=== PATIENT | female | born 1935 | race Caucasian/White ===

== ENCOUNTER 2016-04-09 10:27 | Inpatient (IN) | payer OTHER ==
[~2016-04-09] VITALS: Ht 157.5 cm; Wt 46.0 kg
[~2016-04-09 10:27] MED LIST: ALBU8.5H3 INH; ASPI-664 PO; ATOR10TA65 PO; CITA10TA84 PO; DOCU250C68 PO; ESOM40CA PO; FURO20TA3 PO; IBUP-1542 PO; LOSA50TA6 PO; METO50TA16 PO; ONDA4TAB14 PO; ZOLP5TAB6 PO
[2016-04-09] MEDS ORDERED: KETOROLAC 30 MG INJ IV STA (10:31)
[2016-04-09] MEDS ORDERED: LORA0.5T PO (10:56)
[2016-04-09] MEDS ORDERED: CLON1TAB3 PO (10:57)
--- NOTE | 2016-04-09 11:42 | RADRPT ---
PROCEDURE: XR Hand. CLINICAL INDICATION: Left hand pain. Status post fall. TECHNIQUE: Three views of the left hand were obtained. COMPARISON: No prior studies are available for comparison. FINDINGS: The bones of the hand appear intact, with no evidence of fracture, dislocation, or subluxation. The joint spaces are preserved. Bone mineralization is normal. Significant focal soft tissue swelling an d edema along the dorsum of the hand along the of the distal metacarpal head region is identified. Osteoarthritic degenerative change of the first carpal-metacarpal joint at the base of the left thum b is seen, mild in degree. IMPRESSION: 1. Diffuse bony demineralization. 2. 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 3. No fracture or dislocation or acute traumatic injury is identified. 4. Soft tissue swelling along the posterior dorsum of the hand. RPTAT: HMJB .Loi Ssoa MD, MD Date Time Electronically viewed and signed by .Loi Sosa MD, on 04/09/2016 11:42 .B/
--- NOTE | 2016-04-09 12:04 | RADRPT ---
PROCEDURE: CT Brain without contrast. CLINICAL INDICATION: trauma TECHNIQUE: Axial imaging was obtained of the head without intravenous contrast administration using a multi-slice CT scanner. Standard CT scan of the head without contrast protocols were performed.. The CTDIvol is 44.03 mGy and the DLP is 630.2 mGycm. COMPARISON: MRI of the brain 05/19/[address] angiogram of the head 05/19/2014. FINDINGS: The ventricular system and peripheral CSF spaces are proportionate prominent consistent with moderat e generalized cerebral atrophy. There is moderate periventricular deep white matter changes are non specific and consistent with chronic microischemic disease. there is encephalomalacia involving the left frontal and parietal lobes consistent with old infarct. Negative for intracranial masses hemo rrhages or midline shift. The bones of the calvarium are intact.The paranasal sinuses and mastoids a re unremarkable. IMPRESSION: 1. 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 2. Moderate nonspecific chronic microischemic changes and generalized cerebral atrophy. 3. Negative for intracranial masses hemorrhages or midline shift. RPTAT:AAJJ Physician Geovani Date Time Electronically viewed and signed by Physician Geovani on 04/09/2016 12:04 /
--- NOTE | 2016-04-09 12:06 | RADRPT ---
PROCEDURE: XR Hip. CLINICAL INDICATION: Trauma and pain TECHNIQUE: AP and frog lateral views of the right hip were performed. COMPARISON: None. FINDINGS: There is a comminuted right intertrochanteric fracture with varus deformity. There are no other fra ctures. No dislocation. The bones are osteopenic without focal bony blastic or lytic lesions. Dys trophic calcification involving the right gluteal region. The soft tissues are otherwise unremarkab le. IMPRESSION: Acute right intertrochanteric fracture with varus deformity as above. RPTAT:AAJJ Physician Geovani Date Time Electronically viewed and signed by Physician Geovani on 04/09/2016 12:05 /
--- NOTE | 2016-04-09 12:08 | RADRPT ---
PROCEDURE: Pelvis x-ray CLINICAL INDICATION: Trauma and pain TECHNIQUE: Single AP view of the pelvis performed. COMPARISON: None FINDINGS: There is a comminuted right intertrochanteric fracture with varus deformity better demonstrated on t he right hip series done the same day. The bones are osteopenic. Note there are questionable fractu res involving the right superior and inferior pubic rami. A complete pelvic series or CT scan of th e pelvis may be helpful for further evaluation. There are no other fractures. No dislocations. Dy strophic calcifications involving soft tissues of the right gluteal region. IMPRESSION: 1. Right intertrochanteric fracture with varus deformity better demonstrated on the right hip serie s. 2. Questionable fractures involving the right superior and inferior pubic rami. A complete pelvic series or CT scan of the pelvis may be helpful for further evaluation. 3. Severe osteopenia. RPTAT:AAJJ Physician Geovani Date Time Electronically viewed and signed by Physician Geovani on 04/09/2016 12:08 BM/
--- NOTE | 2016-04-09 12:12 | RADRPT ---
PROCEDURE: XR Chest. CLINICAL INDICATION: Syncope. History of trauma. TECHNIQUE: Single portable view of the chest was obtained COMPARISON: Chest 08/12/2015 FINDINGS: Correlation made to the previous chest 08/12/2015 allowing for differences in technique there is no significant change. The heart is mildly enlarged. There is no new spine mass congestion acute lung consolidation pleural effusion and pneumothorax. 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 The bones are osteopenic. There is atherosclerosis of thoracic aorta. IMPRESSION: 1. No significant change. 2. Mild cardiomegaly without evidence congestive heart failure, pneumonia or pneumothorax. RPTAT:AAJJ Physician Geovani Date Time Electronically viewed and signed by Yudy Dave Physician on 04/09/2016 12:12 /
[2016-04-09 12:16] LABS: BASOPHILS % 0.3 % (0.0-2.0); EOSINOPHILS # 0.1 10^3/ul (0.0-0.5); EOSINOPHILS % 0.6 % (0.0-7.0); HEMOGLOBIN 12.2 g/dl (12.0-16.0); LYMPHOCYTES # 1.3 10^3/ul (0.8-2.9); MEAN CORPUSCULAR HEMOGLOBIN 29.1 pg (29.0-33.0); MEAN CORPUSCULAR VOLUME 88.4 fl (82.0-101.0); MEAN PLATELET VOLUME 9.7 fl (7.4-10.4); MONOCYTE # 0.3 10^3/ul (0.3-0.9); MONOCYTES % 2.4 % (0.0-11.0); NEUTROPHIL # 9.9 10^3/ul (1.6-7.5); NEUTROPHILS % 85.7 % (39.0-77.0); PLATELET COUNT 123 10^3/UL (140-440); RED BLOOD COUNT 4.19 10^6/ul (4.20-5.40); RED CELL DISTRIBUTION WIDTH 14.7 % (11.5-14.5); UNCORRECTED WBC 11.5 10^3/ul (4.8-10.8); WHITE BLOOD COUNT 11.5 10^3/ul (4.8-10.8)
[2016-04-09 12:20] LABS: CONDITION 1; LH ANALYZER COMMENTS 1
[2016-04-09 12:36] LABS: INR 1.04; PROTIME 13.6 Sec (12.2-14.2); PT RATIO 1.1
[2016-04-09 12:37] LABS: PARTIAL THROMBOPLASTIN TIME 30.2 Sec (25.0-35.0)
[2016-04-09 12:40] LABS: CHLORIDE 100 mmol/L (97-110); POTASSIUM 4.2 mmol/L (3.5-5.1); SODIUM 143 mmol/L (135-144)
[2016-04-09 12:42] LABS: CREATININE 1.27 mg/dl (0.44-1.00)
[2016-04-09 12:43] LABS: ANION GAP 15 (8-16); BLOOD UREA NITROGEN 32 mg/dl (7-20); CARBON DIOXIDE 32 mmol/L (21-31); GLUCOSE 124 mg/dl (70-220)
--- NOTE | 2016-04-09 12:46 | ERA ---
ER Documentation Chief Complaint Date/Time DATE: 04/09/16 TIME: 1030 Chief Complaint BIB RA FOR GLF C/O RT HIP PAIN. HPI 80-year-old female presents to the emergency department by ambulance after a mechanical fall. Patient reports no syncope lightheadedness or loss of consciousness. She fell just prior to arrival and since then has been having severe right hip pain. Patient has been unable to bear weight on the hip. She currently reports the pain is a 7 out of 10. She has no other traumatic complaints at this time. ROS All systems reviewed and are negative except as per history of present illness. Medications Home Meds Reported Medications Clonazepam* (Clonazepam*) 1 Mg Tablet, 1 MG PO QHS Y for SLEEP, TAB 04/09/16 Lorazepam* (Lorazepam*) 0.5 Mg Tablet, 0.5 MG PO BID Y for ANXIETY, TAB 04/09/16 Atorvastatin Calcium (Atorvastatin Calcium) 10 Mg Tablet, 10 MG PO QHS, #30 TAB 02/14/16 Losartan Potassium* (Losartan Potassium*) 50 Mg Tablet, 50 MG PO DAILY, TAB 02/14/16 Metoprolol Succinate* (Toprol XL*) 50 Mg Tab.er.24h, 50 MG PO DAILY, #30 TAB 02/14/16 Furosemide* (Furosemide*) 20 Mg Tablet, 20 MG PO DAILY, #60 TAB 08/09/15 Citalopram Hydrobromide* (Citalopram Hydrobromide*) 10 Mg Tablet, 10 MG PO DAILY , TAB 04/05/14 Ibuprofen* (Ibuprofen*) 600 Mg Tablet, 600 MG PO Q8, TAB 04/05/14 Discontinued Reported Medications Aspirin (Low Dose Aspirin) 81 Mg Tablet.dr, 81 MG PO DAILY, #30 TAB 02/14/16 Zolpidem Tartrate* (Zolpidem Tartrate*) 5 Mg Tablet, 5 MG PO QHS Y for INSOMNIA , #30 TAB 02/14/16 Docusate Sodium* (Dok*) 250 Mg Capsule, 250 MG PO DAILY, #30 CAP 02/14/16 Esomeprazole Mag Trihydrate (Nexium) 40 Mg Capsule.dr, 40 MG PO DAILY, #30 CAP 02/14/16 Discontinued Scripts Ondansetron (Ondansetron Odt) 4 Mg Tab.rapdis, 4 MG PO Q6H Y for NAUSEA AND/OR VOMITING, #30 TAB Prov:DWAIN ROSALES MD 02/14/16 Ibuprofen* (Motrin*) 600 Mg Tab, 600 MG PO Q6H Y for PAIN AND OR ELEVATED TEMP, #30 TAB Prov:DWAIN ROSALES MD 02/14/16 Albuterol Sulfate* (Proair HFA*) 8.5 Gm Hfa.aer.ad, 2 PUFF INH Q4, #1 INHALER Prov:CANDY HUMPHREY MD 07/31/15 Allergies Allergies: Coded Allergies: Penicillins (Verified Allergy, Severe, RASHES, 04/09/16) morphine (Verified Allergy, Severe, RASHES,CONFUSED, 04/09/16) PMhx/Soc History of Surgery: Yes (pt stated gynecological surgery but unable to specify) Anesthesia Reaction: No Hx Neurological Disorder: No Hx Respiratory Disorders: Yes (ASTHMA, COPD) Hx Cardiac Disorders: Yes (CVA) Hx Psychiatric Problems: Yes (ANXIETY, DEPRESSION) Hx Miscellaneous Medical Probl: Yes (Htn,asthma,COPD,OA,diastolic heart failure ,hypothyroidism,carotid stenosis) Hx Alcohol Use: No Hx Substance Use: No Hx Tobacco Use: No Smoking Status: Never smoker FmHx Noncontributory for chief complaint Physical Exam Vitals Vital Signs Date Time Temp Pulse Resp B/P Pulse Ox O2 Delivery O2 Flow Rate FiO2 04/09/16 12:21 63 16 145/115 100 Room Air 04/09/16 10:33 97.8 67 18 165/75 95 Physical Exam GENERAL: Patient is a frail elderly female who is uncomfortable secondary to her hip pain HEENT: Pupils equal, round, and reactive to light. EOMI. There is no scleral icterus. No obvious trauma noted NECK: C-spine is soft and supple, there is no meningismus. There is no cervical lymphadenopathy. No obvious trauma noted LUNGS: Clear to auscultation bilaterally. There are no rales, wheezes or rhonchi. HEART: Regular rate and rhythm, no murmurs, clicks, rubs or gallops. ABDOMEN: Soft, non-tender, non-distended. There are bowel sounds in all four quadrants. No rebound or guarding. EXTREMITIES: Patient has shortening and external rotation of the right lower extremity. There is tenderness throughout the right hip. Left lower extremity is atrophic but atraumatic. The upper extremities have evidence of a contusion appreciated about the hand. No occasions of other significant trauma noted. NEURO: The patient moves all four extremities with 5/5 strength. Cranial nerves II - XII are intact. Normal gait. Alert and oriented SKIN: There is no apparent rash or petechiae. HEME/LYMPHATIC: There is no evidence of excessive bruising or lymphedema. PSYCHIATRIC: The patient does not appear anxious or depressed. Result Diagram: 04/09/16 1204 04/09/16 1204 Results 24 hrs Laboratory Tests Test 04/09/16 12:04 Activated Partial Thromboplast Time 30.2Sec Anion Gap 15 Basophils # 0.010^3/ul Basophils % 0.3% Blood Morphology Comment Blood Urea Nitrogen 32mg/dl Calcium Level 9.0mg/dl Carbon Dioxide Level 32mmol/L Chloride Level 100mmol/L Creatinine 1.27mg/dl Eosinophils # 0.110^3/ul Eosinophils % 0.6% Glucose Level 124mg/dl Hematocrit 37.0% Hemoglobin 12.2g/dl INR International Normalized Ratio 1.04 Lymphocytes # 1.310^3/ul Lymphocytes % 11.0% Mean Corpuscular Hemoglobin 29.1pg Mean Corpuscular Hemoglobin Concent 33.0g/dl Mean Corpuscular Volume 88.4fl Mean Platelet Volume 9.7fl Monocytes # 0.310^3/ul Monocytes % 2.4% Neutrophils # 9.910^3/ul Neutrophils % 85.7% Nucleated Red Blood Cells # 0.010^3/ul Nucleated Red Blood Cells % 0.0/100WBC Platelet Count 24836^3/UL Potassium Level 4.2mmol/L Prothrombin Time 13.6Sec Prothrombin Time Ratio 1.1 Red Blood Count 4.1910^6/ul Red Cell Distribution Width 14.7% Sodium Level 143mmol/L Troponin I Pending White Blood Count 11.510^3/ul Current Medications Medications (Trade) Dose Ordered Sig/Sd Route PRN Reason Start Time Stop Time Status Last Admin Dose Admin Ketorolac Tromethamine (Toradol) 30 mg ONCE STAT IV 04/09/16 10:31 04/09/16 10:33 DC 04/09/16 10:55 Procedures/MDM Patient was taken to a room, seen and evaluated. Comfort measures were initiated. Diagnostic tests were ordered and reviewed. 3 LEAD RHYTHM STRIP: Normal sinus rhythm without ectopy EK lead EKG reviewed by myself: Normal Sinus Rhythm Normal [place] and intervals No ST elevation, depression, or T wave inversion Impression: Normal EKG RADIOLOGY: reviewed with the radiologist CONSULTATION: Patient's insurance was involved with coordination of care for admission for operative management REEVALUATION: Pain has been adequately controlled and the patient is remained hemodynamically stable MEDICAL DECISION MAKING: Patient presents after a fall. From a trauma standpoint, patient has been evaluated for significant injury. Patient is evidence of an operative right hip injury that will require surgical repair. Fortunately, there is no negative other significant orthopedic thoracic or abdominal trauma From a medical standpoint, the fall seems to be related to a geriatric syndrome with multiple causes. I have reviewed medications and evaluated the patient for infection, electrolyte concerns, ischemia and other acute medical concerns. At this time, patient shows no obvious significant decompensated medical disease requiring further intervention. Patient will require admission for pain management and further treatment and likely operation. Departure Diagnosis: Primary Impression: Hip fracture Condition: JULIO CÉSAR Luciano Apr 09, 2016 12:46
[2016-04-09 12:56] LABS: TROPONIN-I < 0.010 ng/ml (0.00-0.12)
[2016-04-09 16:00] VITALS: Ht 157.5 cm; Wt 46.0 kg
[2016-04-09] MEDS ORDERED: ACETAMINOPHEN 325 MG TAB PO PRN (16:30)
[2016-04-09] MEDS ORDERED: hydrALAzine 20 MG INJ IV PRN (16:30)
[2016-04-09] MEDS ORDERED: NACL 0.9% 3 ML SYG IV SCH (16:30)
[2016-04-09] MEDS ORDERED: morphine 2 MG INJ IV PRN (16:30)
[2016-04-09] MEDS: HYDROCODONE/APAP (5/325) TAB PO PRN (17:12)
[2016-04-09] MEDS ORDERED: ALBUTEROL/IPRATROPIUM (NEB) 3 ML AMP HHN PRN (17:30)
[2016-04-09] MEDS: D5W-0.45 NACL + KCL 20 MEQ 1,000 ML IV SCH (17:38)
--- NOTE | 2016-04-09 17:43 | HP ---
DATE OF ADMISSION: 04/09/2016 CHIEF COMPLAINT: Right hip pain. HISTORY OF PRESENT ILLNESS: The patient is an 80-year-old female with history of COPD, hypertension . The patient presents with a mechanical fall and right hip pain. The patient has pain in the righ t hip. She presented to the ED, where she had a pelvic x-ray that showed a right hip fracture. Karissa dotsonsakinafranco was called in the ED. The patient did not complain of any significant pain at this time. She denies any loss of consciousness before or after the fall. The patient typically ambulates with a front-wheel walker. PAST MEDICAL HISTORY: Hypertension, COPD as well as a hospitalization in 07/2015 for COPD exacerbat ion and alpha hemolytic strep septicemia. PAST SURGICAL HISTORY: Hysterectomy and eye surgery. HOME MEDICATIONS: 1. Clonazepam. 2. Lorazepam. 3. Atorvastatin. 4. Losartan. 5. Metoprolol. 6. Furosemide. 7. Citalopram. 8. Ibuprofen. ALLERGIES: 1. PENICILLIN. 2. MORPHINE. FAMILY HISTORY: Noncontributory. SOCIAL HISTORY: Denies any alcohol, tobacco or drugs. She lives with her daughter. REVIEW OF SYSTEMS: A 12-point review of systems is negative except for that discussed in HPI. PHYSICAL EXAMINATION: VITAL SIGNS: Temperature is 97.8, pulse 68, respiratory rate 16, blood pressure 143/57, saturation 100% on room air. GENERAL: No acute distress, alert and oriented. HEENT: Normocephalic, atraumatic. LUNGS: Clear to auscultation. CARDIOVASCULAR: Regular rate and rhythm. ABDOMEN: Nondistended, nontender and soft. EXTREMITIES: No clubbing, cyanosis or edema. LABORATORY DATA: White count 11.5, hemoglobin is 12.2, platelets are 123. Chemistry within normal limits except for carbon dioxide 32, BUN of 32, creatinine of .27. Troponin is negative. INR is 1.04. DIAGNOSTICS: Pelvis x-ray shows a right intertrochanteric fracture with varus deformity, frac tures involving the right superior and inferior pubic rami. Hip x-ray shows acute right intertrocha nteric fracture with varus deformity. Hand x-ray shows diffuse bony demineralization, mild osteoart hritic degenerative changes of the base of the left thumb. No fracture, dislocation or acute trauma tic injury. Soft tissue swelling along the posterior dorsum of the head. CT brain shows old infarc ts involving left frontal and parietal lobes in the distribution of the left MCA and left FISHER LAMPARA NET. Mode rate nonspecific chronic micro ischemic changes and generalized cerebral atrophy. Negative for intr acranial mass, hemorrhage or midline shift. Chest x-ray shows no significant change, mild cardiomeg butch without evidence of CHF, pneumonia or pneumothorax. ASSESSMENT AND PLAN 1. Right hip fracture secondary to mechanical fall. Orthopedics has been consulted in the ER. Fol lowup with Orthopedic recommendations. We will give Toradol and morphine for pain control. 2. Hypertension. We will give hydralazine p.r.n. 3. Chronic obstructive pulmonary disease. We will give DuoNeb p.r.n. 4. Prophylaxis: Sequential compression devices. Dictated By: BERT FREED MD BS/NTS Conf#: [id number] DID#: [id number]
[2016-04-09 19:39] VITALS: BP 120/55; RESP 18
--- NOTE | 2016-04-09 20:23 | CONS ---
DATE OF ADMISSION: 04/09/2016 DATE OF CONSULTATION: 04/09/2016 CHIEF COMPLAINT: Right hip pain. HISTORY OF PRESENT ILLNESS: This is an 80-year-old female with multiple medical comorbidities who i s a community ambulator. She fell at home. She is complaining of pain in the right hip. She denie s any loss of consciousness. She has no other complaints. She denies any chest pain or shortness o f breath. PAST MEDICAL HISTORY: COPD, hypertension, hyperlipidemia. MEDICATIONS 1. Clonazepam. 2. Lorazepam. 3. Atorvastatin. 4. Losartan. 5. Metoprolol. 6. Furosemide. 7. Citalopram. 8. Ibuprofen. PAST SURGICAL HISTORY: Hysterectomy, eye surgery. FAMILY HISTORY: Noncontributory. SOCIAL HISTORY: The patient lives with her family. She ambulates with a walker. She denies alcoho l, tobacco or drug use. REVIEW OF SYSTEMS: Negative, except for HPI. VITAL SIGNS: Temperature 97.8, blood pressure 143/57, pulse of 68, respiratory rate of 16. GENERAL: The patient is resting comfortably, in no acute distress. EXTREMITIES: Right lower extremity, she has pain with axial loading. Her calf is soft, nontender w ith a negative Homans. Sensation is intact throughout the right lower extremity. She has a palpabl e dorsalis pedis pulse. X-RAYS RIGHT HIP: X-rays of the right hip demonstrate an oblique displaced intertrochanteric femur fracture. There is also a fracture of the lesser trochanter. There is degenerative joint disease m inimally of the right hip. No other fractures or dislocations are seen. IMPRESSION: An 80-year-old female who is a community ambulator fell sustaining a right oblique, dis placed, closed intertrochanteric femur fracture. PLAN: The patient will be nonweightbearing on the right lower extremity. She will have bilateral S CDs while in bed. She will receive medications for pain control. I discussed risks, benefits and a lternatives of surgical intervention. The risks of surgery include, but are not limited to, infecti on, deep venous thrombosis, pulmonary embolism, damage to neurovascular structures, malunion, nonuni on, need for revision surgery, painful hardware, risks associated with anesthesia, heart attack, str omar, need for blood transfusion and even . I also explained to the patient and her family that there is up to a 35% chance of 1 year mortality. After medical optimization, the patient will unde rgo a right hip open reduction/internal fixation. All questions were answered. Dictated By: AJAY ROSADO/FRANCOIS Conf#: [id number] DID#: [id number]
[2016-04-09] MEDS: KETOROLAC 15 MG INJ IV PRN (22:25)
[2016-04-09] MEDS: DIPHENHYDRAMINE 50 MG INJ IV PRN (23:57)
[2016-04-10] MEDS: PANTOPRAZOLE 40 MG INJ IV SCH (05:14)
[2016-04-10] MEDS: D5W-0.45 NACL + KCL 20 MEQ 1,000 ML IV SCH ×2 (05:15→16:11)
[2016-04-10 05:28] LABS: BASOPHILS % 0.3 % (0.0-2.0); EOSINOPHILS # 0.2 10^3/ul (0.0-0.5); EOSINOPHILS % 2.2 % (0.0-7.0); HEMATOCRIT 28.2 % (37.0-47.0); HEMOGLOBIN 9.5 g/dl (12.0-16.0); LYMPHOCYTES # 1.6 10^3/ul (0.8-2.9); LYMPHOCYTES % 20.9 % (15.0-51.0); MEAN CORPUSCULAR HEMOGLOBIN 29.7 pg (29.0-33.0); MEAN CORPUSCULAR HGB CONC 33.5 g/dl (32.0-37.0); MEAN CORPUSCULAR VOLUME 88.5 fl (82.0-101.0); MEAN PLATELET VOLUME 10.2 fl (7.4-10.4); MONOCYTE # 0.3 10^3/ul (0.3-0.9); MONOCYTES % 4.3 % (0.0-11.0); NEUTROPHIL # 5.4 10^3/ul (1.6-7.5); NEUTROPHILS % 72.3 % (39.0-77.0); PLATELET COUNT 95 10^3/UL (140-440); RED BLOOD COUNT 3.19 10^6/ul (4.20-5.40); RED CELL DISTRIBUTION WIDTH 14.6 % (11.5-14.5); UNCORRECTED WBC 7.5 10^3/ul (4.8-10.8); WHITE BLOOD COUNT 7.5 10^3/ul (4.8-10.8)
[2016-04-10 05:57] LABS: CONDITION 1; LH ANALYZER COMMENTS 1
[2016-04-10 06:01] LABS: CREATININE 1.72 mg/dl (0.44-1.00)
[2016-04-10 06:03] LABS: CHOL/HDL RATIO 2.9 RATIO
[2016-04-10 07:46] VITALS: BP 133/58; RESP 20
[2016-04-10] MEDS: KETOROLAC 15 MG INJ IV PRN ×3 (10:38→22:24)
--- NOTE | 2016-04-10 16:38 | PN ---
Date/Time of Note Date/Time of Note DATE: 04/10/16 TIME: 16:29 Assessment/Plan VTE Prophylaxis VTE Prophylaxis Intervention: SCD's Lines/Catheters IV Catheter Type (from Nrsg): Peripheral IV Assessment/Plan Chief Complaint/Hosp Course 1. Right hip fracture secondary to mechanical fall -Orthopedics consult appreciated, cont Toradol and morphine for pain control -Echo for pre-op clearance 2. Hypertension -Hydralazine p.r.n. 3. Chronic obstructive pulmonary disease -DuoNeb p.r.n. 4. Prophylaxis: Sequential compression devices. Problems: Subjective 24 Hr Interval Summary Constitutional: no complaints Exam/Review of Systems Vital Signs Vitals Vital Signs Date Time Temp Pulse Resp B/P Pulse Ox O2 Delivery O2 Flow Rate FiO2 04/10/16 07:46 98.5 72 20 133/58 97 04/09/16 14:29 Nasal Cannula 3.0 Intake and Output 04/09/16 04/09/16 04/10/16 15:00 23:00 07:00 Intake Total 400 ml 1200 ml Output Total 160 ml Balance 400 ml 1040 ml Exam Constitutional: alert Respiratory: clear to auscultation Cardiovascular: regular rate and rhythm Gastrointestinal: soft, No distended Musculoskeletal: nl extremities to inspection Results Result Diagram: 04/10/16 0445 04/10/16 0414 Results 24 hrs Laboratory Tests Test 04/10/16 04:14 04/10/16 04:45 Anion Gap 13 Blood Urea Nitrogen 37 H Calcium Level 8.0 L Carbon Dioxide Level 31 Chloride Level 103 Cholesterol Level 83 L Cholesterol/HDL Ratio 2.9 Creatinine 1.72 H Glucose Level 127 HDL Cholesterol 28 L LDL Cholesterol, Calculated 45 Magnesium Level 2.0 Phosphorus Level 4.0 Potassium Level 5.0 Sodium Level 142 Triglycerides Level 48 Basophils # 0.0 Basophils % 0.3 Blood Morphology Comment Eosinophils # 0.2 Eosinophils % 2.2 Hematocrit 28.2 #L Hemoglobin 9.5 #L Hemoglobin A1c 5.6 Lymphocytes # 1.6 Lymphocytes % 20.9 Mean Corpuscular Hemoglobin 29.7 Mean Corpuscular Hemoglobin Concent 33.5 Mean Corpuscular Volume 88.5 Mean Platelet Volume 10.2 Monocytes # 0.3 Monocytes % 4.3 Neutrophils # 5.4 Neutrophils % 72.3 Nucleated Red Blood Cells # 0.0 Nucleated Red Blood Cells % 0.0 Platelet Count 95 #L Red Blood Count 3.19 #L Red Cell Distribution Width 14.6 H White Blood Count 7.5 # Medications Medications Current Medications Potassium Chloride/Dextrose/ Sod Cl (D5-1/2ns + KCl 20 Meq) 1,000 ml @ 100 mls/ hr Q10H IV Last administered on 04/10/16 16:11; Admin Dose 100 MLS/HR; Start 04/09/16 at 16:23 Ondansetron HCl (Zofran Inj) 4 mg Q6H PRN IV NAUSEA AND/OR VOMITING; Start at 16:30 Acetaminophen (Tylenol Tab) 650 mg Q6H PRN PO PAIN LEVEL 1-3 OR FEVER; Start at 16:30 Acetaminophen/ Hydrocodone Bitart ([place] (5/325)) 1 tab Q6H PRN PO MODERATE PAIN LEVEL 4-6 Last administered on 04/09/16 17:12; Admin Dose 1 TAB; Start at 16:30 Morphine Sulfate (morphine) 2 mg Q3H PRN IV SEVERE PAIN LEVEL 7-10; Start 04/09 at 16:30 Docusate Sodium (Colace) 100 mg Q12H PRN PO CONSTIPATION; Start 04/09/16 at 16: 30 Pantoprazole (Protonix Iv) 40 mg DAILY@06 IV Last administered on 04/10/16 05: 14; Admin Dose 40 MG; Start 04/10/16 at 06:00 Hydralazine HCl (Apresoline) 10 mg Q4H PRN IV SBP>170; Start 04/09/16 at 16:30 Diphenhydramine HCl (Benadryl) 25 mg Q6H PRN IV ALLERGIC REACTION Last administered on 04/09/16 23:57; Admin Dose 25 MG; Start 04/09/16 at 17:00 Ketorolac Tromethamine (Toradol) 15 mg Q6H PRN IV SEVERE PAIN LEVEL 7-10 Last administered on 04/10/16 16:23; Admin Dose 15 MG; Start 04/09/16 at 17:30; Stop 04/12/16 at 17:29 BERT FREED Apr 10, 2016 16:38
[2016-04-10] MEDS: HYDROCODONE/APAP (5/325) TAB PO PRN (19:00)
[2016-04-10 20:40] VITALS: BP 143/63; RESP 20
[2016-04-11] VITALS (20 sets, daily range): BP systolic 101–152; BP diastolic 42–86; PULSE 82–106; RESP 13–31
[2016-04-11] MEDS: SOD CHLORIDE 0.9% 1,000 ML IV SCH ×3 (01:14→20:00)
[2016-04-11] MEDS: KETOROLAC 15 MG INJ IV PRN ×2 (04:27→10:31)
[2016-04-11 05:13] LABS: BASOPHILS % 0.4 % (0.0-2.0); EOSINOPHILS # 0.4 10^3/ul (0.0-0.5); EOSINOPHILS % 5.2 % (0.0-7.0); HEMATOCRIT 26.3 % (37.0-47.0); HEMOGLOBIN 8.7 g/dl (12.0-16.0); LYMPHOCYTES # 1.7 10^3/ul (0.8-2.9); LYMPHOCYTES % 20.8 % (15.0-51.0); MEAN CORPUSCULAR HEMOGLOBIN 29.6 pg (29.0-33.0); MEAN CORPUSCULAR HGB CONC 33.1 g/dl (32.0-37.0); MEAN CORPUSCULAR VOLUME 89.2 fl (82.0-101.0); MONOCYTE # 0.5 10^3/ul (0.3-0.9); MONOCYTES % 5.6 % (0.0-11.0); NEUTROPHIL # 5.7 10^3/ul (1.6-7.5); PLATELET COUNT 94 10^3/UL (140-440); RED BLOOD COUNT 2.95 10^6/ul (4.20-5.40); RED CELL DISTRIBUTION WIDTH 14.9 % (11.5-14.5); UNCORRECTED WBC 8.3 10^3/ul (4.8-10.8); WHITE BLOOD COUNT 8.3 10^3/ul (4.8-10.8)
[2016-04-11 05:17] LABS: CONDITION 1; LH ANALYZER COMMENTS 1
[2016-04-11 05:28] LABS: POTASSIUM 5.3 mmol/L (3.5-5.1)
[2016-04-11 05:31] LABS: CALCIUM 7.8 mg/dl (8.4-10.2); CREATININE 1.75 mg/dl (0.44-1.00)
[2016-04-11] MEDS: PANTOPRAZOLE 40 MG INJ IV SCH (06:10)
[2016-04-11] MEDS ORDERED: CEFAZOLIN 1 GM INJ ONE (07:00)
--- NOTE | 2016-04-11 13:53 | RADRPT ---
Echocardiogram Report Patient Name: GLENN BAUTISTA Gender: Female Date: 1935 Study Date: 11-Apr-2016 [facility] [employer] Agent: Satya Riggs [facility] Location: [id number] Ref. Physician: BERT FREED Quality: Good Procedures: Transthoracic echocardiogram with complete 2D, M-Mode, and doppler examination. Indications: Pre-op. 2D/M Mode Doppler Measurement Value Normal Ranges Measurement Value Normal Ranges LVIDd 2D 3.6 3.5 - 5.6 cm AV Peak [place] 1.4 m/sec LVIDs 2D 2.4 2.1 - 4.1 cm AV Peak PG 7.8 mmHg LVPWd 2D 0.8 0.6 - 1.1 cm LVOT Peak [place] 0.8 m/sec IVSd 2D 0.9 0.6 - 1.1 cm LVOT Peak PG 2.7 mmHg AoR Diam 2D 2.4 2.0 - 3.7 cm MV E Peak [place]son 0.6 m/sec EDV 2D 55.3 cm3 MV A Peak [place] 1.1 m/sec ESV 2D 13.6 cm3 MV E/A 0.5 LA Dimen 2D 2.8 2.3 - 4.0 cm MV Decel Time 116 msec MV Decel [place] 5 MV E/A 0.5 TR Peak [place]son 3.3 m/sec TR Peak PG 42.4 mmHg RVSP 45.0 mmHg Findings Left Ventricle: Normal left ventricular systolic function. Normal left ventricular cavity size. Normal left ventricular wall thickness. Ejection fraction is visually estimated at 60 %. Tissue Doppler/Mitral Doppler indices are consistent with impaired relaxation (Stage I diastolic dysfunction). Right Ventricle: Normal right ventricular size. Normal right ventricular systolic function. Left Atrium: The left atrium is normal in size. Right Atrium: The right atrium is normal in size. Mitral Valve: Mild mitral annular calcification. Trace mitral regurgitation. Aortic Valve: No hemodynamically significant aortic stenosis by doppler. Aortic cusps appear mildly calcified. Mild aortic valve regurgitation. Tricuspid Valve: Normal appearance of the tricuspid valve. Estimated peak PA systolic pressure 45 mmHg. There is mild tricuspid regurgitation. Pericardium: Normal pericardium with no significant pericardial effusion. Aorta: Normal aortic root. IVC: Normal size and normal respiratory collapse consistent with normal right atrial pressure. Conclusions 1.Normal left ventricular systolic function. Normal left ventricular cavity size. Normal left ventricular wall thickness. Ejection fraction is visually estimated at 60 %. Tissue Doppler/Mitral Doppler indices are consistent with impaired relaxation (Stage I diastolic dysfunction). 2.Normal right ventricular size. Normal right ventricular systolic function. 3.The left atrium is normal in size. 4.The right atrium is normal in size. 5.No hemodynamically significant aortic stenosis by doppler. Mild aortic valve regurgitation. 6. Estimated peak PA systolic pressure 45 mmHg. There is mild tricuspid regurgitation. 7.Trace mitral regurgitation. 8.Normal pericardium with no significant pericardial effusion. Electronically Signed By: William Slater 11-Apr-2016 13:52:53 -0800 Patient Name: GLENN BAUTISTA Study Date: 11-Apr-[id number]
--- NOTE | 2016-04-11 14:16 | PN ---
Date/Time of Note Date/Time of Note DATE: 04/11/16 TIME: 14:13 Assessment/Plan VTE Prophylaxis VTE Prophylaxis Intervention: SCD's Lines/Catheters IV Catheter Type (from Nrsg): Peripheral IV Assessment/Plan Chief Complaint/Hosp Course 1. Right hip fracture secondary to mechanical fall -Orthopedics consult appreciated, cont Toradol and morphine for pain control -Echo for pre-op clearance shows no sig findings, benefits of surgery and allowing pt to potentially ambulate outweigh the risks 2. Hypertension -Hydralazine p.r.n. 3. Chronic obstructive pulmonary disease -DuoNeb p.r.n. 4. Prophylaxis: Sequential compression devices. Problems: Subjective 24 Hr Interval Summary Musculoskeletal: bone/joint pain Exam/Review of Systems Vital Signs Vitals Vital Signs Date Time Temp Pulse Resp B/P Pulse Ox O2 Delivery O2 Flow Rate FiO2 04/11/16 11:46 Bag Valve Mask 2.0 04/11/16 08:02 98.7 89 18 133/72 99 Intake and Output 04/10/16 04/10/16 04/11/16 15:00 23:00 07:00 Intake Total 1460 ml 900 ml Output Total 250 ml 700 ml Balance 1210 ml 200 ml Exam Constitutional: alert, oriented Respiratory: clear to auscultation Cardiovascular: regular rate and rhythm Gastrointestinal: soft, No distended Musculoskeletal: nl extremities to inspection Results Result Diagram: 04/11/169 04/11/16 0409 Results 24 hrs Laboratory Tests Test 04/11/16 04:09 Anion Gap 11 Basophils # 0.0 Basophils % 0.4 Blood Morphology Comment Blood Urea Nitrogen 27 H Calcium Level 7.8 L Carbon Dioxide Level 27 Chloride Level 107 Creatinine 1.75 H Eosinophils # 0.4 Eosinophils % 5.2 Glucose Level 103 Hematocrit 26.3 L Hemoglobin 8.7 L Lymphocytes # 1.7 Lymphocytes % 20.8 Mean Corpuscular Hemoglobin 29.6 Mean Corpuscular Hemoglobin Concent 33.1 Mean Corpuscular Volume 89.2 Mean Platelet Volume 10.0 Monocytes # 0.5 Monocytes % 5.6 Neutrophils # 5.7 Neutrophils % 68.0 Nucleated Red Blood Cells # 0.0 Nucleated Red Blood Cells % 0.0 Platelet Count 94 L Potassium Level 5.3 H Red Blood Count 2.95 L Red Cell Distribution Width 14.9 H Sodium Level 140 White Blood Count 8.3 Medications Medications Current Medications Ondansetron HCl (Zofran Inj) 4 mg Q6H PRN IV NAUSEA AND/OR VOMITING; Start at 16:30 Acetaminophen (Tylenol Tab) 650 mg Q6H PRN PO PAIN LEVEL 1-3 OR FEVER; Start at 16:30 Acetaminophen/ Hydrocodone Bitart ([place] (5/325)) 1 tab Q6H PRN PO MODERATE PAIN LEVEL 4-6 Last administered on 04/10/16 19:00; Admin Dose 1 TAB; Start at 16:30 Morphine Sulfate (morphine) 2 mg Q3H PRN IV SEVERE PAIN LEVEL 7-10; Start 04/09 at 16:30 Docusate Sodium (Colace) 100 mg Q12H PRN PO CONSTIPATION; Start 04/09/16 at 16: 30 Pantoprazole (Protonix Iv) 40 mg DAILY@06 IV Last administered on 04/11/16 06: 10; Admin Dose 40 MG; Start 04/10/16 at 06:00 Hydralazine HCl (Apresoline) 10 mg Q4H PRN IV SBP>170; Start 04/09/16 at 16:30 Diphenhydramine HCl (Benadryl) 25 mg Q6H PRN IV ALLERGIC REACTION Last administered on 04/09/16 23:57; Admin Dose 25 MG; Start 04/09/16 at 17:00 Ketorolac Tromethamine 15 mg 15 mg Q6H PRN IV SEVERE PAIN LEVEL 7-10 Last administered on 04/11/16 10:31; Admin Dose 15 MG; Start 04/09/16 at 17:30; Stop 04/12/16 at 17:29 Sodium Chloride (NS) 1,000 ml @ 100 mls/hr Q10H IV Last administered on 10:23; Admin Dose 100 MLS/HR; Start 04/11/16 at 00:00 BERT FREED Apr 11, 2016 14:16
[2016-04-11] MEDS ORDERED: FUROSEMIDE 20 MG INJ IV ONE (15:00)
[2016-04-11] MEDS ORDERED: POLYMYXIN/BACITRACIN 1L IRRIG ONE (16:23)
[2016-04-11] MEDS ORDERED: MIDAZOLAM 1 MG/ML 2 ML INJ ONE (17:43)
[2016-04-11] MEDS ORDERED: FENTAnyl 50 MCG/ML VIAL ONE (17:43)
[2016-04-11] MEDS ORDERED: NEOSTIGMINE 3 MG/3 ML SYRINGE ONE (19:29)
[2016-04-11] MEDS ORDERED: ETOMIDATE 20 MG INJ ONE (19:29)
[2016-04-11] MEDS ORDERED: GLYCOPYRROLATE 1 MG INJ ONE (19:29)
[2016-04-11] MEDS ORDERED: ROCURONIUM 50 MG INJ ONE (19:29)
[2016-04-11] MEDS ORDERED: LIDOCAINE 2% (SDV) 5 ML INJ ONE (19:29)
[2016-04-11] MEDS ORDERED: ONDANSETRON 4 MG INJ IV PRN (19:30)
[2016-04-11] MEDS ORDERED: ONDANSETRON 4 MG INJ ONE (19:30)
[2016-04-11] MEDS ORDERED: ALBUTEROL 0.5% (NEB) 2.5 MG/0.5 ML AMP INH ONE (19:30)
[2016-04-11] MEDS ORDERED: EPHEDrine SULFATE 50 MG/5 ML SYG IV PRN (19:30)
[2016-04-11] MEDS ORDERED: DIPHENHYDRAMINE 50 MG INJ IV PRN (19:30)
[2016-04-11] MEDS ORDERED: FENTAnyl 50 MCG/ML VIAL IV PRN (19:30)
--- NOTE | 2016-04-11 20:22 | RADRPT ---
PROCEDURE: XR Right Hip CLINICAL INDICATION: Postop TECHNIQUE: 2 AP views were obtained of the right hip portably COMPARISON: 04/09/2016 FINDINGS: Osseous structures: Since the previous study, a proximal femoral male is been placed to internally f ixed the basocervical and intratrochanteric fracture involving the proximal right femur. There is i mproved alignment at the base of the femoral neck while the lesser trochanter remains avulsed and di splaced proximally. There is a fracture of uncertain chronicity involving the right inferior pubic r amus. Degenerative changes are seen within the inferior lumbar spine. Joint spaces: There is narrowing of the hip joint compatible with mild degenerative change. Soft tissues: Injection slight granulomata are seen within the right gluteal region. There is subcu taneous air along the right femur and superficial ciara been placed. A Jean catheter is evident. IMPRESSION: 1. Improved positioning alignment of the comminuted basocervical and intratrochanteric fracture fra gments involving the proximal right femur which of the internally fixed by means of a proximal femor al male. The lesser trochanter remains avulsed and displaced proximally. 2. Fracture of uncertain chronicity involving the right inferior pubic ramus. 3. Osteoporosis with degenerative changes of the lumbosacral junction. 4. Subcutaneous air is evident and superficial ciara been placed. Physician Sonu Date Time Electronically viewed and signed by Physician Sonu on 04/11/2016 20:21 /
--- NOTE | 2016-04-11 20:23 | RADRPT ---
PROCEDURE: CR Right Knee CLINICAL INDICATION: Postop TECHNIQUE: AP and lateral portable views were obtained. COMPARISON: None FINDINGS: Osseous Structures: An intramedullary nail extends through the right femoral shaft. The osseous richi ments appear rarefied but intact. Join Spaces: The joint spaces are well maintained. No joint effusion is identified. Soft Tissues: Subcutaneous air is seen within the soft tissues of the lateral thigh and superficial ciara are evident. IMPRESSION: 1. Intramedullary nail seen in the right femoral shaft. 2. Subcutaneous air and superficial ciara are seen laterally. Physician Sonu Date Time Electronically viewed and signed by Physician Sonu on 04/11/2016 20:23 /
--- NOTE | 2016-04-11 20:26 | RADRPT ---
PROCEDURE: RF right Femur CLINICAL INDICATION: ORIF TECHNIQUE: X-ray images were obtained intraoperatively during a right ankle ORIF procedure. COMPARISON: None available FINDINGS: 10 images were obtained intraoperatively for localization during a right hip ORIF procedure. The pr ocedure was performed by Dr. Cesar. Images were obtained for localization intraoperatively. 121. 3 seconds of fluoroscopy time was utilized for the procedure. IMPRESSION: 1. Xray images obtained intraoperatively for localization during a right hip/femur ORIF procedure. Physician Sonu Date Time Electronically viewed and signed by Paras Jordan Physician on 04/11/2016 20:25 RH/
[2016-04-11] MEDS: ASPIRIN 325 MG TAB PO SCH (21:22)
[2016-04-11] MEDS: CEFAZOLIN 1 GM/50 ML (PMX) 50 ML IVPB SCH (21:22)
[2016-04-11] MEDS: ONDANSETRON 4 MG INJ IV PRN (22:08)
[2016-04-11] MEDS: HYDROCODONE/APAP (5/325) TAB PO PRN (23:54)
[2016-04-12] MEDS: SOD CHLORIDE 0.9% 1,000 ML IV SCH ×3 (05:23→20:57)
[2016-04-12] MEDS: HYDROCODONE/APAP (5/325) TAB PO PRN ×2 (05:24→11:41)
[2016-04-12] MEDS: PANTOPRAZOLE 40 MG INJ IV SCH (05:29)
[2016-04-12] MEDS: CEFAZOLIN 1 GM/50 ML (PMX) 50 ML IVPB SCH (05:29)
[2016-04-12 05:36] LABS: POTASSIUM 4.8 mmol/L (3.5-5.1)
[2016-04-12 05:39] VITALS: BP 113/57; PULSE 104; RESP 18
[2016-04-12 05:39] LABS: CREATININE 1.42 mg/dl (0.44-1.00)
[2016-04-12 05:40] LABS: CALCIUM 7.3 mg/dl (8.4-10.2)
[2016-04-12] MEDS: ONDANSETRON 4 MG INJ IV PRN ×3 (05:47→20:52)
[2016-04-12 06:29] LABS: HEMATOCRIT 20.7 % (37.0-47.0); MEAN CORPUSCULAR HEMOGLOBIN 29.9 pg (29.0-33.0); MEAN CORPUSCULAR HGB CONC 33.5 g/dl (32.0-37.0); MEAN CORPUSCULAR VOLUME 89.2 fl (82.0-101.0); MEAN PLATELET VOLUME 10.3 fl (7.4-10.4); PLATELET COUNT 91 10^3/UL (140-440); RED BLOOD COUNT 2.31 10^6/ul (4.20-5.40); RED CELL DISTRIBUTION WIDTH 14.8 % (11.5-14.5); UNCORRECTED WBC 9.2 10^3/ul (4.8-10.8); WHITE BLOOD COUNT 9.2 10^3/ul (4.8-10.8)
[2016-04-12 07:07] LABS: CONDITION 1; LH ANALYZER COMMENTS 1
[2016-04-12 07:09] LABS: HEMOGLOBIN 6.9 g/dl (12.0-16.0)
[2016-04-12 07:48] VITALS: BP 97/45; RESP 19
[2016-04-12] MEDS: KETOROLAC 15 MG INJ IV PRN ×2 (08:01→17:21)
[2016-04-12] MEDS: ASPIRIN 325 MG TAB PO SCH ×2 (09:07→20:52)
[2016-04-12 10:19] LABS: EOSINOPHILS # 0.7 10^3/ul (0.0-0.5); LYMPHOCYTES # 1.1 10^3/ul (0.8-2.9); MONOCYTE # 0.3 10^3/ul (0.3-0.9); NEUTROPHIL # 5.8 10^3/ul (1.6-7.5)
--- NOTE | 2016-04-12 12:27 | OPR ---
DATE OF OPERATION: 04/11/2016 PREOPERATIVE DIAGNOSIS: Right intertrochanteric femur fracture. POSTOPERATIVE DIAGNOSIS: Right intertrochanteric femur fracture. OPERATION PERFORMED: Right hip cephalomedullary nailing. SURGEON: Ajay Spicer MD CUSTOMER EXPERIENCE RETAIL CLERK: None. ANESTHESIOLOGIST: Shayan Beltran MD ANESTHESIA: General. ESTIMATED BLOOD LOSS: 200 mL COMPLICATIONS: None. SPECIMEN: None. DISPOSITION: To PACU in stable condition. IMPLANT USED: [place] gamma nail size 10 x 320 mm with an 85 mm lag screw and 42.5 mm distal lockin g screw. INDICATIONS FOR PROCEDURE: This is an 80-year-old female who fell, sustaining a ____ displaced inte rtrochanteric femur fracture. Risks, benefits, alternatives of surgical intervention were discussed with the patient, and informed consent was obtained. The risks of the surgery include but are not limited to infection, deep venous thrombosis, pulmonary embolism, damage to neurovascular structures, malunion, nonunion, need for revision surgery, hardwa re prominence, need for hardware removal, heart attack, stroke, need for blood transfusion and even . DETAILS OF PROCEDURE: The patient was met in the preoperative suite. The correct operative site wa s confirmed and marked. She was then brought into the operating room. After induction of general a nesthesia, she was placed in a supine position on the fracture table. The right hip was then reduce d on the fracture table. The right lower extremity was then prepped and draped in the usual sterile fashion. Before starting, a timeout was taken to identify the correct operative site and confirm t hat preoperative antibiotic consisting of 1 gram of IV Ancef was administered. At this point, a sma ll incision was made proximal to the greater trochanter. The guidewire was placed at the tip of the greater trochanter in line with the femoral shaft in both AP and lateral planes. It was then advan hari to the lesser trochanter, and the soft tissue protection sleeve was advanced over the guidewire. The opening reamer was then placed over the guidewire. Next, a ball-tip guidewire was then placed into femoral canal and measured to be 330 mm. Sequential reaming was begun with a 10 mm reamer, go ing up to a 12 mm reamer for a size 10 mm nail. The nail was then advanced over the guidewire. It was confirmed to be in the appropriate position in both AP and lateral planes with the fracture redu hari. There was cortical contact noted on x-ray. A small incision was made for the lag screw. The trocar was placed over the lateral cortex, and the guidewire was then placed in the center-center po sition in both AP and lateral planes. It was then measured to 85 mm. The reamer was then advanced over the guidewire, and the appropriate sized 85 mm lag screw was then placed over the guidewire and confirmed to be in the correct position in both AP and lateral planes in the center position within the subchondral bone. At this point, using the perfect [place] tribes method, a small stab incision was ma de for the distal static hole, and the trocar was then advanced. The drill was then placed bicortic ally and measured to be 42.5 mm. The appropriate sized screw was then placed and confirmed to be wi thin the static hole in both AP and lateral planes. Final x-rays were taken which demonstrated that the fracture was reduced in acceptable anatomic alignment with cortical contact. The lag screw was noted to be in the center-center position in both AP and lateral planes. The wounds were thoroughl y irrigated. The fascia was closed using #1 Vicryl in interrupted [id number] fashion followed by closure of the subcutaneous tissue with 2 Vicryl and the skin with ciara. Sterile dressing was applied. There were no complications. The patient was transferred to the PACU in stable condition . POSTOPERATIVE CARE: The patient will be weightbearing as tolerated. She will work with [employer]. She will receive 2 additional doses of 1 gram of IV Ancef. She will receive aspirin 325 mg b.i.d. for 6 weeks for DVT prophylaxis in addition to SCDs while in bed. She will work with [employer]. Upon discharge, she will follow up in my office within 2 weeks postoperatively. Dictated By: AJAY ROSADO/FRANCOIS Conf#: [id number] DID#: [id number]
--- NOTE | 2016-04-12 15:00 | PN ---
Date/Time of Note Date/Time of Note DATE: 04/12/16 TIME: 14:58 Assessment/Plan VTE Prophylaxis VTE Prophylaxis Intervention: SCD's Lines/Catheters IV Catheter Type (from Nrsg): Peripheral IV Assessment/Plan Chief Complaint/Hosp Course 1. Right hip fracture secondary to mechanical fall s/p Surgical repair POD- 1 -Orthopedics consult appreciated, cont Toradol and morphine for pain control -PT eval per Ortho, CM to assist with SNF placement 2. Hypertension -Hydralazine p.r.n. 3. Chronic obstructive pulmonary disease -DuoNeb p.r.n. 4. Prophylaxis: Sequential compression devices. Problems: Subjective 24 Hr Interval Summary Musculoskeletal: bone/joint pain Exam/Review of Systems Vital Signs Vitals Vital Signs Date Time Temp Pulse Resp B/P Pulse Ox O2 Delivery O2 Flow Rate FiO2 04/12/16 08:00 Nasal Cannula 2.0 04/12/16 07:48 97.7 114 19 97/45 100 Intake and Output 04/11/16 04/11/16 04/12/16 15:00 23:00 07:00 Intake Total 350 ml 1350 ml 1410 ml Output Total 550 ml 450 ml Balance 350 ml 800 ml 960 ml Exam Constitutional: alert Respiratory: clear to auscultation Cardiovascular: regular rate and rhythm Gastrointestinal: soft, No distended Musculoskeletal: nl extremities to inspection Results Result Diagram: 04/12/16 0415 04/12/16 0500 Results 24 hrs Laboratory Tests Test 04/12/16 04:15 04/12/16 05:00 Band Neutrophils % 14.0 H Basophils # Basophils % Blood Morphology Comment Differential Comment MANUAL DIFF Eosinophils # 0.7 H Eosinophils % 8.0 H Hematocrit 20.7 #L Hemoglobin 6.9 #*L Lymphocytes # 1.1 Lymphocytes % 12.0 L Mean Corpuscular Hemoglobin 29.9 Mean Corpuscular Hemoglobin Concent 33.5 Mean Corpuscular Volume 89.2 Mean Platelet Volume 10.3 Monocytes # 0.3 Monocytes % 3.0 Neutrophils # 5.8 Neutrophils % 63.0 Nucleated Red Blood Cells # Nucleated Red Blood Cells % Platelet Count 91 L Red Blood Count 2.31 #L Red Cell Distribution Width 14.8 H White Blood Count 9.2 Anion Gap 16 Blood Urea Nitrogen 25 H Calcium Level 7.3 L Carbon Dioxide Level 23 Chloride Level 107 Creatinine 1.42 H Glucose Level 111 Potassium Level 4.8 Sodium Level 141 Medications Medications Current Medications Ondansetron HCl (Zofran Inj) 4 mg Q6H PRN IV NAUSEA AND/OR VOMITING Last administered on 04/12/16 13:36; Admin Dose 4 MG; Start 04/09/16 at 16:30 Acetaminophen (Tylenol Tab) 650 mg Q6H PRN PO PAIN LEVEL 1-3 OR FEVER; Start at 16:30 Acetaminophen/ Hydrocodone Bitart ([place] (5/325)) 1 tab Q6H PRN PO MODERATE PAIN LEVEL 4-6 Last administered on 04/12/16 11:41; Admin Dose 1 TAB; Start at 16:30 Morphine Sulfate (morphine) 2 mg Q3H PRN IV SEVERE PAIN LEVEL 7-10; Start 04/09 at 16:30 Docusate Sodium (Colace) 100 mg Q12H PRN PO CONSTIPATION; Start 04/09/16 at 16: 30 Pantoprazole (Protonix Iv) 40 mg DAILY@06 IV Last administered on 04/12/16 05: 29; Admin Dose 40 MG; Start 04/10/16 at 06:00 Hydralazine HCl (Apresoline) 10 mg Q4H PRN IV SBP>170; Start 04/09/16 at 16:30 Diphenhydramine HCl (Benadryl) 25 mg Q6H PRN IV ALLERGIC REACTION Last administered on 04/09/16 23:57; Admin Dose 25 MG; Start 04/09/16 at 17:00 Ketorolac Tromethamine 15 mg 15 mg Q6H PRN IV SEVERE PAIN LEVEL 7-10 Last administered on 04/12/16 08:01; Admin Dose 15 MG; Start 04/09/16 at 17:30; Stop 04/12/16 at 17:29 Sodium Chloride (NS) 1,000 ml @ 100 mls/hr Q10H IV Last administered on 05:23; Admin Dose 100 MLS/HR; Start 04/11/16 at 00:00 Aspirin (Aspirin) 325 mg BID PO Last administered on 04/12/16 09:07; Admin Dose 325 MG; Start 04/11/16 at 21:00; Stop 05/23/16 at 20:59 BERT FREED Apr 12, 2016 15:00
[2016-04-12 16:34] LABS: BASOPHILS % 0.1 % (0.0-2.0); EOSINOPHILS # 0.2 10^3/ul (0.0-0.5); EOSINOPHILS % 2.6 % (0.0-7.0); HEMATOCRIT 28.9 % (37.0-47.0); HEMOGLOBIN 9.6 g/dl (12.0-16.0); LYMPHOCYTES % 10.4 % (15.0-51.0); MEAN CORPUSCULAR HEMOGLOBIN 29.9 pg (29.0-33.0); MEAN CORPUSCULAR HGB CONC 33.3 g/dl (32.0-37.0); MEAN CORPUSCULAR VOLUME 89.8 fl (82.0-101.0); MEAN PLATELET VOLUME 9.8 fl (7.4-10.4); MONOCYTE # 0.4 10^3/ul (0.3-0.9); MONOCYTES % 4.1 % (0.0-11.0); NEUTROPHIL # 7.7 10^3/ul (1.6-7.5); NEUTROPHILS % 82.8 % (39.0-77.0); RED BLOOD COUNT 3.21 10^6/ul (4.20-5.40); RED CELL DISTRIBUTION WIDTH 14.1 % (11.5-14.5); UNCORRECTED WBC 9.3 10^3/ul (4.8-10.8); WHITE BLOOD COUNT 9.3 10^3/ul (4.8-10.8)
[2016-04-12 16:50] LABS: CONDITION 1; PLATELET COUNT 86 10^3/UL (140-440)
[2016-04-12 19:26] VITALS: BP 132/60; RESP 20
[2016-04-12] MEDS: DOCUSATE SODIUM 100 MG CAP PO PRN (22:57)
[2016-04-13] MEDS: DIPHENHYDRAMINE 50 MG INJ IV PRN ×2 (02:16→19:05)
[2016-04-13 05:35] LABS: BASOPHILS % 0.3 % (0.0-2.0); EOSINOPHILS # 0.3 10^3/ul (0.0-0.5); EOSINOPHILS % 3.2 % (0.0-7.0); HEMOGLOBIN 8.8 g/dl (12.0-16.0); LYMPHOCYTES # 1.4 10^3/ul (0.8-2.9); LYMPHOCYTES % 15.2 % (15.0-51.0); MEAN CORPUSCULAR HEMOGLOBIN 30.5 pg (29.0-33.0); MEAN CORPUSCULAR HGB CONC 33.8 g/dl (32.0-37.0); MEAN CORPUSCULAR VOLUME 90.2 fl (82.0-101.0); MEAN PLATELET VOLUME 9.7 fl (7.4-10.4); MONOCYTE # 0.4 10^3/ul (0.3-0.9); MONOCYTES % 4.6 % (0.0-11.0); NEUTROPHIL # 7.2 10^3/ul (1.6-7.5); NEUTROPHILS % 76.7 % (39.0-77.0); PLATELET COUNT 95 10^3/UL (140-440); RED BLOOD COUNT 2.89 10^6/ul (4.20-5.40); RED CELL DISTRIBUTION WIDTH 14.3 % (11.5-14.5); UNCORRECTED WBC 9.4 10^3/ul (4.8-10.8); WHITE BLOOD COUNT 9.4 10^3/ul (4.8-10.8)
[2016-04-13 06:02] LABS: CONDITION 1
[2016-04-13] MEDS: PANTOPRAZOLE 40 MG INJ IV SCH (06:06)
[2016-04-13 06:09] LABS: POTASSIUM 4.5 mmol/L (3.5-5.1)
[2016-04-13 06:11] LABS: CREATININE 1.72 mg/dl (0.44-1.00)
[2016-04-13 06:12] LABS: CALCIUM 7.6 mg/dl (8.4-10.2)
[2016-04-13 07:27] VITALS: BP 136/60; RESP 18
[2016-04-13] MEDS: SOD CHLORIDE 0.9% 1,000 ML IV SCH ×2 (09:58→23:19)
[2016-04-13] MEDS: HYDROCODONE/APAP (5/325) TAB PO PRN ×3 (09:58→20:57)
[2016-04-13] MEDS: ASPIRIN 325 MG TAB PO SCH ×2 (09:58→20:58)
--- NOTE | 2016-04-13 12:52 | PN ---
Date/Time of Note Date/Time of Note DATE: 04/13/16 TIME: 12:51 Assessment/Plan VTE Prophylaxis VTE Prophylaxis Intervention: SCD's Lines/Catheters IV Catheter Type (from Nrsg): Peripheral IV Assessment/Plan Chief Complaint/Hosp Course 1. Right hip fracture secondary to mechanical fall s/p Surgical repair POD- 2 -Orthopedics consult appreciated, cont Toradol and morphine for pain control -PT eval, CM to assist with SNF placement 2. Hypertension -Hydralazine p.r.n. 3. Chronic obstructive pulmonary disease -DuoNeb p.r.n. 4. Prophylaxis: Sequential compression devices. Problems: Subjective 24 Hr Interval Summary Musculoskeletal: bone/joint pain Exam/Review of Systems Vital Signs Vitals Vital Signs Date Time Temp Pulse Resp B/P Pulse Ox O2 Delivery O2 Flow Rate FiO2 04/13/16 09:33 3.0 04/13/16 07:27 98.4 104 18 136/60 100 04/12/16 08:00 Nasal Cannula Intake and Output 04/12/16 04/12/16 04/13/16 15:00 23:00 07:00 Intake Total 1170 ml 1460 ml Output Total 300 ml 500 ml Balance 870 ml 960 ml Exam Constitutional: alert Respiratory: clear to auscultation Cardiovascular: regular rate and rhythm Gastrointestinal: soft, No distended Musculoskeletal: nl extremities to inspection Results Result Diagram: 04/13/16 0429 04/13/16 0429 Results 24 hrs Laboratory Tests Test 04/12/16 16:10 04/13/16 04:29 Basophils # 0.0 0.0 Basophils % 0.1 0.3 Blood Morphology Comment Eosinophils # 0.2 0.3 Eosinophils % 2.6 3.2 Hematocrit 28.9 #L 26.0 L Hemoglobin 9.6 #L 8.8 L Lymphocytes # 1.0 1.4 Lymphocytes % 10.4 L 15.2 Mean Corpuscular Hemoglobin 29.9 30.5 Mean Corpuscular Hemoglobin Concent 33.3 33.8 Mean Corpuscular Volume 89.8 90.2 Mean Platelet Volume 9.8 9.7 Monocytes # 0.4 0.4 Monocytes % 4.1 4.6 Neutrophils # 7.7 H 7.2 Neutrophils % 82.8 H 76.7 Nucleated Red Blood Cells # 0.0 0.0 Nucleated Red Blood Cells % 0.0 0.0 Platelet Count 86 L 95 L Red Blood Count 3.21 #L 2.89 L Red Cell Distribution Width 14.1 14.3 White Blood Count 9.3 9.4 Anion Gap 13 Blood Urea Nitrogen 26 H Calcium Level 7.6 L Carbon Dioxide Level 23 Chloride Level 111 H Creatinine 1.72 H Glucose Level 103 Potassium Level 4.5 Sodium Level 142 Medications Medications Current Medications Ondansetron HCl (Zofran Inj) 4 mg Q6H PRN IV NAUSEA AND/OR VOMITING Last administered on 04/12/16 20:52; Admin Dose 4 MG; Start 04/09/16 at 16:30 Acetaminophen (Tylenol Tab) 650 mg Q6H PRN PO PAIN LEVEL 1-3 OR FEVER; Start at 16:30 Acetaminophen/ Hydrocodone Bitart ([place] (5/325)) 1 tab Q6H PRN PO MODERATE PAIN LEVEL 4-6 Last administered on 04/13/16 09:58; Admin Dose 1 TAB; Start at 16:30 Morphine Sulfate (morphine) 2 mg Q3H PRN IV SEVERE PAIN LEVEL 7-10; Start 04/09 at 16:30 Docusate Sodium (Colace) 100 mg Q12H PRN PO CONSTIPATION Last administered on 22:57; Admin Dose 100 MG; Start 04/09/16 at 16:30 Pantoprazole (Protonix Iv) 40 mg DAILY@06 IV Last administered on 04/13/16 06: 06; Admin Dose 40 MG; Start 04/10/16 at 06:00 Hydralazine HCl (Apresoline) 10 mg Q4H PRN IV SBP>170; Start 04/09/16 at 16:30 Diphenhydramine HCl 25 mg 25 mg Q6H PRN IV ALLERGIC REACTION Last administered on 04/13/16 02:16; Admin Dose 25 MG; Start 04/09/16 at 17:00 Sodium Chloride (NS) 1,000 ml @ 100 mls/hr Q10H IV Last administered on 09:58; Admin Dose 100 MLS/HR; Start 04/11/16 at 00:00 Aspirin (Aspirin) 325 mg BID PO Last administered on 04/13/16 09:58; Admin Dose 325 MG; Start 04/11/16 at 21:00; Stop 05/23/16 at 20:59 BERT FREED Apr 13, 2016 12:51
[2016-04-13] MEDS ORDERED: HYDROCODONE/APAP (5/325) TAB PO PRN (17:00)
[2016-04-13 21:02] VITALS: BP 143/62; RESP 19
--- NOTE | 2016-04-14 02:04 | RADRPT ---
PROCEDURE: XR Chest. CLINICAL INDICATION: sob TECHNIQUE: Single frontal chest x-ray. COMPARISON: 04/09/2016 FINDINGS: The heart does not appear to be grossly enlarged. There is appearance of new pulmonary vascular con gestion and diffuse bilateral increased interstitial lung densities with confluence in the lower bubba gs consistent with pulmonary edema and likely small pleural effusions appearing since previous study . Calcification in the aortic arch. The patient is rotated to the left. Appearance of thoracic rosey tebral body compression fractures. IMPRESSION: Consistent with congestive heart failure, pulmonary edema and small pleural effusions appearing sinc e previous study. RPTAT: HJES .Angel Farmer MD, MD Date Time Electronically viewed and signed by .Angel Farmer MD, MD on 04/14/2016 02:03 .S/
[2016-04-14] MEDS ORDERED: FUROSEMIDE 20 MG INJ IV ONE (03:30)
[2016-04-14 05:50] LABS: BASOPHILS % 0.4 % (0.0-2.0); EOSINOPHILS # 0.4 10^3/ul (0.0-0.5); EOSINOPHILS % 5.1 % (0.0-7.0); HEMOGLOBIN 8.1 g/dl (12.0-16.0); LYMPHOCYTES # 1.4 10^3/ul (0.8-2.9); LYMPHOCYTES % 18.1 % (15.0-51.0); MEAN CORPUSCULAR HEMOGLOBIN 30.5 pg (29.0-33.0); MEAN CORPUSCULAR HGB CONC 33.6 g/dl (32.0-37.0); MEAN CORPUSCULAR VOLUME 90.6 fl (82.0-101.0); MEAN PLATELET VOLUME 9.2 fl (7.4-10.4); MONOCYTE # 0.3 10^3/ul (0.3-0.9); MONOCYTES % 4.1 % (0.0-11.0); NEUTROPHIL # 5.6 10^3/ul (1.6-7.5); NEUTROPHILS % 72.3 % (39.0-77.0); PLATELET COUNT 111 10^3/UL (140-440); POTASSIUM 3.7 mmol/L (3.5-5.1); RED BLOOD COUNT 2.66 10^6/ul (4.20-5.40); RED CELL DISTRIBUTION WIDTH 14.6 % (11.5-14.5); UNCORRECTED WBC 7.7 10^3/ul (4.8-10.8); WHITE BLOOD COUNT 7.7 10^3/ul (4.8-10.8)
[2016-04-14 05:53] LABS: CREATININE 1.67 mg/dl (0.44-1.00)
[2016-04-14 05:54] LABS: CALCIUM 7.8 mg/dl (8.4-10.2)
[2016-04-14] MEDS: FUROSEMIDE 20 MG INJ IV SCH (05:57)
[2016-04-14] MEDS: PANTOPRAZOLE 40 MG INJ IV SCH (05:57)
[2016-04-14 06:05] LABS: CONDITION 1; LH ANALYZER COMMENTS 1
[2016-04-14 06:30] VITALS: BP 133/75; PULSE 104; RESP 18
[2016-04-14 07:47] VITALS: BP 147/67; RESP 19
[2016-04-14] MEDS ORDERED: INFLUENZA VIRUS VACCINE 0.5 ML SYG IM* ONE (09:00)
[2016-04-14] MEDS: ASPIRIN 325 MG TAB PO SCH ×2 (09:01→21:11)
[2016-04-14] MEDS: HYDROCODONE/APAP (5/325) TAB PO PRN ×2 (09:02→15:12)
--- NOTE | 2016-04-14 17:29 | PN ---
Date/Time of Note Date/Time of Note DATE: 04/14/16 TIME: 17:28 Assessment/Plan VTE Prophylaxis VTE Prophylaxis Intervention: SCD's Lines/Catheters IV Catheter Type (from Nrsg): Peripheral IV Assessment/Plan Chief Complaint/Hosp Course 1. Right hip fracture secondary to mechanical fall s/p Surgical repair POD- 2 -Orthopedics consult appreciated, cont Toradol and morphine for pain control -PT eval, CM to assist with SNF placement 2. Hypertension -Hydralazine p.r.n. 3. Chronic obstructive pulmonary disease -DuoNeb p.r.n. 4. Pulm edema with nl EF -Lasix IV Dispo- CM to arrange for SNF placement Prophylaxis: Sequential compression devices. Problems: Subjective 24 Hr Interval Summary Musculoskeletal: bone/joint pain Exam/Review of Systems Vital Signs Vitals Vital Signs Date Time Temp Pulse Resp B/P Pulse Ox O2 Delivery O2 Flow Rate FiO2 04/14/16 12:52 3.0 04/14/16 08:00 Nasal Cannula 04/14/16 07:47 98.9 98 19 147/67 100 Intake and Output 04/13/16 04/13/16 04/14/16 15:00 23:00 07:00 Intake Total 1740 ml 350 ml Output Total 1300 ml 1250 ml Balance 440 ml -900 ml Exam Constitutional: alert Respiratory: clear to auscultation Cardiovascular: regular rate and rhythm Gastrointestinal: soft, No distended Musculoskeletal: nl extremities to inspection Results Result Diagram: 04/14/16 0415 04/14/16 0415 Results 24 hrs Laboratory Tests Test 04/14/16 02:01 04/14/16 04:15 Troponin I 0.019 Anion Gap 11 Basophils # 0.0 Basophils % 0.4 Blood Morphology Comment Blood Urea Nitrogen 25 H Calcium Level 7.8 L Carbon Dioxide Level 25 Chloride Level 111 H Creatinine 1.67 H Eosinophils # 0.4 Eosinophils % 5.1 Glucose Level 88 Hematocrit 24.0 L Hemoglobin 8.1 L Lymphocytes # 1.4 Lymphocytes % 18.1 Mean Corpuscular Hemoglobin 30.5 Mean Corpuscular Hemoglobin Concent 33.6 Mean Corpuscular Volume 90.6 Mean Platelet Volume 9.2 Monocytes # 0.3 Monocytes % 4.1 Neutrophils # 5.6 Neutrophils % 72.3 Nucleated Red Blood Cells # 0.0 Nucleated Red Blood Cells % 0.0 Platelet Count 111 L Potassium Level 3.7 Red Blood Count 2.66 L Red Cell Distribution Width 14.6 H Sodium Level 143 White Blood Count 7.7 Medications Medications Current Medications Ondansetron HCl (Zofran Inj) 4 mg Q6H PRN IV NAUSEA AND/OR VOMITING Last administered on 04/12/16 20:52; Admin Dose 4 MG; Start 04/09/16 at 16:30 Acetaminophen (Tylenol Tab) 650 mg Q6H PRN PO PAIN LEVEL 1-3 OR FEVER Last administered on 04/13/16 23:21; Admin Dose 650 MG; Start 04/09/16 at 16:30 Morphine Sulfate (morphine) 2 mg Q3H PRN IV SEVERE PAIN LEVEL 7-10; Start 04/09 at 16:30 Docusate Sodium (Colace) 100 mg Q12H PRN PO CONSTIPATION Last administered on 22:57; Admin Dose 100 MG; Start 04/09/16 at 16:30 Pantoprazole (Protonix Iv) 40 mg DAILY@06 IV Last administered on 04/14/16 05: 57; Admin Dose 40 MG; Start 04/10/16 at 06:00 Hydralazine HCl (Apresoline) 10 mg Q4H PRN IV SBP>170; Start 04/09/16 at 16:30 Diphenhydramine HCl (Benadryl) 25 mg Q6H PRN IV ALLERGIC REACTION Last administered on 04/13/16 19:05; Admin Dose 25 MG; Start 04/09/16 at 17:00 Aspirin (Aspirin) 325 mg BID PO Last administered on 04/14/16 09:01; Admin Dose 325 MG; Start 04/11/16 at 21:00; Stop 05/23/16 at 20:59 Acetaminophen/ Hydrocodone Bitart ([place] (5/325)) 1 tab Q4H PRN PO MODERATE PAIN LEVEL 4-6 Last administered on 04/14/16 15:12; Admin Dose 1 TAB; Start at 15:30 Lorazepam (Ativan) 1 mg Q4 PRN IV ANXIETY; Start 04/14/16 at 02:00 Furosemide (Lasix) 20 mg DAILY@06 IV Last administered on 04/14/16 05:57; Admin Dose 20 MG; Start 04/14/16 at 06:00 BERT FREED Apr 14, 2016 17:29
[2016-04-14 20:29] VITALS: BP 155/66; RESP 21
[2016-04-14] MEDS: DOCUSATE SODIUM 100 MG CAP PO PRN (21:11)
[2016-04-14] MEDS: LORAZEPAM 2 MG INJ IV PRN (21:17)
[2016-04-15 05:44] LABS: BASOPHILS % 0.5 % (0.0-2.0); EOSINOPHILS # 0.4 10^3/ul (0.0-0.5); EOSINOPHILS % 5.7 % (0.0-7.0); HEMATOCRIT 23.7 % (37.0-47.0); HEMOGLOBIN 8.1 g/dl (12.0-16.0); LYMPHOCYTES # 1.1 10^3/ul (0.8-2.9); LYMPHOCYTES % 17.5 % (15.0-51.0); MEAN CORPUSCULAR HEMOGLOBIN 30.9 pg (29.0-33.0); MEAN CORPUSCULAR HGB CONC 34.2 g/dl (32.0-37.0); MEAN CORPUSCULAR VOLUME 90.3 fl (82.0-101.0); MEAN PLATELET VOLUME 8.5 fl (7.4-10.4); MONOCYTE # 0.3 10^3/ul (0.3-0.9); MONOCYTES % 5.1 % (0.0-11.0); NEUTROPHIL # 4.6 10^3/ul (1.6-7.5); NEUTROPHILS % 71.2 % (39.0-77.0); PLATELET COUNT 137 10^3/UL (140-440); RED BLOOD COUNT 2.62 10^6/ul (4.20-5.40); RED CELL DISTRIBUTION WIDTH 14.3 % (11.5-14.5); UNCORRECTED WBC 6.4 10^3/ul (4.8-10.8); WHITE BLOOD COUNT 6.4 10^3/ul (4.8-10.8)
[2016-04-15 05:54] LABS: CONDITION 1
[2016-04-15 05:55] LABS: POTASSIUM 3.8 mmol/L (3.5-5.1)
[2016-04-15 05:57] LABS: CREATININE 1.58 mg/dl (0.44-1.00)
[2016-04-15 05:59] LABS: CALCIUM 8.1 mg/dl (8.4-10.2)
[2016-04-15] MEDS: PANTOPRAZOLE 40 MG INJ IV SCH (06:19)
[2016-04-15] MEDS: FUROSEMIDE 20 MG INJ IV SCH (06:22)
[2016-04-15 06:29] VITALS: BP 150/67; PULSE 93
[2016-04-15 07:49] VITALS: BP 157/67; RESP 14
[2016-04-15] MEDS: DOCUSATE SODIUM 100 MG CAP PO PRN ×2 (10:27→20:43)
[2016-04-15] MEDS: ASPIRIN 325 MG TAB PO SCH ×2 (10:27→20:39)
--- NOTE | 2016-04-15 11:54 | PN ---
DATE: 04/15/2016 HOSPITALIST PROGRESS NOTE TIME OF EVALUATION: 11:10 a.m. SUBJECTIVE DATA: Vital signs remained stable. OBJECTIVE DATA: VITAL SIGNS: Temperature 98.8, pulse 97, respiratory rate 14, blood pressure 157/67, oxygen saturation 96% on room air. GENERAL: This is a frail-looking female lying in bed in no apparent distress. HEENT: Head normocephalic and atraumatic. Eyes: Anicteric sclerae. Conjunctivae clear. ENT: Nasal septum is midline. Oral mucosa is dry. NECK: Supple. No JVD noticed. RESPIRATORY: Bilaterally diminished breath sounds. No adventitious breath sounds heard. No use of accessory muscles of respiration. CARDIAC: Regular rate and rhythm. S1 and S2 heard. ABDOMEN: Soft, nontender, and nondistended. Bowel sounds positive in all 4 quadrants. GENITOURINARY: Deferred. EXTREMITIES: No cyanosis, no clubbing, no edema. Peripheral pulses are palpable. NEUROLOGIC: The patient is awake, alert, and oriented. Cranial nerves are grossly intact. LABORATORY AND DIAGNOSTIC DATA: WBC 6.4, hemoglobin 8.1, hematocrit 23.7, platelet count 137. ASSESSMENT AND PLAN: 1. Right intertrochanteric femoral fracture. Status post right hip cephalomedullary nailing on 04/11/2016. Continue pain control. Continue physical therapy. 2. Essential hypertension. Continue antihypertensives. Blood pressure fairly well controlled. 3. Chronic obstructive pulmonary disease. No evidence of any exacerbation. Continue inhaled bronchodilators. 4. Normocytic normochromic anemia. Etiology unclear. Will transfuse as needed. Will obtain an iron panel on this patient. 5. Acute kidney injury. Will avoid nephrotoxic medications. Will monitor the BUN and creatinine closely. 6. Diastolic heart failure. No evidence of any exacerbation. Continue cardiac medications. 7. Pulmonary hypertension. PA pressure of 45 mmHg as per 2-D echocardiogram. Continue supplemental oxygen. 8. Fluid, electrolytes, and nutrition. Regular diet as tolerated. 9. Deep venous thrombosis prophylaxis with aspirin as per orthopedic surgery. 10. Gastrointestinal prophylaxis. Proton pump inhibitors. PLAN: Continue physical therapy. If the patient is not doing well with physical therapy, she may need placement. Case was discussed with Dr. Manzano. EMILIA MANZANO MD, AM/FRANCOIS Conf#: [id number] [facility]#: [id number] MTDD
[2016-04-15 12:09] LABS: TOTAL IRON BINDING CAPACITY 178 ug/dl (241-421)
[2016-04-15 12:34] LABS: IRON 28 ug/dl (35-150)
[2016-04-15] MEDS: HYDROCODONE/APAP (5/325) TAB PO PRN (13:51)
[2016-04-15] MEDS: ALBUTEROL/IPRATROPIUM (NEB) 3 ML AMP HHN SCH ×2 (16:41→19:44)
[2016-04-15 19:39] VITALS: BP 139/64; RESP 17
[2016-04-15] MEDS: NIFEdipine (XL) 30 MG TAB PO SCH (20:40)
[2016-04-15] MEDS: LORAZEPAM 2 MG INJ IV PRN (21:27)
--- NOTE | 2016-04-15 22:42 | RADRPT ---
Vent Rate: 98 bpm RR Interval: 0 msec [place] Interval: 202 msec QRS Duration: 92 msec QT Interval: 370 msec QTC Interval: 472 msec P-R-T [place]: 48 - 18 - 74 degrees Normal sinus rhythm Prolonged QT Abnormal ECG Electronically Signed By: William Slater [id number]
[2016-04-16 05:37] LABS: MAGNESIUM 1.5 mg/dl (1.7-2.5); PHOSPHORUS 3.3 mg/dl (2.5-4.9)
[2016-04-16] MEDS: FUROSEMIDE 20 MG INJ IV SCH (05:51)
[2016-04-16 05:57] LABS: CREATININE 1.36 mg/dl (0.44-1.00)
[2016-04-16] MEDS ORDERED: PANTOPRAZOLE (EC) 40 MG TAB PO SCH (06:00)
[2016-04-16 06:20] LABS: BASOPHILS % 0.3 % (0.0-2.0); EOSINOPHILS # 0.3 10^3/ul (0.0-0.5); EOSINOPHILS % 4.5 % (0.0-7.0); HEMATOCRIT 24.1 % (37.0-47.0); HEMOGLOBIN 8.1 g/dl (12.0-16.0); LYMPHOCYTES # 1.2 10^3/ul (0.8-2.9); MEAN CORPUSCULAR HEMOGLOBIN 30.4 pg (29.0-33.0); MEAN CORPUSCULAR HGB CONC 33.6 g/dl (32.0-37.0); MEAN CORPUSCULAR VOLUME 90.3 fl (82.0-101.0); MEAN PLATELET VOLUME 8.4 fl (7.4-10.4); MONOCYTE # 0.5 10^3/ul (0.3-0.9); MONOCYTES % 6.9 % (0.0-11.0); NEUTROPHIL # 4.6 10^3/ul (1.6-7.5); NEUTROPHILS % 70.3 % (39.0-77.0); PLATELET COUNT 163 10^3/UL (140-440); RED BLOOD COUNT 2.67 10^6/ul (4.20-5.40); RED CELL DISTRIBUTION WIDTH 14.1 % (11.5-14.5); UNCORRECTED WBC 6.6 10^3/ul (4.8-10.8); WHITE BLOOD COUNT 6.6 10^3/ul (4.8-10.8)
[2016-04-16 06:26] LABS: CONDITION 1
[2016-04-16] MEDS: ALBUTEROL/IPRATROPIUM (NEB) 3 ML AMP HHN SCH ×2 (07:55→14:45)
[2016-04-16] MEDS: ASPIRIN 325 MG TAB PO SCH (08:00)
[2016-04-16] MEDS: NIFEdipine (XL) 30 MG TAB PO SCH (08:00)
[2016-04-16] MEDS: DOCUSATE SODIUM 100 MG CAP PO PRN (08:01)
[2016-04-16 08:42] VITALS: BP 126/58; RESP 14
--- NOTE | 2016-04-16 09:51 | PN ---
Date/Time of Note Date/Time of Note DATE: 04/16/16 TIME: 09:51 Assessment/Plan VTE Prophylaxis VTE Prophylaxis Intervention: other (Aspirin as per Orthopedic Surgery.) Lines/Catheters IV Catheter Type (from Nrs): Peripheral IV Urinary Cath still in place: Yes Reason Cath still needed: other (indicate) (S/P hep replcament.) Assessment/Plan Chief Complaint/Hosp Course 1. Right intertrochanteric femoral fracture. Status post right hip cephalomedullary nailing on 04/11/2016. Continue pain control. Continue physical therapy. 2. Essential hypertension. Continue antihypertensives. Blood pressure fairly well controlled. 3. Chronic obstructive pulmonary disease. No evidence of any exacerbation. Continue inhaled bronchodilators. 4. Normocytic normochromic anemia. Etiology unclear. Will transfuse as needed. Iron panel showing iron deficiency. Will start the patient on iron supplements. 5. Acute kidney injury. Will avoid nephrotoxic medications. Will monitor the BUN and creatinine closely. 6. Diastolic heart failure. No evidence of any exacerbation. Continue cardiac medications. 7. Pulmonary hypertension. PA pressure of 45 mmHg as per 2-D echocardiogram. Continue supplemental oxygen. 8. Fluid, electrolytes, and nutrition. Regular diet as tolerated. 9. Deep venous thrombosis prophylaxis with aspirin as per orthopedic surgery. 10. Gastrointestinal prophylaxis. Proton pump inhibitors. PLAN: Continue physical therapy. Replete magnesium. Start iron supplements. Patient needs SNF placement. The patient is medically stable to be discharged to a SNF. Case was discussed with Dr. Hanley. Explained the plan of care to the patient's son who was at the bedside. Problems: Subjective 24 Hr Interval Summary Free Text/Dictation Vitals signs stable. Exam/Review of Systems Vital Signs Vitals Vital Signs Date Time Temp Pulse Resp B/P Pulse Ox O2 Delivery O2 Flow Rate FiO2 04/16/16 08:42 98.5 105 14 126/58 95 04/16/16 08:05 Nasal Cannula 4.0 Intake and Output 04/15/16 04/15/16 04/16/16 15:00 23:00 07:00 Intake Total 300 ml 360 ml Output Total 850 ml 400 ml Balance -550 ml -40 ml Exam GENERAL: This is a frail-looking female lying in bed in no apparent distress. HEENT: Head normocephalic and atraumatic. Eyes: Anicteric sclerae. Conjunctivae clear. ENT: Nasal septum is midline. Oral mucosa is dry. NECK: Supple. No JVD noticed. RESPIRATORY: Bilaterally diminished breath sounds. No adventitious breath sounds heard. No use of accessory muscles of respiration. CARDIAC: Regular rate and rhythm. S1 and S2 heard. ABDOMEN: Soft, nontender, and nondistended. Bowel sounds positive in all 4 quadrants. GENITOURINARY: Deferred. EXTREMITIES: No cyanosis, no clubbing, no edema. Peripheral pulses are palpable. NEUROLOGIC: The patient is awake, alert, and oriented. Cranial nerves are grossly intact. Results Result Diagram: 04/16/165 04/16/16 043 Results 24 hrs Laboratory Tests Test 04/16/16 04:35 Anion Gap 12 Basophils # 0.0 Basophils % 0.3 Blood Urea Nitrogen 31 H Calcium Level 8.0 L Carbon Dioxide Level 33 H Chloride Level 102 Creatinine 1.36 H Eosinophils # 0.3 Eosinophils % 4.5 Glucose Level 92 Hematocrit 24.1 L Hemoglobin 8.1 L Lymphocytes # 1.2 Lymphocytes % 18.0 Magnesium Level 1.5 L Mean Corpuscular Hemoglobin 30.4 Mean Corpuscular Hemoglobin Concent 33.6 Mean Corpuscular Volume 90.3 Mean Platelet Volume 8.4 Monocytes # 0.5 Monocytes % 6.9 Neutrophils # 4.6 Neutrophils % 70.3 Nucleated Red Blood Cells # 0.0 Nucleated Red Blood Cells % 0.0 Phosphorus Level 3.3 Platelet Count 163 Potassium Level 4.0 Red Blood Count 2.67 L Red Cell Distribution Width 14.1 Sodium Level 143 White Blood Count 6.6 Medications Medications Current Medications Ondansetron HCl (Zofran Inj) 4 mg Q6H PRN IV NAUSEA AND/OR VOMITING Last administered on 04/12/16 20:52; Admin Dose 4 MG; Start 04/09/16 at 16:30 Acetaminophen (Tylenol Tab) 650 mg Q6H PRN PO PAIN LEVEL 1-3 OR FEVER Last administered on 04/13/16 23:21; Admin Dose 650 MG; Start 04/09/16 at 16:30 Morphine Sulfate (morphine) 2 mg Q3H PRN IV SEVERE PAIN LEVEL 7-10; Start 04/09 at 16:30 Docusate Sodium (Colace) 100 mg Q12H PRN PO CONSTIPATION Last administered on 08:01; Admin Dose 100 MG; Start 04/09/16 at 16:30 Hydralazine HCl (Apresoline) 10 mg Q4H PRN IV SBP>170; Start 04/09/16 at 16:30 Diphenhydramine HCl (Benadryl) 25 mg Q6H PRN IV ALLERGIC REACTION Last administered on 04/13/16 19:05; Admin Dose 25 MG; Start 04/09/16 at 17:00 Aspirin (Aspirin) 325 mg BID PO Last administered on 04/16/16 08:00; Admin Dose 325 MG; Start 04/11/16 at 21:00; Stop 05/23/16 at 20:59 Acetaminophen/ Hydrocodone Bitart ([place] (5/325)) 1 tab Q4H PRN PO MODERATE PAIN LEVEL 4-6 Last administered on 04/15/16 13:51; Admin Dose 1 TAB; Start at 15:30 Lorazepam (Ativan) 1 mg Q4 PRN IV ANXIETY Last administered on 04/15/16 21:27 ; Admin Dose 1 MG; Start 04/14/16 at 02:00 Furosemide (Lasix) 20 mg DAILY@06 IV Last administered on 04/16/16 05:51; Admin Dose 20 MG; Start 04/14/16 at 06:00 Nifedipine (Procardia Xl) 30 mg BID PO Last administered on 04/16/16 08:00; Admin Dose 30 MG; Start 04/15/16 at 21:00 Pantoprazole (Protonix Tab) 40 mg DAILY@06 PO Last administered on 04/16/16 05 :51; Admin Dose 40 MG; Start 04/16/16 at 06:00 EMILIA MARTINEZ NP Apr 16, 2016 09:51
[2016-04-16] MEDS: HYDROCODONE/APAP (5/325) TAB PO PRN (10:44)
--- NOTE | 2016-04-16 10:54 | PDOCDIS ---
Discharge Instructions DIAGNOSIS Discharge Diagnosis: Right hip fracture. Status post surgical repair. CONDITION Patient Condition: Stable HOME CARE INSTRUCTIONS: Special Diet: PUREED FOLLOW UP/APPOINTMENTS Appointments Beena Spicer MD Specialty: Orthopedic Surgery Office Address: [address] [place] [address] Office OTHER ORDERS: Other Orders: 1. Pureed diet. 2. Medications as per medication list. 3. Activities as per physical therapy. 4. Follow-up with orthopedic surgeon (Dannielle) in 2 weeks. EMILIA MARTINEZ NP Apr 16, 2016 10:54
[2016-04-16] MEDS ORDERED: NIFE30TA2 PO (11:00)
[2016-04-16] MEDS ORDERED: IPRA3AMP HHN ×2 (11:00)
[2016-04-16] MEDS ORDERED: MAGNESIUM SULFATE 2 GM/50 ML 50 ML IVPB SCH (11:00)
[2016-04-16] MEDS ORDERED: DOCU-144 PO (11:00)
[2016-04-16] MEDS ORDERED: ASPI325T4 PO (11:00)
[2016-04-16] MEDS ORDERED: FER325 PO (11:00)
[2016-04-16] MEDS ORDERED: Hydrocodone/Apap (5/325) PO (11:00)
[2016-04-16] MEDS ORDERED: PANT40TA4 PO (11:00)
[2016-04-16] MEDS ORDERED: SOD FERRIC GLUC COMPLX 125 MG in SOD CHLORIDE 0.9% 100 ML IVPB SCH (12:00)
[2016-04-16] MEDS ORDERED: MAGNESIUM CITRATE 300 ML BTL PO ONE (15:30)
[2016-04-16] MEDS: ONDANSETRON 4 MG INJ IV PRN (18:32)
[2016-04-16 19:58] VITALS: BP 138/64; RESP 16
[2016-04-16 20:11] VITALS: BP 135/70; PULSE 92; RESP 18
--- NOTE | 2016-04-17 06:25 | DS ---
DATE OF ADMISSION: 04/09/2016 DATE OF DISCHARGE: 04/16/2016 FINAL DIAGNOSES: 1. Right intertrochanteric femoral fracture. Status post right hip cephalomedullary nailing on 04/11/2016. 2. Essential hypertension. 3. Chronic obstructive pulmonary disease. Stable. 4. Normocytic, normochromic anemia. 5. Iron deficiency. 6. Acute kidney injury. Nonoliguric. 7. Diastolic heart failure. Compensated. 8. Pulmonary hypertension. 9. Dyslipidemia. CONSULTANTS: Dr. Spicer, Orthopedic Surgery HOSPITAL COURSE: This is an 80-year-old female with past medical history of essential hypertension and COPD who presented to the emergency room with right- sided hip pain status post mechanical fall at home. The patient underwent a pelvic x-ray in the emergency room that showed right hip fracture. Provided the patient's history of present illness and the diagnostic findings, a clinical decision was made to admit the patient to inpatient setting to have her further evaluated. The patient was admitted to inpatient medical/surgical floor. An orthopedic surgery consult was called. The patient was started on appropriate pain medications. The patient was maintained on bed rest. The patient underwent a right hip cephalomedullary nailing on 04/11/2016 with no immediate postoperative complications. Postoperatively, the patient was started on physical therapy. However, the patient had poor progress with physical therapy. Hence, a clinical decision was made to discharge the patient to a long-term facility for further physical therapy and rehabilitation prior to discharging the patient home. The patient has underlying essential hypertension. She was maintained on antihypertensives with fairly well- controlled blood pressures. The patient has history of COPD. There was no evidence of any exacerbation during this visit. She was maintained on inhaled bronchodilators. The patient was also noticed to have normocytic normochromic anemia. The patient required 2 units of blood transfusion during this hospitalization. The patient was also noticed to have iron deficiency. The patient was maintained on iron supplements for the same. The patient was also noticed to acute nonoliguric kidney injury. The patient's baseline creatinine from a prior visit in 07/2015 was found to be within normal limits. Hence, it was concluded that the patient has nonoliguric acute kidney injury. Etiology of this could be hemodynamic versus others. The patient's BUN and creatinine were closely monitored with improvement in the patient's BUN and creatinine towards the end of the hospital stay. The patient also has history of diastolic heart failure. The patient was maintained on maintenance diuretics. The patient had no evidence of any exacerbation. The patient also has underlying pulmonary hypertension. She does have a PA pressure of 45 mmHg as per 2D echocardiogram. The patient was maintained on supplemental oxygen for the same. The patient had a stable hospital course. The patient is medically stable to be discharged to a care home facility for further physical therapy and rehabilitation. DISCHARGE DISPOSITION AND PLAN: The patient will be discharged to a care home facility. The patient will take medications as per medication list which are listed below. The patient will need to take a pureed diet. The patient will follow activities as per Physical Therapy. The patient was instructed to follow up with orthopedic surgeon in 2 weeks. The patient's family was informed about the patient's transfer. Nursing was instructed to endorse all the discharge instructions to the healthcare person at the care home facility. CONDITION AT DISCHARGE: Stable. DISCHARGE MEDICATIONS: 1. Aspirin 325 mg p.o. b.i.d. 2. Colace 100 mg p.o. q.12 hours p.r.n. constipation. 3. Ferrous sulfate 325 mg p.o. b.i.d. 4. DuoNeb inhalation q.6 hours around the clock. 5. DuoNeb inhalation q.4 hours p.r.n. dyspnea. 6. Procardia-XL 30 mg p.o. b.i.d. 7. Protonix 40 mg p.o. daily. 8. Milfay 5/325 one tablet p.o. q.6 hours p.r.n. pain. 9. Atorvastatin 10 mg p.o. at bedtime. 10. Celexa 10 mg p.o. daily. 11. Lasix 20 mg p.o. daily. 12. Ativan 0.5 mg p.o. b.i.d. p.r.n. anxiety. PERTINENT LABORATORY AND DIAGNOSTIC DATA AND PROCEDURES: 1. On 04/11/2016, right hip cephalomedullary nailing. 2. 2D echocardiogram. Ejection fraction of 60%. Stage I diastolic dysfunction. Estimated peak PA systolic pressure 45 mmHg. Trace mitral regurgitation. Mild tricuspid regurgitation. Mild aortic valve regurgitation. 3. Latest CBC: WBC 6.6, hemoglobin 8.1, hematocrit 24.1, platelet count 163. 4. Latest BMP: Sodium 143, potassium 4.0, chloride 102, carbon dioxide 33, anion gap 12, BUN 31, creatinine 1.36, glucose 92, calcium 8.0, phosphorus 3.3, magnesium 1.5. 5. Iron panel: Iron 20, TIBC 178, iron saturation 16, ferritin 115. 6. Hemoglobin A1c 5.6. 7. Fasting lipid panel: Triglycerides 48, total cholesterol 83, LDL 45, HDL 28. 8. Pelvic x-ray upon admission. Right intertrochanteric fracture with varus deformity. 9. Brain CT scan. 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 Moderate nonspecific chronic micro ischemic changes and generalized cerebral atrophy. 10. Latest chest x-ray on 04/09/2016: Congestive heart failure, pulmonary edema and small pleural effusions. At this time, I would like to thank Dr. Bee for seeing the patient, doing the necessary procedures, and providing clinical recommendations. The case and management of this patient was fully discussed with Dr. Manzano. Approximately 40 minutes was spent on coordinating the discharge on this patient. EMILIA MANZANO MD, AM/FRANCOIS Conf#: [id number] DID#: [id number] MTDD
[2016-04-17] MEDS ORDERED: FUROSEMIDE 20 MG TAB PO SCH (09:00)
== END 2016-04-16 20:10 | DRG 481 ==
LOC: E/R 10:27 → MS1 13:33
PROVIDERS: ADMIT Family Medicine; ATTEND Family Medicine
PROC: 0QS806Z Reposition Right Femoral Shaft with Intramedullary Internal Fixation Device, Open Approach (ICD-10-PCS; principal; 2016-04-11 16:30)
PROC: 30233N1 Transfusion of Nonautologous Red Blood Cells into Peripheral Vein, Percutaneous Approach (ICD-10-PCS; 2016-04-12)
DX: S72.141A Displaced intertrochanteric fracture of right femur, initial encounter for closed fracture (principal); I50.32 Chronic diastolic (congestive) heart failure; N17.9 Acute kidney failure, unspecified; I27.2 Other secondary pulmonary hypertension; I11.0 Hypertensive heart disease with heart failure; S72.121A Displaced fracture of lesser trochanter of right femur, initial encounter for closed fracture; J44.9 Chronic obstructive pulmonary disease, unspecified; W19.XXXA Unspecified fall, initial encounter; D50.9 Iron deficiency anemia, unspecified
CPT/HCPCS: 36430; 70450; 71010; 72170; 73510; 73530; 73560; 80048; 80061; 82728; 83036; 83540; 83735; 84100; 84484; 85025; 85610; 85730; 86850; 86900; 86901; 86920; 90686; 93005; 93306; 94640; 94664; 96374; 97110; 97162; 97530; J1940; C9113; J0690; J1200; J1885; J2060; J2250; J2270; J2405; J2710; J2916; J3010; J3475; J3480; J7030; P9016

== ENCOUNTER 2016-06-06 12:00 | Inpatient (IN) | payer OTHER ==
[~2016-06-06] VITALS: Ht 157.5 cm; Wt 42.4 kg
[~2016-06-06 12:00] MED LIST changes: -ALBU8.5H3 INH; -ASPI-664 PO; +ASPI325T4 PO; +DOCU-144 PO; -DOCU250C68 PO; -ESOM40CA PO; +FER325 PO; +Hydrocodone/Apap (5/325) PO; -IBUP-1542 PO; +IPRA3AMP HHN; +LORA0.5T PO; -LOSA50TA6 PO; -METO50TA16 PO; +NIFE30TA2 PO; -ONDA4TAB14 PO; +PANT40TA4 PO; -ZOLP5TAB6 PO
[2016-06-06] MEDS ORDERED: SODIUM CHLORIDE 0.9% 1L BAG IV* STA (12:38)
[2016-06-06] MEDS ORDERED: FAMOTIDINE 20 MG INJ IV STA (12:46)
[2016-06-06] MEDS ORDERED: ONDANSETRON 4 MG INJ IV STA (12:46)
[2016-06-06] MEDS ORDERED: ONDA4TAB95 PO (12:58)
[2016-06-06] MEDS ORDERED: CLON1TAB3 PO (12:59)
[2016-06-06 13:14] LABS: ADD SCAN DIFF NO
[2016-06-06 13:16] LABS: ABNORMAL IP MESSAGE 1; BASOPHILS % 0.3 % (0.0-2.0); HEMATOCRIT 45.9 % (37.0-47.0); HEMOGLOBIN 14.9 g/dl (12.0-16.0); LYMPHOCYTES # 0.5 10^3/ul (0.8-2.9); LYMPHOCYTES % 4.1 % (15.0-51.0); MEAN CORPUSCULAR HEMOGLOBIN 29.7 pg (29.0-33.0); MEAN CORPUSCULAR HGB CONC 32.5 g/dl (32.0-37.0); MEAN CORPUSCULAR VOLUME 91.6 fl (82.0-101.0); MEAN PLATELET VOLUME 12.2 fl (7.4-10.4); MONOCYTE # 0.4 10^3/ul (0.3-0.9); MONOCYTES % 3.2 % (0.0-11.0); NEUTROPHIL # 11.6 10^3/ul (1.6-7.5); PLATELET COUNT 183 10^3/UL (140-415); RED BLOOD COUNT 5.01 10^6/ul (4.20-5.40); WHITE BLOOD COUNT 12.6 10^3/ul (4.8-10.8)
[2016-06-06 13:29] LABS: ALBUMIN 3.8 g/dl (3.3-4.9); CHLORIDE 102 mmol/L (97-110); NEUTROPHILS % 92.1 % (39.0-77.0); SODIUM 143 mmol/L (135-144)
[2016-06-06 13:30] LABS: POTASSIUM 4.4 mmol/L (3.5-5.1)
[2016-06-06 13:32] LABS: ALANINE AMINOTRANSFERASE 12 IU/L (13-69); ALBUMIN/GLOBULIN RATIO 1.02; ALKALINE PHOSPHATASE 170 IU/L (42-121); ANION GAP 25 (8-16); ASPARTATE AMINO TRANSFERASE 50 IU/L (15-46); BILIRUBIN,INDIRECT 0.2 mg/dl (0-1.1); BILIRUBIN,TOTAL 0.2 mg/dl (0.2-1.3); BLOOD UREA NITROGEN 24 mg/dl (7-20); CARBON DIOXIDE 20 mmol/L (21-31); CREATININE 1.34 mg/dl (0.44-1.00); GLUCOSE 181 mg/dl (70-220); TOTAL PROTEIN 7.5 g/dl (6.1-8.1)
[2016-06-06 13:33] LABS: CALCIUM 10.2 mg/dl (8.4-10.2)
[2016-06-06 13:34] LABS: INR 1.07; PROTIME 13.9 Sec (12.2-14.2); PT RATIO 1.1
[2016-06-06 13:46] LABS: TROPONIN-I < 0.012 ng/ml (0.00-0.12)
--- NOTE | 2016-06-06 13:52 | RADRPT ---
PROCEDURE: XR Chest. CLINICAL INDICATION: Sepsis TECHNIQUE: Chest AP portable COMPARISON: 04/14/2016 FINDINGS: The mediastinal structures are unremarkable. There is calcification of the thoracic aorta (consiste nt with atherosclerosis). The heart is normal in size and configuration. The pulmonary vascularity is normal. There are low lung volumes. There is bibasilar subsegmental atelectasis. There is a p ossible mild RUL patchy consolidation. The pleural spaces are unremarkable. There are senescent ch anges of the axial skeleton. IMPRESSION: Calcification of the thoracic aorta (consistent with atherosclerosis). Low lung volumes. Bibasilar subsegmental atelectasis. Possible mild RUL patchy consolidation RPTAT: HGDB .Kadeem Thomas MD, MD Date Time Electronically viewed and signed by .Kadeem Thomas MD, on 06/06/2016 13:52 .B/
--- NOTE | 2016-06-06 14:19 | RADRPT ---
PROCEDURE: CT Abdomen and Pelvis without contrast. CLINICAL INDICATION: Abdominal pain, vomiting TECHNIQUE: CT of the abdomen and pelvis was performed on a multi-detector scanner without IV contr ast. Coronal and sagittal images were reformatted from the axial data set. One or more of the foll owing dose reduction techniques were used: automated exposure control, adjustment of the mA and/or kV according to patient size, use of iterative reconstruction technique. CTDI = 8.23 mGy. DLP = 405 .13 mGy-cm. COMPARISON: None. FINDINGS: CT abdomen: The lung bases are clear. The heart size is normal, without pericardial effusion. The gallbladder is distended and contains gallstones/sludge. No pericholecystic inflammation is identified. Liver, biliary tree, pancreas, spleen, adrenal glands and left kidney are unremarkable. There is mild chr onic right renal atrophy. No urolithiasis or obstructive uropathy is identified. Small hiatal desi ia is noted. The stomach is otherwise grossly unremarkable. The aorta is of normal caliber. Aortic vascular calcifications are present. There is no retroperit cobian lymphadenopathy. The reji hepatis region is clear. CT pelvis: Sigmoid diverticulosis is noted. Sigmoid colon wall thickening and adjacent pericolonic inflammatio n are noted, compatible with diverticulitis. No bowel obstruction, free intraperitoneal air or absc ess is seen. Large amount of retained fecal material is present, compatible with constipation. The appendix is well visualized and normal. Urinary bladder is grossly unremarkable. Uterus is surgic ally absent. No pelvic mass or lymphadenopathy is seen. The surrounding osseous structures are remarkable for degenerative spondylosis of the spine. No ost eolytic or osteoblastic lesion is detected. There are multilevel chronic appearing moderate compress ion deformities seen throughout the visualized thoracolumbar spine. The patient is status post righ t femoral ORIF. IMPRESSION: 1. Findings compatible with mild sigmoid diverticulitis, as above. No evidence of diverticular per foration or abscess formation is seen. 2. Underlying colonic mass/neoplasm cannot be definitely excluded in this location - consider colon oscopic correlation after the acute inflammatory process has subsided. 3. Large amount of retained fecal material is seen proximally, compatible with constipation. 4. Cholelithiasis and/or gallbladder sludge are noted, without evidence for cholecystitis. 5. Small hiatal hernia is seen. 6. There is mild chronic right renal atrophy. No urolithiasis or obstructive uropathy is seen. 7. Uterus is surgically absent. RPTAT: EE .Orestes Fonseca MD, Date Time Electronically viewed and signed by .Orestes Fonseca MD, on 06/06/2016 14:18 .R/
[2016-06-06] MEDS ORDERED: CIPROFLOXACIN 400MG/D5W 200 ML IVPB STA (14:27)
[2016-06-06] MEDS ORDERED: metroNIDAZOLE 500 MG/NS (PMX) 100 ML IVPB STA (14:27)
[2016-06-06] MEDS ORDERED: SOD CHLORIDE 0.9% 1,000 ML IV SCH (15:08)
--- NOTE | 2016-06-06 15:20 | ERA ---
ER Documentation Chief Complaint Date/Time DATE: 06/06/16 TIME: 15:11 Chief Complaint S/P HIP SURGERY 1 MONTH AGO. VOMITING AND MILD SOB NOTED. HPI This is an 81-year-old female who presents to the emergency room for evaluation of nausea, vomiting, abdominal pain. The patient states that her abdominal pain is diffuse throughout her abdomen. She states that she has vomited twice, and came to the emergency room for evaluation. This patient denies any fevers at home, however her caregivers at bedside and does state that her stomach does feel a little bit more distended than normal. ROS All systems reviewed and are negative except as per history of present illness. Medications Home Meds Active Scripts Ferrous Sulfate* (Ferrous Sulfate*) 325 Mg Tabec, 325 MG PO BID for 30 Days, TAB Prov:EMILIA MARTINEZ NP 04/16/16 Pantoprazole* (Pantoprazole*) 40 Mg Tablet.dr, 40 MG PO DAILY@06 for 30 Days Prov:EMILIA MARTINEZ NP 04/16/16 Nifedipine (Procardia Xl) 30 Mg Tab.er.24, 30 MG PO BID for 30 Days, TAB Prov:EMILIA MARTINEZ NP 04/16/16 Ipratropium-Albuterol (Ipratropium-Albuterol) 0.5-3 Mg/3 Ml Ampul.neb, 3 ML HHN Q6HWA RESP THERAPY for 30 Days Prov:EMILIA MARTINEZ NP 04/16/16 Docusate Sodium* (Colace*) 100 Mg Capsule, 100 MG PO Q12H Y for CONSTIPATION for 30 Days, CAP Prov:EMILIA MARTINEZ NP 04/16/16 Aspirin (Aspirin Lite-Coat) 325 Mg Tablet, 325 MG PO BID for 30 Days, TAB Prov:EMILIA MARTINEZ NP 04/16/16 Reported Medications Clonazepam* (Clonazepam*) 1 Mg Tablet, 1 MG PO QHS Y for ANXIETY, TAB 06/06/16 Ondansetron Hcl* (Ondansetron Hcl*) 4 Mg Tablet, 4 MG PO Q6H Y for NAUSEA AND/ OR VOMITING, TAB 06/06/16 Atorvastatin Calcium (Atorvastatin Calcium) 10 Mg Tablet, 10 MG PO QHS, #30 TAB 02/14/16 Citalopram Hydrobromide* (Citalopram Hydrobromide*) 10 Mg Tablet, 10 MG PO DAILY , TAB 04/05/14 Discontinued Reported Medications Lorazepam* (Lorazepam*) 0.5 Mg Tablet, 0.5 MG PO BID Y for ANXIETY, TAB 04/09/16 Furosemide* (Furosemide*) 20 Mg Tablet, 20 MG PO DAILY, #60 TAB 08/09/15 Discontinued Scripts Ipratropium-Albuterol (Ipratropium-Albuterol) 0.5-3 Mg/3 Ml Ampul.neb, 3 ML HHN Q4H RESP THERAPY Y for SHORTNESS OF BREATH for 30 Days Prov:EMILIA MARTINEZ [employer] 04/16/16 [Hydrocodone/Apap (5/325)] 1 TAB TAB No Conflict Check, 1 TAB PO Q4H Y for MODERATE PAIN LEVEL 4-6 for 30 Days Prov:EMILIA MARTINEZ [employer] 04/16/16 Allergies Allergies: Coded Allergies: Penicillins (Verified Allergy, Severe, RASHES, 06/06/16) morphine (Verified Allergy, Severe, RASHES,CONFUSED, 06/06/16) PMhx/Soc History of Surgery: Yes Anesthesia Reaction: No Hx Neurological Disorder: No Hx Respiratory Disorders: Yes (ASTHMA ) Hx Cardiac Disorders: Yes (HTN) Hx Psychiatric Problems: No Hx Miscellaneous Medical Probl: Yes (HTN, COPD. On home oxygen 2L. ) Hx Alcohol Use: No Hx Substance Use: No Hx Tobacco Use: No Smoking Status: Former smoker Physical Exam Vitals Vital Signs Date Time Temp Pulse Resp B/P Pulse Ox O2 Delivery O2 Flow Rate FiO2 06/06/16 12:35 Nasal Cannula 2 06/06/16 12:04 98.8 121 24 129/62 90 Physical Exam INITIAL VITAL SIGNS: Reviewed by me GENERAL: The patient is frail-appearing female, no acute HEENT: Pupils equal, round, and reactive to light. EOMI. There is no scleral icterus. NECK: C-spine is soft and supple, there is no meningismus. There is no cervical lymphadenopathy. LUNGS: Clear to auscultation bilaterally. There are no rales, wheezes or rhonchi. HEART: Tachycardic, no murmurs, clicks, rubs or gallops. ABDOMEN: Tender to palpation in left lower quadrant, right lower quadrant EXTREMITIES: There is no peripheral cyanosis or edema. No focal swelling or erythema. NEUROLOGICAL: The patient moves all four extremities with 5/5 strength. Cranial nerves II - XII are intact. Normal gait. Alert and oriented SKIN: There is no apparent rash or petechiae. HEME/LYMPHATIC: There is no evidence of excessive bruising or lymphedema. PSYCHIATRIC: The patient does not appear anxious or depressed. Result Diagram: 06/06/16 1255 06/06/16 1255 Results 24 hrs Laboratory Tests Test 06/06/16 12:55 06/06/16 15:00 Alanine Aminotransferase (ALT/SGPT) 12IU/L Albumin 3.8g/dl Albumin/Globulin Ratio 1.02 Alkaline Phosphatase 170IU/L Anion Gap 25 Aspartate Amino Transf (AST/SGOT) 50IU/L Basophils # 0.010^3/ul Basophils % 0.3% Blood Urea Nitrogen 24mg/dl Calcium Level 10.2mg/dl Carbon Dioxide Level 20mmol/L Chloride Level 102mmol/L Creatinine 1.34mg/dl Direct Bilirubin 0.00mg/dl Eosinophils # 0.010^3/ul Eosinophils % 0.0% Globulin 3.70g/dl Glucose Level 181mg/dl Hematocrit 45.9% Hemoglobin 14.9g/dl Indirect Bilirubin 0.2mg/dl Lactic Acid Level 5.8mmol/L Lymphocytes # 0.510^3/ul Lymphocytes % 4.1% Mean Corpuscular Hemoglobin 29.7pg Mean Corpuscular Hemoglobin Concent 32.5g/dl Mean Corpuscular Volume 91.6fl Mean Platelet Volume 12.2fl Monocytes # 0.410^3/ul Monocytes % 3.2% Neutrophils # 11.610^3/ul Neutrophils % 92.1% Nucleated Red Blood Cells # 0.010^3/ul Nucleated Red Blood Cells % 0.0/100WBC Platelet Count 78856^3/UL Potassium Level 4.4mmol/L Red Blood Count 5.0110^6/ul Red Cell Distribution Width 14.0% Sodium Level 143mmol/L Total Bilirubin 0.2mg/dl Total Protein 7.5g/dl Troponin I < 0.012ng/ml White Blood Count 12.610^3/ul Activated Partial Thromboplast Time Pending INR International Normalized Ratio 1.07 Prothrombin Time 13.9Sec Prothrombin Time Ratio 1.1 Current Medications Medications (Trade) Dose Ordered Sig/Sd Route PRN Reason Start Time Stop Time Status Last Admin Dose Admin Sodium Chloride (NS) 1,400 ml BOLUS OVER 2 HOURS STAT IV* 06/06/16 12:38 06/06/16 12:42 DC 06/06/16 13:06 Ondansetron HCl (Zofran Inj) 4 mg ONCE STAT IV 06/06/16 12:46 06/06/16 12:47 DC 06/06/16 13:06 Famotidine 20 mg 20 mg ONCE STAT IV 06/06/16 12:46 06/06/16 12:47 DC 06/06/16 13:06 Ciprofloxacin/ Dextrose 200 ml @ 200 mls/hr ONCE STAT IVPB 06/06/16 14:27 06/06/16 15:26 06/06/16 15:02 Metronidazole (Flagyl 500 Mg (Pmx)) 100 ml @ 100 mls/hr ONCE STAT IVPB 06/06/16 14:27 06/06/16 15:26 06/06/16 15:02 Procedures/MDM EKG: Rate/Rhythm: [Normal Sinus Rhythm] QRS, ST, T-waves: [No changes consistent w/ acute ischemia] Impression: [No evidence of ischemia or arrhythmia] Chest X-ray 1V Interpreted by me: Soft Tissue: Right upper lobe infiltrate Bones: No acute abnormalities Mediastinum/Cardiac Silhouette/Lungs: [No acute abnormalities] CT abdomen pelvis without: 1. Findings compatible with mild sigmoid diverticulitis, as above. No evidence of diverticular perforation or abscess formation is seen. 2. Underlying colonic mass/neoplasm cannot be definitely excluded in this location - consider colonoscopic correlation after the acute inflammatory process has subsided. 3. Large amount of retained fecal material is seen proximally, compatible with constipation. 4. Cholelithiasis and/or gallbladder sludge are noted, without evidence for cholecystitis. 5. Small hiatal hernia is seen. 6. There is mild chronic right renal atrophy. No urolithiasis or obstructive uropathy is seen. 7. Uterus is surgically absent. This 81-year-old female presents to the ER for evaluation of abdominal pain, nausea and vomiting. When I evaluated this patient she was tachycardic and did have tenderness in her lower abdomen. Given the fact that she was tachycardic with mild tenderness I did obtain a septic workup which did reveal a leukocytosis. CT of the abdomen pelvis was also obtained which does show ileitis and possibly a malignant neoplasm. This patient does have an elevated lactic acid, and given her leukocytosis, elevated lactic acid, and ileitis on CAT scan this patient does meet sepsis criteria. This patient was given 30 cc/ kg of IV normal saline. She was given Flagyl and ciprofloxacin in the emergency room. The patient's mean arterial pressures been greater than 65 and there is no need for vasopressors at this time. This patient will be placed in for admission on her [facility] floor under the care of Dr. Webb Patient's infectious symptoms have not stabilized and the patient is at risk of rapid decompensation. The patient will be admitted for careful hydration, antibiotic therapy, and infectious source control. Severe Sepsis Assessment: Infectious Source: Ileitis, pneumonia End organ damage indicated by: [Lactate > 2.0 mmol/L Hypotension( SBP < 90 or >40 mmHG drop or MAP < 65) Acute Resp Failure (sat < 92% w/o oxygen) [facility] > 2.0 INR > 1.5 Plt < 100 Bili > 2] Severe Sepsis Managment: Blood Cultures X 2 before broad spectrum antibiotics initiated within 3 hours of recognition. 30 ml/kg NS bolus Completed Initial Lactate: 5.7 Repeat Lactate pending Critical Care: Excluding all billable procedures Time: 48 minutes Treatments/Evaluations: Emergent fluid management, while maintaining close respiratory support. Immediate broad spectrum antibiotic therapy. Simultaneous assessment for possible sources in order to direct therapy. Consideration for invasive and chemical support to prevent respiratory or cardiac collapse. Septic Shock Assessment (1 hour post 30 ml/kg fluid bolus): Hypotension (SBP < 90 or 40 mmHg drop, MAP < 65): [No] Lactic acid > 4.0 yes Perfusion Reassessment for Septic Shock: Temp 98.8 , Pulse 108, RR 20, BP129/62 Heart Exam: [Tachycardic] Lung Exam: [No Crackles] Capillary Refill: Normal Peripheral Pulses: [Radially present] Skin: Good turgor Hypotensive Treatment (not required for isolated lactic acid elevation): Comfort Care: No Central LIne: [XOXOXO] Vasopressor started: Not needed I considered further perfusion assessment with CVP measurement, SCVO2, bedside ultrasound volume assessment, passive leg raise, trial of further fluid bolus. And preceded with further fluid bolus Accepting Care Team: Current data and ongoing care discussed. Time: Time of admission Primary Provider: [XOXOXO] Consulting: [XOXOXO] Outstanding Data: none Departure Diagnosis: Primary Impression: Severe sepsis Additional Impressions: Ileitis Right upper lobe pneumonia Renal insufficiency Condition: Stable LINDSEY SAUCEDO DO Jun 06, 2016 15:20
[2016-06-06 15:28] LABS: PARTIAL THROMBOPLASTIN TIME 30.5 Sec (25.0-35.0)
[2016-06-06] MEDS ORDERED: ONDANSETRON 4 MG INJ IV PRN ×2 (15:30→19:00)
[2016-06-06] MEDS ORDERED: ACETAMINOPHEN 325 MG TAB PO PRN (15:30)
[2016-06-06 16:57] LABS: ADD UMIC YES; URINE BILIRUBIN (Dip) NEGATIVE (NEGATIVE); URINE BLOOD (Dip) NEGATIVE (NEGATIVE); URINE COLOR YELLOW (YELLOW); URINE GLUCOSE (Dip) NEGATIVE (NEGATIVE); URINE KETONES (Dip) TRACE (NEGATIVE); URINE LEUKOCYTE ESTERASE (Dip) NEGATIVE (NEGATIVE); URINE NITRITE (Dip) NEGATIVE (NEGATIVE); URINE TOTAL PROTEIN (Dip) 2+ (NEGATIVE); URINE UROBILINOGEN (Dip) 0.2 E.U./dL (0.1-1.0)
[2016-06-06 17:15] VITALS: TEMP 98.3
[2016-06-06 17:25] LABS: BACTERIA,URINE FEW; SQUAMOUS EPITHELIAL CELL,UR MODERATE; URINE RBCS 0-2 /HPF ([, 0])
[2016-06-06 17:45] VITALS: BP 104/52; PULSE 110; RESP 18
[2016-06-06] MEDS: SOD CHLORIDE 0.45% 1,000 ML IV SCH (18:53)
[2016-06-06] MEDS ORDERED: NACL 0.9% 3 ML SYG IV SCH (19:00)
[2016-06-06] MEDS ORDERED: VANCOMYCIN IV PER PHARMACY XX SCH (19:00)
[2016-06-06] MEDS ORDERED: morphine 2 MG INJ IV PRN (19:00)
--- NOTE | 2016-06-06 19:17 | HP ---
DATE OF ADMISSION: 06/06/2016 ADDENDUM ASSESSMENT AND PLAN: Colonic mass. Will consult GI for possible colonoscopy. Dictated By: BERT FREED MD BS/NTS Conf#: [id number] DID#: [id number]
[2016-06-06 20:00] VITALS: BP 107/53; RESP 18
[2016-06-06] MEDS ORDERED: VANCOMYCIN 1 GM in NS 250 ML IVPB SCH (20:00)
--- NOTE | 2016-06-06 20:00 | HP ---
DATE OF ADMISSION: 06/06/2016 CHIEF COMPLAINT: Abdominal pain. HISTORY OF PRESENT ILLNESS: The patient is an 81-year-old female with a history of recent hip fract ure, hypertension, COPD, diastolic heart failure, pulmonary hypertension, dyslipidemia. The patient was recently hospitalized here in 03/2016 after having suffered a right hip fracture. The patient presents today with 3 days of abdominal pain. She does have some diarrhea as well as nausea, vomiti ng and has had several episodes of emesis in the ED. In the emergency room, the patient had a CT of the abdomen that showed sigmoid diverticulitis. No evidence of perforation was noted. There is al so an underlying colonic mass, neoplasm. The patient has no other complaints at this time. PAST MEDICAL HISTORY: As per HPI. HOME MEDICATIONS: 1. Ferrous sulfate. 2. Protonix. 3. Nifedipine. 4. Colace. 5. Aspirin. 6. Clonazepam. 7. Zofran. 8. Lipitor. 9. Citalopram. ALLERGIES: 1. PENICILLIN. 2. MORPHINE. FAMILY HISTORY: Noncontributory. SOCIAL HISTORY: Denies any tobacco or drugs. Lives with daughter. REVIEW OF SYSTEMS: ____-point review of systems is negative except for that as mentioned in HPI. PHYSICAL EXAMINATION: VITAL SIGNS: Temperature is 97.9, pulse 110, respiratory rate is 18, BP is 104/52, saturation 93% o n 2 L. GENERAL: Mild distress. Alert, not oriented. HEENT: Normocephalic, atraumatic. CHEST: Clear to auscultation. CARDIOVASCULAR: Regular rate and rhythm. ABDOMEN: Nondistended, soft. Tender to palpation in the mid epigastrium. EXTREMITIES: No clubbing, cyanosis, edema. LABORATORIES: White count is 12.6, hemoglobin is 14.9, platelets are 183. Chemistry: Sodium is 14 3, potassium is 4.4, carbon dioxide 20, anion gap is 25, BUN is 24, creatinine is 1.34. Lactic acid has been elevated with 5.8, now 8.4. AST is ____, ALT is 12. INR is 1.07. UA is within normal li mits except for trace ketones. DIAGNOSTICS: Chest x-ray shows calcification of the thoracic aorta, bibasilar atelectasis, possible mild right upper lobe patchy consolidation. Abdominopelvic CT shows diverticulitis, no perforation; also colonic neoplasm, constipation and chol elithiasis without evidence for cholecystitis; small hiatal hernia; chronic right renal atrophy; lumbee opal surgically absent. ASSESSMENT AND PLAN: 1. Sepsis secondary to diverticulitis. Will treat with Zosyn. The patient's lactic acid has incre ased. Will get ID consultation, keep the patient n.p.o. and give IV fluids. 2. Chronic kidney disease, stable. The patient's renal function is at baseline. 3. Recent right hip fracture. No acute issues. 4. Hypertension. Hold any BP medications at this time secondary to sepsis. 5. Chronic obstructive pulmonary disease, stable. 6. Prophylaxis. SCDs. Dictated By: BERT FREED MD BS/NTS Conf#: [id number] DID#: [id number]
[2016-06-06] MEDS: Metronidazole 500 MG in NS 100 ML IVPB SCH (21:24)
[2016-06-07] MEDS ORDERED: PIPER-TAZO 3.375 GM IV (PMX) 100 ML IVPB SCH
[2016-06-07] MEDS: Metronidazole 500 MG in NS 100 ML IVPB SCH ×3 (05:15→22:02)
[2016-06-07 05:21] LABS: ADD SCAN DIFF NO
[2016-06-07 05:24] LABS: ABNORMAL IP MESSAGE 1; BASOPHIL # 0.1 10^3/ul (0.0-0.1); BASOPHILS % 0.6 % (0.0-2.0); EOSINOPHILS % 0.1 % (0.0-7.0); HEMATOCRIT 36.1 % (37.0-47.0); HEMOGLOBIN 11.4 g/dl (12.0-16.0); LYMPHOCYTES # 1.1 10^3/ul (0.8-2.9); LYMPHOCYTES % 6.6 % (15.0-51.0); MEAN CORPUSCULAR HEMOGLOBIN 29.5 pg (29.0-33.0); MEAN CORPUSCULAR HGB CONC 31.6 g/dl (32.0-37.0); MEAN CORPUSCULAR VOLUME 93.3 fl (82.0-101.0); MEAN PLATELET VOLUME 11.7 fl (7.4-10.4); NEUTROPHIL # 14.5 10^3/ul (1.6-7.5); NEUTROPHILS % 86.4 % (39.0-77.0); PLATELET COUNT 207 10^3/UL (140-415); RED BLOOD COUNT 3.87 10^6/ul (4.20-5.40); RED CELL DISTRIBUTION WIDTH 14.6 % (11.5-14.5); WHITE BLOOD COUNT 16.8 10^3/ul (4.8-10.8)
[2016-06-07 05:49] LABS: ALBUMIN 2.1 g/dl (3.3-4.9)
[2016-06-07 05:50] LABS: POTASSIUM 4.2 mmol/L (3.5-5.1)
[2016-06-07 05:52] LABS: ALBUMIN/GLOBULIN RATIO 0.95; CREATININE 1.38 mg/dl (0.44-1.00); TOTAL PROTEIN 4.3 g/dl (6.1-8.1)
[2016-06-07 05:53] LABS: PHOSPHORUS 4.3 mg/dl (2.5-4.9)
[2016-06-07] MEDS ORDERED: PANTOPRAZOLE 40 MG INJ IV SCH (06:00)
[2016-06-07] MEDS: SOD CHLORIDE 0.45% 1,000 ML IV SCH ×3 (06:46→20:30)
[2016-06-07 08:00] VITALS: BP 170/88; RESP 18
[2016-06-07 10:00] VITALS: BP 145/60; PULSE 105
--- NOTE | 2016-06-07 12:25 | CONS ---
Date/Time of Note Date/Time of Note DATE: 06/07/16 TIME: 12:11 Assessment/Plan Assessment/Plan Additional Assessment/Plan Acute anemia Evaluate GI bleed versus chronic iron deficiency vs other etiology Monitor H&H every 8 hours, transfuse 2 units for hemoglobin less than 7.[address] abdomen: 1. Findings compatible with mild sigmoid diverticulitis, as above. No evidence of diverticular perforation or abscess formation is seen. 2. Underlying colonic mass/neoplasm cannot be definitely excluded in this location - consider colonoscopic correlation after the acute inflammatory process has subsided. 3. Large amount of retained fecal material is seen proximally, compatible with constipation. 4. Cholelithiasis and/or gallbladder sludge are noted, without evidence for cholecystitis. 5. Small hiatal hernia is seen. 6. There is mild chronic right renal atrophy. No urolithiasis or obstructive uropathy is seen. 7. Uterus is surgically absent. Continue PPI drips EGD today, pt's son advised of R/B/A to procedure and provides informed consent to proceed Abdominal pain/possible colonic mass/weight loss/loss of appetite Monitor labs CT abdomen: C difficle stool test, positive Colonoscopy on Friday, pt's son advised of R/B/A to procedure and provides informed consent to proceed Bowel Prep on Friday Positive C. difficile Continue antibiotic treatment Contact precautions in place Depression Management per Primary Hypertension Management per Primary Continue home medication Hyperlipidemia Management per Primary Continue home medication Further recommendations depend on clinical course Patient seen in collaboration with Dr. Cole Consultation Date/Type/Reason Admit Date/Time Jun 06, 2016 at 15:10 Type of Consultation: Gastroenterology Reason for Consultation Abdominal pain Hx of Present Illness Mrs.Tomasa Mathews is an 81-year-old female who presented to the ED secondary to complaints of abdominal pain, emesis, intermittent diarrhea for the last 3 days. No reports of hematemesis or coffee-ground emesis. She denies fever, chills, sick contacts, previous episode, chronic NSAID use, chest pain, and shortness of breath. he patient was recently hospitalized here in 2016 after having suffered a right hip fracture. Patient has past medical history of recent hip fracture, hypertension, COPD, diastolic heart failure, pulmonary hypertension, dyslipidemia. At bedside, caregiver also notes patient has been losing weight for several months and can no longer tolerate a regular diet. Patient reports pain with swallowing and can only tolerate pured or liquid contents. Unsure if patient has completed EGD or colonoscopy in the past. Called son Pa and he provides informed consent to proceed with EGD and colonoscopy. Past Medical History Medical History: high cholesterol, hypertension Social History Alcohol Use: none Smoking Status: Former smoker Exam/Review of Systems Vital Signs Vitals Vital Signs Date Time Temp Pulse Resp B/P Pulse Ox O2 Delivery O2 Flow Rate FiO2 06/07/16 09:30 Nasal Cannula 2.0 06/07/16 08:00 98.6 76 18 170/88 96 Intake and Output 06/06/16 06/06/16 06/07/16 14:59 22:59 06:59 Intake Total 1250 ml 1100 ml Balance 1250 ml 1100 ml Exam Constitutional: alert, oriented, thin Psych: nl mood/affect Head: normocephalic Eyes: EOMI, nl conjunctiva, nl lids ENMT: nl external ears & nose, nl lips & teeth, nl nasal mucosa & septum Respiratory: clear to auscultation, normal air movement Cardiovascular: regular rate and rhythm Gastrointestinal: soft, diffuse tenderness Musculoskeletal: nl extremities to inspection Neurological: CALENDER RUNNER II-XII intact Results Result Diagram: 06/07/1642606/07/16426 Results 24 hrs Laboratory Tests Test 06/06/16 12:55 06/06/16 15:00 06/06/16 16:22 06/06/16 17:00 Alanine Aminotransferase (ALT/SGPT) 12 L Albumin 3.8 Albumin/Globulin Ratio 1.02 Alkaline Phosphatase 170 H Anion Gap 25 H Aspartate Amino Transf (AST/SGOT) 50 H Basophils # 0.0 Basophils % 0.3 Blood Urea Nitrogen 24 H Calcium Level 10.2 Carbon Dioxide Level 20 L Chloride Level 102 Creatinine 1.34 H Direct Bilirubin 0.00 Eosinophils # 0.0 Eosinophils % 0.0 Globulin 3.70 H Glucose Level 181 Hematocrit 45.9 # Hemoglobin 14.9 # Indirect Bilirubin 0.2 Lactic Acid Level 5.8 *H 6.3 *H 8.4 *H Lymphocytes # 0.5 L Lymphocytes % 4.1 L Mean Corpuscular Hemoglobin 29.7 Mean Corpuscular Hemoglobin Concent 32.5 Mean Corpuscular Volume 91.6 Mean Platelet Volume 12.2 #H Monocytes # 0.4 Monocytes % 3.2 Neutrophils # 11.6 H Neutrophils % 92.1 H Nucleated Red Blood Cells # 0.0 Nucleated Red Blood Cells % 0.0 Platelet Count 183 Potassium Level 4.4 Red Blood Count 5.01 # Red Cell Distribution Width 14.0 Sodium Level 143 Total Bilirubin 0.2 Total Protein 7.5 Troponin I < 0.012 White Blood Count 12.6 #H Activated Partial Thromboplast Time 30.5 INR International Normalized Ratio 1.07 Prothrombin Time 13.9 Prothrombin Time Ratio 1.1 Urine Amorphous Urates MANY Urine Bacteria FEW Urine Bilirubin NEGATIVE Urine Clarity SLIGHTLY CLOUDY Urine Color YELLOW Urine Glucose NEGATIVE Urine Hemoglobin NEGATIVE Urine Ketones TRACE H Urine Leukocyte Esterase NEGATIVE Urine Microscopic RBC 0-2 Urine Microscopic WBC NONE SEEN Urine Nitrite NEGATIVE Urine Specific [place] 1.020 Urine Squamous Epithelial Cells MODERATE Urine Total Protein 2+ H Urine Urobilinogen 0.2 E.U./dL Urine pH 5.5 Test 06/07/16 04:27 Alanine Aminotransferase (ALT/SGPT) 28 Albumin 2.1 #L Albumin/Globulin Ratio 0.95 Alkaline Phosphatase 114 Anion Gap 17 #H Aspartate Amino Transf (AST/SGOT) 14 L Basophils # 0.1 Basophils % 0.6 Blood Urea Nitrogen 30 H Calcium Level 8.0 L Carbon Dioxide Level 21 Chloride Level 108 Creatinine 1.38 H Direct Bilirubin 0.00 Eosinophils # 0.0 Eosinophils % 0.1 Globulin 2.20 Glucose Level 78 # Hematocrit 36.1 #L Hemoglobin 11.4 #L Indirect Bilirubin 0.0 Lactic Acid Level 2.2 Lymphocytes # 1.1 Lymphocytes % 6.6 L Magnesium Level 2.0 Mean Corpuscular Hemoglobin 29.5 Mean Corpuscular Hemoglobin Concent 31.6 L Mean Corpuscular Volume 93.3 Mean Platelet Volume 11.7 H Monocytes # 1.0 H Monocytes % 6.0 Neutrophils # 14.5 H Neutrophils % 86.4 H Nucleated Red Blood Cells # 0.0 Nucleated Red Blood Cells % 0.0 Phosphorus Level 4.3 Platelet Count 207 Potassium Level 4.2 Red Blood Count 3.87 #L Red Cell Distribution Width 14.6 H Sodium Level 142 Total Bilirubin 0.0 L Total Protein 4.3 #L White Blood Count 16.8 #H Medications Medications Current Medications Sodium Chloride (1/2 NS) 1,000 ml @ 100 mls/hr Q10H IV Last administered on t 06:46; Admin Dose 100 MLS/HR; Start 06/06/16 at 18:34 Ondansetron HCl (Zofran Inj) 4 mg Q6H PRN IV NAUSEA AND/OR VOMITING Last administered on 06/06/16 21:20; Admin Dose 4 MG; Start 06/06/16 at 19:00 Morphine Sulfate (morphine) 2 mg Q4H PRN IV SEVERE PAIN LEVEL 7-10 Last administered on 06/06/16 22:26; Admin Dose 2 MG; Start 06/06/16 at 19:00 Pantoprazole 40 mg 40 mg DAILY@06 IV Last administered on 06/07/16 05:15; Admin Dose 40 MG; Start 06/07/16 at 06:00 Metronidazole 100 ml @ 100 mls/hr Q8 IVPB Last administered on 06/07/16 05:15 ; Admin Dose 100 MLS/HR; Start 06/06/16 at 22:00 Ciprofloxacin/ Dextrose 200 ml @ 200 mls/hr Q24H IVPB ; Start 06/07/16 at 15:00 Vancomycin HCl/ Sodium Chloride (Vancocin/NS) 150 ml @ 75 mls/hr Q48H IVPB ; Start 06/08/16 at 21:00 AIRAM TAI Jun 07, 2016 12:24
[2016-06-07] MEDS: PANTOPRAZOLE IV 80 MG in SOD CHLORIDE 0.9% 100 ML IV SCH ×2 (13:55→23:39)
--- NOTE | 2016-06-07 14:48 | PN ---
Date/Time of Note Date/Time of Note DATE: 06/07/16 TIME: 14:35 Assessment/Plan VTE Prophylaxis VTE Prophylaxis Intervention: SCD's Lines/Catheters IV Catheter Type (from Nrs): Peripheral IV Urinary Cath still in place: No Assessment/Plan Assessment/Plan 1. C. Diff Colitis, on flagyl iv, add oral vanco 2. Sigmoid diverticulitis, on cipro/flagyl 3. Sepsis, IVF, antibiotics 4. Chronic kidney disease, stable. 5. Recent right hip fracture. No acute issues. 6. Hypertension. stable 7. Chronic obstructive pulmonary disease, stable. 8. Prophylaxis. SCDs. Subjective 24 Hr Interval Summary Free Text/Dictation diffuse abdominal pain Exam/Review of Systems Vital Signs Vitals Vital Signs Date Time Temp Pulse Resp B/P Pulse Ox O2 Delivery O2 Flow Rate FiO2 06/07/16 10:00 105 145/60 06/07/16 09:30 Nasal Cannula 2.0 06/07/16 08:00 98.6 18 96 Intake and Output 06/06/16 06/06/16 06/07/16 15:00 23:00 07:00 Intake Total 1250 ml 1100 ml Balance 1250 ml 1100 ml Exam Constitutional: alert, oriented, well developed Psych: nl mood/affect, no complaints Head: atraumatic, normocephalic Eyes: EOMI, PERRL, nl conjunctiva, nl lids ENMT: nl external ears & nose, nl lips & teeth, nl nasal mucosa & septum Neck: non-tender, supple Respiratory: clear to auscultation, normal air movement, No congested cough, No crackles/rales, No diminished breath sounds, No intercostal retraction, No labored breathing, No other, No respirations, No tactile fremitus, No wheezing Cardiovascular: nl pulses, regular rate and rhythm, No S3, No S4, No bruits, No diastolic murmur, No edema, No gallop, No irregular rhythm, No jugular venous distention (JVD), No murmurs/extra sounds, No other, No rub, No systolic murmur Gastrointestinal: nl liver, spleen, non-tender (diffuse tenderness), soft, No ascites, No bowel sounds, No distended, No firm, No hepatomegaly, No mass , No other, No rebound or guarding, No splenomegaly, No surgical scars, No tender Musculoskeletal: nl extremities to inspection Extremities: normal pulses, tenderness, No calf tenderness, No clubbing, No cyanosis, No edema, No other, No palpable cord, No pitting pedal edema Neurological: CODING CLERK II-XII intact, nl mental status, nl speech, nl strength Skin: nl turgor Lymph: nl lymph nodes Results Result Diagram: 06/07/167 06/07/16426 Results 24 hrs Laboratory Tests Test 06/06/16 15:00 06/06/16 16:22 06/06/16 17:00 06/07/16 04:27 Activated Partial Thromboplast Time 30.5 INR International Normalized Ratio 1.07 Lactic Acid Level 6.3 *H 8.4 *H 2.2 Prothrombin Time 13.9 Prothrombin Time Ratio 1.1 Urine Amorphous Urates MANY Urine Bacteria FEW Urine Bilirubin NEGATIVE Urine Clarity SLIGHTLY CLOUDY Urine Color YELLOW Urine Glucose NEGATIVE Urine Hemoglobin NEGATIVE Urine Ketones TRACE H Urine Leukocyte Esterase NEGATIVE Urine Microscopic RBC 0-2 Urine Microscopic WBC NONE SEEN Urine Nitrite NEGATIVE Urine Specific [place] 1.020 Urine Squamous Epithelial Cells MODERATE Urine Total Protein 2+ H Urine Urobilinogen 0.2 E.U./dL Urine pH 5.5 Alanine Aminotransferase (ALT/SGPT) 28 Albumin 2.1 #L Albumin/Globulin Ratio 0.95 Alkaline Phosphatase 114 Anion Gap 17 #H Aspartate Amino Transf (AST/SGOT) 14 L Basophils # 0.1 Basophils % 0.6 Blood Urea Nitrogen 30 H Calcium Level 8.0 L Carbon Dioxide Level 21 Chloride Level 108 Creatinine 1.38 H Direct Bilirubin 0.00 Eosinophils # 0.0 Eosinophils % 0.1 Globulin 2.20 Glucose Level 78 # Hematocrit 36.1 #L Hemoglobin 11.4 #L Indirect Bilirubin 0.0 Lymphocytes # 1.1 Lymphocytes % 6.6 L Magnesium Level 2.0 Mean Corpuscular Hemoglobin 29.5 Mean Corpuscular Hemoglobin Concent 31.6 L Mean Corpuscular Volume 93.3 Mean Platelet Volume 11.7 H Monocytes # 1.0 H Monocytes % 6.0 Neutrophils # 14.5 H Neutrophils % 86.4 H Nucleated Red Blood Cells # 0.0 Nucleated Red Blood Cells % 0.0 Phosphorus Level 4.3 Platelet Count 207 Potassium Level 4.2 Red Blood Count 3.87 #L Red Cell Distribution Width 14.6 H Sodium Level 142 Total Bilirubin 0.0 L Total Protein 4.3 #L White Blood Count 16.8 #H Medications Medications Current Medications Sodium Chloride (1/2 NS) 1,000 ml @ 100 mls/hr Q10H IV Last administered on 06:46; Admin Dose 100 MLS/HR; Start 06/06/16 at 18:34 Ondansetron HCl (Zofran Inj) 4 mg Q6H PRN IV NAUSEA AND/OR VOMITING Last administered on 06/06/16 21:20; Admin Dose 4 MG; Start 06/06/16 at 19:00 Morphine Sulfate 2 mg 2 mg Q4H PRN IV SEVERE PAIN LEVEL 7-10 Last administered on 06/06/16 22:26; Admin Dose 2 MG; Start 06/06/16 at 19:00 Metronidazole 100 ml @ 100 mls/hr Q8 IVPB Last administered on 06/07/16 13:36 ; Admin Dose 100 MLS/HR; Start 06/06/16 at 22:00 Ciprofloxacin/ Dextrose 200 ml @ 200 mls/hr Q24H IVPB ; Start 06/07/16 at 15:00 Vancomycin HCl/ Sodium Chloride (Vancocin/NS) 150 ml @ 75 mls/hr Q48H IVPB ; Start 06/08/16 at 21:00 Bisacodyl (Dulcolax) 10 mg ONCE ONCE PO ; Start 06/09/16 at 14:00; Stop at 14:01 Magnesium Citrate (Citroma) 300 ml ONCE ONCE PO ; Start 06/09/16 at 16:00; Stop 06/09/16 at 16:01 Polyethylene Glycol 119 gm 119 gm ONCE ONCE PO ; Start 06/09/16 at 16:00; Stop 06/09/16 at 16:01 Pantoprazole/ Sodium Chloride (Protonix Iv/NS) 100 ml @ 10 mls/hr Q10H IV Last administered on 06/07/16 13:55; Admin Dose 10 MLS/HR; Start 06/07/16 at 13 :30 MAE ELON MD Jun 07, 2016 14:45
[2016-06-07] MEDS: CIPROFLOXACIN 400 MG in D5W 200 ML IVPB SCH (15:06)
[2016-06-07] MEDS: VANCOMYCIN HCL 250 MG/5ML POSYG PO SCH ×3 (15:30→23:39)
[2016-06-07 20:00] VITALS: BP 149/65; PULSE 102; RESP 19
[2016-06-07] MEDS ORDERED: VANCOMYCIN 500MG/NS (PMX) 100 ML IVPB SCH (20:00)
[2016-06-07 20:43] VITALS: BP 149/65; RESP 19
[2016-06-07] MEDS ORDERED: HYDROCODONE/APAP (5/325) TAB PO PRN (22:00)
[2016-06-08 05:08] LABS: ADD SCAN DIFF NO
[2016-06-08] MEDS: Metronidazole 500 MG in NS 100 ML IVPB SCH ×3 (05:25→22:24)
[2016-06-08] MEDS: VANCOMYCIN HCL 250 MG/5ML POSYG PO SCH ×3 (05:25→17:15)
[2016-06-08 05:30] LABS: ABNORMAL IP MESSAGE 1; HEMATOCRIT 29.3 % (37.0-47.0); HEMOGLOBIN 9.6 g/dl (12.0-16.0); MEAN CORPUSCULAR HEMOGLOBIN 30.3 pg (29.0-33.0); MEAN CORPUSCULAR HGB CONC 32.8 g/dl (32.0-37.0); MEAN CORPUSCULAR VOLUME 92.4 fl (82.0-101.0); MEAN PLATELET VOLUME 11.8 fl (7.4-10.4); PLATELET COUNT 178 10^3/UL (140-415); RED BLOOD COUNT 3.17 10^6/ul (4.20-5.40); RED CELL DISTRIBUTION WIDTH 14.5 % (11.5-14.5); WHITE BLOOD COUNT 16.9 10^3/ul (4.8-10.8)
[2016-06-08 05:47] LABS: POTASSIUM 3.4 mmol/L (3.5-5.1)
[2016-06-08 05:50] LABS: CREATININE 1.39 mg/dl (0.44-1.00)
[2016-06-08 05:51] LABS: CALCIUM 7.5 mg/dl (8.4-10.2)
[2016-06-08] MEDS: SOD CHLORIDE 0.45% 1,000 ML IV SCH ×2 (08:06→21:49)
[2016-06-08] MEDS: PANTOPRAZOLE IV 80 MG in SOD CHLORIDE 0.9% 100 ML IV SCH ×2 (08:06→19:55)
[2016-06-08 08:49] VITALS: BP 165/76; RESP 20
[2016-06-08] MEDS ORDERED: ALBUTEROL/IPRATROPIUM (NEB) 3 ML AMP HHN SCH (09:00)
[2016-06-08] MEDS ORDERED: ALBUTEROL/IPRATROPIUM (NEB) 3 ML AMP HHN PRN (09:00)
[2016-06-08 11:51] LABS: LYMPHOCYTES # 0.7 10^3/ul (0.8-2.9); MONOCYTE # 0.5 10^3/ul (0.3-0.9); NEUTROPHIL # 5.9 10^3/ul (1.6-7.5)
[2016-06-08] MEDS ORDERED: POTASSIUM CHLORIDE 20 MEQ POWDER FOR ORAL SOLN PO ONE (14:00)
--- NOTE | 2016-06-08 14:38 | PN ---
Date/Time of Note Date/Time of Note DATE: 06/08/16 TIME: 14:34 Assessment/Plan VTE Prophylaxis VTE Prophylaxis Intervention: heparin Lines/Catheters IV [facility]from [facility]): Peripheral IV Urinary Cath still in place: No Assessment/Plan Assessment/Plan 1. C. Diff Colitis, abx: cipor / flagyl / vanco 2. Sigmoid diverticulitis, on cipro/flagyl 3. Sepsis 2/2 #1 and #2, IVF, antibiotics 4. Chronic kidney disease, stable. 5. Recent right hip fracture. No acute issues. 6. Hypertension. suboptimal control 7. Chronic obstructive pulmonary disease, stable. 8. Hypokalemia : replace 9. Chronic anxiety / depression: resume home meds 10. Worsening anemia: ?GI PLAN: * Colonoscopy planned for friday * Titrate antihypertensives for improved control * replace and monitor electrolytes * closely watch hgb levels and transfuse PRN * Continue protonix drip * PT / ST eval * Continue supportive care Prophylaxis. SCDs. Subjective 24 Hr Interval Summary Free Text/Dictation c/o lethargy Constitutional: febrile, poor po Exam/Review of Systems Vital Signs Vitals Vital Signs Date Time Temp Pulse Resp B/P Pulse Ox O2 Delivery O2 Flow Rate FiO2 06/08/16 08:49 98.8 106 20 165/76 96 06/08/16 08:12 Nasal Cannula 2.0 Intake and Output 06/07/16 06/07/16 06/08/16 15:00 23:00 07:00 Intake Total 100 ml 2160 ml 1420 ml Balance 100 ml 2160 ml 1420 ml Exam Constitutional: alert, frail (elederly, warm mto touch) Head: normocephalic Eyes: PERRL ENMT: No mucosa pink and moist Respiratory: crackles/rales (coarse ), diminished breath sounds Cardiovascular: murmurs/extra sounds (?) Gastrointestinal: bowel sounds (hypoactive), distended, soft, tender Extremities: No edema Neurological: lethargic, nl mental status Results Result Diagram: 06/08/1641906/08/16419 Results 24 hrs Laboratory Tests Test 06/08/16 04:20 Anion Gap 13 Band Neutrophils % 58.0 H Blood Urea Nitrogen 32 H Calcium Level 7.5 L Carbon Dioxide Level 20 L Chloride Level 106 Creatinine 1.39 H Eosinophils # Eosinophils % Glucose Level 88 Hematocrit 29.3 L Hemoglobin 9.6 L Lymphocytes # 0.7 L Lymphocytes % 4.0 L Mean Corpuscular Hemoglobin 30.3 Mean Corpuscular Hemoglobin Concent 32.8 Mean Corpuscular Volume 92.4 Mean Platelet Volume 11.8 H Monocytes # 0.5 Monocytes % 3.0 Neutrophils # 5.9 Neutrophils % 35.0 L Platelet Count 178 Potassium Level 3.4 L Red Blood Count 3.17 L Red Cell Distribution Width 14.5 Sodium Level 136 White Blood Count 16.9 H Medications Medications Current Medications Sodium Chloride (1/2 NS) 1,000 ml @ 100 mls/hr Q10H IV Last administered on 08:06; Admin Dose 100 MLS/HR; Start 06/06/16 at 18:34 Ondansetron HCl 4 mg 4 mg Q6H PRN IV NAUSEA AND/OR VOMITING Last administered on 06/06/16 21:20; Admin Dose 4 MG; Start 06/06/16 at 19:00 Metronidazole 100 ml @ 100 mls/hr Q8 IVPB Last administered on 06/08/16 14:20 ; Admin Dose 100 MLS/HR; Start 06/06/16 at 22:00 Ciprofloxacin/ Dextrose (Cipro Ivpb) 200 ml @ 200 mls/hr Q24H IVPB Last administered on 06/07/16 15:06; Admin Dose 200 MLS/HR; Start 06/07/16 at 15:00 Bisacodyl (Dulcolax) 10 mg ONCE ONCE PO ; Start 06/09/16 at 14:00; Stop at 14:01 Magnesium Citrate (Citroma) 300 ml ONCE ONCE PO ; Start 06/09/16 at 16:00; Stop 06/09/16 at 16:01 Polyethylene Glycol 119 gm 119 gm ONCE ONCE PO ; Start 06/09/16 at 16:00; Stop 06/09/16 at 16:01 Pantoprazole/ Sodium Chloride (Protonix Iv/NS) 100 ml @ 10 mls/hr Q10H IV Last administered on 06/08/16 08:06; Admin Dose 10 MLS/HR; Start 06/07/16 at 13 :30 Vancomycin HCl (Vancomycin Oral Syringe) 125 mg Q6 PO Last administered on 3/18 /17at 11:52; Admin Dose 125 MG; Start 06/07/16 at 15:30 Acetaminophen/ Hydrocodone Bitart ([place] (5/325)) 1 tab Q6H PRN PO severe pain ; Start 06/07/16 at 22:00 Procedures Procedures PROCEDURE: CT Abdomen and Pelvis without contrast. CLINICAL INDICATION: Abdominal pain, vomiting TECHNIQUE: CT of the abdomen and pelvis was performed on a multi-detector scanner without IV contrast. Coronal and sagittal images were reformatted from the axial data set. One or more of the following dose reduction techniques were used: automated exposure control, adjustment of the mA and/or kV according to patient size, use of iterative reconstruction technique. CTDI = 8.23 mGy. DLP = 405.13 mGy-cm. COMPARISON: None. FINDINGS: CT abdomen: The lung bases are clear. The heart size is normal, without pericardial effusion. The gallbladder is distended and contains gallstones/sludge. No pericholecystic inflammation is identified. Liver, biliary tree, pancreas, spleen, adrenal glands and left kidney are unremarkable. There is mild chronic right renal atrophy. No urolithiasis or obstructive uropathy is identified. Small hiatal hernia is noted. The stomach is otherwise grossly unremarkable. The aorta is of normal caliber. Aortic vascular calcifications are present. There is no retroperitoneal lymphadenopathy. The reji hepatis region is clear. CT pelvis: Sigmoid diverticulosis is noted. Sigmoid colon wall thickening and adjacent pericolonic inflammation are noted, compatible with diverticulitis. No bowel obstruction, free intraperitoneal air or abscess is seen. Large amount of retained fecal material is present, compatible with constipation. The appendix is well visualized and normal. Urinary bladder is grossly unremarkable. Uterus is surgically absent. No pelvic mass or lymphadenopathy is seen. The surrounding osseous structures are remarkable for degenerative spondylosis of the spine. No osteolytic or osteoblastic lesion is detected. There are multilevel chronic appearing moderate compression deformities seen throughout the visualized thoracolumbar spine. The patient is status post right femoral ORIF. IMPRESSION: 1. Findings compatible with mild sigmoid diverticulitis, as above. No evidence of diverticular perforation or abscess formation is seen. 2. Underlying colonic mass/neoplasm cannot be definitely excluded in this location - consider colonoscopic correlation after the acute inflammatory process has subsided. 3. Large amount of retained fecal material is seen proximally, compatible with constipation. 4. Cholelithiasis and/or gallbladder sludge are noted, without evidence for cholecystitis. 5. Small hiatal hernia is seen. 6. There is mild chronic right renal atrophy. No urolithiasis or obstructive uropathy is seen. 7. Uterus is surgically absent. RPTAT: EE .Orestes Fonseca MD, MD Date Time Electronically viewed and signed by .Orestes Fonseca MD, MD on 06/06/2016 14: 18 .R/ CC: LINDSEY SAUCEDO DOPROCEDURE: CT Abdomen and Pelvis without contrast. CLINICAL INDICATION: Abdominal pain, vomiting TECHNIQUE: CT of the abdomen and pelvis was performed on a multi-detector scanner without IV contrast. Coronal and sagittal images were reformatted from the axial data set. One or more of the following dose reduction techniques were used: automated exposure control, adjustment of the mA and/or kV according to patient size, use of iterative reconstruction technique. CTDI = 8.23 mGy. DLP = 405.13 mGy-cm. COMPARISON: None. FINDINGS: CT abdomen: The lung bases are clear. The heart size is normal, without pericardial effusion. The gallbladder is distended and contains gallstones/sludge. No pericholecystic inflammation is identified. Liver, biliary tree, pancreas, spleen, adrenal glands and left kidney are unremarkable. There is mild chronic right renal atrophy. No urolithiasis or obstructive uropathy is identified. Small hiatal hernia is noted. The stomach is otherwise grossly unremarkable. The aorta is of normal caliber. Aortic vascular calcifications are present. There is no retroperitoneal lymphadenopathy. The reji hepatis region is clear. CT pelvis: Sigmoid diverticulosis is noted. Sigmoid colon wall thickening and adjacent pericolonic inflammation are noted, compatible with diverticulitis. No bowel obstruction, free intraperitoneal air or abscess is seen. Large amount of retained fecal material is present, compatible with constipation. The appendix is well visualized and normal. Urinary bladder is grossly unremarkable. Uterus is surgically absent. No pelvic mass or lymphadenopathy is seen. The surrounding osseous structures are remarkable for degenerative spondylosis of the spine. No osteolytic or osteoblastic lesion is detected. There are multilevel chronic appearing moderate compression deformities seen throughout the visualized thoracolumbar spine. The patient is status post right femoral ORIF. IMPRESSION: 1. Findings compatible with mild sigmoid diverticulitis, as above. No evidence of diverticular perforation or abscess formation is seen. 2. Underlying colonic mass/neoplasm cannot be definitely excluded in this location - consider colonoscopic correlation after the acute inflammatory process has subsided. 3. Large amount of retained fecal material is seen proximally, compatible with constipation. 4. Cholelithiasis and/or gallbladder sludge are noted, without evidence for cholecystitis. 5. Small hiatal hernia is seen. 6. There is mild chronic right renal atrophy. No urolithiasis or obstructive uropathy is seen. 7. Uterus is surgically absent. RPTAT: EE .Orestes Fonseca MD, Date Time Electronically viewed and signed by .Orestes Fonseca MD, on 06/06/2016 14: 18 .R/ CC: LINDSEY SAUCEDO DO PROCEDURE: XR Chest. CLINICAL INDICATION: Sepsis TECHNIQUE: Chest AP portable COMPARISON: 04/14/2016 FINDINGS: The mediastinal structures are unremarkable. There is calcification of the thoracic aorta (consistent with atherosclerosis). The heart is normal in size and configuration. The pulmonary vascularity is normal. There are low lung volumes. There is bibasilar subsegmental atelectasis. There is a possible mild RUL patchy consolidation. The pleural spaces are unremarkable. There are senescent changes of the axial skeleton. IMPRESSION: Calcification of the thoracic aorta (consistent with atherosclerosis). Low lung volumes. Bibasilar subsegmental atelectasis. Possible mild RUL patchy consolidation RPTAT: HGDB .Kadeem Thomas MD, Date Time Electronically viewed and signed by .Kadeem Thomas MD, on 06/06/2016 13:52 .B/ CC: LINDSEY SAUCEDO BOLATITO M. Jun 08, 2016 14:38
[2016-06-08] MEDS: CIPROFLOXACIN 400 MG in D5W 200 ML IVPB SCH (15:43)
[2016-06-08] MEDS ORDERED: ACETAMINOPHEN 325 MG TAB PO PRN (16:00)
--- NOTE | 2016-06-08 18:20 | PN ---
DATE: 06/08/2016 SUBJECTIVE: No acute changes. The patient is sleeping. No fevers. She complains of abdominal nivia n and has poor appetite per report. LABORATORY DATA: WBC today 16.9, platelets 178, neutrophils 35, bands, 58, lymphs 4, monos 3. BUN 32, creatinine 1.39. MICROBIOLOGY: Blood cultures have been negative. Stool for C. diff came back positive. Urinalysis on admission was negative. DIAGNOSTICS: CT of the abdomen and pelvis on admission revealed mild sigmoid diverticulitis, cholel ithiasis and gallbladder sludge, small hiatal hernia. ANTIMICROBIALS: The patient is on: 1. IV vancomycin. 2. Oral vancomycin. 3. IV Cipro. 4. Flagyl. PHYSICAL EXAMINATION: GENERAL: This is a fragile, elderly woman who is lying comfortably in bed. HEENT: Head atraumatic, normocephalic. Sclerae anicteric. Buccal mucosa dry. NECK: Supple. CHEST: Rise symmetrical. Breath sounds diminished to bases. HEART: S1, S2. ABDOMEN: Soft with some tenderness on palpation. Bowel sounds present. EXTREMITIES: Without cyanosis. ASSESSMENT: 1. Sepsis with leukocytosis and bandemia present on admission. 2. Clostridium difficile colitis. 3. Sigmoid diverticulitis. 4. Cholelithiasis without evidence for cholecystitis. 5. Chronic obstructive pulmonary disease. 6. Hypertension. PLAN: The patient remains clinically stable on appropriate antimicrobials. We are going to discont inue IV vancomycin. Keep her on other antimicrobials. The patient is being seen by gastroenterolog y. We will follow their recommendations. Dictated By: HÉCTOR HAYNES DESIGNER AND PATTERNMAKER for LILIYA RIVERA/FRANCOIS Conf#: [id number] DID#: [id number]
[2016-06-08 20:00] VITALS: BP 171/77; PULSE 95; RESP 17
[2016-06-08 20:23] VITALS: BP 171/77; RESP 17
[2016-06-08] MEDS: NIFEdipine (XL) 30 MG TAB PO SCH (20:37)
[2016-06-08] MEDS: ATORVASTATIN 10 MG TAB PO SCH (20:37)
[2016-06-08] MEDS: HEPARIN 5,000 UNIT/0.5 ML SYG SC SCH (20:40)
[2016-06-08] MEDS ORDERED: VANCOMYCIN 750 MG in SOD CHLORIDE 0.9% 150 ML IVPB SCH (21:00)
[2016-06-08] MEDS ORDERED: ASPIRIN 325 MG TAB PO SCH (21:00)
[2016-06-08] MEDS: ALBUTEROL/IPRATROPIUM (NEB) 3 ML AMP HHN PRN ×2 (21:24)
[2016-06-08 21:30] VITALS: BP 100/51; PULSE 105
[2016-06-08] MEDS ORDERED: ZOLPIDEM 5 MG TAB PO ONE (22:10)
[2016-06-09] MEDS: VANCOMYCIN HCL 250 MG/5ML POSYG PO SCH ×5 (00:30→23:31)
[2016-06-09] MEDS: metroNIDAZOLE 250 MG TAB GTB SCH ×4 (06:00→23:30)
[2016-06-09] MEDS: PANTOPRAZOLE IV 80 MG in SOD CHLORIDE 0.9% 100 ML IV SCH (06:03)
[2016-06-09 07:51] LABS: POTASSIUM 3.4 mmol/L (3.5-5.1)
[2016-06-09 07:53] LABS: CREATININE 1.19 mg/dl (0.44-1.00)
[2016-06-09 07:54] LABS: CALCIUM 7.8 mg/dl (8.4-10.2); MAGNESIUM 1.8 mg/dl (1.7-2.5); PHOSPHORUS 2.3 mg/dl (2.5-4.9)
[2016-06-09 08:28] VITALS: BP 125/85; RESP 16
[2016-06-09] MEDS: ASPIRIN 81 MG TAB PO SCH (09:45)
[2016-06-09] MEDS: CITALOPRAM 20 MG TAB PO SCH (09:45)
[2016-06-09] MEDS: HEPARIN 5,000 UNIT/0.5 ML SYG SC SCH ×2 (09:46→20:46)
[2016-06-09] MEDS: NIFEdipine (XL) 30 MG TAB PO SCH ×2 (09:47→20:42)
[2016-06-09] MEDS: SOD CHLORIDE 0.45% 1,000 ML IV SCH ×2 (10:18→18:02)
--- NOTE | 2016-06-09 10:28 | PN ---
Date/Time of Note Date/Time of Note DATE: 06/09/16 TIME: 10:21 Assessment/Plan VTE Prophylaxis VTE Prophylaxis Intervention: SCD's Lines/Catheters [facility] Peripheral IV Urinary Cath still in place: No Assessment/Plan Assessment/Plan Assessment : * Anemia/rule out GI bleeding * Persistent dysphagia * Diverticulitis * C. difficile colitis * Abnormal imaging patient questions possible neoplasm of the colon versus inflammatory * Hypertension * Dyslipidemia * Depression Plan: * Will reschedule EGD as patient persistent dysphagia remains unresolved * Will hold off on colonoscopy due to evidence of diverticulitis. Will consider colonoscopy in 4-6 weeks * Patient informed the procedure including risks, benefits and alternatives. Son in attendance was also informed. They are agreeable to proceed Subjective 24 Hr Interval Summary Free Text/Dictation Course reviewed with nursing staff EGD planned for Friday was canceled by Dr. Lopez However the patient continues to complain of dysphagia as her main concern problem She dates this to the last 2 months so it appears to be new onset dysphagia and should be endoscopically evaluated Her hemoglobin has remained stable Given the presence of diverticulitis colonoscopy will be deferred until that processes resolved Exam/Review of Systems Vital Signs Vitals Vital Signs Date Time Temp Pulse Resp B/P Pulse Ox O2 Delivery O2 Flow Rate FiO2 06/09/16 08:28 98.5 100 16 125/85 98 06/09/16 07:45 2.0 06/08/16 21:28 Nasal Cannula Intake and Output 06/08/16 06/08/16 06/09/16 14:59 22:59 06:59 Intake Total 1860 ml 860 ml Balance 1860 ml 860 ml Exam Constitutional: alert, oriented, well developed (Under nourished) Head: atraumatic, normocephalic Eyes: EOMI, PERRL, nl conjunctiva, nl lids, nl sclera ENMT: nl external ears & nose, nl lips & teeth, nl nasal mucosa & septum Neck: non-tender, supple Respiratory: clear to auscultation, normal air movement Cardiovascular: nl pulses, regular rate and rhythm Gastrointestinal: bowel sounds, soft, tender (Moderately left lower quadrant), No ascites, No distended, No firm, No mass, No rebound or guarding Genitourinary - Female: nl external genitalia Musculoskeletal: nl extremities to inspection Extremities: normal pulses, No calf tenderness, No clubbing, No cyanosis, No edema Skin: nl turgor, No rash or lesions Lymph: No nl lymph nodes Results Result Diagram: 06/08/16 0420 06/09/16 0723 Results 24 hrs Laboratory Tests Test 06/09/16 07:23 Albumin 2.0 L Anion Gap 13 Blood Urea Nitrogen 23 H Calcium Level 7.8 L Carbon Dioxide Level 20 L Chloride Level 106 Creatinine 1.19 H Glucose Level 93 Magnesium Level 1.8 Phosphorus Level 2.3 L Potassium Level 3.4 L Sodium Level 136 Medications Medications Current Medications Sodium Chloride (1/2 NS) 1,000 ml @ 80 mls/hr [id number] IV Last administered on 06/08/16 21:49; Admin Dose 80 MLS/HR; Start 06/06/16 at 18:34 Ondansetron HCl 4 mg 4 mg Q6H PRN IV NAUSEA AND/OR VOMITING Last administered on 06/06/16 21:20; Admin Dose 4 MG; Start 06/06/16 at 19:00 Ciprofloxacin/ Dextrose (Cipro Ivpb) 200 ml @ 200 mls/hr Q24H IVPB Last administered on 06/08/16 15:43; Admin Dose 200 MLS/HR; Start 06/07/16 at 15:00 Bisacodyl (Dulcolax) 10 mg ONCE ONCE PO ; Start 06/09/16 at 14:00; Stop at 14:01 Magnesium Citrate (Citroma) 300 ml ONCE ONCE PO ; Start 06/09/16 at 16:00; Stop 06/09/16 at 16:01 Polyethylene Glycol 119 gm 119 gm ONCE ONCE PO ; Start 06/09/16 at 16:00; Stop 06/09/16 at 16:01 Pantoprazole/ Sodium Chloride (Protonix Iv/NS) 100 ml @ 10 mls/hr Q10H IV Last administered on 06/09/16 06:03; Admin Dose 10 MLS/HR; Start 06/07/16 at 13 :30 Vancomycin HCl (Vancomycin Oral Syringe) 125 mg Q6 PO Last administered on 06/09 05:35; Admin Dose 125 MG; Start 06/07/16 at 15:30 Acetaminophen/ Hydrocodone Bitart ([place] (5/325)) 1 tab Q6H PRN PO severe pain Last administered on 06/08/16 20:38; Admin Dose 1 TAB; Start 06/07/16 at 22:00 Atorvastatin Calcium (Lipitor) 10 mg QHS PO Last administered on 06/08/16 20: 37; Admin Dose 10 MG; Start 06/08/16 at 21:00 Citalopram Hydrobromide (Celexa) 10 mg DAILY PO Last administered on 06/09/16 09:45; Admin Dose 10 MG; Start 06/09/16 at 09:00 Nifedipine (Procardia Xl) 30 mg BID PO Last administered on 06/09/16 09:47; Admin Dose 30 MG; Start 06/08/16 at 21:00 Aspirin (Aspirin) 81 mg DAILY PO Last administered on 06/09/16 09:45; Admin Dose 81 MG; Start 06/09/16 at 09:00 Acetaminophen (Tylenol Tab) 650 mg Q6H PRN PO PAIN AND OR ELEVATED TEMP; Start 06/08/16 at 16:00 Heparin Sodium (Porcine) (Heparin (5000 Units/0.5 ml)) 5,000 unit BID SC Last administered on 06/09/16 09:46; Admin Dose 5,000 UNIT; Start 06/08/16 at 21:00 Metronidazole (Flagyl) 250 mg Q6 GTB ; Start 06/09/16 at 06:00; Stop 06/22/16 at 23:55 TAYLOR BRAUN MD Jun 09, 2016 10:27
--- NOTE | 2016-06-09 10:58 | RADRPT ---
PROCEDURE: XR Chest. CLINICAL INDICATION: Sepsis follow-up TECHNIQUE: Anterior chest x-ray. COMPARISON: None. FINDINGS: The mediastinal structures are unremarkable. There is calcification of the thoracic aorta (consistent with atherosclerosis). The heart is normal in size and configuration. The pulmonary vascularity is normal. There has been interval resolution of bibasilar subsegmental atelectasis. The pleural spaces are unremarkable. There are senescent changes of the axial skeleton. IMPRESSION: Calcification of the thoracic aorta (consistent with atherosclerosis). Previously-described possible mild RUL patchy consolidation is not seen on the current exam. RPTAT: QQ .Dino Anne MD, MD Date Time Electronically viewed and signed by .Dino Anne MD, on 06/09/2016 10:58 .M/
[2016-06-09] MEDS: ALBUTEROL/IPRATROPIUM (NEB) 3 ML AMP HHN PRN ×2 (11:46→21:25)
[2016-06-09] MEDS ORDERED: BISACODYL (EC) 5 MG TAB PO ONE ×2 (14:00→20:00)
--- NOTE | 2016-06-09 14:17 | PN ---
Date/Time of Note Date/Time of Note DATE: 06/09/16 TIME: 14:13 Assessment/Plan VTE Prophylaxis VTE Prophylaxis Intervention: SCD's Lines/Catheters IV [facility] (from [facility]): Peripheral IV Urinary Cath still in place: No Assessment/Plan Assessment/Plan 1. C. Diff Colitis, abx: cipor / flagyl / vanco 2. Sigmoid diverticulitis, on cipro/flagyl 3. Sepsis 2/2 #1 and #2, IVF, antibiotics 4. Chronic kidney disease, stable. 5. Recent right hip fracture. No acute issues. 6. Hypertension. suboptimal control 7. Chronic obstructive pulmonary disease, stable. 8. Hypokalemia : replace 9. Chronic anxiety / depression: resume home meds 10. Worsening anemia: ?GI 11. Dysphagia 12. ?Colonic mass on CT PLAN: * EGD planned for friday, will d/c protonix drip and change to BID * Outptcolonoscpy in 4-6 weeks * replace and monitor electrolytes * closely watch hgb levels and transfuse PRN * Continue protonix drip * PT / ST eval * Continue supportive care Prophylaxis. SCDs. Exam/Review of Systems Vital Signs Vitals Vital Signs Date Time Temp Pulse Resp B/P Pulse Ox O2 Delivery O2 Flow Rate FiO2 06/09/16 11:46 88 18 98 Nasal Cannula 2.0 06/09/16 08:28 98.5 125/85 Intake and Output 06/08/16 06/08/16 06/09/16 15:00 23:00 07:00 Intake Total 1860 ml 860 ml Balance 1860 ml 860 ml Results Result Diagram: 06/08/16 0420 06/09/16 0723 Results 24 hrs Laboratory Tests Test 06/09/16 07:23 Albumin 2.0 L Anion Gap 13 Blood Urea Nitrogen 23 H Calcium Level 7.8 L Carbon Dioxide Level 20 L Chloride Level 106 Creatinine 1.19 H Glucose Level 93 Magnesium Level 1.8 Phosphorus Level 2.3 L Potassium Level 3.4 L Sodium Level 136 Medications Medications Current Medications Sodium Chloride (1/2 NS) 1,000 ml @ 80 mls/hr [id number] IV Last administered on 06/08/16t 21:49; Admin Dose 80 MLS/HR; Start 06/06/16 at 18:34 Ondansetron HCl 4 mg 4 mg Q6H PRN IV NAUSEA AND/OR VOMITING Last administered on 06/06/16 21:20; Admin Dose 4 MG; Start 06/06/16 at 19:00 Ciprofloxacin/ Dextrose 200 ml @ 200 mls/hr Q24H IVPB Last administered on 15:43; Admin Dose 200 MLS/HR; Start 06/07/16 at 15:00 Pantoprazole/ Sodium Chloride (Protonix Iv/NS) 100 ml @ 10 mls/hr Q10H IV Last administered on 06/09/16 06:03; Admin Dose 10 MLS/HR; Start 06/07/16 at 13 :30 Vancomycin HCl (Vancomycin Oral Syringe) 125 mg Q6 PO Last administered on 06/09 05:35; Admin Dose 125 MG; Start 06/07/16 at 15:30 Acetaminophen/ Hydrocodone Bitart ([place] (5/325)) 1 tab Q6H PRN PO severe pain Last administered on 06/08/16 20:38; Admin Dose 1 TAB; Start 06/07/16 at 22:00 Atorvastatin Calcium (Lipitor) 10 mg QHS PO Last administered on 06/08/16 20: 37; Admin Dose 10 MG; Start 06/08/16 at 21:00 Citalopram Hydrobromide (Celexa) 10 mg DAILY PO Last administered on 06/09/16 09:45; Admin Dose 10 MG; Start 06/09/16 at 09:00 Nifedipine (Procardia Xl) 30 mg BID PO Last administered on 06/09/16 09:47; Admin Dose 30 MG; Start 06/08/16 at 21:00 Aspirin (Aspirin) 81 mg DAILY PO Last administered on 06/09/16 09:45; Admin Dose 81 MG; Start 06/09/16 at 09:00 Acetaminophen (Tylenol Tab) 650 mg Q6H PRN PO PAIN AND OR ELEVATED TEMP; Start 06/08/16 at 16:00 Heparin Sodium (Porcine) (Heparin (5000 Units/0.5 ml)) 5,000 unit BID SC Last administered on 06/09/16 09:46; Admin Dose 5,000 UNIT; Start 06/08/16 at 21:00 Metronidazole (Flagyl) 250 mg Q6 GTB ; Start 06/09/16 at 06:00; Stop 06/22/16 at 23:55 SUSANA MANZANO Jun 09, 2016 14:17
[2016-06-09] MEDS ORDERED: POTASSIUM PHOSPHATE 20 MEQ in SOD CHLORIDE 0.9% 250 ML IVPB ONE (14:30)
[2016-06-09 14:58] LABS: ADD SCAN DIFF NO
[2016-06-09 14:59] LABS: HEMATOCRIT 29.9 % (37.0-47.0); HEMOGLOBIN 9.8 g/dl (12.0-16.0); MEAN CORPUSCULAR HEMOGLOBIN 30.1 pg (29.0-33.0); MEAN CORPUSCULAR HGB CONC 32.8 g/dl (32.0-37.0); MEAN CORPUSCULAR VOLUME 91.7 fl (82.0-101.0); MEAN PLATELET VOLUME 10.8 fl (7.4-10.4); PLATELET COUNT 159 10^3/UL (140-415); RED BLOOD COUNT 3.26 10^6/ul (4.20-5.40); RED CELL DISTRIBUTION WIDTH 14.1 % (11.5-14.5); WHITE BLOOD COUNT 12.6 10^3/ul (4.8-10.8)
[2016-06-09] MEDS: CIPROFLOXACIN 400 MG in D5W 200 ML IVPB SCH (15:39)
[2016-06-09] MEDS ORDERED: POLYETHYLENE GLYCOL 3350 119 GM POWDER PO ONE ×2 (16:00→20:00)
[2016-06-09] MEDS ORDERED: MAGNESIUM CITRATE 300 ML BTL PO ONE (16:00)
[2016-06-09 17:54] LABS: BURR CELLS 1+; MONOCYTE # 0.4 10^3/ul (0.3-0.9); NEUTROPHIL # 10.7 10^3/ul (1.6-7.5)
--- NOTE | 2016-06-09 18:08 | PN ---
DATE: 06/09/2016 SUBJECTIVE: The patient is awake, feels better. Looks comfortable. Tolerates food. Family at bed side. No fevers. LABORATORY DATA: No CBC today. BUN 23, creatinine 1.19. DIAGNOSTICS: Chest x-ray this morning revealed previously described possible mild right upper lobe patchy consolidation, not seen on current exam. ANTIMICROBIALS: The patient is on: 1. IV Cipro. 2. Oral vancomycin. 3. Flagyl. PHYSICAL EXAMINATION: GENERAL: This is a fragile, elderly woman who is alert, in no distress. HEENT: Head atraumatic, normocephalic. Sclerae anicteric. Buccal mucosa pink. NECK: Supple. CHEST: Rise symmetrical. Breath sounds clear. HEART: S1, S2. ABDOMEN: Soft. Bowel tones present. EXTREMITIES: Without cyanosis. ASSESSMENT: 1. Sepsis with leukocytosis, bandemia, and encephalopathy, present on admission. 2. Clostridium difficile colitis. 3. Sigmoid diverticulitis. 4. Anemia. 5. Chronic obstructive pulmonary disease. PLAN: The patient remains stable. She is on appropriate antimicrobials. Gastroenterology on case, pending EGD to evaluate for persistent dysphagia. Dictated By: HÉCTOR HAYNES [employer] INSPECTOR for LILIYA RIVERA/FRANCOIS Conf#: [id number] DID#: [id number]
--- NOTE | 2016-06-09 19:03 | CONS ---
DATE OF ADMISSION: 06/06/2016 DATE OF CONSULTATION: REQUESTING PHYSICIAN: Alexandra Harkins MD HISTORY OF PRESENT ILLNESS: The patient is an 81-year-old female who was admitted from her board and residential on 06/06/2016 with a chief complaint of nausea, vomiting, and diffuse abdominal pain. She had no fever, but it was noted by her caregivers that she appeared to have a distended s tomach. Upon arrival in the emergency room, the patient was unable to give a personal history. Her white count was 12,600; hematocrit 46% (the patient is taking ferrous sulfate indicating that this is probably dehydration), creatinine 1.34. Lactic acid was 5.8. Chest x-ray was interpreted as hav ing right upper lobe infiltrate, but this is not my interpretation. CT scan of the abdomen revealed mild sigmoid diverticulitis and gallstones/sludge in the gallbladder. There was a question of a ma ss associated with the inflamed intestines. The patient was initially treated in the emergency room with a 30 mL/kg bolus of fluid. She was not hypotensive, but she had lactic acidosis. Cipro and F lagyl were begun intravenously. She had a positive stool test for Clostridium difficile. The patie nt was then transferred to the medical floor. PAST MEDICAL HISTORY: Chronic obstructive pulmonary disease, asthmatic bronchitis, history of tobac co use, hypertension, hyperlipidemia, osteoporosis, fracture of the right hip. ALLERGIES: 1. PENICILLIN. 2. MORPHINE SULFATE. PAST SURGICAL HISTORY: Have consisted of open reduction internal fixation of the right hip. MEDICATIONS: Have included numerous bowel preparations includin. Polyethylene glycol. 2. Bisacodyl. 3. Magnesium citrate. 4. Citalopram 10 mg daily. 5. Aspirin 81 mg daily. 6. Atorvastatin 10 mg daily. 7. Nifedipine 30 mg twice a day. 8. Receiving heparin 5000 units twice a day subcutaneously. 9. Intravenous Flagyl 500 mg every 8 hours. 10. Oral vancomycin 125 mg every 6 hours. PHYSICAL EXAMINATION: GENERAL: Reveals an obese female lying in the right lateral decubitus position. VITAL SIGNS: Stable. HEENT: Pupils are equal, round, and react to light. She is unable to cooperate with exam. NECK: There is no jugular venous distention. CHEST: Clear to auscultation. HEART: Regular. No gallop, murmur, or rub. ABDOMEN: Distended. Tender in the left lower quadrant to a mild degree. Bowel sounds are continuo us. EXTREMITIES: Reveals no edema. There are Jobst pumps present bilaterally. Exam of the upper extre mities reveals a large ecchymosis in the right antecubital fossa with dependent edema around the elb ow and lower arm. INITIAL IMPRESSION: 1. Septic syndrome. 2. Lactic acidosis. 3. Clostridium difficile colitis. 4. Diverticulosis. 5. Gallstones. 6. Asthmatic bronchitis. 7. Tobacco use. 8. Elevated cholesterol. 9. Hypertension. RECOMMENDATIONS: Would take the patient off of any unnecessary antibiotics, as this will drive the Clostridium difficile and also would change to enteric administration of the Flagyl and continue thi s for 14 days. That is 250 mg every 6 hours approximately. Also recommended getting a carcinoma em bryonic antigen. I have seen this patient for Dr. Tyson Santa. Dictated By: Cristina FRIEND MD for TYSON SANTA MD EC/NTS Conf#: [id number] DID#: [id number] CC: ALEXANDRA HARKINS MD;*EndCC*
[2016-06-09 19:35] VITALS: BP 130/60; RESP 22
[2016-06-09 20:00] VITALS: BP 130/60; PULSE 97; RESP 22
[2016-06-09] MEDS: ATORVASTATIN 10 MG TAB PO SCH (20:41)
[2016-06-09] MEDS: PANTOPRAZOLE 40 MG INJ IV SCH (20:41)
[2016-06-09] MEDS ORDERED: ZOLPIDEM 5 MG TAB PO ONE (21:00)
[2016-06-09] MEDS ORDERED: ZOLPIDEM 5 MG TAB PO PRN (23:30)
[2016-06-10] VITALS (16 sets, daily range): BP systolic 104–138; BP diastolic 49–67; PULSE 74–107; RESP 16–24
[2016-06-10] MEDS: VANCOMYCIN HCL 250 MG/5ML POSYG PO SCH ×3 (05:07→18:00)
[2016-06-10] MEDS: metroNIDAZOLE 250 MG TAB GTB SCH ×3 (05:07→18:00)
[2016-06-10 06:31] LABS: ADD SCAN DIFF NO
[2016-06-10 06:49] LABS: POTASSIUM 3.2 mmol/L (3.5-5.1)
[2016-06-10 06:50] LABS: BASOPHILS % 0.2 % (0.0-2.0); EOSINOPHILS # 0.3 10^3/ul (0.0-0.5); EOSINOPHILS % 2.9 % (0.0-7.0); HEMATOCRIT 29.9 % (37.0-47.0); HEMOGLOBIN 9.4 g/dl (12.0-16.0); LYMPHOCYTES # 1.5 10^3/ul (0.8-2.9); LYMPHOCYTES % 14.4 % (15.0-51.0); MEAN CORPUSCULAR HEMOGLOBIN 28.9 pg (29.0-33.0); MEAN CORPUSCULAR HGB CONC 31.4 g/dl (32.0-37.0); MEAN PLATELET VOLUME 11.2 fl (7.4-10.4); MONOCYTE # 0.8 10^3/ul (0.3-0.9); MONOCYTES % 7.7 % (0.0-11.0); NEUTROPHIL # 7.7 10^3/ul (1.6-7.5); NEUTROPHILS % 74.1 % (39.0-77.0); PLATELET COUNT 172 10^3/UL (140-415); RED BLOOD COUNT 3.25 10^6/ul (4.20-5.40); RED CELL DISTRIBUTION WIDTH 14.1 % (11.5-14.5); WHITE BLOOD COUNT 10.4 10^3/ul (4.8-10.8)
[2016-06-10 06:52] LABS: CREATININE 0.99 mg/dl (0.44-1.00)
[2016-06-10 06:53] LABS: CALCIUM 7.2 mg/dl (8.4-10.2); PHOSPHORUS 2.6 mg/dl (2.5-4.9)
[2016-06-10 06:57] LABS: INR 1.72; PROTIME 20.3 Sec (12.2-14.2); PT RATIO 1.6
[2016-06-10 06:58] LABS: PARTIAL THROMBOPLASTIN TIME 41.7 Sec (25.0-35.0)
[2016-06-10] MEDS: SOD CHLORIDE 0.45% 1,000 ML IV SCH (07:33)
[2016-06-10] MEDS: HEPARIN 5,000 UNIT/0.5 ML SYG SC SCH ×2 (09:00→23:08)
[2016-06-10] MEDS: PANTOPRAZOLE 40 MG INJ IV SCH ×2 (09:32→23:07)
[2016-06-10] MEDS: CITALOPRAM 20 MG TAB PO SCH (09:32)
[2016-06-10] MEDS: ASPIRIN 81 MG TAB PO SCH (09:32)
[2016-06-10] MEDS: NIFEdipine (XL) 30 MG TAB PO SCH ×2 (09:33→23:10)
[2016-06-10] MEDS: ALBUTEROL/IPRATROPIUM (NEB) 3 ML AMP HHN PRN (09:55)
[2016-06-10] MEDS ORDERED: POTASSIUM CHLORIDE 250 ML IVPB ONE (13:30)
--- NOTE | 2016-06-10 13:59 | CONS ---
Date/Time of Note Date/Time of Note DATE: 06/10/16 TIME: 13:58 Assessment/Plan Assessment/Plan Chief Complaint/Hosp Course SUBJECTIVE: The patient is awake, feels better. Looks comfortable. Tolerates food. Family at bedside. No fevers. ANTIMICROBIALS: The patient is on: 1. Cipro. 2. Oral vancomycin. 3. Flagyl. PHYSICAL EXAMINATION: GENERAL: This is a fragile, elderly woman who is alert, in no distress. HEENT: Head atraumatic, normocephalic. Sclerae anicteric. Buccal mucosa pink. NECK: Supple. CHEST: Rise symmetrical. Breath sounds clear. HEART: S1, S2. ABDOMEN: Soft. Bowel tones present. EXTREMITIES: Without cyanosis. ASSESSMENT: 1. Sepsis with leukocytosis, bandemia, and encephalopathy, present on admission. 2. Clostridium difficile colitis. 3. Sigmoid diverticulitis. 4. Anemia. 5. Chronic obstructive pulmonary disease. PLAN: The patient remains stable. WBC decreasing. She is on appropriate antimicrobials. Gastroenterology on case, pending EGD to evaluate for persistent dysphagia. DW staff Problems: Consultation Date/Type/Reason Admit Date/Time Jun 06, 2016 at 15:10 Initial Consult Date Type of Consultation: id Exam/Review of Systems Vital Signs Vitals Vital Signs Date Time Temp Pulse Resp B/P Pulse Ox O2 Delivery O2 Flow Rate FiO2 06/10/16 13:35 98.9 101 18 129/59 97 Nasal Cannula 2.0 Intake and Output 06/09/16 06/09/16 06/10/16 15:00 23:00 07:00 Intake Total 790 ml 1040 ml Balance 790 ml 1040 ml Results Result Diagram: 06/10/16 0600 06/10/16 0600 Results 24 hrs Laboratory Tests Test 06/09/16 14:50 06/10/16 06:00 Band Neutrophils % 4.0 Eosinophils # 0.3 Eosinophils % 2.9 Hematocrit 29.9 L 29.9 L Hemoglobin 9.8 L 9.4 L Lymphocytes # 1.0 1.5 Lymphocytes % 8.0 L 14.4 L Mean Corpuscular Hemoglobin 30.1 28.9 L Mean Corpuscular Hemoglobin Concent 32.8 31.4 L Mean Corpuscular Volume 91.7 92.0 Mean Platelet Volume 10.8 H 11.2 H Monocytes # 0.4 0.8 Monocytes % 3.0 7.7 Neutrophils # 10.7 H 7.7 H Neutrophils % 85.0 H 74.1 Platelet Count 159 172 Red Blood Count 3.26 L 3.25 L Red Cell Distribution Width 14.1 14.1 Uric Acid 5.7 White Blood Count 12.6 #H 10.4 Activated Partial Thromboplast Time 41.7 H Albumin 2.0 L Anion Gap 12 Basophils # 0.0 Basophils % 0.2 Blood Urea Nitrogen 14 # Calcium Level 7.2 L Carbon Dioxide Level 20 L Chloride Level 106 Creatinine 0.99 Glucose Level 86 INR International Normalized Ratio 1.72 Nucleated Red Blood Cells # 0.0 Nucleated Red Blood Cells % 0.0 Phosphorus Level 2.6 Potassium Level 3.2 L Prothrombin Time 20.3 #H Prothrombin Time Ratio 1.6 Sodium Level 135 Medications Medications Current Medications Sodium Chloride (1/2 NS) 1,000 ml @ 80 mls/hr [id number] IV Last administered on 06/10/16 07:33; Admin Dose 80 MLS/HR; Start 06/06/16 at 18:34 Ondansetron HCl 4 mg 4 mg Q6H PRN IV NAUSEA AND/OR VOMITING Last administered on 06/06/16 21:20; Admin Dose 4 MG; Start 06/06/16 at 19:00 Ciprofloxacin/ Dextrose (Cipro Ivpb) 200 ml @ 200 mls/hr Q24H IVPB Last administered on 06/09/16 15:39; Admin Dose 200 MLS/HR; Start 06/07/16 at 15:00 Vancomycin HCl (Vancomycin Oral Syringe) 125 mg Q6 PO Last administered on 06/10 05:07; Admin Dose 125 MG; Start 06/07/16 at 15:30 Acetaminophen/ Hydrocodone Bitart ([place] (5/325)) 1 tab Q6H PRN PO severe pain Last administered on 06/08/16 20:38; Admin Dose 1 TAB; Start 06/07/16 at 22:00 Atorvastatin Calcium (Lipitor) 10 mg QHS PO Last administered on 06/09/16 20: 41; Admin Dose 10 MG; Start 06/08/16 at 21:00 Citalopram Hydrobromide (Celexa) 10 mg DAILY PO Last administered on 06/10/16 09:32; Admin Dose 10 MG; Start 06/09/16 at 09:00 Nifedipine (Procardia Xl) 30 mg BID PO Last administered on 06/10/16 09:33; Admin Dose 30 MG; Start 06/08/16 at 21:00 Aspirin (Aspirin) 81 mg DAILY PO Last administered on 06/10/16 09:32; Admin Dose 81 MG; Start 06/09/16 at 09:00 Acetaminophen (Tylenol Tab) 650 mg Q6H PRN PO PAIN AND OR ELEVATED TEMP; Start 06/08/16 at 16:00 Heparin Sodium (Porcine) (Heparin (5000 Units/0.5 ml)) 5,000 unit BID SC Last administered on 06/09/16 20:46; Admin Dose 5,000 UNIT; Start 06/08/16 at 21:00 Metronidazole (Flagyl) 250 mg Q6 GTB Last administered on 06/10/16 05:07; Admin Dose 250 MG; Start 06/09/16 at 06:00; Stop 06/22/16 at 23:55 Pantoprazole (Protonix Iv) 40 mg BID IV Last administered on 06/10/16 09:32; Admin Dose 40 MG; Start 06/09/16 at 21:00 Zolpidem Tartrate 2.5 mg 2.5 mg HS PRN PO INSOMNIA Last administered on 23:31; Admin Dose 2.5 MG; Start 06/09/16 at 23:30 Potassium Chloride (KCl 40 MEQ/250 ML NS) 250 ml @ 62.5 mls/hr ONCE ONCE IVPB ; Start 06/10/16 at 13:30; Stop 06/10/16 at 17:29 HÉCTOR HAYNES NP Jun 10, 2016 13:59
--- NOTE | 2016-06-10 14:03 | PN ---
Date/Time of Note Date/Time of Note DATE: 06/10/16 TIME: 13:47 Assessment/Plan VTE Prophylaxis VTE Prophylaxis Intervention: SCD's Lines/Catheters IV Catheter Type (from Nrsg): Peripheral IV Urinary Cath still in place: No Assessment/Plan Assessment/Plan 1. C. Diff Colitis, on oral vanco 2. Sigmoid diverticulitis, antibiotics per ID 3. Sepsis, resolved 4. Chronic kidney disease, stable. 5. Recent right hip fracture. No acute issues. 6. Hypertension. stable 7. Chronic obstructive pulmonary disease, stable. 8. Prophylaxis. SCDs. 9. Left chest aching, troponin/EKG Subjective 24 Hr Interval Summary Free Text/Dictation left side chest pain, mild, aching, intermittent, no shortness of breath, non- radiating Exam/Review of Systems Vital Signs Vitals Vital Signs Date Time Temp Pulse Resp B/P Pulse Ox O2 Delivery O2 Flow Rate FiO2 06/10/16 13:35 98.9 101 18 129/59 97 Nasal Cannula 2.0 Intake and Output 06/09/16 06/09/16 06/10/16 15:00 23:00 07:00 Intake Total 790 ml 1040 ml Balance 790 ml 1040 ml Exam Constitutional: alert, oriented, well developed Psych: nl mood/affect, no complaints Head: atraumatic, normocephalic Eyes: EOMI, PERRL, nl conjunctiva, nl lids ENMT: nl external ears & nose, nl lips & teeth, nl nasal mucosa & septum Neck: non-tender, supple Respiratory: clear to auscultation, normal air movement, No congested cough, No crackles/rales, No diminished breath sounds, No intercostal retraction, No labored breathing, No other, No respirations, No tactile fremitus, No wheezing Cardiovascular: nl pulses, regular rate and rhythm, No S3, No S4, No bruits, No diastolic murmur, No edema, No gallop, No irregular rhythm, No jugular venous distention (JVD), No murmurs/extra sounds, No other, No rub, No systolic murmur Gastrointestinal: nl liver, spleen, non-tender, soft, No ascites, No bowel sounds, No distended, No firm, No hepatomegaly, No mass , No other, No rebound or guarding, No splenomegaly, No surgical scars, No tender Musculoskeletal: nl extremities to inspection Extremities: normal pulses, No calf tenderness, No clubbing, No cyanosis, No edema, No other, No palpable cord, No pitting pedal edema, No tenderness Neurological: [employer] TECHNICIAN II-XII intact, nl mental status, nl speech, nl strength, No DTR's symmetric, No confused, No focal weakness, No lethargic, No numbness , No other, No reflexes, No unresponsive Skin: nl turgor Lymph: nl lymph nodes Results Result Diagram: 06/10/16 0600 06/10/16 0600 Results 24 hrs Laboratory Tests Test 06/09/16 14:50 06/10/16 06:00 Band Neutrophils % 4.0 Eosinophils # 0.3 Eosinophils % 2.9 Hematocrit 29.9 L 29.9 L Hemoglobin 9.8 L 9.4 L Lymphocytes # 1.0 1.5 Lymphocytes % 8.0 L 14.4 L Mean Corpuscular Hemoglobin 30.1 28.9 L Mean Corpuscular Hemoglobin Concent 32.8 31.4 L Mean Corpuscular Volume 91.7 92.0 Mean Platelet Volume 10.8 H 11.2 H Monocytes # 0.4 0.8 Monocytes % 3.0 7.7 Neutrophils # 10.7 H 7.7 H Neutrophils % 85.0 H 74.1 Platelet Count 159 172 Red Blood Count 3.26 L 3.25 L Red Cell Distribution Width 14.1 14.1 Uric Acid 5.7 White Blood Count 12.6 #H 10.4 Activated Partial Thromboplast Time 41.7 H Albumin 2.0 L Anion Gap 12 Basophils # 0.0 Basophils % 0.2 Blood Urea Nitrogen 14 # Calcium Level 7.2 L Carbon Dioxide Level 20 L Chloride Level 106 Creatinine 0.99 Glucose Level 86 INR International Normalized Ratio 1.72 Nucleated Red Blood Cells # 0.0 Nucleated Red Blood Cells % 0.0 Phosphorus Level 2.6 Potassium Level 3.2 L Prothrombin Time 20.3 #H Prothrombin Time Ratio 1.6 Sodium Level 135 Medications Medications Current Medications Sodium Chloride (1/2 NS) 1,000 ml @ 80 mls/hr [id number] IV Last administered on 06/10/16t 07:33; Admin Dose 80 MLS/HR; Start 06/06/16 at 18:34 Ondansetron HCl 4 mg 4 mg Q6H PRN IV NAUSEA AND/OR VOMITING Last administered on 06/06/16 21:20; Admin Dose 4 MG; Start 06/06/16 at 19:00 Ciprofloxacin/ Dextrose (Cipro Ivpb) 200 ml @ 200 mls/hr Q24H IVPB Last administered on 06/09/16 15:39; Admin Dose 200 MLS/HR; Start 06/07/16 at 15:00 Vancomycin HCl (Vancomycin Oral Syringe) 125 mg Q6 PO Last administered on 06/10 05:07; Admin Dose 125 MG; Start 06/07/16 at 15:30 Acetaminophen/ Hydrocodone Bitart ([place] (5/325)) 1 tab Q6H PRN PO severe pain Last administered on 06/08/16 20:38; Admin Dose 1 TAB; Start 06/07/16 at 22:00 Atorvastatin Calcium (Lipitor) 10 mg QHS PO Last administered on 06/09/16 20: 41; Admin Dose 10 MG; Start 06/08/16 at 21:00 Citalopram Hydrobromide (Celexa) 10 mg DAILY PO Last administered on 06/10/16 09:32; Admin Dose 10 MG; Start 06/09/16 at 09:00 Nifedipine (Procardia Xl) 30 mg BID PO Last administered on 06/10/16 09:33; Admin Dose 30 MG; Start 06/08/16 at 21:00 Aspirin (Aspirin) 81 mg DAILY PO Last administered on 06/10/16 09:32; Admin Dose 81 MG; Start 06/09/16 at 09:00 Acetaminophen (Tylenol Tab) 650 mg Q6H PRN PO PAIN AND OR ELEVATED TEMP; Start 06/08/16 at 16:00 Heparin Sodium (Porcine) (Heparin (5000 Units/0.5 ml)) 5,000 unit BID SC Last administered on 06/09/16 20:46; Admin Dose 5,000 UNIT; Start 06/08/16 at 21:00 Metronidazole (Flagyl) 250 mg Q6 GTB Last administered on 06/10/16 05:07; Admin Dose 250 MG; Start 06/09/16 at 06:00; Stop 06/22/16 at 23:55 Pantoprazole (Protonix Iv) 40 mg BID IV Last administered on 06/10/16 09:32; Admin Dose 40 MG; Start 06/09/16 at 21:00 Zolpidem Tartrate 2.5 mg 2.5 mg HS PRN PO INSOMNIA Last administered on t 23:31; Admin Dose 2.5 MG; Start 06/09/16 at 23:30 Potassium Chloride (KCl 40 MEQ/250 ML NS) 250 ml @ 62.5 mls/hr ONCE ONCE IVPB ; Start 06/10/16 at 13:30; Stop 06/10/16 at 17:29 MAE LEON MD Jun 10, 2016 13:59
--- NOTE | 2016-06-10 14:31 | PN ---
Date/Time of Note Date/Time of Note DATE: 06/10/16 TIME: 14:25 Assessment/Plan VTE Prophylaxis VTE Prophylaxis Intervention: SCD's Lines/Catheters IV [facility] Peripheral IV Urinary Cath still in place: No Assessment/Plan Assessment/Plan Assessment : * Anemia/rule out GI bleeding * Persistent dysphagia * Diverticulitis * C. difficile colitis * Abnormal imaging patient questions possible neoplasm of the colon versus inflammatory * left chest pain (aching) * Hypokalemia * Hypertension * Dyslipidemia * Depression Plan: * Will do EGD today as patient persistent dysphagia remains unresolved * Will hold off on colonoscopy due to evidence of diverticulitis. Will consider colonoscopy in 4-6 weeks * correct potassium Subjective 24 Hr Interval Summary Free Text/Dictation Course reviewed with nursing staff EGD today,patient complains of chest pain per nursing staff,.claims to be hungry However the patient continues to complain of dysphagia as her main concern problem Her hemoglobin has remained stable Potassium of 3.2 Exam/Review of Systems Vital Signs Vitals Vital Signs Date Time Temp Pulse Resp B/P Pulse Ox O2 Delivery O2 Flow Rate FiO2 06/10/16 13:35 98.9 101 18 129/59 97 Nasal Cannula 2.0 Intake and Output 06/09/16 06/09/16 06/10/16 15:00 23:00 07:00 Intake Total 790 ml 1040 ml Balance 790 ml 1040 ml Exam Constitutional: alert, oriented, well developed Psych: nl mood/affect, no complaints Head: atraumatic, normocephalic Eyes: EOMI, PERRL, nl conjunctiva, nl lids ENMT: nl external ears & nose, nl lips & teeth, nl nasal mucosa & septum Neck: non-tender, supple Respiratory: clear to auscultation, normal air movement, No congested cough, No crackles/rales, No diminished breath sounds, No intercostal retraction, No labored breathing, No other, No respirations, No tactile fremitus, No wheezing Cardiovascular: nl pulses, regular rate and rhythm, , No bruits, no murmurs Gastrointestinal: nl liver, spleen, tender, soft, mild tenderness on epigastric area No ascites, No bowel sounds, No distended, No firm, No hepatomegaly, No mass , No other, No rebound or guarding, No splenomegaly, No surgical scars, No tender Musculoskeletal: nl extremities to inspection Extremities: normal pulses, No calf tenderness, No clubbing, No cyanosis, No edema, No other, No palpable cord, No pitting pedal edema, Skin: nl turgor Lymph: nl lymph nodes Results Result Diagram: 06/10/16 0600 06/10/16 0600 Results 24 hrs Laboratory Tests Test 06/09/16 14:50 06/10/16 06:00 Band Neutrophils % 4.0 Eosinophils # 0.3 Eosinophils % 2.9 Hematocrit 29.9 L 29.9 L Hemoglobin 9.8 L 9.4 L Lymphocytes # 1.0 1.5 Lymphocytes % 8.0 L 14.4 L Mean Corpuscular Hemoglobin 30.1 28.9 L Mean Corpuscular Hemoglobin Concent 32.8 31.4 L Mean Corpuscular Volume 91.7 92.0 Mean Platelet Volume 10.8 H 11.2 H Monocytes # 0.4 0.8 Monocytes % 3.0 7.7 Neutrophils # 10.7 H 7.7 H Neutrophils % 85.0 H 74.1 Platelet Count 159 172 Red Blood Count 3.26 L 3.25 L Red Cell Distribution Width 14.1 14.1 Uric Acid 5.7 White Blood Count 12.6 #H 10.4 Activated Partial Thromboplast Time 41.7 H Albumin 2.0 L Anion Gap 12 Basophils # 0.0 Basophils % 0.2 Blood Urea Nitrogen 14 # Calcium Level 7.2 L Carbon Dioxide Level 20 L Chloride Level 106 Creatinine 0.99 Glucose Level 86 INR International Normalized Ratio 1.72 Nucleated Red Blood Cells # 0.0 Nucleated Red Blood Cells % 0.0 Phosphorus Level 2.6 Potassium Level 3.2 L Prothrombin Time 20.3 #H Prothrombin Time Ratio 1.6 Sodium Level 135 Medications Medications Current Medications Sodium Chloride (1/2 NS) 1,000 ml @ 80 mls/hr [id number] IV Last administered on 06/10/16 07:33; Admin Dose 80 MLS/HR; Start 06/06/16 at 18:34 Ondansetron HCl 4 mg 4 mg Q6H PRN IV NAUSEA AND/OR VOMITING Last administered on 06/06/16 21:20; Admin Dose 4 MG; Start 06/06/16 at 19:00 Ciprofloxacin/ Dextrose (Cipro Ivpb) 200 ml @ 200 mls/hr Q24H IVPB Last administered on 06/09/16 15:39; Admin Dose 200 MLS/HR; Start 06/07/16 at 15:00 Vancomycin HCl (Vancomycin Oral Syringe) 125 mg Q6 PO Last administered on 06/10 05:07; Admin Dose 125 MG; Start 06/07/16 at 15:30 Acetaminophen/ Hydrocodone Bitart ([place] (5/325)) 1 tab Q6H PRN PO severe pain Last administered on 06/08/16 20:38; Admin Dose 1 TAB; Start 06/07/16 at 22:00 Atorvastatin Calcium (Lipitor) 10 mg QHS PO Last administered on 06/09/16 20: 41; Admin Dose 10 MG; Start 06/08/16 at 21:00 Citalopram Hydrobromide (Celexa) 10 mg DAILY PO Last administered on 06/10/16 09:32; Admin Dose 10 MG; Start 06/09/16 at 09:00 Nifedipine (Procardia Xl) 30 mg BID PO Last administered on 06/10/16 09:33; Admin Dose 30 MG; Start 06/08/16 at 21:00 Aspirin (Aspirin) 81 mg DAILY PO Last administered on 06/10/16 09:32; Admin Dose 81 MG; Start 06/09/16 at 09:00 Acetaminophen (Tylenol Tab) 650 mg Q6H PRN PO PAIN AND OR ELEVATED TEMP; Start 06/08/16 at 16:00 Heparin Sodium (Porcine) (Heparin (5000 Units/0.5 ml)) 5,000 unit BID SC Last administered on 06/09/16 20:46; Admin Dose 5,000 UNIT; Start 06/08/16 at 21:00 Metronidazole (Flagyl) 250 mg Q6 GTB Last administered on 06/10/16 05:07; Admin Dose 250 MG; Start 06/09/16 at 06:00; Stop 06/22/16 at 23:55 Pantoprazole (Protonix Iv) 40 mg BID IV Last administered on 06/10/16 09:32; Admin Dose 40 MG; Start 06/09/16 at 21:00 Zolpidem Tartrate 2.5 mg 2.5 mg HS PRN PO INSOMNIA Last administered on 23:31; Admin Dose 2.5 MG; Start 06/09/16 at 23:30 Potassium Chloride (KCl 40 MEQ/250 ML NS) 250 ml @ 62.5 mls/hr ONCE ONCE IVPB ; Start 06/10/16 at 13:30; Stop 06/10/16 at 17:29 TAYLOR BRAUN MD Jun 10, 2016 14:31
[2016-06-10] MEDS: CIPROFLOXACIN 400 MG in D5W 200 ML IVPB SCH (15:33)
[2016-06-10] MEDS ORDERED: PROPOFOL 20 ML ONE (19:59)
[2016-06-10] MEDS ORDERED: LIDOCAINE 2% (SDV) 5 ML INJ ONE (19:59)
[2016-06-10] MEDS: ATORVASTATIN 10 MG TAB PO SCH (23:09)
[2016-06-11] VITALS (22 sets, daily range): BP systolic 97–162; BP diastolic 46–76; PULSE 74–102; RESP 14–28
--- NOTE | 2016-06-11 02:21 | RADRPT ---
PROCEDURE: Ultrasound examination of the right upper extremity veins with Doppler. CLINICAL INDICATION: Pain and swelling. TECHNIQUE: Multiple sonographic images of the right upper extremity veins were performed with gra y scale and color Doppler. COMPARISON: None. FINDINGS: The right internal jugular, subclavian, axillary, brachial, basilic, cephalic, radial and ulnar vein s demonstrate normal color flow, waveforms and compression. There is no evidence of deep venous thr ombosis. IMPRESSION: No evidence of deep venous thrombosis within the right upper extremity veins. .Ryan Hughes MD, Date Time Electronically viewed and signed by .Ryan Hughes MD, MD on 06/11/2016 02:21 .T/
[2016-06-11] MEDS: VANCOMYCIN HCL 250 MG/5ML POSYG PO SCH ×5 (03:32→23:58)
[2016-06-11] MEDS: metroNIDAZOLE 250 MG TAB GTB SCH ×5 (03:33→23:58)
[2016-06-11] MEDS: METOCLOPRAMIDE 10 MG INJ IV SCH ×5 (03:33→23:58)
[2016-06-11] MEDS: SOD CHLORIDE 0.45% 1,000 ML IV SCH ×3 (03:34→23:27)
[2016-06-11] MEDS ORDERED: LORAZEPAM 2 MG INJ ONE (05:40)
[2016-06-11 06:20] LABS: ADD SCAN DIFF NO
[2016-06-11 06:24] LABS: BASOPHILS % 0.3 % (0.0-2.0); EOSINOPHILS # 0.1 10^3/ul (0.0-0.5); EOSINOPHILS % 0.8 % (0.0-7.0); HEMATOCRIT 35.2 % (37.0-47.0); HEMOGLOBIN 11.2 g/dl (12.0-16.0); LYMPHOCYTES % 17.1 % (15.0-51.0); MEAN CORPUSCULAR HEMOGLOBIN 29.4 pg (29.0-33.0); MEAN CORPUSCULAR HGB CONC 31.8 g/dl (32.0-37.0); MEAN CORPUSCULAR VOLUME 92.4 fl (82.0-101.0); MONOCYTE # 1.2 10^3/ul (0.3-0.9); MONOCYTES % 10.6 % (0.0-11.0); NEUTROPHIL # 8.2 10^3/ul (1.6-7.5); NEUTROPHILS % 70.3 % (39.0-77.0); PLATELET COUNT 233 10^3/UL (140-415); RED BLOOD COUNT 3.81 10^6/ul (4.20-5.40); WHITE BLOOD COUNT 11.6 10^3/ul (4.8-10.8)
[2016-06-11] MEDS ORDERED: NA BICARBONATE 8.4% 50 ML SYG ONE (06:30)
--- NOTE | 2016-06-11 06:54 | EN ---
Date/Time of Note Date/Time of Note DATE: 06/11/16 TIME: 06:32 ER Progress Note RAPID RESPONSE TEAM: KEYSEATER OPERATOR called to room 2238 as elderly patient was having a tremor in her lower extremities. She had O2 in place via NC and was afebrile, BP WNL (138/__), HR 103 to 108. Patient had an Upper Endoscopy earlier and was recovering. All that was found was Gastritis and Diverticula on CT. Patient complained of feeling bad , but she was not in any pain. The tremors continued and her heart rate accelerated from 130s to 220s, fluctuating. Narrow complex tachycardia on strip. Carotid massage done. Helped some, HR to 120s-130s, but when stopped, it accelerated again. Adenosine 6 mg given IVP. Good response, HR quickly to 110 then 80 and as low as 60/high 50s. Patient remained conscious now and through the entire event. Just about as rapidly as the HR came down, it went back up, fluctuating and just as high as before. Carotid massage resumed. Amiodarone 150 mg slow IVP given, HR to 110 then drip started at 1 mg/minute. Patient's HR accelerated, as high as 289. Carotid massage resumed. During this episode, her left leg and then both legs began tonic jerks and patient moaned. She was given 2 mg Ativan IV. Her jerks slowed down and ceased, and the tremors stopped as well. Patient agreed she felt a little bit better. During this event, we placed pads to be ready for Cardioversion, if needed. AN EKG was done towards the end of these events, and there was an narrow- complex tachycardia, regular , at about 110 BPM. No acute changes that I noticed. Meanwhile, her AM labs were drawn at the time I first arrived. During the events, an ABG was obtained: pH 7.3 HCO3 14. Patient seemed to have stabilized with a HR around 110 and we decided to transfer her to the ICU. Patient arrived to ICU Room 102 without event and was transferred to the new bed. She appeared more comfortable. After vitals were taken, HR about 104, she was given 1 AMP of Bicarb, and she has been stable on her Amiodarone Drip, so I will bring this note to a close. ISABELA MORA DO Jun 11, 2016 06:54
[2016-06-11] MEDS ORDERED: NA BICARBONATE 8.4% 50 ML SYG IV ONE (07:00)
[2016-06-11] MEDS ORDERED: AMIODARONE 150 MG INJ ONE (07:00)
[2016-06-11] MEDS: AMIODARONE 900 MG in DEXTROSE 5% 482 ML IV SCH ×2 (07:30→09:17)
[2016-06-11 07:39] LABS: ALBUMIN 2.3 g/dl (3.3-4.9); POTASSIUM 4.1 mmol/L (3.5-5.1)
[2016-06-11 07:42] LABS: CREATININE 1.06 mg/dl (0.44-1.00)
[2016-06-11 07:43] LABS: CALCIUM 8.3 mg/dl (8.4-10.2); PHOSPHORUS 2.9 mg/dl (2.5-4.9)
[2016-06-11] MEDS: NIFEdipine (XL) 30 MG TAB PO SCH (09:01)
[2016-06-11] MEDS: CITALOPRAM 20 MG TAB PO SCH (09:01)
[2016-06-11] MEDS: ASPIRIN 81 MG TAB PO SCH (09:02)
[2016-06-11] MEDS: HEPARIN 5,000 UNIT/0.5 ML SYG SC SCH ×2 (09:04→20:39)
[2016-06-11] MEDS: PANTOPRAZOLE 40 MG INJ IV SCH ×2 (09:17→20:37)
[2016-06-11 09:20] LABS: ALBUMIN 2.4 g/dl (3.3-4.9)
[2016-06-11 09:23] LABS: ALBUMIN/GLOBULIN RATIO 0.88; CALCIUM 8.1 mg/dl (8.4-10.2); CREATININE 1.07 mg/dl (0.44-1.00); TOTAL PROTEIN 5.1 g/dl (6.1-8.1)
--- NOTE | 2016-06-11 12:21 | PN ---
Date/Time of Note Date/Time of Note DATE: 06/11/16 TIME: 11:51 Assessment/Plan VTE Prophylaxis VTE Prophylaxis Intervention: SCD's Lines/Catheters IV Catheter Type (from [facility]): Peripheral IV Urinary Cath still in place: No Assessment/Plan Assessment/Plan 1. C. Diff Colitis, on oral vanco 2. Sigmoid diverticulitis, antibiotics per ID 3. Sepsis, resolved 4. Chronic kidney disease, stable. 5. Recent hip fracture. No acute issues. 6. Hypertension. stable 7. Chronic obstructive pulmonary disease, stable. 8. Prophylaxis. SCDs. 9. Tachycardia event last night, ECG on all sinus, prob anxiety/panic related, cardiology consult 10. Talked with daughter. Discussed with staff, reviewed ECGs and records from last night. called Dr. Slater for cardiology consult. Critical care 40 minutes Subjective 24 Hr Interval Summary Free Text/Dictation patient had a tachycardia event last night. I talked to the daughter who was with patient yesterday. She states patient was upset yesterday since she was not turned on the bed by staff. She has been bedridden after left hip fracture/ ORIF. She has not chest pain or shortness of breath today. No abdominal pain Exam/Review of Systems Vital Signs Vitals Vital Signs Date Time Temp Pulse Resp B/P Pulse Ox O2 Delivery O2 Flow Rate FiO2 06/11/16 11:01 2.0 06/11/16 11:00 91 17 106/51 100 Nasal Cannula 06/11/16 08:00 98.2 Intake and Output 06/10/16 06/10/16 06/11/16 15:00 23:00 07:00 Intake Total 200 ml 1330 ml 586.8 ml Balance 200 ml 1330 ml 586.8 ml Exam Constitutional: alert, oriented, well developed Psych: nl mood/affect, no complaints Head: atraumatic, normocephalic Eyes: EOMI, PERRL, nl conjunctiva, nl lids ENMT: nl external ears & nose, nl lips & teeth, nl nasal mucosa & septum Neck: non-tender, supple Respiratory: clear to auscultation, normal air movement, No congested cough, No crackles/rales, No diminished breath sounds, No intercostal retraction, No labored breathing, No other, No respirations, No tactile fremitus, No wheezing Cardiovascular: nl pulses, regular rate and rhythm, No S3, No S4, No bruits, No diastolic murmur, No edema, No gallop, No irregular rhythm, No jugular venous distention (JVD), No murmurs/extra sounds, No other, No rub, No systolic murmur Gastrointestinal: nl liver, spleen, non-tender, soft, No ascites, No bowel sounds, No distended, No firm, No hepatomegaly, No mass , No other, No rebound or guarding, No splenomegaly, No surgical scars, No tender Musculoskeletal: nl extremities to inspection Extremities: edema (on right upper extremity), normal pulses, No calf tenderness, No clubbing, No cyanosis, No other, No palpable cord, No pitting pedal edema, No tenderness Neurological: LIVE IN COMPANION II-XII intact, nl mental status, nl strength Skin: nl turgor Lymph: nl lymph nodes Results Result Diagram: 06/11/16 0545 06/11/16 0545 Results 24 hrs Laboratory Tests Test 06/10/16 15:45 06/10/16 18:50 06/11/16 05:32 06/11/16 05:45 Troponin I < 0.012 < 0.012 Bedside Glucose 98 Alanine Aminotransferase (ALT/SGPT) 26 Albumin 2.4 L Albumin/Globulin Ratio 0.88 Alkaline Phosphatase 153 H Anion Gap 19 H Aspartate Amino Transf (AST/SGOT) 25 Basophils # 0.0 Basophils % 0.3 Blood Urea Nitrogen 13 Calcium Level 8.1 L Carbon Dioxide Level 14 L Chloride Level 108 Creatinine 1.07 H Direct Bilirubin 0.00 Eosinophils # 0.1 Eosinophils % 0.8 Globulin 2.70 Glucose Level 96 Hematocrit 35.2 L Hemoglobin 11.2 L Indirect Bilirubin 0.0 Lymphocytes # 2.0 Lymphocytes % 17.1 Mean Corpuscular Hemoglobin 29.4 Mean Corpuscular Hemoglobin Concent 31.8 L Mean Corpuscular Volume 92.4 Mean Platelet Volume 11.0 H Monocytes # 1.2 H Monocytes % 10.6 Neutrophils # 8.2 H Neutrophils % 70.3 Nucleated Red Blood Cells # 0.0 Nucleated Red Blood Cells % 0.0 Phosphorus Level 2.9 Platelet Count 233 # Potassium Level 4.0 Red Blood Count 3.81 L Red Cell Distribution Width 14.0 Sodium Level 137 Total Bilirubin 0.0 L Total Protein 5.1 L White Blood Count 11.6 H Medications Medications Current Medications Sodium Chloride (1/2 NS) 1,000 ml @ 80 mls/hr [id number] IV Last administered on 06/11/16 09:19; Admin Dose 80 MLS/HR; Start 06/06/16 at 18:34 Ondansetron HCl 4 mg 4 mg Q6H PRN IV NAUSEA AND/OR VOMITING Last administered on 06/06/16 21:20; Admin Dose 4 MG; Start 06/06/16 at 19:00 Ciprofloxacin/ Dextrose (Cipro Ivpb) 200 ml @ 200 mls/hr Q24H IVPB Last administered on 06/10/16 15:33; Admin Dose 200 MLS/HR; Start 06/07/16 at 15:00 Vancomycin HCl (Vancomycin Oral Syringe) 125 mg Q6 PO Last administered on 06/11 09:00; Admin Dose 125 MG; Start 06/07/16 at 15:30 Acetaminophen/ Hydrocodone Bitart ([place] (5/325)) 1 tab Q6H PRN PO severe pain Last administered on 06/08/16 20:38; Admin Dose 1 TAB; Start 06/07/16 at 22:00 Atorvastatin Calcium (Lipitor) 10 mg QHS PO Last administered on 06/10/16 23: 09; Admin Dose 10 MG; Start 06/08/16 at 21:00 Citalopram Hydrobromide (Celexa) 10 mg DAILY PO Last administered on 06/11/16 09:01; Admin Dose 10 MG; Start 06/09/16 at 09:00 Nifedipine (Procardia Xl) 30 mg BID PO Last administered on 06/11/16 09:01; Admin Dose 30 MG; Start 06/08/16 at 21:00 Aspirin (Aspirin) 81 mg DAILY PO Last administered on 06/11/16 09:02; Admin Dose 81 MG; Start 06/09/16 at 09:00 Acetaminophen (Tylenol Tab) 650 mg Q6H PRN PO PAIN AND OR ELEVATED TEMP; Start 06/08/16 at 16:00 Heparin Sodium (Porcine) (Heparin (5000 Units/0.5 ml)) 5,000 unit BID SC Last administered on 06/11/16 09:04; Admin Dose 5,000 UNIT; Start 06/08/16 at 21:00 Metronidazole (Flagyl) 250 mg Q6 GTB Last administered on 06/11/16 03:33; Admin Dose 250 MG; Start 06/09/16 at 06:00; Stop 06/22/16 at 23:55 Pantoprazole (Protonix Iv) 40 mg BID IV Last administered on 06/11/16 09:17; Admin Dose 40 MG; Start 06/09/16 at 21:00 Zolpidem Tartrate (Ambien) 2.5 mg HS PRN PO INSOMNIA Last administered on 23:31; Admin Dose 2.5 MG; Start 06/09/16 at 23:30 Metoclopramide HCl 5 mg 5 mg Q6 IV Last administered on 06/11/16 09:18; Admin Dose 5 MG; Start 06/11/16 at 00:00 Amiodarone HCl/ Dextrose (Cordarone Iv/ D5W) 500 ml @ 0 mls/hr Q0M IV Last administered on 06/11/16 09:17; Admin Dose 33.4 MLS/HR; Start 06/11/16 at 06:00 ; Stop 06/12/16 at 05:59 MAE LEON MD Jun 11, 2016 12:02
--- NOTE | 2016-06-11 14:00 | PN ---
DATE: 06/11/2016 SUBJECTIVE: The patient was transferred to ICU secondary to rapid heart rate. Currently on amiodar one, heart rate controlled. She is weak, lying comfortably in bed. No fevers. LABORATORY DATA: WBC 11.6, H and H 11.2 and 35.2, platelets 233, neutrophils 78.3. BUN 13, creatini ne 1.07. ANTIMICROBIALS: 1. Flagyl. 2. Oral vancomycin. 3. Cipro. PHYSICAL EXAMINATION: GENERAL: This is a fragile, elderly woman who is in no distress HEENT: Head atraumatic, normocephalic. Sclerae anicteric. Buccal mucosa dry. NECK: Supple, trachea midline. CHEST: Rise symmetrical. Breath sounds diminished at bases. HEART: S1, S2. ABDOMEN: Soft, bowel sounds present. EXTREMITIES: Without cyanosis. ASSESSMENT: 1. Arrhythmia, heart rate controlled on amiodarone drip. 2. Clostridium difficile colitis. 3. Persistent dysphagia. 4. Diverticulitis. 5. Questionable colon neoplasm versus inflammation. PLAN: The patient remains stable. She is being followed by multiple consultants. We are going to change Cipro to Rocephin secondary to drug interaction with amiodarone. Continue Flagyl and vancomy ochoa orally. Dictated By: HÉCTOR HAYNES ORDERING MACHINE OPERATOR for LILIYA RIVERA/FRANCOIS Conf#: [id number] DID#: [id number]
[2016-06-11] MEDS: CEFTRIAXONE 1 GM/50 ML (PMX) 50 ML IVPB SCH (14:17)
--- NOTE | 2016-06-11 15:00 | PN ---
Date/Time of Note Date/Time of Note DATE: 06/11/16 TIME: 14:39 Assessment/Plan VTE Prophylaxis VTE Prophylaxis Intervention: SCD's Lines/Catheters [facility] Peripheral IV Urinary Cath still in place: No Assessment/Plan Assessment/Plan Assessment : * Anemia/rule out GI bleeding Hematochezia colonic malignancy vs inflammatory bowel disease * Persistent dysphagia * EG06/11/2016 Presbyesophagus/ Swallow eval pending * Arrhythmia controlled (off amiodarone drip) * Diverticulitis * C. difficile colitis * Abnormal imaging patient questions possible neoplasm of the colon versus inflammatory * Hypertension * Dyslipidemia * Depression Plan: * continue PPI * monitor h and h q6 * antibiotics per ID * Swallow eval when stable * Will hold off on colonoscopy due to evidence of diverticulitis. Will consider colonoscopy in 4-6 weeks Subjective 24 Hr Interval Summary Free Text/Dictation Course reviewed with nursing staff patient was transferred to icu last night because of tachyarrhythmia ,managed on amiodarone drip S/P EGD Presbyesophagus/gastritis patient had episode of hematochezia.minimal mixed with stool 2 episodes H/H remains stable denies abdominal pain,nausea,vomiting or fever Exam/Review of Systems Vital Signs Vitals Vital Signs Date Time Temp Pulse Resp B/P Pulse Ox O2 Delivery O2 Flow Rate FiO2 06/11/16 12:00 95 06/11/16 11:01 2.0 06/11/16 11:00 17 106/51 100 Nasal Cannula 06/11/16 08:00 98.2 Intake and Output 06/10/16 06/10/16 06/11/16 14:59 22:59 06:59 Intake Total 200 ml 1330 ml 553.4 ml Balance 200 ml 1330 ml 553.4 ml Exam Exam Constitutional: alert, oriented, well developed Psych: nl mood/affect, no complaints Head: atraumatic, normocephalic Respiratory: clear to auscultation, normal air movement,no crackles nor wheezes Cardiovascular: nl pulses, regular rate and rhythm, Gastrointestinal: nl liver, spleen, tender, soft,non tender , normoactive bowel sounds, Extremities: normal pulses, No calf tenderness, pitting pedal edema, Results Result Diagram: 06/11/16 0545 06/11/16 0545 Results 24 hrs Laboratory Tests Test 06/10/16 15:45 06/10/16 18:50 06/11/16 05:32 06/11/16 05:45 Troponin I < 0.012 < 0.012 Bedside Glucose 98 Alanine Aminotransferase (ALT/SGPT) 26 Albumin 2.4 L Albumin/Globulin Ratio 0.88 Alkaline Phosphatase 153 H Anion Gap 19 H Aspartate Amino Transf (AST/SGOT) 25 Basophils # 0.0 Basophils % 0.3 Blood Urea Nitrogen 13 Calcium Level 8.1 L Carbon Dioxide Level 14 L Chloride Level 108 Creatinine 1.07 H Direct Bilirubin 0.00 Eosinophils # 0.1 Eosinophils % 0.8 Globulin 2.70 Glucose Level 96 Hematocrit 35.2 L Hemoglobin 11.2 L Indirect Bilirubin 0.0 Lymphocytes # 2.0 Lymphocytes % 17.1 Mean Corpuscular Hemoglobin 29.4 Mean Corpuscular Hemoglobin Concent 31.8 L Mean Corpuscular Volume 92.4 Mean Platelet Volume 11.0 H Monocytes # 1.2 H Monocytes % 10.6 Neutrophils # 8.2 H Neutrophils % 70.3 Nucleated Red Blood Cells # 0.0 Nucleated Red Blood Cells % 0.0 Phosphorus Level 2.9 Platelet Count 233 # Potassium Level 4.0 Red Blood Count 3.81 L Red Cell Distribution Width 14.0 Sodium Level 137 Total Bilirubin 0.0 L Total Protein 5.1 L White Blood Count 11.6 H Test 06/11/16 12:45 Troponin I < 0.012 Medications Medications Current Medications Sodium Chloride (1/2 NS) 1,000 ml @ 80 mls/hr [id number] IV Last administered on 06/11/16 09:19; Admin Dose 80 MLS/HR; Start 06/06/16 at 18:34 Ondansetron HCl (Zofran Inj) 4 mg Q6H PRN IV NAUSEA AND/OR VOMITING Last administered on 06/06/16 21:20; Admin Dose 4 MG; Start 06/06/16 at 19:00 Vancomycin HCl (Vancomycin Oral Syringe) 125 mg Q6 PO Last administered on 06/11 12:00; Admin Dose 125 MG; Start 06/07/16 at 15:30 Acetaminophen/ Hydrocodone Bitart ([place] (5/325)) 1 tab Q6H PRN PO severe pain Last administered on 06/08/16 20:38; Admin Dose 1 TAB; Start 06/07/16 at 22:00 Atorvastatin Calcium (Lipitor) 10 mg QHS PO Last administered on 06/10/16 23: 09; Admin Dose 10 MG; Start 06/08/16 at 21:00 Citalopram Hydrobromide (Celexa) 10 mg DAILY PO Last administered on 06/11/16 09:01; Admin Dose 10 MG; Start 06/09/16 at 09:00 Nifedipine (Procardia Xl) 30 mg BID PO Last administered on 06/11/16 09:01; Admin Dose 30 MG; Start 06/08/16 at 21:00 Aspirin (Aspirin) 81 mg DAILY PO Last administered on 06/11/16 09:02; Admin Dose 81 MG; Start 06/09/16 at 09:00 Acetaminophen (Tylenol Tab) 650 mg Q6H PRN PO PAIN AND OR ELEVATED TEMP; Start 06/08/16 at 16:00 Heparin Sodium (Porcine) (Heparin (5000 Units/0.5 ml)) 5,000 unit BID SC Last administered on 06/11/16 09:04; Admin Dose 5,000 UNIT; Start 06/08/16 at 21:00 Metronidazole (Flagyl) 250 mg Q6 GTB Last administered on 06/11/16 12:00; Admin Dose 250 MG; Start 06/09/16 at 06:00; Stop 06/22/16 at 23:55 Pantoprazole (Protonix Iv) 40 mg BID IV Last administered on 06/11/16 09:17; Admin Dose 40 MG; Start 06/09/16 at 21:00 Zolpidem Tartrate (Ambien) 2.5 mg HS PRN PO INSOMNIA Last administered on 23:31; Admin Dose 2.5 MG; Start 06/09/16 at 23:30 Metoclopramide HCl 5 mg 5 mg Q6 IV Last administered on 06/11/16 13:23; Admin Dose 5 MG; Start 06/11/16 at 00:00 Amiodarone HCl 900 mg/Dextrose 500 ml @ 0 mls/hr Q0M IV Last administered on 09:17; Admin Dose 33.4 MLS/HR; Start 06/11/16 at 06:00; Stop 06/12/16 at 05:59 Ceftriaxone Sodium (Rocephin) 50 ml @ 100 mls/hr Q24H IVPB Last administered on 06/11/16t 14:17; Admin Dose 100 MLS/HR; Start 06/11/16 at 13:30 TAYLOR BRAUN MD Jun 11, 2016 14:49
--- NOTE | 2016-06-11 15:10 | CONS ---
Date/Time of Note Date/Time of Note DATE: 06/11/16 TIME: 15:00 Assessment/Plan Assessment/Plan Additional Assessment/Plan Tachycardia Preserved ejection fraction SIRS with diverticulitis Hypertension -Multiple ECGs in the chart were reviewed, episodes of sinus tachycardia with first-degree AV block seen. Patient currently feeling better and heart rate trend improved on telemetry. Serial cardiac enzymes have remained unremarkable. Blood pressure on the lower end, would hold Procardia, would start low-dose beta-lito as blood pressure permits. Supplement potassium to maintain above 4.0 and magnesium above 2.0. Consultation Date/Type/Reason Admit Date/Time Jun 06, 2016 at 15:10 Type of Consultation: cv Reason for Consultation Tachycardia Hx of Present Illness This is an 81-year-old female who was admitted with probable sepsis secondary to diverticulitis. Patient underwent GI evaluation with endoscopy. Yesterday evening, patient with tremors and palpitations. Unfortunately, there are no telemetry strips for the incident in the chart. As per the medical record, patient with fluttering heart rates in the 110s up to the 200s. It appeared the patient was a narrow complex tachycardia. Patient was given adenosine without improvement and then put on IV amiodarone and transferred to the ICU. Patient has been complaining of dysphagia but otherwise denies any chest pain, shortness of breath, dizziness, lightheadedness. Palpitations has since resolved and she is feeling better. She does complain of fatigue but denies any abdominal pain or nausea at the current time. 12 point review of systems was performed with all pertinent positives and negatives mentioned above and all else is negative Constitutional: febrile, poor po Psychological: nl mood/affect, no complaints Past Medical History Osteoarthritis Medical History: high cholesterol, hypertension Past Surgical History Hip fracture repair Family History Significant Family History: no pertinent family hx Social History Alcohol Use: none Smoking Status: Former smoker Exam/Review of Systems Vital Signs Vitals Vital Signs Date Time Temp Pulse Resp B/P Pulse Ox O2 Delivery O2 Flow Rate FiO2 06/11/16 12:00 95 06/11/16 11:01 2.0 06/11/16 11:00 17 106/51 100 Nasal Cannula 06/11/16 08:00 98.2 Intake and Output 06/10/16 06/10/16 06/11/16 15:00 23:00 07:00 Intake Total 200 ml 1330 ml 586.8 ml Balance 200 ml 1330 ml 586.8 ml Exam No apparent distress, following commands Constitutional: alert, frail, oriented Head: normocephalic Neck: supple Respiratory: other (Coarse breath sounds bilaterally, no wheezing) Cardiovascular: other (S1-S2 heard), regular rate and rhythm, systolic murmur Gastrointestinal: bowel sounds, non-tender, other (No guarding), soft Extremities: edema (Trace), other (No cyanosis) Results Result Diagram: 06/11/1645 06/11/16 0545 Results 24 hrs Laboratory Tests Test 06/10/16 15:45 06/10/16 18:50 06/11/16 05:32 06/11/16 05:45 Troponin I < 0.012 < 0.012 Bedside Glucose 98 Alanine Aminotransferase (ALT/SGPT) 26 Albumin 2.4 L Albumin/Globulin Ratio 0.88 Alkaline Phosphatase 153 H Anion Gap 19 H Aspartate Amino Transf (AST/SGOT) 25 Basophils # 0.0 Basophils % 0.3 Blood Urea Nitrogen 13 Calcium Level 8.1 L Carbon Dioxide Level 14 L Chloride Level 108 Creatinine 1.07 H Direct Bilirubin 0.00 Eosinophils # 0.1 Eosinophils % 0.8 Globulin 2.70 Glucose Level 96 Hematocrit 35.2 L Hemoglobin 11.2 L Indirect Bilirubin 0.0 Lymphocytes # 2.0 Lymphocytes % 17.1 Mean Corpuscular Hemoglobin 29.4 Mean Corpuscular Hemoglobin Concent 31.8 L Mean Corpuscular Volume 92.4 Mean Platelet Volume 11.0 H Monocytes # 1.2 H Monocytes % 10.6 Neutrophils # 8.2 H Neutrophils % 70.3 Nucleated Red Blood Cells # 0.0 Nucleated Red Blood Cells % 0.0 Phosphorus Level 2.9 Platelet Count 233 # Potassium Level 4.0 Red Blood Count 3.81 L Red Cell Distribution Width 14.0 Sodium Level 137 Total Bilirubin 0.0 L Total Protein 5.1 L White Blood Count 11.6 H Test 06/11/16 12:45 Troponin I < 0.012 Medications Medications Current Medications Sodium Chloride (1/2 NS) 1,000 ml @ 80 mls/hr [id number] IV Last administered on 06/11/16t 09:19; Admin Dose 80 MLS/HR; Start 06/06/16 at 18:34 Ondansetron HCl (Zofran Inj) 4 mg Q6H PRN IV NAUSEA AND/OR VOMITING Last administered on 06/06/16 21:20; Admin Dose 4 MG; Start 06/06/16 at 19:00 Vancomycin HCl (Vancomycin Oral Syringe) 125 mg Q6 PO Last administered on 06/11 12:00; Admin Dose 125 MG; Start 06/07/16 at 15:30 Acetaminophen/ Hydrocodone Bitart ([place] (5/325)) 1 tab Q6H PRN PO severe pain Last administered on 06/08/16 20:38; Admin Dose 1 TAB; Start 06/07/16 at 22:00 Atorvastatin Calcium (Lipitor) 10 mg QHS PO Last administered on 06/10/16 23: 09; Admin Dose 10 MG; Start 06/08/16 at 21:00 Citalopram Hydrobromide (Celexa) 10 mg DAILY PO Last administered on 06/11/16 09:01; Admin Dose 10 MG; Start 06/09/16 at 09:00 Nifedipine (Procardia Xl) 30 mg BID PO Last administered on 06/11/16 09:01; Admin Dose 30 MG; Start 06/08/16 at 21:00 Aspirin (Aspirin) 81 mg DAILY PO Last administered on 06/11/16 09:02; Admin Dose 81 MG; Start 06/09/16 at 09:00 Acetaminophen (Tylenol Tab) 650 mg Q6H PRN PO PAIN AND OR ELEVATED TEMP; Start 06/08/16 at 16:00 Heparin Sodium (Porcine) (Heparin (5000 Units/0.5 ml)) 5,000 unit BID SC Last administered on 06/11/16 09:04; Admin Dose 5,000 UNIT; Start 06/08/16 at 21:00 Metronidazole (Flagyl) 250 mg Q6 GTB Last administered on 06/11/16 12:00; Admin Dose 250 MG; Start 06/09/16 at 06:00; Stop 06/22/16 at 23:55 Pantoprazole (Protonix Iv) 40 mg BID IV Last administered on 06/11/16 09:17; Admin Dose 40 MG; Start 06/09/16 at 21:00 Zolpidem Tartrate (Ambien) 2.5 mg HS PRN PO INSOMNIA Last administered on 23:31; Admin Dose 2.5 MG; Start 06/09/16 at 23:30 Metoclopramide HCl 5 mg 5 mg Q6 IV Last administered on 06/11/16 13:23; Admin Dose 5 MG; Start 06/11/16 at 00:00 Amiodarone HCl 900 mg/Dextrose 500 ml @ 0 mls/hr Q0M IV Last administered on 09:17; Admin Dose 33.4 MLS/HR; Start 06/11/16 at 06:00; Stop 06/12/16 at 05:59 Ceftriaxone Sodium (Rocephin) 50 ml @ 100 mls/hr Q24H IVPB Last administered on 06/11/16 14:17; Admin Dose 100 MLS/HR; Start 06/11/16 at 13:30 Procedures Procedures ECG performed 06/06 demonstrates sinus tachycardia 113 bpm, QRS 70 ms, nonspecific STT wave abnormalities ECG performed 06/10 demonstrates sinus rhythm at 100 bpm, first-degree AV block, nonspecific STT wave abnormalities William Slater DO Jun 11, 2016 15:10
[2016-06-11] MEDS ORDERED: MAGNESIUM SULFATE 2 GM/50 ML 50 ML IVPB ONE (15:30)
--- NOTE | 2016-06-11 17:00 | RADRPT ---
Vent Rate: 116 bpm RR Interval: 0 msec DE Interval: 176 msec QRS Duration: 92 msec QT Interval: 320 msec QTC Interval: 444 msec P-R-T [place]: 50 - 2 - 85 degrees Sinus tachycardia Nonspecific T wave abnormality Abnormal ECG Electronically Signed By: Ghulam Sinclair [id number]
[2016-06-11] MEDS: METOPROLOL 25 MG TAB PO SCH (20:37)
[2016-06-11] MEDS: ATORVASTATIN 10 MG TAB PO SCH (20:37)
[2016-06-12] VITALS (23 sets, daily range): BP systolic 120–175; BP diastolic 40–79; PULSE 59–88; RESP 13–26
[2016-06-12] MEDS ORDERED: BENAZEPRIL 10 MG TAB PO ONE ×2 (03:30→05:30)
[2016-06-12] MEDS ORDERED: METOPROLOL 25 MG TAB PO ONE (05:30)
[2016-06-12] MEDS: metroNIDAZOLE 250 MG TAB GTB SCH ×3 (05:50→17:23)
[2016-06-12] MEDS: METOCLOPRAMIDE 10 MG INJ IV SCH ×3 (05:50→17:22)
[2016-06-12] MEDS: VANCOMYCIN HCL 250 MG/5ML POSYG PO SCH ×3 (05:50→17:23)
[2016-06-12 06:27] LABS: ADD SCAN DIFF NO
[2016-06-12 06:38] LABS: BASOPHILS % 0.4 % (0.0-2.0); EOSINOPHILS # 0.3 10^3/ul (0.0-0.5); EOSINOPHILS % 3.4 % (0.0-7.0); HEMATOCRIT 30.3 % (37.0-47.0); HEMOGLOBIN 9.7 g/dl (12.0-16.0); LYMPHOCYTES # 1.6 10^3/ul (0.8-2.9); LYMPHOCYTES % 19.8 % (15.0-51.0); MEAN CORPUSCULAR HEMOGLOBIN 29.3 pg (29.0-33.0); MEAN CORPUSCULAR VOLUME 91.5 fl (82.0-101.0); MEAN PLATELET VOLUME 10.3 fl (7.4-10.4); MONOCYTE # 0.8 10^3/ul (0.3-0.9); MONOCYTES % 10.6 % (0.0-11.0); NEUTROPHIL # 5.1 10^3/ul (1.6-7.5); PLATELET COUNT 261 10^3/UL (140-415); RED BLOOD COUNT 3.31 10^6/ul (4.20-5.40); RED CELL DISTRIBUTION WIDTH 14.2 % (11.5-14.5); WHITE BLOOD COUNT 7.8 10^3/ul (4.8-10.8)
[2016-06-12] MEDS: ALBUTEROL/IPRATROPIUM (NEB) 3 ML AMP HHN PRN ×3 (06:39→22:44)
--- NOTE | 2016-06-12 06:50 | GILP ---
DATE OF PROCEDURE: PROCEDURE PERFORMED: Esophagogastroduodenoscopy with biopsies. BRIEF HISTORY AND INDICATIONS: The patient is being evaluated for dysphagia. PREMEDICATION: Monitored anesthesia care by anesthesiologist. SURGEON: Taylor Cole MD INSTRUMENT USED: Olympus panendoscope. TECHNIQUE: After informed consent, with the patient/relatives understanding the procedure, its indic ations, potential risks and complications, including but not limited to: allergic reaction, bleeding , perforation or infection, and after all pertinent questions were answered to the patients satisfac tion, the patient/relatives signed witnessed informed consent. Following this, premedication was administered slowly IV push under careful cardiovascular and respi ratory monitoring with pulse oximetry, automatic blood pressure and implementation advisor. Once the sedative effect was achieved the patient was place in the left lateral decubitus, the panen doscope was introduced and advanced under visual control. Careful examination of the upper gastrointestinal tract, both on insertion as well as withdrawal of the instrument disclosed the following findings: ESOPHAGUS: The esophagus shows some dilatation and tortuosity of the body of the esophagus consiste nt with presbyesophagus. There is no evidence of esophageal stricture. Biopsies were obtained to r ule out eosinophilic esophagitis. STOMACH: Upon entrance to the stomach, air was insufflated, the gastric mclaughlin distended normally. Th ere was erythema and edema of the mucosa of a moderate degree. Biopsies were obtained to rule out H . pylori infection. PYLORUS: The pylorus appears patent and within normal limits, with no evidence of gastric outlet obs truction. DUODENUM: The duodenal mucosa was carefully examined in the duodenal bulb as well as the second port ion of the duodenum and appears unremarkable with no evidence of duodenitis, ulcer or neoplasm. The instrument was then withdrawn, the patient tolerated the procedure well and was transfer out of the endoscopy suite awake, and in good condition to continue recovery under observation IMPRESSION: 1. Presbyesophagus. 2. No evidence of esophageal stricture. 3. Rule out eosinophilic esophagitis, biopsies obtained. 4. Gastritis, rule out Helicobacter pylori infection. Biopsies were obtained. PLAN: PPI therapy. Pathology will be reviewed as soon as available. Formal swallowing evaluation to assist the pharyngeal face and faces of swallowing as patient points to the pharynx when sh e describes dysphagia. Dictated By: TAYLOR COLE MS/NTS Conf#: [id number] DID#: [id number]
[2016-06-12 07:01] LABS: ALBUMIN 1.8 g/dl (3.3-4.9)
[2016-06-12 07:02] LABS: POTASSIUM 3.6 mmol/L (3.5-5.1)
[2016-06-12 07:04] LABS: CREATININE 0.91 mg/dl (0.44-1.00)
[2016-06-12 07:05] LABS: AADO2 Arterial 63.9 mmHg (7.0-24.0); Allen Test ACCEPTAB; Arterial Base Excess -12.4 mmol/L (-3.0-3); Arterial COHb 0.3 % (0.0-3.0); Arterial Fraction of Oxyhgb 97.5 % (93.0-99.0); Arterial HCO3 12.3 mmol/L (22.0-26.0); Arterial MetHb 0.4 % (0.0-1.5); Arterial Total Hemglobin 12.2 g/dl (12.0-18.0); MODE NASAL CANNULA
[2016-06-12 07:05] LABS: CALCIUM 7.5 mg/dl (8.4-10.2); PHOSPHORUS 2.7 mg/dl (2.5-4.9)
[2016-06-12 07:13] LABS: CREATININE 0.86 mg/dl (0.44-1.00)
[2016-06-12 07:14] LABS: CALCIUM 7.1 mg/dl (8.4-10.2)
--- NOTE | 2016-06-12 08:17 | RADRPT ---
Vent Rate: 100 bpm RR Interval: 0 msec OK Interval: 188 msec QRS Duration: 90 msec QT Interval: 372 msec QTC Interval: 479 msec P-R-T [place]: 74 - 4 - 61 degrees Normal sinus rhythm Normal ECG Electronically Signed By: Ghulam Sinclair [id number]
[2016-06-12] MEDS: METOPROLOL 25 MG TAB PO SCH ×2 (08:19→20:39)
[2016-06-12] MEDS: PANTOPRAZOLE 40 MG INJ IV SCH ×2 (08:19→20:39)
[2016-06-12] MEDS: CITALOPRAM 20 MG TAB PO SCH (08:19)
[2016-06-12] MEDS: ASPIRIN 81 MG TAB PO SCH (08:19)
[2016-06-12] MEDS: HEPARIN 5,000 UNIT/0.5 ML SYG SC SCH ×2 (08:44→20:43)
[2016-06-12] MEDS ORDERED: POTASSIUM CHLORIDE (SR) 20 MEQ TAB PO STA (09:31)
[2016-06-12] MEDS: SOD CHLORIDE 0.45% 1,000 ML IV SCH ×2 (10:00→13:18)
--- NOTE | 2016-06-12 10:43 | PN ---
DATE: 06/12/2016 TIME OF EVALUATION: 9:00 a.m. SUBJECTIVE DATA: Denies any pain. The patient currently remains in sinus rhythm. OBJECTIVE DATA: VITAL SIGNS: Temperature 98.4, pulse rate 60, respiratory rate 30, blood pressure 146/53, oxygen saturation 100% on room air. GENERAL: This is a frail looking elderly female lying in bed in no apparent distress. HEENT: Head normocephalic and atraumatic. Eyes: Anicteric sclerae. Conjunctivae clear. ENT: Nasal septum is midline. Oral mucosa is dry. NECK: Supple. No JVD noticed. RESPIRATORY: Bilaterally clear to auscultation. No adventitious breath sounds heard. No use of accessory muscles of respiration. CARDIAC: Regular rate and rhythm with a grade II/ systolic ejection murmur. ABDOMEN: Soft and nontender. Bowel sounds positive in all 4 quadrants. GENITOURINARY: Deferred. EXTREMITIES: No cyanosis, no clubbing, no edema. Peripheral pulses are palpable. NEUROLOGIC: The patient is awake, alert and oriented. The patient has periods of confusion. LABORATORY AND DIAGNOSTIC DATA: WBC 7.8, hemoglobin 9.7, hematocrit 30.3, platelet count 251. Sodium 132, potassium 3.0, chloride 103, carbon dioxide 19 , anion gap 13, BUN 10, creatinine 0.86, glucose 85, calcium 7.1, magnesium 2.0. ASSESSMENT AND PLAN: 1. Paroxysmal supraventricular tachycardia. The patient is status post amiodarone. Currently in sinus rhythm. Cardiology following. 2. Sepsis secondary to Clostridium difficile colitis. No evidence of any septic shock. Continue antibiotics as per infectious disease. 3. Sigmoid colon diverticulitis. Continue antibiotics as per infectious disease. 4. Possible underlying colonic mass. Patient ideally needs colonoscopy. However, the patient not a candidate for colonoscopy currently because of underlying sigmoid colon diverticulitis. 5. Dysphagia. Seen and evaluated by speech therapy. Continue dysphagia diet. Esophagogastroduodenoscopy showing presbyesophagus. 6. Essential hypertension. Continue antihypertensives. Blood pressure fairly well controlled. 7. Chronic obstructive pulmonary disease. Stable. 8. Chronic kidney disease. Stable renal function at baseline. 9. Chronic obstructive pulmonary disease. No evidence of any exacerbation. Stable. Continue inhaled bronchodilators. 10. Severe protein calorie malnutrition. We will provide the patient with dietary supplements. 11. Pulmonary hypertension. PA pressure 45 mmHg as per 2D echocardiogram done in March 2016. Monitor. 12. Fluid, electrolytes and nutrition. Dysphagia diet. 13. Deep venous thrombosis prophylaxis. Bilateral sequential compression devices. 14. Gastrointestinal prophylaxis. Proton pump inhibitors. PLAN: Continue antimicrobials as per infectious disease. Replete potassium. Continue to monitor cardiac rhythm. Await cardiology clearance before transferring the patient out of the intensive care unit. The case was discussed with Dr. Manzano. The plan of care was explained to the patient's daughters, who were at the bedside Critical care time: 45 minutes. EMILIA MANZANO MD AM/NTS Conf#: [id number] DID#: [id number] MTDD
--- NOTE | 2016-06-12 11:58 | PN ---
Date/Time of Note Date/Time of Note DATE: 06/12/16 TIME: 11:55 Assessment/Plan VTE Prophylaxis VTE Prophylaxis Intervention: SCD's Lines/Catheters IV [facility] Peripheral IV Urinary Cath still in place: No Assessment/Plan Assessment/Plan Assessment : * Anemia/rule out GI bleeding Hematochezia (mild mixed with stool colonic malignancy vs inflammatory bowel disease * Persistent dysphagia * EG06/11/2016 Presbyesophagus/ Swallow eval pending * Arrhythmia controlled (off amiodarone drip) * Diverticulitis * C. difficile colitis * Abnormal imaging patient questions possible neoplasm of the colon versus inflammatory * Hypertension * Dyslipidemia * Depression Plan: * continue PPI * monitor h and h q6 * antibiotics per ID * Swallow eval when stable * Will hold off on colonoscopy due to evidence of diverticulitis. Will consider colonoscopy in 4-6 weeks Subjective 24 Hr Interval Summary Free Text/Dictation Course reviewed with nursing staf Seen and examined the patient,relatives at bedside S/P EGD Presbyesophagus/gastritis patient had episode of hematochezia.minimal mixed with stool H/H remains stable 9.7 denies abdominal pain,nausea,vomiting or fever Exam/Review of Systems Vital Signs Vitals Vital Signs Date Time Temp Pulse Resp B/P Pulse Ox O2 Delivery O2 Flow Rate FiO2 06/12/16 11:00 59 16 120/48 100 Nasal Cannula 06/12/16 08:00 98.4 06/12/16 07:59 2.0 Intake and Output 06/11/16 06/11/16 06/12/16 15:00 23:00 07:00 Intake Total 1040.24 ml 630 ml 560 ml Balance 1040.24 ml 630 ml 560 ml Exam Constitutional: alert, oriented, well developed Psych: nl mood/affect, no complaints Head: atraumatic, normocephalic Respiratory: clear to auscultation, normal air movement,no crackles nor wheezes Cardiovascular: nl pulses, regular rate and rhythm, Gastrointestinal: nl liver, spleen, tender, soft,non tender , normoactive bowel sounds, , Results Result Diagram: 06/12/16 0605 06/12/16 0605 Results 24 hrs Laboratory Tests Test 06/11/16 12:45 06/12/16 06:05 Troponin I < 0.012 White Blood Count 7.8 # Red Blood Count 3.31 L Hemoglobin 9.7 L Hematocrit 30.3 L Mean Corpuscular Volume 91.5 Mean Corpuscular Hemoglobin 29.3 Mean Corpuscular Hemoglobin Concent 32.0 Red Cell Distribution Width 14.2 Platelet Count 261 Mean Platelet Volume 10.3 Neutrophils % 65.0 Lymphocytes % 19.8 Monocytes % 10.6 Eosinophils % 3.4 Basophils % 0.4 Nucleated Red Blood Cells % 0.0 Neutrophils # 5.1 Lymphocytes # 1.6 Monocytes # 0.8 Eosinophils # 0.3 Basophils # 0.0 Nucleated Red Blood Cells # 0.0 Sodium Level 132 L Potassium Level 3.0 L Chloride Level 103 Carbon Dioxide Level 19 L Anion Gap 13 Blood Urea Nitrogen 10 Creatinine 0.86 Glucose Level 85 Calcium Level 7.1 L Phosphorus Level 2.7 Magnesium Level 2.0 Albumin 1.8 L Medications Medications Current Medications Sodium Chloride (1/2 NS) 1,000 ml @ 80 mls/hr [id number] IV Last administered on 06/12/16 10:00; Admin Dose 80 MLS/HR; Start 06/06/16 at 18:34 Ondansetron HCl (Zofran Inj) 4 mg Q6H PRN IV NAUSEA AND/OR VOMITING Last administered on 06/06/16 21:20; Admin Dose 4 MG; Start 06/06/16 at 19:00 Vancomycin HCl (Vancomycin Oral Syringe) 125 mg Q6 PO Last administered on 06/12 05:50; Admin Dose 125 MG; Start 06/07/16 at 15:30 Acetaminophen/ Hydrocodone Bitart ([place] (5/325)) 1 tab Q6H PRN PO severe pain Last administered on 06/08/16 20:38; Admin Dose 1 TAB; Start 06/07/16 at 22:00 Atorvastatin Calcium (Lipitor) 10 mg QHS PO Last administered on 06/11/16 20: 37; Admin Dose 10 MG; Start 06/08/16 at 21:00 Citalopram Hydrobromide (Celexa) 10 mg DAILY PO Last administered on 06/12/16 08:19; Admin Dose 10 MG; Start 06/09/16 at 09:00 Aspirin (Aspirin) 81 mg DAILY PO Last administered on 06/12/16 08:19; Admin Dose 81 MG; Start 06/09/16 at 09:00 Acetaminophen (Tylenol Tab) 650 mg Q6H PRN PO PAIN AND OR ELEVATED TEMP; Start 06/08/16 at 16:00 Heparin Sodium (Porcine) (Heparin (5000 Units/0.5 ml)) 5,000 unit BID SC Last administered on 06/12/16 08:44; Admin Dose 5,000 UNIT; Start 06/08/16 at 21:00 Metronidazole (Flagyl) 250 mg Q6 GTB Last administered on 06/12/16 11:39; Admin Dose 250 MG; Start 06/09/16 at 06:00; Stop 06/22/16 at 23:55 Pantoprazole (Protonix Iv) 40 mg BID IV Last administered on 06/12/16 08:19; Admin Dose 40 MG; Start 06/09/16 at 21:00 Zolpidem Tartrate (Ambien) 2.5 mg HS PRN PO INSOMNIA Last administered on 23:31; Admin Dose 2.5 MG; Start 06/09/16 at 23:30 Metoclopramide HCl 5 mg 5 mg Q6 IV Last administered on 06/12/16 11:39; Admin Dose 5 MG; Start 06/11/16 at 00:00 Ceftriaxone Sodium (Rocephin) 50 ml @ 100 mls/hr Q24H IVPB Last administered on 06/11/16 14:17; Admin Dose 100 MLS/HR; Start 06/11/16 at 13:30 Metoprolol Tartrate 12.5 mg 12.5 mg BID PO Last administered on 06/12/16 08:19 ; Admin Dose 12.5 MG; Start 06/11/16 at 21:00 Potassium Chloride/Dextrose (KCl/D5W) 265 ml @ 88.333 mls/ hr ONCE ONCE IVPB ; Start 06/12/16 at 12:00; Stop 06/12/16 at 14:59 TAYLOR BRAUN MD Jun 12, 2016 11:58
[2016-06-12] MEDS ORDERED: POTASSIUM CHLORIDE 30 MEQ in DEXTROSE 5% 250 ML IVPB ONE (12:00)
--- NOTE | 2016-06-12 12:05 | CONS ---
Date/Time of Note Date/Time of Note DATE: 06/12/16 TIME: 12:04 Assessment/Plan Assessment/Plan Additional Assessment/Plan Tachycardia Preserved ejection fraction SIRS with diverticulitis Hypertension -Telemetry reviewed with no evidence of significant arrhythmias. Blood pressure trend overall remained stable. With supplement potassium to maintain above 4.0. Would give 1 dose of magnesium to help with potassium absorption. Consultation Date/Type/Reason Admit Date/Time Jun 06, 2016 at 15:10 Initial Consult Date Type of Consultation: cv 24 HR Interval Summary Free Text/Dictation Patient denies shortness of breath, chest pain or palpitations. Is feeling better Exam/Review of Systems Vital Signs Vitals Vital Signs Date Time Temp Pulse Resp B/P Pulse Ox O2 Delivery O2 Flow Rate FiO2 06/12/16 11:00 59 16 120/48 100 Nasal Cannula 06/12/16 08:00 98.4 06/12/16 07:59 2.0 Intake and Output 06/11/16 06/11/16 06/12/16 15:00 23:00 07:00 Intake Total 1040.24 ml 630 ml 560 ml Balance 1040.24 ml 630 ml 560 ml Exam Family at bedside Constitutional: alert, frail, oriented Head: normocephalic Neck: supple Respiratory: other (Coarse breath sounds bilaterally, no wheezing) Cardiovascular: other (S1-S2 heard), regular rate and rhythm Gastrointestinal: bowel sounds, non-tender, other (No guarding), soft Extremities: other (No edema or cyanosis) Results Result Diagram: 06/12/16 0605 06/12/16 0605 Results 24 hrs Laboratory Tests Test 06/11/16 12:45 06/12/16 06:05 Troponin I < 0.012 White Blood Count 7.8 # Red Blood Count 3.31 L Hemoglobin 9.7 L Hematocrit 30.3 L Mean Corpuscular Volume 91.5 Mean Corpuscular Hemoglobin 29.3 Mean Corpuscular Hemoglobin Concent 32.0 Red Cell Distribution Width 14.2 Platelet Count 261 Mean Platelet Volume 10.3 Neutrophils % 65.0 Lymphocytes % 19.8 Monocytes % 10.6 Eosinophils % 3.4 Basophils % 0.4 Nucleated Red Blood Cells % 0.0 Neutrophils # 5.1 Lymphocytes # 1.6 Monocytes # 0.8 Eosinophils # 0.3 Basophils # 0.0 Nucleated Red Blood Cells # 0.0 Sodium Level 132 L Potassium Level 3.0 L Chloride Level 103 Carbon Dioxide Level 19 L Anion Gap 13 Blood Urea Nitrogen 10 Creatinine 0.86 Glucose Level 85 Calcium Level 7.1 L Phosphorus Level 2.7 Magnesium Level 2.0 Albumin 1.8 L Medications Medications Current Medications Sodium Chloride (1/2 NS) 1,000 ml @ 80 mls/hr [id number] IV Last administered on 06/12/16 10:00; Admin Dose 80 MLS/HR; Start 06/06/16 at 18:34 Ondansetron HCl (Zofran Inj) 4 mg Q6H PRN IV NAUSEA AND/OR VOMITING Last administered on 06/06/16 21:20; Admin Dose 4 MG; Start 06/06/16 at 19:00 Vancomycin HCl (Vancomycin Oral Syringe) 125 mg Q6 PO Last administered on 06/12 05:50; Admin Dose 125 MG; Start 06/07/16 at 15:30 Acetaminophen/ Hydrocodone Bitart ([place] (5/325)) 1 tab Q6H PRN PO severe pain Last administered on 06/08/16 20:38; Admin Dose 1 TAB; Start 06/07/16 at 22:00 Atorvastatin Calcium (Lipitor) 10 mg QHS PO Last administered on 06/11/16 20: 37; Admin Dose 10 MG; Start 06/08/16 at 21:00 Citalopram Hydrobromide (Celexa) 10 mg DAILY PO Last administered on 06/12/16 08:19; Admin Dose 10 MG; Start 06/09/16 at 09:00 Aspirin (Aspirin) 81 mg DAILY PO Last administered on 06/12/16 08:19; Admin Dose 81 MG; Start 06/09/16 at 09:00 Acetaminophen (Tylenol Tab) 650 mg Q6H PRN PO PAIN AND OR ELEVATED TEMP; Start 06/08/16 at 16:00 Heparin Sodium (Porcine) (Heparin (5000 Units/0.5 ml)) 5,000 unit BID SC Last administered on 06/12/16 08:44; Admin Dose 5,000 UNIT; Start 06/08/16 at 21:00 Metronidazole (Flagyl) 250 mg Q6 GTB Last administered on 06/12/16 11:39; Admin Dose 250 MG; Start 06/09/16 at 06:00; Stop 4/17 at 23:55 Pantoprazole (Protonix Iv) 40 mg BID IV Last administered on 06/12/16 08:19; Admin Dose 40 MG; Start 06/09/16 at 21:00 Zolpidem Tartrate (Ambien) 2.5 mg HS PRN PO INSOMNIA Last administered on 23:31; Admin Dose 2.5 MG; Start 06/09/16 at 23:30 Metoclopramide HCl 5 mg 5 mg Q6 IV Last administered on 06/12/16 11:39; Admin Dose 5 MG; Start 06/11/16 at 00:00 Ceftriaxone Sodium (Rocephin) 50 ml @ 100 mls/hr Q24H IVPB Last administered on 06/11/16 14:17; Admin Dose 100 MLS/HR; Start 06/11/16 at 13:30 Metoprolol Tartrate 12.5 mg 12.5 mg BID PO Last administered on 06/12/16 08:19 ; Admin Dose 12.5 MG; Start 06/11/16 at 21:00 Potassium Chloride/Dextrose (KCl/D5W) 265 ml @ 88.333 mls/ hr ONCE ONCE IVPB ; Start 06/12/16 at 12:00; Stop 06/12/16 at 14:59 William Slaetr DO Jun 12, 2016 12:05
--- NOTE | 2016-06-12 12:21 | PN ---
DATE: 06/12/2016 SUBJECTIVE: No acute changes. Patient is awake, looks comfortable, no fevers. WBC 7.8, no shift, no bands. BUN 10, creatinine 0.86. ANTIMICROBIALS: 1. The patient is on Rocephin. 2. Oral vancomycin. 3. Flagyl. PHYSICAL EXAMINATION: GENERAL: This is a fragile, elderly woman who is lying comfortably in bed. HEENT: Head atraumatic, normocephalic. Sclerae anicteric. Buccal mucosa dry. NECK: Supple. CHEST: Rise symmetrical. Breath sounds diminished to bases. HEART: S1, S2. ABDOMEN: Soft, bowel tones present. EXTREMITIES: Without cyanosis. ASSESSMENT: 1. Status post uncontrolled tachycardia. 2. Clostridium difficile colitis. 3. Diverticulitis. 4. Dysphagia, status post EGD that revealed presbyesophagus without evidence of esophageal strictur es and gastritis. PLAN: The patient remains stable pending transfer to telemetry. Continue present care, antibiotics . Await for biopsies. Dictated By: HÉCTOR HAYNES [employer] H[employer]ER for LILIYA RIVERA/NTS Conf#: [id number] DID#: [id number]
[2016-06-12] MEDS ORDERED: MAGNESIUM SULFATE 1 GM/D5W 100 ML IVPB ONE (12:30)
[2016-06-12] MEDS: CEFTRIAXONE 1 GM/50 ML (PMX) 50 ML IVPB SCH (13:32)
[2016-06-12] MEDS ORDERED: POTASSIUM CHLORIDE (SR) 20 MEQ TAB PO ONE (18:00)
[2016-06-12] MEDS: ATORVASTATIN 10 MG TAB PO SCH (20:38)
[2016-06-12] MEDS ORDERED: clonAZEPAM 0.5 MG TAB PO PRN (23:00)
[2016-06-13] VITALS (18 sets, daily range): BP systolic 120–148; BP diastolic 45–70; PULSE 70–95; RESP 16–23
[2016-06-13] MEDS: METOCLOPRAMIDE 10 MG INJ IV SCH ×3 (01:13→12:58)
[2016-06-13] MEDS: metroNIDAZOLE 250 MG TAB GTB SCH ×4 (01:13→17:41)
[2016-06-13] MEDS: VANCOMYCIN HCL 250 MG/5ML POSYG PO SCH ×4 (01:14→17:41)
[2016-06-13] MEDS: SOD CHLORIDE 0.45% 1,000 ML IV SCH ×2 (01:19→14:18)
[2016-06-13 06:25] LABS: ADD SCAN DIFF NO
[2016-06-13 06:38] LABS: BASOPHILS % 0.1 % (0.0-2.0); EOSINOPHILS # 0.2 10^3/ul (0.0-0.5); EOSINOPHILS % 2.2 % (0.0-7.0); HEMATOCRIT 29.4 % (37.0-47.0); HEMOGLOBIN 9.4 g/dl (12.0-16.0); LYMPHOCYTES # 1.5 10^3/ul (0.8-2.9); LYMPHOCYTES % 18.8 % (15.0-51.0); MEAN CORPUSCULAR HEMOGLOBIN 29.6 pg (29.0-33.0); MEAN CORPUSCULAR VOLUME 92.5 fl (82.0-101.0); MONOCYTE # 0.7 10^3/ul (0.3-0.9); MONOCYTES % 8.3 % (0.0-11.0); NEUTROPHIL # 5.5 10^3/ul (1.6-7.5); NEUTROPHILS % 69.7 % (39.0-77.0); PLATELET COUNT 288 10^3/UL (140-415); RED BLOOD COUNT 3.18 10^6/ul (4.20-5.40); RED CELL DISTRIBUTION WIDTH 14.6 % (11.5-14.5); WHITE BLOOD COUNT 7.8 10^3/ul (4.8-10.8)
[2016-06-13 06:47] LABS: PHOSPHORUS 2.5 mg/dl (2.5-4.9)
[2016-06-13 07:01] LABS: POTASSIUM 3.9 mmol/L (3.5-5.1)
[2016-06-13 07:04] LABS: CREATININE 0.94 mg/dl (0.44-1.00)
[2016-06-13 07:05] LABS: CALCIUM 7.6 mg/dl (8.4-10.2)
[2016-06-13] MEDS: ALBUTEROL/IPRATROPIUM (NEB) 3 ML AMP HHN PRN (08:16)
[2016-06-13] MEDS: CITALOPRAM 20 MG TAB PO SCH (10:05)
[2016-06-13] MEDS: PANTOPRAZOLE 40 MG INJ IV SCH (10:05)
[2016-06-13] MEDS: METOPROLOL 25 MG TAB PO SCH ×2 (10:07→22:21)
[2016-06-13] MEDS: HEPARIN 5,000 UNIT/0.5 ML SYG SC SCH ×2 (10:09→22:29)
[2016-06-13] MEDS: ASPIRIN 81 MG TAB PO SCH (10:18)
--- NOTE | 2016-06-13 13:59 | CONS ---
Date/Time of Note Date/Time of Note DATE: 06/13/16 TIME: 13:57 Assessment/Plan Assessment/Plan Chief Complaint/Hosp Course SUBJECTIVE: No acute changes. Tx out of ICU, no fevers. ANTIMICROBIALS: 1. The patient is on Rocephin. 2. Oral vancomycin. 3. Flagyl. PHYSICAL EXAMINATION: GENERAL: This is a fragile, elderly woman who is lying comfortably in bed. HEENT: Head atraumatic, normocephalic. Sclerae anicteric. Buccal mucosa dry. NECK: Supple. CHEST: Rise symmetrical. Breath sounds diminished to bases. HEART: S1, S2. ABDOMEN: Soft, bowel tones present. EXTREMITIES: Without cyanosis. ASSESSMENT: 1. Status post uncontrolled tachycardia. 2. Clostridium difficile colitis. 3. Diverticulitis. 4. Dysphagia, status post EGD that revealed presbyesophagus, no evidence of esophageal stricture 5. Gastritis. PLAN: The patient remains stable. Continue present care, complete antibiotics. Await for biopsies. GI rec-s [facility] staff Problems: Consultation Date/Type/Reason Admit Date/Time Jun 06, 2016 at 15:10 Type of Consultation: id Exam/Review of Systems Vital Signs Vitals Vital Signs Date Time Temp Pulse Resp B/P Pulse Ox O2 Delivery O2 Flow Rate FiO2 06/13/16 12:18 90 06/13/16 11:47 98.1 20 127/62 97 06/13/16 08:19 21 06/13/16 08:00 Nasal Cannula 2.0 Intake and Output 06/12/16 06/12/16 06/13/16 15:00 23:00 07:00 Intake Total 904.999 ml 760 ml 715 ml Balance 904.999 ml 760 ml 715 ml Results Result Diagram: 06/13/16 0540 06/13/16 0540 Results 24 hrs Laboratory Tests Test 06/13/16 05:40 06/13/16 05:48 White Blood Count 7.8 Red Blood Count 3.18 L Hemoglobin 9.4 L Hematocrit 29.4 L Mean Corpuscular Volume 92.5 Mean Corpuscular Hemoglobin 29.6 Mean Corpuscular Hemoglobin Concent 32.0 Red Cell Distribution Width 14.6 H Platelet Count 288 Mean Platelet Volume 10.0 Neutrophils % 69.7 Lymphocytes % 18.8 Monocytes % 8.3 Eosinophils % 2.2 Basophils % 0.1 Nucleated Red Blood Cells % 0.0 Neutrophils # 5.5 Lymphocytes # 1.5 Monocytes # 0.7 Eosinophils # 0.2 Basophils # 0.0 Nucleated Red Blood Cells # 0.0 Sodium Level 136 Potassium Level 3.9 Chloride Level 110 Carbon Dioxide Level 19 L Anion Gap 11 Blood Urea Nitrogen 10 Creatinine 0.94 Glucose Level 81 Calcium Level 7.6 L Phosphorus Level 2.5 Magnesium Level 2.0 Medications Medications Current Medications Sodium Chloride (1/2 NS) 1,000 ml @ 80 mls/hr [id number] IV Last administered on 06/13/16 01:19; Admin Dose 80 MLS/HR; Start 06/06/16 at 18:34 Ondansetron HCl (Zofran Inj) 4 mg Q6H PRN IV NAUSEA AND/OR VOMITING Last administered on 06/06/16 21:20; Admin Dose 4 MG; Start 06/06/16 at 19:00 Vancomycin HCl (Vancomycin Oral Syringe) 125 mg Q6 PO Last administered on 06/13 06:28; Admin Dose 125 MG; Start 06/07/16 at 15:30 Acetaminophen/ Hydrocodone Bitart ([place] (5/325)) 1 tab Q6H PRN PO severe pain Last administered on 06/08/16 20:38; Admin Dose 1 TAB; Start 06/07/16 at 22:00 Atorvastatin Calcium (Lipitor) 10 mg QHS PO Last administered on 06/12/16 20: 38; Admin Dose 10 MG; Start 06/08/16 at 21:00 Citalopram Hydrobromide (Celexa) 10 mg DAILY PO Last administered on 06/13/16 10:05; Admin Dose 10 MG; Start 06/09/16 at 09:00 Aspirin (Aspirin) 81 mg DAILY PO Last administered on 06/13/16 10:18; Admin Dose 81 MG; Start 06/09/16 at 09:00 Acetaminophen (Tylenol Tab) 650 mg Q6H PRN PO PAIN AND OR ELEVATED TEMP; Start 06/08/16 at 16:00 Heparin Sodium (Porcine) (Heparin (5000 Units/0.5 ml)) 5,000 unit BID SC Last administered on 06/13/16 10:09; Admin Dose 5,000 UNIT; Start 06/08/16 at 21:00 Metronidazole (Flagyl) 250 mg Q6 GTB Last administered on 06/13/16 12:58; Admin Dose 250 MG; Start 06/09/16 at 06:00; Stop 06/22/16 at 23:55 Pantoprazole (Protonix Iv) 40 mg BID IV Last administered on 06/13/16 10:05; Admin Dose 40 MG; Start 06/09/16 at 21:00 Zolpidem Tartrate (Ambien) 2.5 mg HS PRN PO INSOMNIA Last administered on 23:31; Admin Dose 2.5 MG; Start 06/09/16 at 23:30 Metoclopramide HCl 5 mg 5 mg Q6 IV Last administered on 06/13/16 12:58; Admin Dose 5 MG; Start 06/11/16 at 00:00 Ceftriaxone Sodium (Rocephin) 50 ml @ 100 mls/hr Q24H IVPB Last administered on 06/12/16 13:32; Admin Dose 100 MLS/HR; Start 06/11/16 at 13:30 Metoprolol Tartrate (Lopressor) 12.5 mg BID PO Last administered on 06/13/16 10:07; Admin Dose 12.5 MG; Start 06/11/16 at 21:00 Clonazepam (Klonopin) 1 mg QHS PRN PO ANXIETY Last administered on 06/12/16 22 :53; Admin Dose 1 MG; Start 06/12/16 at 23:00 HÉCTOR HAYNES NP Jun 13, 2016 13:59
[2016-06-13] MEDS: CEFTRIAXONE 1 GM/50 ML (PMX) 50 ML IVPB SCH (14:25)
--- NOTE | 2016-06-13 14:42 | PN ---
Date/Time of Note Date/Time of Note DATE: 06/13/16 TIME: 14:42 Assessment/Plan VTE Prophylaxis VTE Prophylaxis Intervention: SCD's Lines/Catheters IV [facility] Type [facility]from [facility]): Peripheral IV Urinary Cath still in place: No Assessment/Plan Chief Complaint/Hosp Course 1. Paroxysmal supraventricular tachycardia. The patient is status post amiodarone. Currently in sinus rhythm. Cardiology following. 2. Sepsis secondary to Clostridium difficile colitis. No evidence of any septic shock. Continue antibiotics as per infectious disease. 3. Sigmoid colon diverticulitis. Continue antibiotics as per infectious disease. 4. Possible underlying colonic mass. Patient ideally needs colonoscopy. However, the patient not a candidate for colonoscopy currently because of underlying sigmoid colon diverticulitis. 5. Dysphagia. Seen and evaluated by speech therapy. Continue dysphagia diet. Esophagogastroduodenoscopy showing presbyesophagus. 6. Essential hypertension. Continue antihypertensives. Blood pressure fairly well controlled. 7. Chronic kidney disease. Stable renal function at baseline. 8. Chronic obstructive pulmonary disease. No evidence of any exacerbation. Stable. Continue inhaled bronchodilators. 9. Severe protein calorie malnutrition. We will provide the patient with dietary supplements. 10. Pulmonary hypertension. PA pressure 45 mmHg as per 2D echocardiogram done in March 2016. Monitor. 11. Fluid, electrolytes and nutrition. Dysphagia diet. 12. Deep venous thrombosis prophylaxis. Bilateral sequential compression devices. 13. Gastrointestinal prophylaxis. Proton pump inhibitors. PLAN: Continue antimicrobials as per infectious disease. Continue to monitor cardiac rhythm. The case was discussed with Dr. Hanley. Problems: Subjective 24 Hr Interval Summary Free Text/Dictation Denies any chest pain. Denies any abdominal pain. Exam/Review of Systems Vital Signs Vitals Vital Signs Date Time Temp Pulse Resp B/P Pulse Ox O2 Delivery O2 Flow Rate FiO2 06/13/16 12:18 90 06/13/16 11:47 98.1 20 127/62 97 06/13/16 08:19 21 06/13/16 08:00 Nasal Cannula 2.0 Intake and Output 06/12/16 06/12/16 06/13/16 15:00 23:00 07:00 Intake Total 904.999 ml 760 ml 715 ml Balance 904.999 ml 760 ml 715 ml Exam GENERAL: This is a frail looking elderly female lying in bed in no apparent distress. HEENT: Head normocephalic and atraumatic. Eyes: Anicteric sclerae. Conjunctivae clear. ENT: Nasal septum is midline. Oral mucosa is dry. NECK: Supple. No JVD noticed. RESPIRATORY: Bilaterally clear to auscultation. No adventitious breath sounds heard. No use of accessory muscles of respiration. CARDIAC: Regular rate and rhythm with a grade II/ systolic ejection murmur. ABDOMEN: Soft and nontender. Bowel sounds positive in all 4 quadrants. GENITOURINARY: Deferred. EXTREMITIES: No cyanosis, no clubbing, no edema. Peripheral pulses are palpable. NEUROLOGIC: The patient is awake, alert and oriented. The patient has periods of confusion. Results Result Diagram: 06/13/16 0540 06/13/16 0540 Results 24 hrs Laboratory Tests Test 06/13/16 05:40 06/13/16 05:48 White Blood Count 7.8 Red Blood Count 3.18 L Hemoglobin 9.4 L Hematocrit 29.4 L Mean Corpuscular Volume 92.5 Mean Corpuscular Hemoglobin 29.6 Mean Corpuscular Hemoglobin Concent 32.0 Red Cell Distribution Width 14.6 H Platelet Count 288 Mean Platelet Volume 10.0 Neutrophils % 69.7 Lymphocytes % 18.8 Monocytes % 8.3 Eosinophils % 2.2 Basophils % 0.1 Nucleated Red Blood Cells % 0.0 Neutrophils # 5.5 Lymphocytes # 1.5 Monocytes # 0.7 Eosinophils # 0.2 Basophils # 0.0 Nucleated Red Blood Cells # 0.0 Sodium Level 136 Potassium Level 3.9 Chloride Level 110 Carbon Dioxide Level 19 L Anion Gap 11 Blood Urea Nitrogen 10 Creatinine 0.94 Glucose Level 81 Calcium Level 7.6 L Phosphorus Level 2.5 Magnesium Level 2.0 Medications Medications Current Medications Sodium Chloride (1/2 NS) 1,000 ml @ 80 mls/hr [id number] IV Last administered on 06/13/16 01:19; Admin Dose 80 MLS/HR; Start 06/06/16 at 18:34 Ondansetron HCl (Zofran Inj) 4 mg Q6H PRN IV NAUSEA AND/OR VOMITING Last administered on 06/06/16 21:20; Admin Dose 4 MG; Start 06/06/16 at 19:00 Vancomycin HCl (Vancomycin Oral Syringe) 125 mg Q6 PO Last administered on 06/13 06:28; Admin Dose 125 MG; Start 06/07/16 at 15:30 Acetaminophen/ Hydrocodone Bitart ([place] (5/325)) 1 tab Q6H PRN PO severe pain Last administered on 06/08/16 20:38; Admin Dose 1 TAB; Start 06/07/16 at 22:00 Atorvastatin Calcium (Lipitor) 10 mg QHS PO Last administered on 06/12/16 20: 38; Admin Dose 10 MG; Start 06/08/16 at 21:00 Citalopram Hydrobromide (Celexa) 10 mg DAILY PO Last administered on 06/13/16 10:05; Admin Dose 10 MG; Start 06/09/16 at 09:00 Aspirin (Aspirin) 81 mg DAILY PO Last administered on 06/13/16 10:18; Admin Dose 81 MG; Start 06/09/16 at 09:00 Acetaminophen (Tylenol Tab) 650 mg Q6H PRN PO PAIN AND OR ELEVATED TEMP; Start 06/08/16 at 16:00 Heparin Sodium (Porcine) (Heparin (5000 Units/0.5 ml)) 5,000 unit BID SC Last administered on 06/13/16 10:09; Admin Dose 5,000 UNIT; Start 06/08/16 at 21:00 Metronidazole (Flagyl) 250 mg Q6 GTB Last administered on 06/13/16 12:58; Admin Dose 250 MG; Start 06/09/16 at 06:00; Stop 06/22/16 at 23:55 Pantoprazole (Protonix Iv) 40 mg BID IV Last administered on 06/13/16 10:05; Admin Dose 40 MG; Start 06/09/16 at 21:00 Zolpidem Tartrate (Ambien) 2.5 mg HS PRN PO INSOMNIA Last administered on 23:31; Admin Dose 2.5 MG; Start 06/09/16 at 23:30 Metoclopramide HCl 5 mg 5 mg Q6 IV Last administered on 06/13/16 12:58; Admin Dose 5 MG; Start 06/11/16 at 00:00 Ceftriaxone Sodium (Rocephin) 50 ml @ 100 mls/hr Q24H IVPB Last administered on 06/13/16 14:25; Admin Dose 100 MLS/HR; Start 06/11/16 at 13:30 Metoprolol Tartrate (Lopressor) 12.5 mg BID PO Last administered on 06/13/16 10:07; Admin Dose 12.5 MG; Start 06/11/16 at 21:00 Clonazepam (Klonopin) 1 mg QHS PRN PO ANXIETY Last administered on 06/12/16 22 :53; Admin Dose 1 MG; Start 06/12/16 at 23:00 EMILIA MARTINEZ NP Jun 13, 2016 14:42 EMILIA MARTINEZ NP Jun 13, 2016 14:42
--- NOTE | 2016-06-13 17:01 | CONS ---
Date/Time of Note Date/Time of Note DATE: 06/13/16 TIME: 16:54 Assessment/Plan Assessment/Plan Chief Complaint/Hosp Course Mrs.Tomasa Mathews is an 81-year-old female who presented to the ED secondary to complaints of abdominal pain, emesis, intermittent diarrhea for the last 3 days. No reports of hematemesis or coffee-ground emesis. She denies fever, chills, sick contacts, previous episode, chronic NSAID use, chest pain, and shortness of breath. he patient was recently hospitalized here in 2016 after having suffered a right hip fracture. Patient has past medical history of recent hip fracture, hypertension, COPD, diastolic heart failure, pulmonary hypertension, dyslipidemia. At bedside, caregiver also notes patient has been losing weight for several months and can no longer tolerate a regular diet. Patient reports pain with swallowing and can only tolerate pured or liquid contents. Unsure if patient has completed EGD or colonoscopy in the past. Called guilherme Winn and he provides informed consent to proceed with EGD and colonoscopy. Problems: Additional Assessment/Plan Acute anemia Evaluate GI bleed versus chronic iron deficiency vs other etiology Monitor H&H every 8 hours, transfuse 2 units for hemoglobin less than 7.[address] abdomen: 1. Findings compatible with mild sigmoid diverticulitis, as above. No evidence of diverticular perforation or abscess formation is seen. 2. Underlying colonic mass/neoplasm cannot be definitely excluded in this location - consider colonoscopic correlation after the acute inflammatory process has subsided. 3. Large amount of retained fecal material is seen proximally, compatible with constipation. 4. Cholelithiasis and/or gallbladder sludge are noted, without evidence for cholecystitis. 5. Small hiatal hernia is seen. 6. There is mild chronic right renal atrophy. No urolithiasis or obstructive uropathy is seen. 7. Uterus is surgically absent. Continue PPI drips EGD: Presbyesophagus/gastritis. Biopsies: Moderate superficial chronic gastritis with focal intestinal metaplasia. A Giemsa stain with an appropriate control is negative for Helicobacter pylori organisms. Reactive minute fragment of esophageal epithelium with mild basal cell hyperplasia and mild intraepithelial lymphocytes. An Alcian blue with a PAS counterstain and an appropriate control is negative for fungal organisms. No glandular epithelium and no intraepithelial eosinophils are identified. Abdominal pain/possible colonic mass/weight loss/loss of appetite Monitor labs CT abdomen: DEYSI C difficle stool test, positive s/p Swallow Eval: continue puree/thin and when dentures brought can assess safety for solids; cont. asp.precautions; mbss not indicated at this time. since pt takes limited amount of po; pt not a good candidate for mbss; will monitor closely Diverticulitis Continue antibiotic treatment Colonoscopy, deferred secondary to diverticulitis. Recommend colonoscopy in 6- 8 weeks Positive C. difficile Continue antibiotic treatment Contact precautions in place Depression Management per Primary Hypertension Management per Primary Continue home medication Hyperlipidemia Management per Primary Continue home medication Further recommendations depend on clinical course Patient seen in collaboration with Dr. Cole Consultation Date/Type/Reason Admit Date/Time Jun 06, 2016 at 15:10 Initial Consult Date Type of Consultation: GI Reason for Consultation Abdominal pain 24 HR Interval Summary Free Text/Dictation Patient with little p.o. intake Hemoglobin stable Exam/Review of Systems Vital Signs Vitals Vital Signs Date Time Temp Pulse Resp B/P Pulse Ox O2 Delivery O2 Flow Rate FiO2 06/13/16 16:05 70 06/13/16 15:45 98.3 20 120/59 100 06/13/16 08:19 21 06/13/16 08:00 Nasal Cannula 2.0 Intake and Output 06/12/16 06/12/16 06/13/16 15:00 23:00 07:00 Intake Total 904.999 ml 760 ml 715 ml Balance 904.999 ml 760 ml 715 ml Exam Constitutional: alert, oriented, thin Psych: nl mood/affect Head: normocephalic Eyes: EOMI, nl conjunctiva, nl lids ENMT: nl external ears & nose, nl lips & teeth, nl nasal mucosa & septum Respiratory: clear to auscultation, normal air movement Cardiovascular: regular rate and rhythm Gastrointestinal: soft, diffuse tenderness Musculoskeletal: nl extremities to inspection Neurological: SCOOP DRIVER II-XII intact Results Result Diagram: 06/13/16 0540 06/13/16 0540 Results 24 hrs Laboratory Tests Test 06/13/16 05:40 06/13/16 05:48 White Blood Count 7.8 Red Blood Count 3.18 L Hemoglobin 9.4 L Hematocrit 29.4 L Mean Corpuscular Volume 92.5 Mean Corpuscular Hemoglobin 29.6 Mean Corpuscular Hemoglobin Concent 32.0 Red Cell Distribution Width 14.6 H Platelet Count 288 Mean Platelet Volume 10.0 Neutrophils % 69.7 Lymphocytes % 18.8 Monocytes % 8.3 Eosinophils % 2.2 Basophils % 0.1 Nucleated Red Blood Cells % 0.0 Neutrophils # 5.5 Lymphocytes # 1.5 Monocytes # 0.7 Eosinophils # 0.2 Basophils # 0.0 Nucleated Red Blood Cells # 0.0 Sodium Level 136 Potassium Level 3.9 Chloride Level 110 Carbon Dioxide Level 19 L Anion Gap 11 Blood Urea Nitrogen 10 Creatinine 0.94 Glucose Level 81 Calcium Level 7.6 L Phosphorus Level 2.5 Magnesium Level 2.0 Medications Medications Current Medications Sodium Chloride (1/2 NS) 1,000 ml @ 80 mls/hr [id number] IV Last administered on 06/13/16 01:19; Admin Dose 80 MLS/HR; Start 06/06/16 at 18:34 Ondansetron HCl (Zofran Inj) 4 mg Q6H PRN IV NAUSEA AND/OR VOMITING Last administered on 06/06/16 21:20; Admin Dose 4 MG; Start 06/06/16 at 19:00 Vancomycin HCl (Vancomycin Oral Syringe) 125 mg Q6 PO Last administered on 06/13 15:03; Admin Dose 125 MG; Start 06/07/16 at 15:30 Acetaminophen/ Hydrocodone Bitart ([place] (5/325)) 1 tab Q6H PRN PO severe pain Last administered on 06/08/16 20:38; Admin Dose 1 TAB; Start 06/07/16 at 22:00 Atorvastatin Calcium (Lipitor) 10 mg QHS PO Last administered on 06/12/16 20: 38; Admin Dose 10 MG; Start 06/08/16 at 21:00 Citalopram Hydrobromide (Celexa) 10 mg DAILY PO Last administered on 06/13/16 10:05; Admin Dose 10 MG; Start 06/09/16 at 09:00 Aspirin (Aspirin) 81 mg DAILY PO Last administered on 06/13/16 10:18; Admin Dose 81 MG; Start 06/09/16 at 09:00 Acetaminophen (Tylenol Tab) 650 mg Q6H PRN PO PAIN AND OR ELEVATED TEMP; Start 06/08/16 at 16:00 Heparin Sodium (Porcine) (Heparin (5000 Units/0.5 ml)) 5,000 unit BID SC Last administered on 06/13/16 10:09; Admin Dose 5,000 UNIT; Start 06/08/16 at 21:00 Metronidazole (Flagyl) 250 mg Q6 GTB Last administered on 06/13/16 12:58; Admin Dose 250 MG; Start 06/09/16 at 06:00; Stop 06/22/16 at 23:55 Pantoprazole (Protonix Iv) 40 mg BID IV Last administered on 06/13/16 10:05; Admin Dose 40 MG; Start 06/09/16 at 21:00 Zolpidem Tartrate (Ambien) 2.5 mg HS PRN PO INSOMNIA Last administered on 23:31; Admin Dose 2.5 MG; Start 06/09/16 at 23:30 Metoclopramide HCl 5 mg 5 mg Q6 IV Last administered on 06/13/16 12:58; Admin Dose 5 MG; Start 06/11/16 at 00:00 Ceftriaxone Sodium (Rocephin) 50 ml @ 100 mls/hr Q24H IVPB Last administered on 06/13/16 14:25; Admin Dose 100 MLS/HR; Start 06/11/16 at 13:30 Metoprolol Tartrate (Lopressor) 12.5 mg BID PO Last administered on 06/13/16 10:07; Admin Dose 12.5 MG; Start 06/11/16 at 21:00 Clonazepam (Klonopin) 1 mg QHS PRN PO ANXIETY Last administered on 06/12/16 22 :53; Admin Dose 1 MG; Start 06/12/16 at 23:00 AIRAM TAI Jun 13, 2016 17:01
--- NOTE | 2016-06-13 17:29 | PDOCDIS ---
Discharge Instructions DIAGNOSIS Discharge Diagnosis: C. difficile colitis. Sigmoid diverticulitis. CONDITION Patient Condition: Stable HOME CARE INSTRUCTIONS: Special Diet: DYSPHAGIA FOLLOW UP/APPOINTMENTS Appointments 1. Aysha Cole MD Specialty: Gastroenterology Office Address: [id number] [place], [place] [id number] [place] [address] Office 2. William Slater DO Specialty: Cardiovascular Disease Office Address: [facility] [place] [address] Office OTHER ORDERS: Other Orders: 1. Dysphagia diet. 2. Activities with assist. 3. Medications as per medication list. 4. Please follow-up with outpatient gastroenterology (Dr. Cole) for colonoscopy in 4-6 weeks. 5. Please follow-up with Cardiology ([facility]) in 2 weeks. EMILIA MARTINEZ NP Jun 13, 2016 17:29
[2016-06-13] MEDS ORDERED: METO5TAB11 PO (17:32)
[2016-06-13] MEDS ORDERED: ASPI81TA3 PO (17:32)
[2016-06-13] MEDS ORDERED: PANT40TA4 PO (17:32)
[2016-06-13] MEDS ORDERED: ZOLP5TAB PO (17:32)
[2016-06-13] MEDS ORDERED: HEP5KI SC (17:32)
[2016-06-13] MEDS ORDERED: METO-448 PO (17:32)
[2016-06-13] MEDS ORDERED: METR250T GTB (17:32)
[2016-06-13] MEDS ORDERED: CIPR500T4 PO (17:32)
[2016-06-13] MEDS ORDERED: Vancomycin Oral Syringe PO (17:32)
[2016-06-13] MEDS: CIPROFLOXACIN 500 MG TAB PO SCH (17:41)
[2016-06-13] MEDS: PANTOPRAZOLE (EC) 40 MG TAB PO SCH (18:03)
--- NOTE | 2016-06-13 18:51 | DS ---
DATE OF ADMISSION: 06/06/2016 DATE OF DISCHARGE: 06/13/2016 FINAL DIAGNOSES 1. Paroxysmal supraventricular tachycardia, resolved. 2. Sepsis secondary to Clostridium difficile colitis and sigmoid colon diverticulitis. 3. Clostridium difficile colitis. 4. Sigmoid colon diverticulitis. 5. Possible underlying colonic mass. 6. Dysphagia. 7. Presbyesophagus. 8. Essential hypertension. 9. Chronic obstructive pulmonary disease. 10. Chronic kidney disease. 11. Severe protein calorie malnutrition. 12. Pulmonary hypertension. 13. Gastritis. CONSULTATIONS: 1. Dr. Fco Martinez, Infectious Disease. 2. Dr. William Slater, Cardiology. 3. Dr. Aysha Cole, Gastroenterology. HOSPITAL COURSE: This is an 81-year-old female with multiple comorbidities who came to the emergency room because of abdominal pain. The patient recently and hip fracture on 04/09/2016 and the patient was transferred to a senior care facility following surgical repair of this fracture. The patient also complained of some diarrhea as well as some nausea and vomiting. In the emergency room, the patient had a CT scan of the abdomen and pelvis that showed sigmoid diverticulitis. The CT also showed possible underlying colonic mass. The patient had underlying leukocytosis. Provided the patient's history of present illness and the diagnostic findings, a clinical decision was made to admit the patient to inpatient setting to have her further evaluation. The patient was admitted to inpatient medical/surgical floor. The patient was started on antibiotics. A gastroenterology consult and infectious disease consult was called on this patient. The patient underwent an esophagogastroduodenoscopy that showed presbyesophagus and no evidence of any of esophageal stricture. The patient's gastric biopsy was negative for any Helicobacter pylori infection. The patient was started on prokinetics for her underlying presbyesophagus. The patient was seen and evaluated by speech therapy who recommended a dysphagia diet on this patient. Meanwhile, the patient's stool for C. diff showed positive Clostridium difficile colitis. Hence, the patient was started on oral vancomycin. The patient ideally needs a colonoscopy and biopsy of the colon. Patient's abdominal and pelvic CT scan suggested possible underlying colon mass. However , because of the current diverticulitis, a colonoscopy was not done. The patient has underlying essential hypertension. She was maintained on antihypertensives for the same. The patient has underlying chronic kidney disease. The patient's renal function was stable. She has underlying COPD. There was no evidence of any COPD exacerbation. The patient has severe protein calorie malnutrition. The patient was maintained on dietary supplements. The patient also has pulmonary hypertension as evidenced by PA pressure of 45 mmHg on a 2D echocardiogram done on 04/12/2016. The patient was maintained on supplemental oxygen. On 06/11/2016, the patient had an episode of rapid atrial tachycardia. The patient was evaluated by cardiology and the patient was transferred to intensive care unit. The patient was given IV amiodarone with conversion to normal sinus rhythm. The patient's serial troponins remained negative. The patient had a recent 2D echocardiogram and therefore, this was not repeated. The patient was maintained on low dose beta blockers with no evidence of any atrial tachycardia. The patient was transferred out of the intensive care unit on 06/13/2016. The patient is medically stable to be discharged. As per the conversation with the nursing staff as well as the patient's insurance, the patient needed 24-hour care. Hence a clinical decision was made to discharge the patient to senior care facility. DISPOSITION AND PLAN: The patient will be discharged to a senior care facility. The patient will follow a dysphagia diet. Activities will be with assistance. Medications will be as per medication list. The patient needs to follow up with buttonhole machine operator for colonoscopy in 4 to 6 weeks. The patient also needs a cardiology followup in the next 2 weeks because of the recent episode of paroxysmal atrial tachycardia. Nursing was instructed to endorse all the discharge instructions to the nursing personnel to the senior care facility. CONDITION AT DISCHARGE: Stable. DISCHARGE MEDICATIONS 1. Aspirin 81 mg p.o. daily. 2. Ciprofloxacin 500 mg p.o. b.i.d., last day 06/23/2016. 3. Heparin 5000 subcutaneous b.i.d. 4. Reglan 5 mg p.o. t.i.d. 5. Lopressor 12.5 mg p.o. b.i.d. 6. Flagyl 250 mg p.o. q. 8h. (last day 06/23/2016). 7. Protonix 40 mg p.o. b.i.d. 8. Ambien 2.5 mg p.o. at bedtime p.r.n. insomnia. 9. Vancomycin orally 125 mg p.o. q.6h. (last day 06/23/2016). 10. Atorvastatin 10 mg p.o. at bedtime. 11. Celexa 10 mg p.o. daily. 12. Lorazepam 1 mg p.o. at bedtime p.r.n. anxiety. 13. Colace 100 mg p.o. q.12h. p.r.n. constipation. 14. Ferrous sulfate 325 mg p.o. b.i.d. 15. DuoNeb 5.5/3 mg inhaled nebulization q.6h. while awake. 16. Zofran 4 mg p.o. q. 6h. p.r.n. nausea and/or vomiting. [facility] DATA, DIAGNOSTIC DATA AND PROCEDURES: 1. Esophagogastroduodenoscopy on 06/11/2016. Presbyesophagus. No evidence of esophageal stricture. Rule out eosinophilic esophagitis and gastritis. Rule out Helicobacter pylori infection. 2. CT scan of the abdomen and pelvis upon admission. Findings compatible with mild sigmoid diverticulitis. No evidence of diverticular perforation or abscess formation. Underlying colonic mass/neoplasm cannot be definitely excluded in this location. Large amount of retained fecal material. Cholelithiasis and/or gallbladder sludge noted without evidence of cholecystitis. Small hiatal hernia. There is mild chronic right renal atrophy. No urolithiasis or obstructive uropathy seen. Uterus is surgically absent. 3. Chest x-ray on 06/09/2016. Calcification of the thoracic aorta. 4. Right upper extremity venous Doppler study. No evidence of DVT within the right upper extremity veins. 5. Stool for C. diff study positive. 6. Blood culture x2 negative. 7. Latest CBC: WBC 7.8, hemoglobin 9.4, hematocrit 29.4, platelet count 288. 8. Latest BMP: Sodium 136, potassium 3.9, chloride 110, carbon dioxide 19, anion gap 11, BUN 10, creatinine 0.94, glucose 81, calcium 7.6, phosphorus 2.5, magnesium 2.0, albumin 1.8. 9. Blood gas that was done on low flow O2 on 06/11/2016: pH 7.305, pCO2 of 25.2, pO2 120.4, bicarb 12.3, oxygen saturation 98.2, base excess -4.4. At this time, we would like to thank all the consultants for seeing the patient , doing the necessary procedures, and providing clinical recommendations. The case and management of this patient was fully discussed with Dr. Manzano. Approximately 40 minutes was spent on coordinating discharge on this patient. EMILIA MANZANO MD, AM/FRANCOIS Conf#: [id number] DID#: [id number]
[2016-06-13] MEDS: METOCLOPRAMIDE 5 MG TAB PO SCH (22:17)
[2016-06-13] MEDS: ATORVASTATIN 10 MG TAB PO SCH (22:18)
[2016-06-14] VITALS (11 sets, daily range): BP systolic 113–146; BP diastolic 57–66; PULSE 67–83; RESP 16–20
[2016-06-14] MEDS: VANCOMYCIN HCL 250 MG/5ML POSYG PO SCH ×4 (01:38→17:10)
[2016-06-14] MEDS: metroNIDAZOLE 250 MG TAB GTB SCH ×4 (01:39→17:05)
[2016-06-14] MEDS: CIPROFLOXACIN 500 MG TAB PO SCH ×2 (05:30→17:05)
[2016-06-14] MEDS: PANTOPRAZOLE (EC) 40 MG TAB PO SCH ×2 (05:32→17:05)
[2016-06-14] MEDS: ALBUTEROL/IPRATROPIUM (NEB) 3 ML AMP HHN PRN (08:44)
[2016-06-14] MEDS: METOPROLOL 25 MG TAB PO SCH ×2 (09:34→21:31)
[2016-06-14] MEDS: CITALOPRAM 20 MG TAB PO SCH (09:35)
[2016-06-14] MEDS: ASPIRIN 81 MG TAB PO SCH (09:35)
[2016-06-14] MEDS: METOCLOPRAMIDE 5 MG TAB PO SCH ×3 (09:35→21:32)
[2016-06-14] MEDS: HEPARIN 5,000 UNIT/0.5 ML SYG SC SCH ×2 (09:36→21:00)
--- NOTE | 2016-06-14 13:05 | CONS ---
Date/Time of Note Date/Time of Note DATE: 06/14/16 TIME: 13:04 Assessment/Plan Assessment/Plan Chief Complaint/Hosp Course SUBJECTIVE: No acute changes. Tx out of ICU, no fevers. ANTIMICROBIALS: 1. The patient is on Rocephin. 2. Oral vancomycin. 3. Flagyl. PHYSICAL EXAMINATION: GENERAL: This is a fragile, elderly woman who is lying comfortably in bed. HEENT: Head atraumatic, normocephalic. Sclerae anicteric. Buccal mucosa dry. NECK: Supple. CHEST: Rise symmetrical. Breath sounds diminished to bases. HEART: S1, S2. ABDOMEN: Soft, bowel tones present. EXTREMITIES: Without cyanosis. ASSESSMENT: 1. Status post uncontrolled tachycardia. 2. Clostridium difficile colitis. 3. Diverticulitis. 4. Dysphagia, status post EGD that revealed presbyesophagus, no evidence of esophageal stricture 5. Gastritis. PLAN: The patient remains stable. Will dc Rocephin and PO Vanco, continue Flagyl, f/u GI rec-s [facility] staff Problems: Consultation Date/Type/Reason Admit Date/Time Jun 06, 2016 at 15:10 Type of Consultation: ID Exam/Review of Systems Vital Signs Vitals Vital Signs Date Time Temp Pulse Resp B/P Pulse Ox O2 Delivery O2 Flow Rate FiO2 06/14/16 12:13 69 06/14/16 11:46 98.1 20 144/64 100 06/14/16 08:45 21 06/14/16 08:00 Nasal Cannula 1.0 Intake and Output 06/13/16 06/13/16 06/14/16 15:00 23:00 07:00 Intake Total 360 ml 110 ml Balance 360 ml 110 ml Results Result Diagram: 06/13/16 0540 06/13/16 0540 Medications Medications Current Medications Ondansetron HCl (Zofran Inj) 4 mg Q6H PRN IV NAUSEA AND/OR VOMITING Last administered on 06/06/16 21:20; Admin Dose 4 MG; Start 06/06/16 at 19:00 Vancomycin HCl (Vancomycin Oral Syringe) 125 mg Q6 PO Last administered on 06/14 05:30; Admin Dose 125 MG; Start 06/07/16 at 15:30 Acetaminophen/ Hydrocodone Bitart ([place] (5/325)) 1 tab Q6H PRN PO severe pain Last administered on 06/08/16 20:38; Admin Dose 1 TAB; Start 06/07/16 at 22:00 Atorvastatin Calcium (Lipitor) 10 mg QHS PO Last administered on 06/13/16 22: 18; Admin Dose 10 MG; Start 06/08/16 at 21:00 Citalopram Hydrobromide (Celexa) 10 mg DAILY PO Last administered on 06/14/16 09:35; Admin Dose 10 MG; Start 06/09/16 at 09:00 Aspirin (Aspirin) 81 mg DAILY PO Last administered on 06/14/16 09:35; Admin Dose 81 MG; Start 06/09/16 at 09:00 Acetaminophen (Tylenol Tab) 650 mg Q6H PRN PO PAIN AND OR ELEVATED TEMP; Start 06/08/16 at 16:00 Heparin Sodium (Porcine) (Heparin (5000 Units/0.5 ml)) 5,000 unit BID SC Last administered on 06/14/16 09:36; Admin Dose 5,000 UNIT; Start 06/08/16 at 21:00 Metronidazole (Flagyl) 250 mg Q6 GTB Last administered on 06/14/16 05:32; Admin Dose 250 MG; Start 06/09/16 at 06:00; Stop 06/22/16 at 23:55 Zolpidem Tartrate (Ambien) 2.5 mg HS PRN PO INSOMNIA Last administered on 23:31; Admin Dose 2.5 MG; Start 06/09/16 at 23:30 Metoprolol Tartrate (Lopressor) 12.5 mg BID PO Last administered on 06/14/16 09:34; Admin Dose 12.5 MG; Start 06/11/16 at 21:00 Clonazepam (Klonopin) 1 mg QHS PRN PO ANXIETY Last administered on 06/12/16 22 :53; Admin Dose 1 MG; Start 06/12/16 at 23:00 Ciprofloxacin (Cipro) 500 mg BID@ PO Last administered on 06/14/16 05:30 ; Admin Dose 500 MG; Start 06/13/16 at 18:00 Pantoprazole (Protonix Tab) 40 mg BID@18 PO Last administered on 06/14/16 05:32; Admin Dose 40 MG; Start 06/13/16 at 18:00 Metoclopramide HCl (Reglan) 5 mg TID PO Last administered on 06/14/16t 09:35; Admin Dose 5 MG; Start 06/13/16 at 21:00 HÉCTOR HAYNES NP Jun 14, 2016 13:05
--- NOTE | 2016-06-14 17:26 | DS ---
DATE OF ADMISSION: 06/06/2016 DATE OF DISCHARGE: 06/14/2016 FINAL DIAGNOSES 1. Paroxysmal supraventricular tachycardia, resolved. 2. Sepsis secondary to Clostridium difficile colitis and sigmoid colon diverticulitis. 3. Clostridium difficile colitis. 4. Sigmoid colon diverticulitis. 5. Possible underlying colonic mass. 6. Dysphagia. 7. Presbyesophagus. 8. Essential hypertension. 9. Chronic obstructive pulmonary disease. 10. Chronic kidney disease. 11. Severe protein calorie malnutrition. 12. Pulmonary hypertension. 13. Gastritis. CONSULTATIONS: 1. Dr. Fco Martinez, Infectious Disease. 2. Dr. William Slater, Cardiology. 3. Dr. Aysha Cole, Gastroenterology. HOSPITAL COURSE: This is an 81-year-old female with multiple comorbidities who came to the emergency room because of abdominal pain. The patient recently and hip fracture on 04/09/2016 and the patient was transferred to a [facility] facility following surgical repair of this fracture. The patient also complained of some diarrhea as well as some nausea and vomiting. In the emergency room, the patient had a CT scan of the abdomen and pelvis that showed sigmoid diverticulitis. The CT also showed possible underlying colonic mass. The patient had underlying leukocytosis. Provided the patient's history of present illness and the diagnostic findings, a clinical decision was made to admit the patient to inpatient setting to have her further evaluation. The patient was admitted to inpatient medical/surgical floor. The patient was started on antibiotics. A gastroenterology consult and infectious disease consult was called on this patient. The patient underwent an esophagogastroduodenoscopy that showed presbyesophagus and no evidence of any of esophageal stricture. The patient's gastric biopsy was negative for any Helicobacter pylori infection. The patient was started on prokinetics for her underlying presbyesophagus. The patient was seen and evaluated by speech therapy who recommended a dysphagia diet on this patient. Meanwhile, the patient's stool for C. diff showed positive Clostridium difficile colitis. Hence, the patient was started on oral vancomycin. The patient ideally needs a colonoscopy and biopsy of the colon. Patient's abdominal and pelvic CT scan suggested possible underlying colon mass. However , because of the current diverticulitis, a colonoscopy was not done. The patient has underlying essential hypertension. She was maintained on antihypertensives for the same. The patient has underlying chronic kidney disease. The patient's renal function was stable. She has underlying COPD. There was no evidence of any COPD exacerbation. The patient has severe protein calorie malnutrition. The patient was maintained on dietary supplements. The patient also has pulmonary hypertension as evidenced by PA pressure of 45 mmHg on a 2D echocardiogram done on 04/12/2016. The patient was maintained on supplemental oxygen. On 06/11/2016, the patient had an episode of rapid atrial tachycardia. The patient was evaluated by cardiology and the patient was transferred to intensive care unit. The patient was given IV amiodarone with conversion to normal sinus rhythm. The patient's serial troponins remained negative. The patient had a recent 2D echocardiogram and therefore, this was not repeated. The patient was maintained on low dose beta blockers with no evidence of any atrial tachycardia. The patient was transferred out of the intensive care unit on 06/13/2016. The patient is medically stable to be discharged. As per the conversation with the nursing staff as well as the patient's insurance, the patient needed 24-hour care. Hence the initial plan was to discharge the patient to a [facility] facility. However, after talking to the patient' s family, the patient's family would like to take the patient home. The patient has 24-hour support available in the family. DISPOSITION AND PLAN: The patient will be discharged home. The patient will follow a dysphagia diet. Activities will be with assistance. Medications will be as per medication list. The patient needs to follow up with benefits specialist for colonoscopy in 4 to 6 weeks. The patient also needs a cardiology followup in the next 2 weeks because of the recent episode of paroxysmal atrial tachycardia. The patient's family verbalized understanding of the discharge instructions. CONDITION AT DISCHARGE: Stable. DISCHARGE MEDICATIONS 1. Aspirin 81 mg p.o. daily. 2. Ciprofloxacin 500 mg p.o. b.i.d., last day 06/23/2016. 3. Heparin 5000 subcutaneous b.i.d. 4. Reglan 5 mg p.o. t.i.d. 5. Lopressor 12.5 mg p.o. b.i.d. 6. Flagyl 250 mg p.o. q. 8h. (last day 06/23/2016). 7. Protonix 40 mg p.o. b.i.d. 8. Ambien 2.5 mg p.o. at bedtime p.r.n. insomnia. 9. Vancomycin orally 125 mg p.o. q.6h. (last day 06/23/2016). 10. Atorvastatin 10 mg p.o. at bedtime. 11. Celexa 10 mg p.o. daily. 12. Lorazepam 1 mg p.o. at bedtime p.r.n. anxiety. 13. Colace 100 mg p.o. q.12h. p.r.n. constipation. 14. Ferrous sulfate 325 mg p.o. b.i.d. 15. DuoNeb 5.5/3 mg inhaled nebulization q.6h. while awake. 16. Zofran 4 mg p.o. q. 6h. p.r.n. nausea and/or vomiting. [facility] DATA, DIAGNOSTIC DATA AND PROCEDURES: 1. Esophagogastroduodenoscopy on 06/11/2016. Presbyesophagus. No evidence of esophageal stricture. Rule out eosinophilic esophagitis and gastritis. Rule out Helicobacter pylori infection. 2. CT scan of the abdomen and pelvis upon admission. Findings compatible with mild sigmoid diverticulitis. No evidence of diverticular perforation or abscess formation. Underlying colonic mass/neoplasm cannot be definitely excluded in this location. Large amount of retained fecal material. Cholelithiasis and/or gallbladder sludge noted without evidence of cholecystitis. Small hiatal hernia. There is mild chronic right renal atrophy. No urolithiasis or obstructive uropathy seen. Uterus is surgically absent. 3. Chest x-ray on 06/09/2016. Calcification of the thoracic aorta. 4. Right upper extremity venous Doppler study. No evidence of DVT within the right upper extremity veins. 5. Stool for C. diff study positive. 6. Blood culture x2 negative. 7. Latest CBC: WBC 7.8, hemoglobin 9.4, hematocrit 29.4, platelet count 288. 8. Latest BMP: Sodium 136, potassium 3.9, chloride 110, carbon dioxide 19, anion gap 11, BUN 10, creatinine 0.94, glucose 81, calcium 7.6, phosphorus 2.5, magnesium 2.0, albumin 1.8. 9. Blood gas that was done on low flow O2 on 06/11/2016: pH 7.305, pCO2 of 25.2, pO2 120.4, bicarb 12.3, oxygen saturation 98.2, base excess -4.4. At this time, we would like to thank all the consultants for seeing the patient , doing the necessary procedures, and providing clinical recommendations. The case and management of this patient was fully discussed with Dr. Manzano. Approximately 40 minutes was spent on coordinating discharge on this patient. Case discussed with Dr. Manzano. EMILIA MANZANO MD, AM/FRANCOIS Conf#: [id number] DID#: [id number] MTDD
[2016-06-14] MEDS: ATORVASTATIN 10 MG TAB PO SCH (21:31)
== END 2016-06-15 00:03 | disposition home or self-care (01) | DRG 871 ==
LOC: E/R 12:00 → PP2 15:10 → ICU 06-11 06:25 → MS4 06-13 08:36
PROVIDERS: ADMIT Family Medicine; ATTEND Family Medicine
PROC: 0DB68ZX Excision of Stomach, Via Natural or Artificial Opening Endoscopic, Diagnostic (ICD-10-PCS; 2016-06-10)
PROC: 0DB58ZX Excision of Esophagus, Via Natural or Artificial Opening Endoscopic, Diagnostic (ICD-10-PCS; principal; 2016-06-10 20:30)
DX: A41.89 Other specified sepsis (principal); E43 Unspecified severe protein-calorie malnutrition; E87.2 Acidosis; I47.1 Supraventricular tachycardia; K57.32 Diverticulitis of large intestine without perforation or abscess without bleeding; I27.2 Other secondary pulmonary hypertension; Z68.1 Body mass index [BMI] 19.9 or less, adult; J44.9 Chronic obstructive pulmonary disease, unspecified; J45.998 Other asthma; D64.9 Anemia, unspecified; N26.1 Atrophy of kidney (terminal); K63.89 Other specified diseases of intestine; K80.20 Calculus of gallbladder without cholecystitis without obstruction; K29.70 Gastritis, unspecified, without bleeding; K22.8 Other specified diseases of esophagus; K44.9 Diaphragmatic hernia without obstruction or gangrene; N18.9 Chronic kidney disease, unspecified; B96.7 Clostridium perfringens [C. perfringens] as the cause of diseases classified elsewhere; I12.9 Hypertensive chronic kidney disease with stage 1 through stage 4 chronic kidney disease, or unspecified chronic kidney disease; F32.9 Major depressive disorder, single episode, unspecified; E87.6 Hypokalemia; E78.00 Pure hypercholesterolemia, unspecified; E78.5 Hyperlipidemia, unspecified; F17.200 Nicotine dependence, unspecified, uncomplicated; R13.10 Dysphagia, unspecified; R19.09 Other intra-abdominal and pelvic swelling, mass and lump; H91.10 Presbycusis, unspecified ear; Z88.0 Allergy status to penicillin; Z90.710 Acquired absence of both cervix and uterus; Z88.6 Allergy status to analgesic agent; Z87.81 Personal history of (healed) traumatic fracture; Z86.73 Personal history of transient ischemic attack (TIA), and cerebral infarction without residual deficits
CPT/HCPCS: 36415; 36600; 71010; 74176; 80048; 80053; 80069; 81001; 81003; 82803; 82962; 83605; 83735; 84100; 84484; 84560; 85025; 85610; 85730; 87040; 87075; 87081; 87086; 88305; 88312; 88313; 92610; 93005; 93971; 94640; 94664; 96365; 96366; 96375; 97162; C9113; J0282; J0696; J0744; J1644; J2060; J2270; J2405; J2765; J3370; J3475; J3480; J7030; J7050; J7060; J7070

== ENCOUNTER 2016-07-17 17:55 | Inpatient (IN) | payer OTHER ==
[~2016-07-17] VITALS: Ht 152.4 cm; Wt 45.4 kg
[~2016-07-17 17:55] MED LIST changes: -ASPI325T4 PO; +ASPI81TA3 PO; +CIPR500T4 PO; -FURO20TA3 PO; -Hydrocodone/Apap (5/325) PO; -IPRA3AMP HHN; -LORA0.5T PO; +METO-448 PO; +METO5TAB11 PO; +METR250T GTB; -NIFE30TA2 PO; +ONDA4TAB95 PO; +Vancomycin Oral Syringe PO
--- NOTE | 2016-07-17 18:54 | ERA ---
ER Documentation Chief Complaint Date/Time DATE: 07/17/16 TIME: 18:54 Chief Complaint LOWER ABDOMINAL PAIN,VOMITING.HX GASTRITIS HPI The patient is a 81-year-old female, presenting with diffuse abdominal pain for the last 3 days, associated with vomiting and diarrhea. He denies any hematemesis or hematochezia. She has similar symptoms previously. She does not any fever, chills, neck pain, chest pain, dyspnea, dysuria. She does not smoke nor drink, use a wheelchair Past medical history: Hypertension, asthma, gastritis, history of PSVT, COPD, chronic kidney disease, pulmonary hypertension Past surgical history: Right hip hemiarthroplasty ROS All systems reviewed and are negative except as per history of present illness. Medications Home Meds Active Scripts Pantoprazole* (Pantoprazole*) 40 Mg Tablet.dr, 40 MG PO BID@,18 for 30 Days Prov:EMILIA MARTINEZ NP 06/13/16 Metronidazole* (Flagyl*) 250 Mg Tablet, 250 MG GTB Q6 for 10 Days, TAB Prov:EMILIA MARTINEZ NP 06/13/16 Metoprolol Tartrate* (Lopressor*) 25 Mg Tab, 12.5 MG PO BID for 30 Days, TAB Prov:EMILIA MARTINEZ NP 06/13/16 Metoclopramide Hcl* (Metoclopramide Hcl*) 5 Mg Tablet, 5 MG PO TID for 30 Days, TAB Prov:EMILIA MARTINEZ NP 06/13/16 Aspirin (Aspirin) 81 Mg Chew, 81 MG PO DAILY for 30 Days, TAB Prov:EMILIA MARTINEZ NP 06/13/16 Ferrous Sulfate* (Ferrous Sulfate*) 325 Mg Tabec, 325 MG PO BID for 30 Days, TAB Prov:EMILIA MARTINEZ NP 04/16/16 Docusate Sodium* (Colace*) 100 Mg Capsule, 100 MG PO Q12H Y for CONSTIPATION for 30 Days, CAP Prov:EMILIA MARTINEZ NP 04/16/16 Reported Medications Multivitamins* (Theragran*) 1 Tab Tab, 1 TAB PO DAILY, TAB 07/17/16 Citalopram Hydrobromide* (Citalopram Hydrobromide*) 20 Mg Tablet, 20 MG PO DAILY , #30 TAB 07/17/16 Ondansetron Hcl* (Ondansetron Hcl*) 4 Mg Tablet, 4 MG PO Q6H Y for NAUSEA AND/ OR VOMITING, TAB 06/06/16 Atorvastatin Calcium (Atorvastatin Calcium) 10 Mg Tablet, 10 MG PO QHS, #30 TAB 02/14/16 Discontinued Reported Medications Citalopram Hydrobromide* (Citalopram Hydrobromide*) 10 Mg Tablet, 10 MG PO DAILY , TAB 04/05/14 Discontinued Scripts [Vancomycin Oral Syringe] 50 MG/ML SOLN No Conflict Check, 125 MG PO Q6 for 10 Days Prov:EMILIA MARTINEZ [employer] 06/13/16 Ciprofloxacin Hcl* (Ciprofloxacin Hcl*) 500 Mg Tablet, 500 MG PO BID@06,18 for 10 Days, TAB Prov:EMILIA MARTINEZ [employer] 06/13/16 Allergies Allergies: Coded Allergies: Penicillins (Verified Allergy, Severe, RASHES, 07/17/16) morphine (Verified Allergy, Severe, RASHES,CONFUSED, 07/17/16) PMhx/Soc History of Surgery: Yes (Mar 2016) Anesthesia Reaction: No Hx Neurological Disorder: No Hx Respiratory Disorders: Yes (Copd) Hx Cardiac Disorders: Yes (HTN) Hx Psychiatric Problems: No Hx Miscellaneous Medical Probl: Yes (R hip fx, HTN, COPD, diastolic heart failure/pulm HTN) Hx Alcohol Use: No Hx Substance Use: No Hx Tobacco Use: No Physical Exam Vitals Vital Signs Date Time Temp Pulse Resp B/P Pulse Ox O2 Delivery O2 Flow Rate FiO2 07/17/16 19:15 90 30 146/70 88 Room Air 07/17/16 17:57 99.3 101 18 147/70 92 Physical Exam Const: No acute distress. Head: Atraumatic. Eyes: Normal Conjunctiva. ENT: Normal External Ears, Nose and Mouth. Neck: Full range of motion. No meningismus. Resp: Clear to auscultation bilaterally. Cardio: Regular rate and rhythm, no murmurs. Abd: Soft, non distended, normal bowel sounds, diffuse abdominal tenderness, no rigidity, rebound, CVA tenderness Skin: No petechiae or rashes. Back: No midline or flank tenderness. Ext: No cyanosis, or edema. Neur: Awake and alert. No focal deficit Psych: Normal Mood and Affect. Result Diagram: 07/17/16 1905 07/17/16 190 Results 24 hrs Laboratory Tests Test 07/17/16 19:05 07/17/16 19:50 07/17/16 20:01 White Blood Count 17.310^3/ul Red Blood Count 4.1110^6/ul Hemoglobin 11.9g/dl Hematocrit 37.9% Mean Corpuscular Volume 92.2fl Mean Corpuscular Hemoglobin 29.0pg Mean Corpuscular Hemoglobin Concent 31.4g/dl Red Cell Distribution Width 14.5% Platelet Count 19830^3/UL Mean Platelet Volume 10.6fl Neutrophils % 83.6% Lymphocytes % 10.5% Monocytes % 4.4% Eosinophils % 0.7% Basophils % 0.2% Nucleated Red Blood Cells % 0.0/100WBC Neutrophils # 14.510^3/ul Lymphocytes # 1.810^3/ul Monocytes # 0.810^3/ul Eosinophils # 0.110^3/ul Basophils # 0.010^3/ul Nucleated Red Blood Cells # 0.010^3/ul Sodium Level 142mmol/L Potassium Level 3.7mmol/L Chloride Level 100mmol/L Carbon Dioxide Level 32mmol/L Anion Gap 14 Blood Urea Nitrogen 26mg/dl Creatinine 1.00mg/dl Glucose Level 139mg/dl Lactic Acid Level 1.8mmol/L Calcium Level 8.7mg/dl Total Bilirubin 0.2mg/dl Direct Bilirubin 0.00mg/dl Indirect Bilirubin 0.2mg/dl Aspartate Amino Transf (AST/SGOT) 38IU/L Alanine Aminotransferase (ALT/SGPT) 24IU/L Alkaline Phosphatase 159IU/L Total Protein 6.3g/dl Albumin 2.7g/dl Globulin 3.60g/dl Albumin/Globulin Ratio 0.75 Lipase < 10U/L Prothrombin Time 14.8Sec Prothrombin Time Ratio 1.2 INR International Normalized Ratio 1.16 Activated Partial Thromboplast Time 29.2Sec Bedside Urine pH (LAB) 5.5 Bedside Urine Protein (LAB) 2+ Bedside Urine Glucose (UA) Negative Bedside Urine Ketones (LAB) Negative Bedside Urine Blood Negative Bedside Urine Nitrite (LAB) Negative Bedside Urine Leukocyte Esterase (L Negative Current Medications Medications (Trade) Dose Ordered Sig/Sd Route PRN Reason Start Time Stop Time Status Last Admin Dose Admin Sodium Chloride 2,020 ml @ 2,020 mls/hr BOLUS X1 ONCE IV 07/17/16 20:00 07/17/16 20:59 07/17/16 20:32 Ciprofloxacin/ Dextrose 200 ml @ 200 mls/hr ONCE ONCE IVPB 07/17/16 20:00 07/17/16 20:59 Metronidazole (Flagyl 500 Mg (Pmx)) 100 ml @ 100 mls/hr ONCE ONCE IVPB 07/17/16 20:00 07/17/16 20:59 07/17/16 20:32 Procedures/MDM [place] [id number] Radiology Main Line: [phone] DIAGNOSTIC IMAGING REPORT Patient: GLENN BAUTISTA : 1935 Age: 81 Sex: F MR #: [id number] DOS: 07/17/[id number] Ordering MD: GRAHAM FERNANDO MD Location: E/R Room/Bed: PROCEDURE: CT abdomen and pelvis without IV contrast. CLINICAL INDICATION: Abdominal pain TECHNIQUE: CT scan of the abdomen and pelvis without contrast was performed on the [employer] volumetric [address] scanner. The patient was scanned without intravenous contrast. Coronal and sagittal reformatted images were obtained from the axial source images. The CTDI vol is 9.62 mGy and the DLP is 440.06 mGy -cm. COMPARISON: 06/06/2016 FINDINGS: CT abdomen: Left lower lobe atelectasis is seen. The remaining lung bases are clear. The heart size is not enlarged and is without pericardial thickening or effusion. The liver is normal in size and density and is without focal mass or intrahepatic biliary dilatation. The spleen is normal in size and homogeneous in density. A small hiatal hernia is again seen. The stomach is otherwise grossly unremarkable. The pancreas as visualized is normal. The gallbladder is again noted be distended with gallstones. The adrenal glands are symmetric and normal. The right kidney is atrophic. A small left renal cyst is once again seen. No renal calculus or obstructive uropathy or mass lesion is seen. The aorta is of normal in caliber. Atherosclerotic vascular disease is seen. There is no retroperitoneal lymphadenopathy. The reji hepatis region is clear. Diverticulosis is seen in the sigmoid colon. Bowel wall thickening is seen in the descending colon, sigmoid colon, as well as in the rectum. The small and remainder of the large bowel and mesentery, as visualized, are otherwise unremarkable. The normal appendix is identified. CT pelvis: Increased soft tissue density in the presacral space is seen. The uterus is absent. The pelvic sidewalls and inguinal regions are clear. No pelvic mass, lymphadenopathy, or free fluid is seen. No acute inflammation is seen. The urinary bladder is within normal limits. Diffuse osteopenia is seen. Again seen are multiple compression fractures in the lower thoracic and lumbar spine which is once again seen and have not changed significantly. No osteolytic or osteoblastic lesion is detected. An intramedullary santi in the right femur is incompletely visualized once again. IMPRESSION: 1. CT findings consistent with colitis from the descending colon to the rectum which may be secondary to diverticulitis given the no significant inflammatory changes in the area of the sigmoid colon diverticulosis. 2. Distended gallbladder with cholelithiasis again seen. RPTAT: HPNM Physician Shanell Date Time Electronically viewed and signed by Physician Shanell on 07/17/2016 20 :31 / CC: GRAHAM FERNANDO MD MEDICAL MAKING DECISION: The patient is a 81-year-old female, presenting with acute colitis, acute diverticulitis, acute biliary colic, acute dehydration. She was treated with normal saline 30 mL/kg IV, Cipro IV, Flagyl IV with good response.. The differential diagnoses considered include but are not limited to cholelithiasis, cholecystitis, cystitis, pancreatitis, hepatitis, gastritis, peptic ulcer disease, gastric ulcer, appendicitis, diverticulitis, cholangitis, choledocholithiasis, partial small bowel obstruction. Consultation: I discussed the patient with the on-call general surgeon Dr. Youssef at 8:40 PM. He was made aware of the labs, treatment, patient condition. He accepted the consult Departure Diagnosis: Primary Impression: Acute colitis Additional Impressions: Acute diverticulitis Biliary colic Anemia Condition: Stable Comments I discussed the findings with the patient. I discussed the patient with the on- call hospitalist Dr. Allen who was made aware of the lab, the treatment, the patient condition. The patient is admitted to [facility] at 8:45 pm GRAHAM FERNANDO MD Jul 17, 2016 18:54
[2016-07-17 19:17] LABS: ADD SCAN DIFF NO
[2016-07-17 19:23] LABS: BASOPHILS % 0.2 % (0.0-2.0); EOSINOPHILS # 0.1 10^3/ul (0.0-0.5); EOSINOPHILS % 0.7 % (0.0-7.0); HEMATOCRIT 37.9 % (37.0-47.0); HEMOGLOBIN 11.9 g/dl (12.0-16.0); LYMPHOCYTES # 1.8 10^3/ul (0.8-2.9); LYMPHOCYTES % 10.5 % (15.0-51.0); MEAN CORPUSCULAR HGB CONC 31.4 g/dl (32.0-37.0); MEAN CORPUSCULAR VOLUME 92.2 fl (82.0-101.0); MEAN PLATELET VOLUME 10.6 fl (7.4-10.4); MONOCYTE # 0.8 10^3/ul (0.3-0.9); MONOCYTES % 4.4 % (0.0-11.0); NEUTROPHIL # 14.5 10^3/ul (1.6-7.5); NEUTROPHILS % 83.6 % (39.0-77.0); PLATELET COUNT 296 10^3/UL (140-415); RED BLOOD COUNT 4.11 10^6/ul (4.20-5.40); RED CELL DISTRIBUTION WIDTH 14.5 % (11.5-14.5); WHITE BLOOD COUNT 17.3 10^3/ul (4.8-10.8)
[2016-07-17 19:33] LABS: CHLORIDE 100 mmol/L (97-110)
[2016-07-17 19:34] LABS: ALBUMIN 2.7 g/dl (3.3-4.9); POTASSIUM 3.7 mmol/L (3.5-5.1); SODIUM 142 mmol/L (135-144)
[2016-07-17 19:37] LABS: ALANINE AMINOTRANSFERASE 24 IU/L (13-69); ALBUMIN/GLOBULIN RATIO 0.75; ALKALINE PHOSPHATASE 159 IU/L (42-121); ANION GAP 14 (8-16); ASPARTATE AMINO TRANSFERASE 38 IU/L (15-46); BILIRUBIN,INDIRECT 0.2 mg/dl (0-1.1); BILIRUBIN,TOTAL 0.2 mg/dl (0.2-1.3); BLOOD UREA NITROGEN 26 mg/dl (7-20); CALCIUM 8.7 mg/dl (8.4-10.2); CARBON DIOXIDE 32 mmol/L (21-31); GLUCOSE 139 mg/dl (70-220); TOTAL PROTEIN 6.3 g/dl (6.1-8.1)
[2016-07-17] MEDS ORDERED: CITA20TA6 PO (19:59)
[2016-07-17 20:00] LABS: INR 1.16; PT RATIO 1.2
[2016-07-17] MEDS ORDERED: CIPROFLOXACIN 400MG/D5W 200 ML IVPB ONE (20:00)
[2016-07-17] MEDS ORDERED: SOD CHLORIDE 0.9% 2,020 ML IV ONE (20:00)
[2016-07-17] MEDS ORDERED: metroNIDAZOLE 500 MG/NS (PMX) 100 ML IVPB ONE (20:00)
[2016-07-17 20:01] LABS: PARTIAL THROMBOPLASTIN TIME 29.2 Sec (25.0-35.0)
[2016-07-17 20:01] LABS: URINE BLOOD (Dip) POC Negative (NEGATIVE)
[2016-07-17] MEDS ORDERED: MULTI PO (20:05)
--- NOTE | 2016-07-17 20:31 | RADRPT ---
PROCEDURE: CT abdomen and pelvis without IV contrast. CLINICAL INDICATION: Abdominal pain TECHNIQUE: CT scan of the abdomen and pelvis without contrast was performed on the [employer] volumetric [address] scanner. The patient was scanned without intravenous contrast. Coronal and sagittal refo rmatted images were obtained from the axial source images. The CTDI vol is 9.62 mGy and the DLP is 4 40.06 mGy-cm. COMPARISON: 06/06/2016 FINDINGS: CT abdomen: Left lower lobe atelectasis is seen. The remaining lung bases are clear. The heart size is not enl arged and is without pericardial thickening or effusion. The liver is normal in size and density and is without focal mass or intrahepatic biliary dilatation . The spleen is normal in size and homogeneous in density. A small hiatal hernia is again seen. The stomach is otherwise grossly unremarkable. The pancreas as visualized is normal. The gallbladder is again noted be distended with gallstones. The adrenal glands are symmetric and normal. The right kidney is atrophic. A small left renal cyst is once again seen. No renal calculus or obstructive uropathy or mass lesion is seen. The aorta is of normal in caliber. Atherosclerotic vascular disease is seen. There is no retroperito elva lymphadenopathy. The reji hepatis region is clear. Diverticulosis is seen in the sigmoid col on. Bowel wall thickening is seen in the descending colon, sigmoid colon, as well as in the rectum. The small and remainder of the large bowel and mesentery, as visualized, are otherwise unremarkabl e. The normal appendix is identified. CT pelvis: Increased soft tissue density in the presacral space is seen. The uterus is absent. The pelvic chino ewalls and inguinal regions are clear. No pelvic mass, lymphadenopathy, or free fluid is seen. No acute inflammation is seen. The urinary bladder is within normal limits. Diffuse osteopenia is seen. Again seen are multiple compression fractures in the lower thoracic and lumbar spine which is once again seen and have not changed significantly. No osteolytic or osteobla stic lesion is detected. An intramedullary santi in the right femur is incompletely visualized once ag ain. IMPRESSION: 1. CT findings consistent with colitis from the descending colon to the rectum which may be seconda ry to diverticulitis given the no significant inflammatory changes in the area of the sigmoid colon diverticulosis. 2. Distended gallbladder with cholelithiasis again seen. RPTAT: HPNM Jaswinder Clements, Physician Date Time Electronically viewed and signed by Jaswinder Clements, Physician on 07/17/2016 20:31 /
[2016-07-17 20:32] LABS: PROTIME 14.8 Sec (12.2-14.2)
[2016-07-17] MEDS ORDERED: ALBUTEROL 0.083% (NEB) 2.5 MG/3 ML AMP HHN STA (21:29)
[2016-07-17] MEDS ORDERED: IPRATROPIUM (NEB) 0.5 MG/2.5 ML AMP HHN ONE (21:30)
--- NOTE | 2016-07-17 22:16 | RADRPT ---
PROCEDURE: XR Chest. CLINICAL INDICATION: Shortness of breath. TECHNIQUE: PA and Lateral views of the chest were obtained. COMPARISON: Chest x-ray 06/09/2016. FINDINGS: The soft tissues are normal. There are osteophytes in the thoracic spine. The bones are rarefied. The heart is enlarged. The cardiomediastinal silhouette and hilar structures are normal. The pulmo nary vasculature is normal. There are vascular calcifications and ectasia of the thoracic aorta. The re are interstitial changes in the perihilar is 16 for the periphery of the lungs with flattening of the right diaphragm which is worse as compared to 06/09/2016. No pleural effusion is noted. IMPRESSION: 1. Cardiomegaly. 2. Atherosclerosis of the aortic arch. 3. Mild pulmonary hyperinflation and flattening the right diaphragm with increased interstitial mar kings in the perihilar areas and bases of the lungs. 4. Atherosclerotic calcifications are noted in the carotid bulbs which could be further evaluated w ith ultrasound if indicated. This is worse in the area of the left carotid bulb. RPTAT:AAJJ Physician Fam Date Time Electronically viewed and signed by Physician Fam on 07/17/2016 22:15 /
--- NOTE | 2016-07-18 08:28 | CONS ---
DATE OF ADMISSION: 07/17/2016 DATE OF CONSULTATION: TYPE OF CONSULTATION: Surgical. REASON FOR CONSULTATION: Diverticulitis. HISTORY OF PRESENT ILLNESS: The patient is an 81-year-old female who was discharged approximately 1 month ago for a bout of Clostridium difficile colitis. She now presents to the emergency room with diffuse abdominal pain associated with nausea, vomiting and diarrhea. CT scan is suggests left-chino ed colitis versus diverticulitis without perforation. The patient is admitted and surgical consulta tion is requested in that regard. PAST MEDICAL HISTORY: Patient has had a history of right hip arthroplasty in March of this year. REVIEW OF SYSTEMS: HEENT: History of asthma and pulmonary hypertension. CARDIAC: History of hypertension and atherosclerotic heart disease. ABDOMEN: As in the HPI, also chronic renal failure. EXTREMITIES: Right hip arthroplasty. OUTPATIENT MEDICATIONS: Well outlined in the chart. ALLERGIES: 1. PENICILLIN 2. MORPHINE. PHYSICAL EXAMINATION: GENERAL: The patient is extremely frail appearing 81-year-old female who looks much older than her age. She is noncommunicative, but speaks and responds only in Pashto. HEAD, EARS, EYES, NOSE, THROAT: Unremarkable. LUNGS: Clear. CARDIOVASCULAR: Regular rhythm. ABDOMEN: Entirely soft and nontender. There are no masses or hernias. EXTREMITIES: Compatible with recent hip surgery. LABORATORY DATA: Patient's hematocrit is 37.9 with a white count of 17,300. BUN, glucose, electrol ytes are significant for a BUN of 26 and creatinine of 1.0. IMAGING: CT scan findings consistent with colitis from descending colon to the rectum which may be secondary to diverticulitis. Distended gallbladder with gallstones. IMPRESSION: Colitis. PLAN: IV antibiotics, bowel rest, GI consultation. Further recommendations will be forthcoming based on the patient's further workup and clinical cours e. I will follow with you. Dictated By: NILA MOYER/FRANCOIS Conf#: [id number] DID#: [id number]
[2016-07-18] MEDS ORDERED: NACL 0.9% 3 ML SYG IV SCH (08:30)
[2016-07-18] MEDS: metroNIDAZOLE 500 MG/NS (PMX) 100 ML IVPB SCH ×3 (08:35→21:32)
[2016-07-18] MEDS: FAMOTIDINE 20 MG INJ IV SCH (09:15)
[2016-07-18] MEDS: CIPROFLOXACIN 400MG/D5W 200 ML IVPB SCH ×2 (09:15→21:32)
--- NOTE | 2016-07-18 09:27 | HP ---
Date/Time of Note Date/Time of Note DATE: 07/18/16 TIME: 09:18 Assessment/Plan VTE Prophylaxis VTE Prophylaxis Intervention: SCD's Lines/Catheters Urinary Cath still in place: No Assessment/Plan Assessment/Plan IMPRESSION 1. Colitis: likely 2/2 C-diff 2. Abd pain and Diarrhea 2/2 above 3. Hypertension 4. Hx of COPD 5. Diastolic heart failure 6. Pulmonary hypertension 7. Dyslipidemia 8. Recent Hip Fracture PLAN NPO except meds IVF Abx f/u stool culture including c-dff, as well blood cx results Pain mgmt Cont home meds with adjustment as needed Breathing treatment as needed HPI/ROS Admit Date/Time Admit Date/Time Hx of Present Illness The patient is an 82-year-old female with a history hypertension, COPD, diastolic heart failure, pulmonary hypertension, dyslipidemia, hip fx and C- diff colitis who presented to ER c/o abd and diarrhea. Pt was recently admitted here for same and was diagnosed with C-dff. Today, CT a/p in ER showed colitis, diverticulitis and again seen is distended gallbladder with cholelithiasis. WBC is 17,000 . PMH/Family/Social Social History Smoking Status: Never smoker Exam/Review of Systems Vital Signs Vitals Vital Signs Date Time Temp Pulse Resp B/P Pulse Ox O2 Delivery O2 Flow Rate FiO2 07/18/16 06:03 3.0 07/18/16 05:41 92 22 130/55 99 07/17/16 21:49 Nasal Cannula 07/17/16 17:57 99.3 Intake and Output 07/17/16 07/17/16 07/18/16 15:00 23:00 07:00 Intake Total 2300 ml Balance 2300 ml Labs Result Diagram: 07/17/16 1905 07/17/16 1905 Medications Medications Current Medications Ciprofloxacin/ Dextrose 200 ml @ 200 mls/hr Q12 IVPB Last administered on 07/18 09:15; Admin Dose 200 MLS/HR; Start 07/18/16 at 09:00 Metronidazole 100 ml @ 100 mls/hr Q6H IVPB Last administered on 07/18/16 08: 35; Admin Dose 100 MLS/HR; Start 07/18/16 at 08:00 Dextrose/Sodium Chloride (D5-1/2ns) 1,000 ml @ 100 mls/hr Q10H IV ; Start 07/18 at 08:23 Ondansetron HCl (Zofran Inj) 4 mg Q6H PRN IV NAUSEA AND/OR VOMITING; Start at 08:30 Famotidine (Pepcid Iv) 20 mg DAILY IV Last administered on 07/18/16t 09:15; Admin Dose 20 MG; Start 07/18/16 at 09:00 PLACIDO HUGHES MD Jul 18, 2016 09:27
[2016-07-18] MEDS: DEXTROSE 5%-0.45% NACL 1,000 ML IV SCH ×2 (09:53→18:23)
[2016-07-18 11:10] LABS: ADD SCAN DIFF NO
[2016-07-18 11:14] LABS: BASOPHILS % 0.2 % (0.0-2.0); EOSINOPHILS # 0.2 10^3/ul (0.0-0.5); EOSINOPHILS % 1.9 % (0.0-7.0); HEMATOCRIT 33.4 % (37.0-47.0); HEMOGLOBIN 9.9 g/dl (12.0-16.0); LYMPHOCYTES # 1.7 10^3/ul (0.8-2.9); LYMPHOCYTES % 13.3 % (15.0-51.0); MEAN CORPUSCULAR HGB CONC 29.6 g/dl (32.0-37.0); MEAN CORPUSCULAR VOLUME 94.4 fl (82.0-101.0); MEAN PLATELET VOLUME 10.7 fl (7.4-10.4); MONOCYTE # 0.6 10^3/ul (0.3-0.9); MONOCYTES % 4.9 % (0.0-11.0); NEUTROPHIL # 10.2 10^3/ul (1.6-7.5); PLATELET COUNT 227 10^3/UL (140-415); RED BLOOD COUNT 3.54 10^6/ul (4.20-5.40); RED CELL DISTRIBUTION WIDTH 14.6 % (11.5-14.5)
[2016-07-18 11:30] LABS: ALBUMIN 1.9 g/dl (3.3-4.9)
[2016-07-18 11:31] LABS: POTASSIUM 3.1 mmol/L (3.5-5.1)
[2016-07-18 11:33] LABS: BILIRUBIN,INDIRECT 0.1 mg/dl (0-1.1); BILIRUBIN,TOTAL 0.1 mg/dl (0.2-1.3); CREATININE 0.83 mg/dl (0.44-1.00)
[2016-07-18 11:34] LABS: ALBUMIN/GLOBULIN RATIO 0.7; CALCIUM 7.8 mg/dl (8.4-10.2); MAGNESIUM 1.7 mg/dl (1.7-2.5); PHOSPHORUS 2.4 mg/dl (2.5-4.9); TOTAL PROTEIN 4.6 g/dl (6.1-8.1)
[2016-07-18 15:00] VITALS: BP 146/67; RESP 18
[2016-07-18 16:02] VITALS: Ht 152.4 cm; Wt 45.4 kg
[2016-07-18] MEDS ORDERED: POTASSIUM CHLORIDE (SR) 20 MEQ TAB PO STA (16:27)
--- NOTE | 2016-07-18 18:29 | CONS ---
Date/Time of Note Date/Time of Note DATE: 07/18/16 TIME: 18:05 Assessment/Plan Assessment/Plan Additional Assessment/Plan Assessment * Abdominal pain/Diarrhea * Diverticulitis * EGD 06/11/2016 Presbyesophagus R/O eosinophilic esophagitis * Hypertension * Hx of COPD * Diastolic heart failure * Dyslipidemia * S/P left hip hemiarthroplasty PLAN * NPO * adequate hydration * Continue Cipro iv and Metronidazole iv * stool for c difficile Consultation Date/Type/Reason Admit Date/Time Date of Consultation: Jul 18, 2016 Type of Consultation: Gastroenterology Reason for Consultation diverticulitis/abdominal pain Referring Provider: BERT FREED Hx of Present Illness 81 y/o female who came in with chief complaint of abdominal pain and diarrhea.Past medical history include hx of c difficile,hypertension ,COPD Diastolic heart failure,Pulmonary hypertension,dyslipidemia,recent hip fracture.Patient was previously admitted last month EGD revealed Presbyesophagus ,no evidence of esophageal stricture,gastritis .Abdominal pain started 3 days prior to admission describe as diffuse ,with associated vomiting,diarrhea and body weakness.Family denies any fever but claims patient is warm to touch. Emergency room course revealed leukocytosis with shift to left WBC 17.3.CT abdomen/pelvis 07/17/2016. CT findings consistent with colitis from the descending colon to the rectum which may be secondary to diverticulitis given the no significant inflammatory changes in the area of the sigmoid colon diverticulosis. Distended gallbladder with cholelithiasis again seen. On examination today,patient still complains of mild abdominal pain,with diarrhea however denies any chest pain,nausea ,vomiting nor fever. History obtained from daughter and records Past Medical History Medical History: colitis, congestive heart failure, diverticulitis, hypertension, other (c difficile) Past Surgical History Past Surgical Hx: endoscopy Family History Significant Family History: no pertinent family hx Social History Alcohol Use: none Smoking Status: Never smoker Exam/Review of Systems Vital Signs Vitals Vital Signs Date Time Temp Pulse Resp B/P Pulse Ox O2 Delivery O2 Flow Rate FiO2 07/18/16 15:00 98.6 89 18 146/67 98 07/18/16 06:03 3.0 07/17/16 21:49 Nasal Cannula Intake and Output 07/17/16 07/17/16 07/18/16 15:00 23:00 07:00 Intake Total 2300 ml Balance 2300 ml Exam Constitutional: frail Head: atraumatic, normocephalic Eyes: PERRL, nl conjunctiva, nl sclera ENMT: nl nasal mucosa & septum Neck: non-tender, supple Respiratory: clear to auscultation, diminished breath sounds, normal air movement Cardiovascular: regular rate and rhythm Gastrointestinal: bowel sounds, distended, soft, tender (diffuse tenderlness left lower quadrant), No rebound or guarding Musculoskeletal: nl extremities to inspection Extremities: normal pulses Skin: nl turgor, rash or lesions Lymph: nl lymph nodes Results Result Diagram: 07/18/1645 07/18/1645 Results 24 hrs Laboratory Tests Test 07/17/16 19:05 07/17/16 19:50 07/17/16 20:01 07/17/16 20:05 White Blood Count 17.3 #H Red Blood Count 4.11 #L Hemoglobin 11.9 #L Hematocrit 37.9 # Mean Corpuscular Volume 92.2 Mean Corpuscular Hemoglobin 29.0 Mean Corpuscular Hemoglobin Concent 31.4 L Red Cell Distribution Width 14.5 Platelet Count 296 Mean Platelet Volume 10.6 H Neutrophils % 83.6 H Lymphocytes % 10.5 L Monocytes % 4.4 Eosinophils % 0.7 Basophils % 0.2 Nucleated Red Blood Cells % 0.0 Neutrophils # 14.5 H Lymphocytes # 1.8 Monocytes # 0.8 Eosinophils # 0.1 Basophils # 0.0 Nucleated Red Blood Cells # 0.0 Sodium Level 142 Potassium Level 3.7 Chloride Level 100 Carbon Dioxide Level 32 H Anion Gap 14 Blood Urea Nitrogen 26 H Creatinine 1.00 Glucose Level 139 Lactic Acid Level 1.8 1.2 Calcium Level 8.7 Total Bilirubin 0.2 Direct Bilirubin 0.00 Indirect Bilirubin 0.2 Aspartate Amino Transf (AST/SGOT) 38 Alanine Aminotransferase (ALT/SGPT) 24 Alkaline Phosphatase 159 H Total Protein 6.3 Albumin 2.7 L Globulin 3.60 H Albumin/Globulin Ratio 0.75 Lipase < 10 L Prothrombin Time 14.8 #H Prothrombin Time Ratio 1.2 INR International Normalized Ratio 1.16 Activated Partial Thromboplast Time 29.2 Bedside Urine pH (LAB) 5.5 Bedside Urine Protein (LAB) 2+ H Bedside Urine Glucose (UA) Negative Bedside Urine Ketones (LAB) Negative Bedside Urine Blood Negative Bedside Urine Nitrite (LAB) Negative Bedside Urine Leukocyte Esterase (L Negative Test 07/17/16 22:10 07/18/16 09:45 Lactic Acid Level 1.1 White Blood Count 13.0 #H Red Blood Count 3.54 L Hemoglobin 9.9 L Hematocrit 33.4 L Mean Corpuscular Volume 94.4 Mean Corpuscular Hemoglobin 28.0 L Mean Corpuscular Hemoglobin Concent 29.6 L Red Cell Distribution Width 14.6 H Platelet Count 227 # Mean Platelet Volume 10.7 H Neutrophils % 79.0 H Lymphocytes % 13.3 L Monocytes % 4.9 Eosinophils % 1.9 Basophils % 0.2 Nucleated Red Blood Cells % 0.0 Neutrophils # 10.2 H Lymphocytes # 1.7 Monocytes # 0.6 Eosinophils # 0.2 Basophils # 0.0 Nucleated Red Blood Cells # 0.0 Sodium Level 140 Potassium Level 3.1 L Chloride Level 104 Carbon Dioxide Level 30 Anion Gap 9 # Blood Urea Nitrogen 19 Creatinine 0.83 Glucose Level 119 Calcium Level 7.8 L Phosphorus Level 2.4 L Magnesium Level 1.7 Total Bilirubin 0.1 L Direct Bilirubin 0.00 Indirect Bilirubin 0.1 Aspartate Amino Transf (AST/SGOT) 25 Alanine Aminotransferase (ALT/SGPT) 23 Alkaline Phosphatase 109 Total Protein 4.6 #L Albumin 1.9 L Globulin 2.70 Albumin/Globulin Ratio 0.70 Medications Medications Current Medications Ciprofloxacin/ Dextrose 200 ml @ 200 mls/hr Q12 IVPB Last administered on 07/18 09:15; Admin Dose 200 MLS/HR; Start 07/18/16 at 09:00 Metronidazole 100 ml @ 100 mls/hr Q6H IVPB Last administered on 07/18/16 14: 25; Admin Dose 100 MLS/HR; Start 07/18/16 at 08:00 Dextrose/Sodium Chloride (D5-1/2ns) 1,000 ml @ 100 mls/hr Q10H IV Last administered on 07/18/16 09:53; Admin Dose 100 MLS/HR; Start 07/18/16 at 08:23 Ondansetron HCl (Zofran Inj) 4 mg Q6H PRN IV NAUSEA AND/OR VOMITING; Start at 08:30 Famotidine (Pepcid Iv) 20 mg DAILY IV Last administered on 07/18/16 09:15; Admin Dose 20 MG; Start 07/18/16 at 09:00 TAYLOR BRAUN MD Jul 18, 2016 18:15
[2016-07-18 20:11] VITALS: BP 175/80; RESP 18
[2016-07-18] MEDS ORDERED: ZOLPIDEM 5 MG TAB PO ONE (23:30)
[2016-07-19] MEDS: DEXTROSE 5%-0.45% NACL 1,000 ML IV SCH ×3 (01:53→20:09)
[2016-07-19] MEDS: metroNIDAZOLE 500 MG/NS (PMX) 100 ML IVPB SCH ×4 (01:56→20:09)
[2016-07-19 05:55] LABS: ADD SCAN DIFF NO
[2016-07-19 06:07] LABS: BASOPHILS % 0.2 % (0.0-2.0); EOSINOPHILS # 0.4 10^3/ul (0.0-0.5); EOSINOPHILS % 4.2 % (0.0-7.0); HEMATOCRIT 31.4 % (37.0-47.0); HEMOGLOBIN 9.4 g/dl (12.0-16.0); LYMPHOCYTES # 1.8 10^3/ul (0.8-2.9); MEAN CORPUSCULAR HEMOGLOBIN 28.2 pg (29.0-33.0); MEAN CORPUSCULAR HGB CONC 29.9 g/dl (32.0-37.0); MEAN CORPUSCULAR VOLUME 94.3 fl (82.0-101.0); MEAN PLATELET VOLUME 10.9 fl (7.4-10.4); MONOCYTE # 0.6 10^3/ul (0.3-0.9); MONOCYTES % 5.8 % (0.0-11.0); NEUTROPHIL # 7.4 10^3/ul (1.6-7.5); NEUTROPHILS % 71.9 % (39.0-77.0); PLATELET COUNT 208 10^3/UL (140-415); RED BLOOD COUNT 3.33 10^6/ul (4.20-5.40); RED CELL DISTRIBUTION WIDTH 14.6 % (11.5-14.5); WHITE BLOOD COUNT 10.3 10^3/ul (4.8-10.8)
[2016-07-19 06:14] LABS: CALCIUM 7.7 mg/dl (8.4-10.2); CREATININE 0.76 mg/dl (0.44-1.00); MAGNESIUM 1.5 mg/dl (1.7-2.5); PHOSPHORUS 2.2 mg/dl (2.5-4.9); POTASSIUM 3.9 mmol/L (3.5-5.1)
[2016-07-19 07:45] VITALS: BP 178/77; RESP 22
--- NOTE | 2016-07-19 08:44 | CONS ---
Date/Time of Note Date/Time of Note DATE: 07/19/16 TIME: 08:39 Assessment/Plan Assessment/Plan Additional Assessment/Plan Assessment * Abdominal pain/Diarrhea * Diverticulitis * EGD 06/11/2016 Presbyesophagus R/O eosinophilic esophagitis * Hypertension * Hx of COPD * Diastolic heart failure * Dyslipidemia * S/P left hip hemiarthroplasty PLAN * NPO * adequate hydration * Continue Cipro iv and Metronidazole iv * stool for c difficile * Further recommendations depend on clinical course * Patient seen in collaboration with Dr. Cole Consultation Date/Type/Reason Admit Date/Time Jul 17, 2016 at 20:43 Initial Consult Date 07/18/16 Type of Consultation: Gastroenterology Referring Provider: BERT FREED 24 HR Interval Summary Free Text/Dictation Awaiting C. difficile testing Abdominal pain with palpation In no apparent distress Exam/Review of Systems Vital Signs Vitals Vital Signs Date Time Temp Pulse Resp B/P Pulse Ox O2 Delivery O2 Flow Rate FiO2 07/19/16 07:45 98.2 95 22 178/77 95 07/18/16 20:00 Nasal Cannula 2.0 Intake and Output 07/18/16 07/18/16 07/19/16 15:00 23:00 07:00 Intake Total 500 ml 100 ml Balance 500 ml 100 ml Exam Constitutional: frail Head: atraumatic, normocephalic Eyes: PERRL, nl conjunctiva, nl sclera ENMT: nl nasal mucosa & septum Neck: non-tender, supple Respiratory: clear to auscultation, diminished breath sounds, normal air movement Cardiovascular: regular rate and rhythm Gastrointestinal: bowel sounds, distended, soft, tender (diffuse tenderlness left lower quadrant), No rebound or guarding Musculoskeletal: nl extremities to inspection Extremities: normal pulses Skin: nl turgor, rash or lesions Lymph: nl lymph nodes Results Result Diagram: 07/19/16 0510 07/19/16 0510 Results 24 hrs Laboratory Tests Test 07/18/16 09:45 07/19/16 05:10 White Blood Count 13.0 #H 10.3 # Red Blood Count 3.54 L 3.33 L Hemoglobin 9.9 L 9.4 L Hematocrit 33.4 L 31.4 L Mean Corpuscular Volume 94.4 94.3 Mean Corpuscular Hemoglobin 28.0 L 28.2 L Mean Corpuscular Hemoglobin Concent 29.6 L 29.9 L Red Cell Distribution Width 14.6 H 14.6 H Platelet Count 227 # 208 Mean Platelet Volume 10.7 H 10.9 H Neutrophils % 79.0 H 71.9 Lymphocytes % 13.3 L 17.0 Monocytes % 4.9 5.8 Eosinophils % 1.9 4.2 Basophils % 0.2 0.2 Nucleated Red Blood Cells % 0.0 0.0 Neutrophils # 10.2 H 7.4 Lymphocytes # 1.7 1.8 Monocytes # 0.6 0.6 Eosinophils # 0.2 0.4 Basophils # 0.0 0.0 Nucleated Red Blood Cells # 0.0 0.0 Sodium Level 140 134 L Potassium Level 3.1 L 3.9 Chloride Level 104 107 Carbon Dioxide Level 30 27 Anion Gap 9 # 4 L Blood Urea Nitrogen 19 13 Creatinine 0.83 0.76 Glucose Level 119 108 Calcium Level 7.8 L 7.7 L Phosphorus Level 2.4 L 2.2 L Magnesium Level 1.7 1.5 L Total Bilirubin 0.1 L Direct Bilirubin 0.00 Indirect Bilirubin 0.1 Aspartate Amino Transf (AST/SGOT) 25 Alanine Aminotransferase (ALT/SGPT) 23 Alkaline Phosphatase 109 Total Protein 4.6 #L Albumin 1.9 L Globulin 2.70 Albumin/Globulin Ratio 0.70 Medications Medications Current Medications Ciprofloxacin/ Dextrose 200 ml @ 200 mls/hr Q12 IVPB Last administered on 07/18 21:32; Admin Dose 200 MLS/HR; Start 07/18/16 at 09:00 Metronidazole 100 ml @ 100 mls/hr Q6H IVPB Last administered on 07/19/16 01: 56; Admin Dose 100 MLS/HR; Start 07/18/16 at 08:00 Dextrose/Sodium Chloride (D5-1/2ns) 1,000 ml @ 100 mls/hr Q10H IV Last administered on 07/19/16 01:53; Admin Dose 100 MLS/HR; Start 07/18/16 at 08:23 Ondansetron HCl (Zofran Inj) 4 mg Q6H PRN IV NAUSEA AND/OR VOMITING; Start at 08:30 Famotidine (Pepcid Iv) 20 mg DAILY IV Last administered on 07/18/16 09:15; Admin Dose 20 MG; Start 07/18/16 at 09:00 AIRAM TAI Jul 19, 2016 08:43
[2016-07-19] MEDS: FAMOTIDINE 20 MG INJ IV SCH (09:42)
[2016-07-19] MEDS: CIPROFLOXACIN 400MG/D5W 200 ML IVPB SCH ×2 (10:42→20:09)
[2016-07-19] MEDS ORDERED: MAGNESIUM SULFATE 3 GM in SOD CHLORIDE 0.9% 100 ML IVPB ONE (11:00)
[2016-07-19] MEDS: ONDANSETRON 4 MG INJ IV PRN (11:35)
--- NOTE | 2016-07-19 14:59 | PN ---
Date/Time of Note Date/Time of Note DATE: 07/19/16 TIME: 14:56 Assessment/Plan VTE Prophylaxis VTE Prophylaxis Intervention: SCD's Lines/Catheters IV Catheter Type (from Nrs): Peripheral IV Urinary Cath still in place: No Assessment/Plan Chief Complaint/Hosp Course 1. Colitis: likely 2/2 C-diff -FU on C Diff cont Abx, GI consult appreciated 2. Abd pain and Diarrhea 2/2 above-stable 3. Hypertension-stable 4. Hx of COPD-stable 5. Diastolic heart failure-compensated 6. Pulmonary hypertension 7. Dyslipidemia 8. Recent Hip Fracture PPx- SCD's Problems: Subjective 24 Hr Interval Summary Constitutional: no complaints Exam/Review of Systems Vital Signs Vitals Vital Signs Date Time Temp Pulse Resp B/P Pulse Ox O2 Delivery O2 Flow Rate FiO2 07/19/16 07:45 98.2 95 22 178/77 95 07/18/16 20:00 Nasal Cannula 2.0 Intake and Output 07/18/16 07/18/16 07/19/16 15:00 23:00 07:00 Intake Total 500 ml 550 ml Balance 500 ml 550 ml Exam Constitutional: alert Respiratory: clear to auscultation Cardiovascular: regular rate and rhythm Gastrointestinal: soft, No distended Musculoskeletal: nl extremities to inspection Results Result Diagram: 07/19/16 0510 07/19/16 0510 Results 24 hrs Laboratory Tests Test 07/19/16 05:10 White Blood Count 10.3 # Red Blood Count 3.33 L Hemoglobin 9.4 L Hematocrit 31.4 L Mean Corpuscular Volume 94.3 Mean Corpuscular Hemoglobin 28.2 L Mean Corpuscular Hemoglobin Concent 29.9 L Red Cell Distribution Width 14.6 H Platelet Count 208 Mean Platelet Volume 10.9 H Neutrophils % 71.9 Lymphocytes % 17.0 Monocytes % 5.8 Eosinophils % 4.2 Basophils % 0.2 Nucleated Red Blood Cells % 0.0 Neutrophils # 7.4 Lymphocytes # 1.8 Monocytes # 0.6 Eosinophils # 0.4 Basophils # 0.0 Nucleated Red Blood Cells # 0.0 Sodium Level 134 L Potassium Level 3.9 Chloride Level 107 Carbon Dioxide Level 27 Anion Gap 4 L Blood Urea Nitrogen 13 Creatinine 0.76 Glucose Level 108 Calcium Level 7.7 L Phosphorus Level 2.2 L Magnesium Level 1.5 L Medications Medications Current Medications Ciprofloxacin/ Dextrose 200 ml @ 200 mls/hr Q12 IVPB Last administered on 07/19 10:42; Admin Dose 200 MLS/HR; Start 07/18/16 at 09:00 Metronidazole 100 ml @ 100 mls/hr Q6H IVPB Last administered on 07/19/16 14: 48; Admin Dose 100 MLS/HR; Start 07/18/16 at 08:00 Dextrose/Sodium Chloride (D5-1/2ns) 1,000 ml @ 100 mls/hr Q10H IV Last administered on 07/19/16 01:53; Admin Dose 100 MLS/HR; Start 07/18/16 at 08:23 Ondansetron HCl (Zofran Inj) 4 mg Q6H PRN IV NAUSEA AND/OR VOMITING Last administered on 07/19/16 11:35; Admin Dose 4 MG; Start 07/18/16 at 08:30 Famotidine (Pepcid Iv) 20 mg DAILY IV Last administered on 07/19/16 09:42; Admin Dose 20 MG; Start 07/18/16 at 09:00 BERT FREED Jul 19, 2016 14:59
--- NOTE | 2016-07-19 15:59 | PN ---
DATE: 07/19/2016 The patient is symptomatically improved. She has been afebrile since her admission and her leukocyt osis has resolved with a white count coming down to 10,300 without left shift. Today, her abdominal exam is benign. IMPRESSION: Improving. PLAN: Continue medical management. There are no surgical recommendations. We will see again p.r.n . at your request. Dictated By: NILA MOYER/FRANCOIS Conf#: [id number] DID#: [id number]
[2016-07-20] MEDS: metroNIDAZOLE 500 MG/NS (PMX) 100 ML IVPB SCH ×4 (02:29→20:04)
[2016-07-20 06:03] LABS: ADD SCAN DIFF NO
[2016-07-20 06:16] LABS: BASOPHILS % 0.2 % (0.0-2.0); EOSINOPHILS # 0.5 10^3/ul (0.0-0.5); EOSINOPHILS % 5.1 % (0.0-7.0); HEMATOCRIT 30.4 % (37.0-47.0); HEMOGLOBIN 9.7 g/dl (12.0-16.0); LYMPHOCYTES # 2.1 10^3/ul (0.8-2.9); LYMPHOCYTES % 21.9 % (15.0-51.0); MEAN CORPUSCULAR HEMOGLOBIN 28.9 pg (29.0-33.0); MEAN CORPUSCULAR HGB CONC 31.9 g/dl (32.0-37.0); MEAN CORPUSCULAR VOLUME 90.5 fl (82.0-101.0); MEAN PLATELET VOLUME 10.6 fl (7.4-10.4); MONOCYTE # 0.5 10^3/ul (0.3-0.9); MONOCYTES % 4.8 % (0.0-11.0); NEUTROPHIL # 6.4 10^3/ul (1.6-7.5); NEUTROPHILS % 67.4 % (39.0-77.0); PLATELET COUNT 246 10^3/UL (140-415); RED BLOOD COUNT 3.36 10^6/ul (4.20-5.40); RED CELL DISTRIBUTION WIDTH 14.3 % (11.5-14.5); WHITE BLOOD COUNT 9.4 10^3/ul (4.8-10.8)
[2016-07-20 07:05] LABS: POTASSIUM 3.3 mmol/L (3.5-5.1)
[2016-07-20 07:08] LABS: CREATININE 0.79 mg/dl (0.44-1.00)
[2016-07-20 07:09] LABS: CALCIUM 7.6 mg/dl (8.4-10.2); MAGNESIUM 2.3 mg/dl (1.7-2.5); PHOSPHORUS 2.5 mg/dl (2.5-4.9)
[2016-07-20 07:19] VITALS: BP 135/65; RESP 16
--- NOTE | 2016-07-20 07:50 | CONS ---
Date/Time of Note Date/Time of Note DATE: 07/20/16 TIME: 07:48 Assessment/Plan Assessment/Plan Additional Assessment/Plan Assessment * Abdominal pain/Diarrhea * Diverticulitis * EGD 06/11/2016 Presbyesophagus R/O eosinophilic esophagitis * Hypertension * Hx of COPD * Diastolic heart failure * Dyslipidemia * S/P left hip hemiarthroplasty PLAN * Clear diet, if she passes bedside swallow * ST evaluation ordered * adequate hydration * Continue Cipro iv and Metronidazole iv * stool for c difficile * Further recommendations depend on clinical course * Patient seen in collaboration with Dr. Cole Consultation Date/Type/Reason Admit Date/Time Jul 17, 2016 at 20:43 Initial Consult Date 07/18/16 Type of Consultation: Gastroenterology Referring Provider: BERT FREED 24 HR Interval Summary Free Text/Dictation At bedside reports diarrhea and abdominal pain last night Denies abdominal pain presently Previous speech therapy consult stated: continue puree/thin and when dentures brought can assess safety for solids; cont. asp.precautions; mbss not indicated at this time. since pt takes limited amount of po Patient to complete bedside swallow prior to initiation of clear liquid diet Exam/Review of Systems Vital Signs Vitals Vital Signs Date Time Temp Pulse Resp B/P Pulse Ox O2 Delivery O2 Flow Rate FiO2 07/20/16 07:19 97.6 81 16 135/65 97 07/19/16 20:00 Nasal Cannula 2.0 Intake and Output 07/19/16 07/19/16 07/20/16 15:00 23:00 07:00 Intake Total 300 ml 1906 ml 700 ml Balance 300 ml 1906 ml 700 ml Exam Constitutional: frail Head: atraumatic, normocephalic Eyes: PERRL, nl conjunctiva, nl sclera ENMT: nl nasal mucosa & septum Neck: non-tender, supple Respiratory: clear to auscultation, diminished breath sounds, normal air movement Cardiovascular: regular rate and rhythm Gastrointestinal: bowel sounds, distended, soft, tender (slight upper abdominal tenderness), No rebound or guarding Musculoskeletal: nl extremities to inspection Extremities: normal pulses Skin: nl turgor, rash or lesions Lymph: nl lymph nodes Results Result Diagram: 07/20/16 0530 07/20/16 0530 Results 24 hrs Laboratory Tests Test 07/19/16 11:45 07/20/16 05:30 Stool Occult Blood POSITIVE White Blood Count 9.4 Red Blood Count 3.36 L Hemoglobin 9.7 L Hematocrit 30.4 L Mean Corpuscular Volume 90.5 Mean Corpuscular Hemoglobin 28.9 L Mean Corpuscular Hemoglobin Concent 31.9 L Red Cell Distribution Width 14.3 Platelet Count 246 Mean Platelet Volume 10.6 H Neutrophils % 67.4 Lymphocytes % 21.9 Monocytes % 4.8 Eosinophils % 5.1 Basophils % 0.2 Nucleated Red Blood Cells % 0.0 Neutrophils # 6.4 Lymphocytes # 2.1 Monocytes # 0.5 Eosinophils # 0.5 Basophils # 0.0 Nucleated Red Blood Cells # 0.0 Sodium Level 133 L Potassium Level 3.3 L Chloride Level 103 Carbon Dioxide Level 26 Anion Gap 7 L Blood Urea Nitrogen 9 Creatinine 0.79 Glucose Level 107 Calcium Level 7.6 L Phosphorus Level 2.5 Magnesium Level 2.3 Medications Medications Current Medications Ciprofloxacin/ Dextrose 200 ml @ 200 mls/hr Q12 IVPB Last administered on 07/19 20:09; Admin Dose 200 MLS/HR; Start 07/18/16 at 09:00 Metronidazole 100 ml @ 100 mls/hr Q6H IVPB Last administered on 07/20/16 02: 29; Admin Dose 100 MLS/HR; Start 07/18/16 at 08:00 Dextrose/Sodium Chloride (D5-1/2ns) 1,000 ml @ 100 mls/hr Q10H IV Last administered on 07/19/16 20:09; Admin Dose 100 MLS/HR; Start 07/18/16 at 08:23 Ondansetron HCl (Zofran Inj) 4 mg Q6H PRN IV NAUSEA AND/OR VOMITING Last administered on 07/19/16 11:35; Admin Dose 4 MG; Start 07/18/16 at 08:30 Famotidine (Pepcid Iv) 20 mg DAILY IV Last administered on 07/19/16 09:42; Admin Dose 20 MG; Start 07/18/16 at 09:00 AIRAM TAI Jul 20, 2016 07:50
[2016-07-20] MEDS: FAMOTIDINE 20 MG INJ IV SCH (08:18)
[2016-07-20] MEDS: CIPROFLOXACIN 400MG/D5W 200 ML IVPB SCH (09:20)
[2016-07-20] MEDS ORDERED: POTASSIUM CHLORIDE (SR) 20 MEQ TAB PO STA (09:27)
[2016-07-20] MEDS: HYDROCODONE/APAP (5/325) TAB PO PRN ×2 (10:48→18:14)
[2016-07-20] MEDS: DEXTROSE 5%-0.45% NACL 1,000 ML IV SCH ×2 (10:52→20:23)
[2016-07-20] MEDS ORDERED: VANCOMYCIN HCL 250 MG/5ML POSYG PO SCH (12:00)
[2016-07-20] MEDS: VANCOMYCIN HCL 250 MG/5ML POSYG PO SCH ×2 (13:41→18:14)
[2016-07-20] MEDS ORDERED: AL HYDROX/MG HYDROX/SIMETH 30 ML CUP PO PRN (16:00)
--- NOTE | 2016-07-20 17:13 | PN ---
Date/Time of Note Date/Time of Note DATE: 07/20/16 TIME: 17:11 Assessment/Plan VTE Prophylaxis VTE Prophylaxis Intervention: SCD's Lines/Catheters IV [facility] ([facility] Peripheral IV Urinary Cath still in place: No Assessment/Plan Chief Complaint/Hosp Course 1. Colitis with diarrhea 2/2 C-diff -C Diff is positive, continue Vanco p.o. -GI consult appreciated 2. Abd pain and Diarrhea 2/2 above-stable 3. Hypertension-stable 4. Hx of COPD-stable 5. Diastolic heart failure-compensated 6. Pulmonary hypertension 7. Dyslipidemia 8. Recent Hip Fracture Discharge planning-DC when diarrhea has decreased PPx- SCD's Problems: Subjective 24 Hr Interval Summary Gastrointestinal: diarrhea Exam/Review of Systems Vital Signs Vitals Vital Signs Date Time Temp Pulse Resp B/P Pulse Ox O2 Delivery O2 Flow Rate FiO2 07/20/16 08:30 Nasal Cannula 2.0 07/20/16 07:19 97.6 81 16 135/65 97 Intake and Output 07/19/16 07/19/16 07/20/16 15:00 23:00 07:00 Intake Total 300 ml 1906 ml 700 ml Balance 300 ml 1906 ml 700 ml Exam Constitutional: alert Respiratory: clear to auscultation Cardiovascular: regular rate and rhythm Gastrointestinal: soft, No distended Musculoskeletal: nl extremities to inspection Results Result Diagram: 07/20/16 0530 07/20/16 0530 Results 24 hrs Laboratory Tests Test 07/20/16 05:30 White Blood Count 9.4 Red Blood Count 3.36 L Hemoglobin 9.7 L Hematocrit 30.4 L Mean Corpuscular Volume 90.5 Mean Corpuscular Hemoglobin 28.9 L Mean Corpuscular Hemoglobin Concent 31.9 L Red Cell Distribution Width 14.3 Platelet Count 246 Mean Platelet Volume 10.6 H Neutrophils % 67.4 Lymphocytes % 21.9 Monocytes % 4.8 Eosinophils % 5.1 Basophils % 0.2 Nucleated Red Blood Cells % 0.0 Neutrophils # 6.4 Lymphocytes # 2.1 Monocytes # 0.5 Eosinophils # 0.5 Basophils # 0.0 Nucleated Red Blood Cells # 0.0 Sodium Level 133 L Potassium Level 3.3 L Chloride Level 103 Carbon Dioxide Level 26 Anion Gap 7 L Blood Urea Nitrogen 9 Creatinine 0.79 Glucose Level 107 Calcium Level 7.6 L Phosphorus Level 2.5 Magnesium Level 2.3 Medications Medications Current Medications Metronidazole 100 ml @ 100 mls/hr Q6H IVPB Last administered on 07/20/16 13: 05; Admin Dose 100 MLS/HR; Start 07/18/16 at 08:00 Dextrose/Sodium Chloride (D5-1/2ns) 1,000 ml @ 100 mls/hr Q10H IV Last administered on 07/20/16 10:52; Admin Dose 100 MLS/HR; Start 07/18/16 at 08:23 Ondansetron HCl (Zofran Inj) 4 mg Q6H PRN IV NAUSEA AND/OR VOMITING Last administered on 07/19/16 11:35; Admin Dose 4 MG; Start 07/18/16 at 08:30 Famotidine (Pepcid Iv) 20 mg DAILY IV Last administered on 07/20/16 08:18; Admin Dose 20 MG; Start 07/18/16 at 09:00 Acetaminophen/ Hydrocodone Bitart ([place] (5/325)) 1 tab Q6H PRN PO PAIN Last administered on 07/20/16 10:48; Admin Dose 1 TAB; Start 07/20/16 at 09:30 Vancomycin HCl (Vancomycin Oral Syringe) 250 mg Q6 PO Last administered on 07/20 13:41; Admin Dose 250 MG; Start 07/20/16 at 13:30 Al Hydrox/Mg Hydrox/Simethicone (Mag-Al Plus) 30 ml Q4H PRN PO GASTROINTESTINAL UPSET; Start 07/20/16 at 16:00 BERT FREED Jul 20, 2016 17:13
[2016-07-20] MEDS ORDERED: NITROGLYCERIN (SL) 0.4 MG TAB SL PRN (18:30)
[2016-07-20] MEDS ORDERED: hydrALAzine 20 MG INJ IV PRN (18:30)
[2016-07-20 20:00] VITALS: BP 145/67; RESP 18
[2016-07-21] MEDS: VANCOMYCIN HCL 250 MG/5ML POSYG PO SCH ×4 (00:42→17:26)
[2016-07-21] MEDS: DEXTROSE 5%-0.45% NACL 1,000 ML IV SCH ×4 (00:42→15:59)
[2016-07-21] MEDS: metroNIDAZOLE 500 MG/NS (PMX) 100 ML IVPB SCH ×4 (02:20→19:51)
[2016-07-21 06:09] LABS: ADD SCAN DIFF NO
[2016-07-21 06:13] LABS: BASOPHILS % 0.3 % (0.0-2.0); EOSINOPHILS # 0.5 10^3/ul (0.0-0.5); HEMATOCRIT 33.8 % (37.0-47.0); HEMOGLOBIN 10.5 g/dl (12.0-16.0); LYMPHOCYTES # 1.9 10^3/ul (0.8-2.9); LYMPHOCYTES % 15.9 % (15.0-51.0); MEAN CORPUSCULAR HEMOGLOBIN 28.3 pg (29.0-33.0); MEAN CORPUSCULAR HGB CONC 31.1 g/dl (32.0-37.0); MEAN CORPUSCULAR VOLUME 91.1 fl (82.0-101.0); MEAN PLATELET VOLUME 10.3 fl (7.4-10.4); MONOCYTE # 0.6 10^3/ul (0.3-0.9); MONOCYTES % 4.5 % (0.0-11.0); NEUTROPHIL # 9.1 10^3/ul (1.6-7.5); NEUTROPHILS % 74.6 % (39.0-77.0); PLATELET COUNT 252 10^3/UL (140-415); RED BLOOD COUNT 3.71 10^6/ul (4.20-5.40); RED CELL DISTRIBUTION WIDTH 14.3 % (11.5-14.5); WHITE BLOOD COUNT 12.2 10^3/ul (4.8-10.8)
[2016-07-21 06:36] LABS: POTASSIUM 3.9 mmol/L (3.5-5.1)
[2016-07-21 06:38] LABS: CREATININE 0.74 mg/dl (0.44-1.00)
[2016-07-21 06:39] LABS: CALCIUM 7.6 mg/dl (8.4-10.2)
[2016-07-21 07:22] VITALS: BP 163/75; RESP 18
[2016-07-21] MEDS: FAMOTIDINE 20 MG INJ IV SCH (08:01)
--- NOTE | 2016-07-21 09:57 | CONS ---
Date/Time of Note Date/Time of Note DATE: 07/21/16 TIME: 09:53 Assessment/Plan Assessment/Plan Additional Assessment/Plan Assessment * Abdominal pain/Diarrhea * Diverticulitis * C. difficile positive * EGD 06/11/2016 Presbyesophagus R/O eosinophilic esophagitis * Hypertension * Hx of COPD * Diastolic heart failure * Dyslipidemia * S/P left hip hemiarthroplasty PLAN * Start pured diet * ST evaluation following * adequate hydration * Continue antibiotic treatment for diarrhea * Further recommendations depend on clinical course * Patient seen in collaboration with Dr. Cole Consultation Date/Type/Reason Admit Date/Time Jul 17, 2016 at 20:43 Initial Consult Date 07/18/16 Type of Consultation: Gastroenterology Referring Provider: BERT FREED 24 HR Interval Summary Free Text/Dictation Reports colicky upper abdominal pain States diarrhea is improving We will start trial of soft diet for lunch Exam/Review of Systems Vital Signs Vitals Vital Signs Date Time Temp Pulse Resp B/P Pulse Ox O2 Delivery O2 Flow Rate FiO2 07/21/16 08:00 Nasal Cannula 2.0 07/21/16 07:22 97.9 91 18 163/75 98 Intake and Output 07/20/16 07/20/16 07/21/16 15:00 23:00 07:00 Intake Total 510 ml 920 ml 1020 ml Balance 510 ml 920 ml 1020 ml Exam Constitutional: frail Head: atraumatic, normocephalic Eyes: PERRL, nl conjunctiva, nl sclera ENMT: nl nasal mucosa & septum Neck: non-tender, supple Respiratory: clear to auscultation, diminished breath sounds, normal air movement Cardiovascular: regular rate and rhythm Gastrointestinal: bowel sounds, distended, soft, tender (slight upper abdominal tenderness), No rebound or guarding Musculoskeletal: nl extremities to inspection Extremities: normal pulses Skin: nl turgor, rash or lesions Lymph: nl lymph nodes Results Result Diagram: 07/21/16 0520 07/21/16 0520 Results 24 hrs Laboratory Tests Test 07/21/16 05:20 White Blood Count 12.2 #H Red Blood Count 3.71 L Hemoglobin 10.5 L Hematocrit 33.8 L Mean Corpuscular Volume 91.1 Mean Corpuscular Hemoglobin 28.3 L Mean Corpuscular Hemoglobin Concent 31.1 L Red Cell Distribution Width 14.3 Platelet Count 252 Mean Platelet Volume 10.3 Neutrophils % 74.6 Lymphocytes % 15.9 Monocytes % 4.5 Eosinophils % 4.0 Basophils % 0.3 Nucleated Red Blood Cells % 0.0 Neutrophils # 9.1 H Lymphocytes # 1.9 Monocytes # 0.6 Eosinophils # 0.5 Basophils # 0.0 Nucleated Red Blood Cells # 0.0 Sodium Level 133 L Potassium Level 3.9 Chloride Level 106 Carbon Dioxide Level 23 Anion Gap 8 Blood Urea Nitrogen 7 Creatinine 0.74 Glucose Level 122 Calcium Level 7.6 L Medications Medications Current Medications Metronidazole 100 ml @ 100 mls/hr Q6H IVPB Last administered on 07/21/16 08: 01; Admin Dose 100 MLS/HR; Start 07/18/16 at 08:00 Dextrose/Sodium Chloride (D5-1/2ns) 1,000 ml @ 100 mls/hr Q10H IV Last administered on 07/21/16 00:42; Admin Dose 100 MLS/HR; Start 07/18/16 at 08:23 Ondansetron HCl (Zofran Inj) 4 mg Q6H PRN IV NAUSEA AND/OR VOMITING Last administered on 07/19/16 11:35; Admin Dose 4 MG; Start 07/18/16 at 08:30 Famotidine (Pepcid Iv) 20 mg DAILY IV Last administered on 07/21/16 08:01; Admin Dose 20 MG; Start 07/18/16 at 09:00 Acetaminophen/ Hydrocodone Bitart ([place] (5/325)) 1 tab Q6H PRN PO PAIN Last administered on 07/20/16 18:14; Admin Dose 1 TAB; Start 07/20/16 at 09:30 Vancomycin HCl (Vancomycin Oral Syringe) 250 mg Q6 PO Last administered on 07/21 06:12; Admin Dose 250 MG; Start 07/20/16 at 13:30 Al Hydrox/Mg Hydrox/Simethicone (Mag-Al Plus) 30 ml Q4H PRN PO GASTROINTESTINAL UPSET Last administered on 07/20/16 18:14; Admin Dose 30 ML; Start 07/20/16 at 16:00 Hydralazine HCl (Apresoline) 10 mg Q4H PRN IV SBP >170; Start 07/20/16 at 18:30 Nitroglycerin (Nitroglycerin (Sl Tab) 0.4 Mg) 1 tab Q5M PRN SL ANGINA; Start at 18:30 AIRAM TAI Jul 21, 2016 09:57
--- NOTE | 2016-07-21 17:50 | PN ---
Date/Time of Note Date/Time of Note DATE: 07/21/16 TIME: 17:49 Assessment/Plan VTE Prophylaxis VTE Prophylaxis Intervention: SCD's Lines/Catheters IV Catheter Type (from Nrs): Peripheral IV Urinary Cath still in place: No Assessment/Plan Chief Complaint/Hosp Course 1. Colitis with diarrhea 2/2 C-diff -C Diff is positive, continue Vanco p.o. -GI consult appreciated 2. Abd pain and Diarrhea 2/2 above-continues to have abdominal pain but diarrhea is improving 3. Hypertension-stable 4. Hx of COPD-stable 5. Diastolic heart failure-compensated 6. Pulmonary hypertension 7. Dyslipidemia 8. Recent Hip Fracture Discharge planning-DC when abdominal pain has improved and diarrhea has decreased PPx- SCD's Problems: Subjective 24 Hr Interval Summary Gastrointestinal: pain Exam/Review of Systems Vital Signs Vitals Vital Signs Date Time Temp Pulse Resp B/P Pulse Ox O2 Delivery O2 Flow Rate FiO2 07/21/16 08:00 Nasal Cannula 2.0 07/21/16 07:22 97.9 91 18 163/75 98 Intake and Output 07/20/16 07/20/16 07/21/16 15:00 23:00 07:00 Intake Total 510 ml 920 ml 1020 ml Balance 510 ml 920 ml 1020 ml Exam Constitutional: alert Respiratory: clear to auscultation Cardiovascular: regular rate and rhythm Gastrointestinal: soft, No distended Musculoskeletal: nl extremities to inspection Results Result Diagram: 07/21/16 0520 07/21/16 0520 Results 24 hrs Laboratory Tests Test 07/21/16 05:20 White Blood Count 12.2 #H Red Blood Count 3.71 L Hemoglobin 10.5 L Hematocrit 33.8 L Mean Corpuscular Volume 91.1 Mean Corpuscular Hemoglobin 28.3 L Mean Corpuscular Hemoglobin Concent 31.1 L Red Cell Distribution Width 14.3 Platelet Count 252 Mean Platelet Volume 10.3 Neutrophils % 74.6 Lymphocytes % 15.9 Monocytes % 4.5 Eosinophils % 4.0 Basophils % 0.3 Nucleated Red Blood Cells % 0.0 Neutrophils # 9.1 H Lymphocytes # 1.9 Monocytes # 0.6 Eosinophils # 0.5 Basophils # 0.0 Nucleated Red Blood Cells # 0.0 Sodium Level 133 L Potassium Level 3.9 Chloride Level 106 Carbon Dioxide Level 23 Anion Gap 8 Blood Urea Nitrogen 7 Creatinine 0.74 Glucose Level 122 Calcium Level 7.6 L Medications Medications Current Medications Metronidazole 100 ml @ 100 mls/hr Q6H IVPB Last administered on 07/21/16 13: 04; Admin Dose 100 MLS/HR; Start 07/18/16 at 08:00 Dextrose/Sodium Chloride (D5-1/2ns) 1,000 ml @ 100 mls/hr Q10H IV Last administered on 07/21/16 13:04; Admin Dose 100 MLS/HR; Start 07/18/16 at 08:23 Ondansetron HCl (Zofran Inj) 4 mg Q6H PRN IV NAUSEA AND/OR VOMITING Last administered on 07/19/16 11:35; Admin Dose 4 MG; Start 07/18/16 at 08:30 Famotidine (Pepcid Iv) 20 mg DAILY IV Last administered on 07/21/16 08:01; Admin Dose 20 MG; Start 07/18/16 at 09:00 Acetaminophen/ Hydrocodone Bitart ([place] (5/325)) 1 tab Q6H PRN PO PAIN Last administered on 07/20/16 18:14; Admin Dose 1 TAB; Start 07/20/16 at 09:30 Vancomycin HCl (Vancomycin Oral Syringe) 250 mg Q6 PO Last administered on 07/21 17:26; Admin Dose 250 MG; Start 07/20/16 at 13:30 Al Hydrox/Mg Hydrox/Simethicone (Mag-Al Plus) 30 ml Q4H PRN PO GASTROINTESTINAL UPSET Last administered on 07/20/16 18:14; Admin Dose 30 ML; Start 07/20/16 at 16:00 Hydralazine HCl (Apresoline) 10 mg Q4H PRN IV SBP >170; Start 07/20/16 at 18:30 Nitroglycerin (Nitroglycerin (Sl Tab) 0.4 Mg) 1 tab Q5M PRN SL ANGINA; Start at 18:30 BERT FREED Jul 21, 2016 17:50
[2016-07-21 20:49] VITALS: BP 165/77; RESP 18
[2016-07-21 23:25] VITALS: BP 177/79
[2016-07-21 23:34] VITALS: BP 163/71
[2016-07-21 23:36] VITALS: BP 136/60; PULSE 105; RESP 17
[2016-07-22] VITALS (11 sets, daily range): BP systolic 95–189; BP diastolic 52–88; PULSE 95–115; RESP 18–22
[2016-07-22] MEDS: VANCOMYCIN HCL 250 MG/5ML POSYG PO SCH ×4 (00:15→17:12)
[2016-07-22] MEDS: metroNIDAZOLE 500 MG/NS (PMX) 100 ML IVPB SCH ×4 (01:41→20:44)
[2016-07-22] MEDS: DEXTROSE 5%-0.45% NACL 1,000 ML IV SCH ×4 (02:23→17:12)
[2016-07-22 05:27] LABS: ADD SCAN DIFF NO
[2016-07-22 05:33] LABS: BASOPHILS % 0.1 % (0.0-2.0); EOSINOPHILS # 0.1 10^3/ul (0.0-0.5); EOSINOPHILS % 0.7 % (0.0-7.0); HEMATOCRIT 37.3 % (37.0-47.0); HEMOGLOBIN 11.9 g/dl (12.0-16.0); LYMPHOCYTES # 2.5 10^3/ul (0.8-2.9); LYMPHOCYTES % 15.3 % (15.0-51.0); MEAN CORPUSCULAR HEMOGLOBIN 28.3 pg (29.0-33.0); MEAN CORPUSCULAR HGB CONC 31.9 g/dl (32.0-37.0); MEAN CORPUSCULAR VOLUME 88.8 fl (82.0-101.0); MONOCYTE # 0.6 10^3/ul (0.3-0.9); MONOCYTES % 3.5 % (0.0-11.0); NEUTROPHIL # 12.9 10^3/ul (1.6-7.5); NEUTROPHILS % 79.7 % (39.0-77.0); PLATELET COUNT 306 10^3/UL (140-415); RED CELL DISTRIBUTION WIDTH 14.5 % (11.5-14.5); WHITE BLOOD COUNT 16.2 10^3/ul (4.8-10.8)
[2016-07-22 06:10] LABS: CREATININE 0.71 mg/dl (0.44-1.00); MAGNESIUM 1.8 mg/dl (1.7-2.5); POTASSIUM 3.9 mmol/L (3.5-5.1)
[2016-07-22] MEDS: METOPROLOL 25 MG TAB PO SCH ×2 (08:11→20:44)
[2016-07-22] MEDS: FAMOTIDINE 20 MG INJ IV SCH (08:11)
[2016-07-22] MEDS: ONDANSETRON 4 MG INJ IV PRN ×2 (09:01→17:35)
--- NOTE | 2016-07-22 12:40 | PN ---
Date/Time of Note Date/Time of Note DATE: 07/22/16 TIME: 12:39 Assessment/Plan VTE Prophylaxis VTE Prophylaxis Intervention: SCD's Lines/Catheters IV Catheter Type (from Nrsg): Peripheral IV Urinary Cath still in place: No Assessment/Plan Assessment/Plan 1. Colitis with diarrhea 2/2 C-diff -C Diff is positive, continue Vanco p.o. still having diarrhea with abdominal pain, -GI consult appreciated 2. Abd pain and Diarrhea 2/2 above-continues to have abdominal pain but diarrhea is improving 3. Hypertension-stable 4. Hx of COPD-stable 5. Diastolic heart failure-compensated 6. Pulmonary hypertension 7. Dyslipidemia 8. Recent Hip Fracture Discharge planning-DC when abdominal pain has improved and diarrhea has decreased- pt is still c/o abdominal pain with diarrhea PPx- SCD's Subjective 24 Hr Interval Summary Free Text/Dictation pt still c/o abdominal pain, and diarrhea Exam/Review of Systems Vital Signs Vitals Vital Signs Date Time Temp Pulse Resp B/P Pulse Ox O2 Delivery O2 Flow Rate FiO2 07/22/16 08:04 97.7 100 22 134/62 97 07/22/16 08:00 Nasal Cannula 2.0 Intake and Output 07/21/16 07/21/16 07/22/16 15:00 23:00 07:00 Intake Total 600 ml 650 ml 900 ml Balance 600 ml 650 ml 900 ml Exam Constitutional: alert Respiratory: clear to auscultation Cardiovascular: regular rate and rhythm Gastrointestinal: soft, No distended Musculoskeletal: nl extremities to inspection Results Result Diagram: 07/22/16 0455 07/22/16 0455 Results 24 hrs Laboratory Tests Test 07/22/16 04:55 White Blood Count 16.2 #H Red Blood Count 4.20 Hemoglobin 11.9 L Hematocrit 37.3 Mean Corpuscular Volume 88.8 Mean Corpuscular Hemoglobin 28.3 L Mean Corpuscular Hemoglobin Concent 31.9 L Red Cell Distribution Width 14.5 Platelet Count 306 # Mean Platelet Volume 10.0 Neutrophils % 79.7 H Lymphocytes % 15.3 Monocytes % 3.5 Eosinophils % 0.7 Basophils % 0.1 Nucleated Red Blood Cells % 0.0 Neutrophils # 12.9 H Lymphocytes # 2.5 Monocytes # 0.6 Eosinophils # 0.1 Basophils # 0.0 Nucleated Red Blood Cells # 0.0 Sodium Level 131 L Potassium Level 3.9 Chloride Level 106 Carbon Dioxide Level 24 Anion Gap 5 L Blood Urea Nitrogen 6 L Creatinine 0.71 Glucose Level 144 Calcium Level 8.0 L Magnesium Level 1.8 Medications Medications Current Medications Metronidazole 100 ml @ 100 mls/hr Q6H IVPB Last administered on 07/22/16 08:11 ; Admin Dose 100 MLS/HR; Start 07/18/16 at 08:00 Dextrose/Sodium Chloride (D5-1/2ns) 1,000 ml @ 100 mls/hr Q10H IV Last administered on 07/22/16 05:00; Admin Dose 100 MLS/HR; Start 07/18/16 at 08:23 Ondansetron HCl (Zofran Inj) 4 mg Q6H PRN IV NAUSEA AND/OR VOMITING Last administered on 07/22/16 09:01; Admin Dose 4 MG; Start 07/18/16 at 08:30 Famotidine (Pepcid Iv) 20 mg DAILY IV Last administered on 07/22/16 08:11; Admin Dose 20 MG; Start 07/18/16 at 09:00 Acetaminophen/ Hydrocodone Bitart ([place] (5/325)) 1 tab Q6H PRN PO PAIN Last administered on 07/20/16 18:14; Admin Dose 1 TAB; Start 07/20/16 at 09:30 Vancomycin HCl (Vancomycin Oral Syringe) 250 mg Q6 PO Last administered on 11:58; Admin Dose 250 MG; Start 07/20/16 at 13:30 Al Hydrox/Mg Hydrox/Simethicone (Mag-Al Plus) 30 ml Q4H PRN PO GASTROINTESTINAL UPSET Last administered on 07/20/16 18:14; Admin Dose 30 ML; Start 07/20/16 at 16:00 Nitroglycerin (Nitroglycerin (Sl Tab) 0.4 Mg) 1 tab Q5M PRN SL ANGINA; Start at 18:30 Clonidine (Catapres) 0.1 mg Q6H PRN PO ELEVATED BLOOD PRESSURE; Start 07/22/16 at 02:00 Metoprolol Tartrate (Lopressor) 25 mg BID PO Last administered on 07/22/16 08: 11; Admin Dose 25 MG; Start 07/22/16 at 09:00 SHAYLA RUBIO MD July 22, 2016 12:40
--- NOTE | 2016-07-22 14:35 | PN ---
Date/Time of Note Date/Time of Note DATE: 07/22/16 TIME: 14:30 Assessment/Plan VTE Prophylaxis VTE Prophylaxis Intervention: SCD's Lines/Catheters IV [facility] ([facility]): Peripheral IV Urinary Cath still in place: No Assessment/Plan Chief Complaint/Hosp Course Problems: Assessment/Plan Abdominal pain/Diarrhea * Diverticulitis * C difficile positive * EGD 06/11/2016 Presbyesophagus R/O eosinophilic esophagitis * Hypertension * Hx of COPD * Diastolic heart failure * Dyslipidemia * S/P left hip hemiarthroplasty * Plan * Continue present management * Adequate hydration Subjective 24 Hr Interval Summary Free Text/Dictation * Course reviewed with RN * Patient seen and examined * Still with mushy diarrhea x3 small in amount * Denies any abdominal pain Exam/Review of Systems Vital Signs Vitals Vital Signs Date Time Temp Pulse Resp B/P Pulse Ox O2 Delivery O2 Flow Rate FiO2 07/22/16 08:04 97.7 100 22 134/62 97 07/22/16 08:00 Nasal Cannula 2.0 Intake and Output 07/21/16 07/21/16 07/22/16 15:00 23:00 07:00 Intake Total 600 ml 650 ml 900 ml Balance 600 ml 650 ml 900 ml Exam Constitutional: frail Eyes: nl sclera Neck: non-tender, supple Respiratory: clear to auscultation, diminished breath sounds, normal air movement Cardiovascular: nl pulses, regular rate and rhythm Gastrointestinal: bowel sounds, distended, non-tender, soft Musculoskeletal: nl extremities to inspection Extremities: normal pulses Lymph: nl lymph nodes Results Result Diagram: 07/22/16 0455 07/22/16 0455 Results 24 hrs Laboratory Tests Test 07/22/16 04:55 White Blood Count 16.2 #H Red Blood Count 4.20 Hemoglobin 11.9 L Hematocrit 37.3 Mean Corpuscular Volume 88.8 Mean Corpuscular Hemoglobin 28.3 L Mean Corpuscular Hemoglobin Concent 31.9 L Red Cell Distribution Width 14.5 Platelet Count 306 # Mean Platelet Volume 10.0 Neutrophils % 79.7 H Lymphocytes % 15.3 Monocytes % 3.5 Eosinophils % 0.7 Basophils % 0.1 Nucleated Red Blood Cells % 0.0 Neutrophils # 12.9 H Lymphocytes # 2.5 Monocytes # 0.6 Eosinophils # 0.1 Basophils # 0.0 Nucleated Red Blood Cells # 0.0 Sodium Level 131 L Potassium Level 3.9 Chloride Level 106 Carbon Dioxide Level 24 Anion Gap 5 L Blood Urea Nitrogen 6 L Creatinine 0.71 Glucose Level 144 Calcium Level 8.0 L Magnesium Level 1.8 Medications Medications Current Medications Metronidazole 100 ml @ 100 mls/hr Q6H IVPB Last administered on 07/22/16 08:11 ; Admin Dose 100 MLS/HR; Start 07/18/16 at 08:00 Dextrose/Sodium Chloride (D5-1/2ns) 1,000 ml @ 100 mls/hr Q10H IV Last administered on 07/22/16 05:00; Admin Dose 100 MLS/HR; Start 07/18/16 at 08:23 Ondansetron HCl (Zofran Inj) 4 mg Q6H PRN IV NAUSEA AND/OR VOMITING Last administered on 07/22/16 09:01; Admin Dose 4 MG; Start 07/18/16 at 08:30 Famotidine (Pepcid Iv) 20 mg DAILY IV Last administered on 07/22/16 08:11; Admin Dose 20 MG; Start 07/18/16 at 09:00 Acetaminophen/ Hydrocodone Bitart ([place] (5/325)) 1 tab Q6H PRN PO PAIN Last administered on 07/20/16 18:14; Admin Dose 1 TAB; Start 07/20/16 at 09:30 Vancomycin HCl (Vancomycin Oral Syringe) 250 mg Q6 PO Last administered on 11:58; Admin Dose 250 MG; Start 07/20/16 at 13:30 Al Hydrox/Mg Hydrox/Simethicone (Mag-Al Plus) 30 ml Q4H PRN PO GASTROINTESTINAL UPSET Last administered on 07/20/16 18:14; Admin Dose 30 ML; Start 07/20/16 at 16:00 Nitroglycerin (Nitroglycerin (Sl Tab) 0.4 Mg) 1 tab Q5M PRN SL ANGINA; Start at 18:30 Clonidine (Catapres) 0.1 mg Q6H PRN PO ELEVATED BLOOD PRESSURE; Start 07/22/16 at 02:00 Metoprolol Tartrate (Lopressor) 25 mg BID PO Last administered on 07/22/16 08: 11; Admin Dose 25 MG; Start 07/22/16 at 09:00 TAYLOR BRAUN MD July 22, 2016 14:35
--- NOTE | 2016-07-22 15:07 | RADRPT ---
Vent Rate: 92 bpm RR Interval: 0 msec MI Interval: 182 msec QRS Duration: 84 msec QT Interval: 394 msec QTC Interval: 487 msec P-R-T [place]: 47 - -4 - 66 degrees Normal sinus rhythm Possible Anterior infarct , age undetermined Abnormal ECG Electronically Signed By: William Slater [id number]
[2016-07-22] MEDS ORDERED: ZOLPIDEM 5 MG TAB PO ONE (21:30)
[2016-07-22] MEDS: ALBUTEROL/IPRATROPIUM (NEB) 3 ML AMP HHN PRN (21:51)
[2016-07-23] MEDS: VANCOMYCIN HCL 250 MG/5ML POSYG PO SCH ×5 (00:27→23:51)
[2016-07-23] MEDS: metroNIDAZOLE 500 MG/NS (PMX) 100 ML IVPB SCH ×4 (02:24→20:21)
[2016-07-23] MEDS: DEXTROSE 5%-0.45% NACL 1,000 ML IV SCH ×3 (04:45→17:40)
[2016-07-23 05:56] LABS: ADD SCAN DIFF NO
[2016-07-23 06:03] LABS: INR 1.32; PROTIME 16.5 Sec (12.2-14.2); PT RATIO 1.3
[2016-07-23 06:04] LABS: PARTIAL THROMBOPLASTIN TIME 33.4 Sec (25.0-35.0)
[2016-07-23 06:11] LABS: BASOPHILS % 0.2 % (0.0-2.0); EOSINOPHILS # 0.2 10^3/ul (0.0-0.5); EOSINOPHILS % 1.6 % (0.0-7.0); HEMATOCRIT 33.3 % (37.0-47.0); LYMPHOCYTES # 2.3 10^3/ul (0.8-2.9); LYMPHOCYTES % 18.2 % (15.0-51.0); MEAN CORPUSCULAR HEMOGLOBIN 29.1 pg (29.0-33.0); MEAN CORPUSCULAR VOLUME 88.1 fl (82.0-101.0); MEAN PLATELET VOLUME 10.3 fl (7.4-10.4); MONOCYTE # 0.7 10^3/ul (0.3-0.9); MONOCYTES % 5.2 % (0.0-11.0); NEUTROPHIL # 9.5 10^3/ul (1.6-7.5); NEUTROPHILS % 74.1 % (39.0-77.0); PLATELET COUNT 239 10^3/UL (140-415); RED BLOOD COUNT 3.78 10^6/ul (4.20-5.40); RED CELL DISTRIBUTION WIDTH 14.6 % (11.5-14.5); WHITE BLOOD COUNT 12.9 10^3/ul (4.8-10.8)
[2016-07-23 06:25] LABS: CALCIUM 7.6 mg/dl (8.4-10.2); CREATININE 0.72 mg/dl (0.44-1.00); POTASSIUM 3.7 mmol/L (3.5-5.1)
[2016-07-23 08:00] VITALS: BP 166/67; PULSE 83; RESP 18
[2016-07-23] MEDS: FAMOTIDINE 20 MG INJ IV SCH (09:41)
[2016-07-23] MEDS: METOPROLOL 25 MG TAB PO SCH ×2 (09:42→20:20)
[2016-07-23 13:33] VITALS: BP 113/55; PULSE 62
--- NOTE | 2016-07-23 15:24 | PN ---
Date/Time of Note Date/Time of Note DATE: 07/23/16 TIME: 15:21 Assessment/Plan VTE Prophylaxis VTE Prophylaxis Intervention: SCD's Lines/Catheters IV C[facility]ter Type (from [facility]): Peripheral IV Urinary Cath still in place: No Assessment/Plan Chief Complaint/Hosp Course Problems: Assessment/Plan Abdominal pain/Diarrhea improved * Diverticulitis * C difficile positive * EGD 06/11/2016 Presbyesophagus R/O eosinophilic esophagitis * Hypertension * Hx of COPD * Diastolic heart failure * Dyslipidemia * S/P left hip hemiarthroplasty * Plan * Continue present management * Adequate hydration Subjective 24 Hr Interval Summary Free Text/Dictation * Course reviewed with RN * Patient seen and examined * No abdominal pain nor diarrhea Exam/Review of Systems Vital Signs Vitals Vital Signs Date Time Temp Pulse Resp B/P Pulse Ox O2 Delivery O2 Flow Rate FiO2 07/23/16 13:33 62 113/55 07/23/16 08:00 98.3 18 96 Room Air 07/23/16 01:10 2.0 Intake and Output 07/22/16 07/22/16 07/23/16 15:00 23:00 07:00 Intake Total 100 ml 1680 ml 1125 ml Balance 100 ml 1680 ml 1125 ml Exam Constitutional: alert, frail Neck: non-tender, supple Respiratory: clear to auscultation, diminished breath sounds, normal air movement Cardiovascular: nl pulses, regular rate and rhythm Gastrointestinal: bowel sounds, distended, non-tender, soft Musculoskeletal: nl extremities to inspection Extremities: normal pulses Results Result Diagram: 07/23/16 0520 07/23/16 0520 Results 24 hrs Laboratory Tests Test 07/23/16 05:10 07/23/16 05:20 Prothrombin Time 16.5 H Prothrombin Time Ratio 1.3 INR International Normalized Ratio 1.32 Activated Partial Thromboplast Time 33.4 White Blood Count 12.9 #H Red Blood Count 3.78 L Hemoglobin 11.0 L Hematocrit 33.3 L Mean Corpuscular Volume 88.1 Mean Corpuscular Hemoglobin 29.1 Mean Corpuscular Hemoglobin Concent 33.0 Red Cell Distribution Width 14.6 H Platelet Count 239 # Mean Platelet Volume 10.3 Neutrophils % 74.1 Lymphocytes % 18.2 Monocytes % 5.2 Eosinophils % 1.6 Basophils % 0.2 Nucleated Red Blood Cells % 0.0 Neutrophils # 9.5 H Lymphocytes # 2.3 Monocytes # 0.7 Eosinophils # 0.2 Basophils # 0.0 Nucleated Red Blood Cells # 0.0 Sodium Level 130 L Potassium Level 3.7 Chloride Level 107 Carbon Dioxide Level 23 Anion Gap 4 L Blood Urea Nitrogen 9 Creatinine 0.72 Glucose Level 110 Calcium Level 7.6 L Medications Medications Current Medications Metronidazole 100 ml @ 100 mls/hr Q6H IVPB Last administered on 07/23/16 13:38 ; Admin Dose 100 MLS/HR; Start 07/18/16 at 08:00 Dextrose/Sodium Chloride (D5-1/2ns) 1,000 ml @ 100 mls/hr Q10H IV Last administered on 07/23/16 04:45; Admin Dose 100 MLS/HR; Start 07/18/16 at 08:23 Ondansetron HCl (Zofran Inj) 4 mg Q6H PRN IV NAUSEA AND/OR VOMITING Last administered on 07/22/16 17:35; Admin Dose 4 MG; Start 07/18/16 at 08:30 Famotidine (Pepcid Iv) 20 mg DAILY IV Last administered on 07/23/16 09:41; Admin Dose 20 MG; Start 07/18/16 at 09:00 Acetaminophen/ Hydrocodone Bitart ([place] (5/325)) 1 tab Q6H PRN PO PAIN Last administered on 07/20/16 18:14; Admin Dose 1 TAB; Start 07/20/16 at 09:30 Vancomycin HCl (Vancomycin Oral Syringe) 250 mg Q6 PO Last administered on 13:32; Admin Dose 250 MG; Start 07/20/16 at 13:30 Al Hydrox/Mg Hydrox/Simethicone (Mag-Al Plus) 30 ml Q4H PRN PO GASTROINTESTINAL UPSET Last administered on 07/20/16 18:14; Admin Dose 30 ML; Start 07/20/16 at 16:00 Nitroglycerin (Nitroglycerin (Sl Tab) 0.4 Mg) 1 tab Q5M PRN SL ANGINA; Start at 18:30 Clonidine (Catapres) 0.1 mg Q6H PRN PO ELEVATED BLOOD PRESSURE Last administered on 07/22/16 21:32; Admin Dose 0.1 MG; Start 5/1/17 at 02:00 Metoprolol Tartrate (Lopressor) 25 mg BID PO Last administered on 07/23/16t 09: 42; Admin Dose 25 MG; Start 07/22/16 at 09:00 TAYLOR BRAUN MD July 23, 2016 15:24
--- NOTE | 2016-07-23 18:56 | PN ---
Date/Time of Note Date/Time of Note DATE: 07/23/16 TIME: 18:56 Assessment/Plan VTE Prophylaxis VTE Prophylaxis Intervention: SCD's Lines/Catheters IV Catheter Type (from Nrsg): Peripheral IV Urinary Cath still in place: No Assessment/Plan Assessment/Plan 1. Colitis with diarrhea 2/2 C-diff -C Diff is positive, continue Vanco p.o. still having diarrhea with abdominal pain, -GI consult appreciated 2. Abd pain and Diarrhea 2/2 above-continues to have abdominal pain but diarrhea is improving 3. Hypertension-stable 4. Hx of COPD-stable 5. Diastolic heart failure-compensated 6. Pulmonary hypertension 7. Dyslipidemia 8. Recent Hip Fracture Discharge planning-DC when abdominal pain has improved and diarrhea has decreased- pt is still c/o abdominal pain with diarrhea SNF discharge PPx- SCD's Subjective 24 Hr Interval Summary Free Text/Dictation still c/o abd pain and diarrhea Exam/Review of Systems Vital Signs Vitals Vital Signs Date Time Temp Pulse Resp B/P Pulse Ox O2 Delivery O2 Flow Rate FiO2 07/23/16 13:33 62 113/55 07/23/16 08:00 98.3 18 96 Room Air 07/23/16 01:10 2.0 Intake and Output 07/22/16 07/22/16 07/23/16 15:00 23:00 07:00 Intake Total 100 ml 1680 ml 1125 ml Balance 100 ml 1680 ml 1125 ml Exam Constitutional: alert Respiratory: clear to auscultation Cardiovascular: regular rate and rhythm Gastrointestinal: soft, No distended Musculoskeletal: nl extremities to inspection Results Result Diagram: 07/23/16 0520 07/23/16 0520 Results 24 hrs Laboratory Tests Test 07/23/16 05:10 07/23/16 05:20 Prothrombin Time 16.5 H Prothrombin Time Ratio 1.3 INR International Normalized Ratio 1.32 Activated Partial Thromboplast Time 33.4 White Blood Count 12.9 #H Red Blood Count 3.78 L Hemoglobin 11.0 L Hematocrit 33.3 L Mean Corpuscular Volume 88.1 Mean Corpuscular Hemoglobin 29.1 Mean Corpuscular Hemoglobin Concent 33.0 Red Cell Distribution Width 14.6 H Platelet Count 239 # Mean Platelet Volume 10.3 Neutrophils % 74.1 Lymphocytes % 18.2 Monocytes % 5.2 Eosinophils % 1.6 Basophils % 0.2 Nucleated Red Blood Cells % 0.0 Neutrophils # 9.5 H Lymphocytes # 2.3 Monocytes # 0.7 Eosinophils # 0.2 Basophils # 0.0 Nucleated Red Blood Cells # 0.0 Sodium Level 130 L Potassium Level 3.7 Chloride Level 107 Carbon Dioxide Level 23 Anion Gap 4 L Blood Urea Nitrogen 9 Creatinine 0.72 Glucose Level 110 Calcium Level 7.6 L Medications Medications Current Medications Metronidazole 100 ml @ 100 mls/hr Q6H IVPB Last administered on 07/23/16 13:38 ; Admin Dose 100 MLS/HR; Start 07/18/16 at 08:00 Dextrose/Sodium Chloride (D5-1/2ns) 1,000 ml @ 100 mls/hr Q10H IV Last administered on 07/23/16 17:40; Admin Dose 100 MLS/HR; Start 07/18/16 at 08:23 Ondansetron HCl (Zofran Inj) 4 mg Q6H PRN IV NAUSEA AND/OR VOMITING Last administered on 07/22/16 17:35; Admin Dose 4 MG; Start 07/18/16 at 08:30 Famotidine (Pepcid Iv) 20 mg DAILY IV Last administered on 07/23/16 09:41; Admin Dose 20 MG; Start 07/18/16 at 09:00 Acetaminophen/ Hydrocodone Bitart ([place] (5/325)) 1 tab Q6H PRN PO PAIN Last administered on 07/20/16 18:14; Admin Dose 1 TAB; Start 07/20/16 at 09:30 Vancomycin HCl (Vancomycin Oral Syringe) 250 mg Q6 PO Last administered on 17:39; Admin Dose 250 MG; Start 07/20/16 at 13:30 Al Hydrox/Mg Hydrox/Simethicone (Mag-Al Plus) 30 ml Q4H PRN PO GASTROINTESTINAL UPSET Last administered on 07/20/16 18:14; Admin Dose 30 ML; Start 07/20/16 at 16:00 Nitroglycerin (Nitroglycerin (Sl Tab) 0.4 Mg) 1 tab Q5M PRN SL ANGINA; Start at 18:30 Clonidine (Catapres) 0.1 mg Q6H PRN PO ELEVATED BLOOD PRESSURE Last administered on 07/22/16 21:32; Admin Dose 0.1 MG; Start 07/22/16 at 02:00 Metoprolol Tartrate (Lopressor) 25 mg BID PO Last administered on 07/23/16t 09: 42; Admin Dose 25 MG; Start 07/22/16 at 09:00 SHAYLA RUBIO MD July 23, 2016 18:56
[2016-07-23 20:00] VITALS: BP 130/63; PULSE 78; RESP 20
[2016-07-23] MEDS: ALBUTEROL/IPRATROPIUM (NEB) 3 ML AMP HHN PRN (20:29)
[2016-07-23] MEDS ORDERED: ZOLPIDEM 5 MG TAB PO ONE (21:00)
[2016-07-23] MEDS ORDERED: ZOLPIDEM 5 MG TAB PO SCH (23:34)
[2016-07-24] MEDS: metroNIDAZOLE 500 MG/NS (PMX) 100 ML IVPB SCH ×4 (01:42→21:14)
[2016-07-24] MEDS: DEXTROSE 5%-0.45% NACL 1,000 ML IV SCH ×4 (04:23→18:18)
[2016-07-24] MEDS: VANCOMYCIN HCL 250 MG/5ML POSYG PO SCH ×4 (05:52→23:42)
[2016-07-24 06:59] LABS: ADD SCAN DIFF NO
[2016-07-24 07:03] LABS: BASOPHILS % 0.4 % (0.0-2.0); EOSINOPHILS # 0.3 10^3/ul (0.0-0.5); EOSINOPHILS % 2.4 % (0.0-7.0); HEMATOCRIT 33.1 % (37.0-47.0); HEMOGLOBIN 10.5 g/dl (12.0-16.0); LYMPHOCYTES # 2.5 10^3/ul (0.8-2.9); LYMPHOCYTES % 22.5 % (15.0-51.0); MEAN CORPUSCULAR HEMOGLOBIN 28.5 pg (29.0-33.0); MEAN CORPUSCULAR HGB CONC 31.7 g/dl (32.0-37.0); MEAN CORPUSCULAR VOLUME 89.9 fl (82.0-101.0); MEAN PLATELET VOLUME 10.7 fl (7.4-10.4); MONOCYTE # 0.7 10^3/ul (0.3-0.9); NEUTROPHIL # 7.5 10^3/ul (1.6-7.5); NEUTROPHILS % 67.9 % (39.0-77.0); PLATELET COUNT 282 10^3/UL (140-415); RED BLOOD COUNT 3.68 10^6/ul (4.20-5.40); RED CELL DISTRIBUTION WIDTH 14.8 % (11.5-14.5); WHITE BLOOD COUNT 11.1 10^3/ul (4.8-10.8)
[2016-07-24 07:27] LABS: POTASSIUM 4.1 mmol/L (3.5-5.1)
[2016-07-24 07:30] LABS: CREATININE 0.65 mg/dl (0.44-1.00)
[2016-07-24 07:31] LABS: CALCIUM 7.4 mg/dl (8.4-10.2)
[2016-07-24 08:10] VITALS: BP 146/64; RESP 16
[2016-07-24] MEDS: METOPROLOL 25 MG TAB PO SCH ×2 (09:05→21:17)
[2016-07-24] MEDS: FAMOTIDINE 20 MG INJ IV SCH (09:05)
[2016-07-24] MEDS ORDERED: Vancomycin Oral Syringe PO (12:12)
--- NOTE | 2016-07-24 12:23 | PDOCDIS ---
Discharge Instructions CONDITION Patient Condition: Good HOME CARE INSTRUCTIONS: Special Diet: PUREED ACTIVITY: Activity Restrictions: Slowly Increase Activity Rest between Activity Avoid heavy lifting Avoid Heavy Housework FOLLOW UP/APPOINTMENTS Appointments follow up with her own PMD through HMO Insurance in 1-2 week SHAYLA RUBIO MD July 24, 2016 12:23
[2016-07-24] MEDS ORDERED: METR500T PO (12:26)
--- NOTE | 2016-07-24 15:38 | PN ---
Date/Time of Note Date/Time of Note DATE: 07/24/16 TIME: 15:36 Assessment/Plan VTE Prophylaxis VTE Prophylaxis Intervention: SCD's Lines/Catheters IV Catheter Type (from [facility]): Peripheral IV Urinary Cath still in place: No Assessment/Plan Chief Complaint/Hosp Course Problems: Assessment/Plan Abdominal pain/Diarrhea improved * Diverticulitis * C difficile positive * EGD 06/11/2016 Presbyesophagus R/O eosinophilic esophagitis * Hypertension * Hx of COPD * Diastolic heart failure * Dyslipidemia * S/P left hip hemiarthroplasty * Plan * Continue present management * Adequate hydration Subjective 24 Hr Interval Summary Free Text/Dictation * Course reviewed with RN * patient seen and examined * Denies abdominal pain * diarrhea minimal in amount Exam/Review of Systems Vital Signs Vitals Vital Signs Date Time Temp Pulse Resp B/P Pulse Ox O2 Delivery O2 Flow Rate FiO2 07/24/16 08:10 97.7 77 16 146/64 96 07/23/16 20:30 21 07/23/16 20:00 Room Air 07/23/16 01:10 2.0 Intake and Output 07/23/16 07/23/16 07/24/16 15:00 23:00 07:00 Intake Total 860 ml 1355 ml 1100 ml Balance 860 ml 1355 ml 1100 ml Exam Constitutional: frail Neck: non-tender, supple Respiratory: clear to auscultation Cardiovascular: nl pulses, regular rate and rhythm Gastrointestinal: bowel sounds, non-tender, soft Musculoskeletal: nl extremities to inspection Results Result Diagram: 07/24/16 0615 07/24/16 0615 Results 24 hrs Laboratory Tests Test 07/24/16 06:15 White Blood Count 11.1 H Red Blood Count 3.68 L Hemoglobin 10.5 L Hematocrit 33.1 L Mean Corpuscular Volume 89.9 Mean Corpuscular Hemoglobin 28.5 L Mean Corpuscular Hemoglobin Concent 31.7 L Red Cell Distribution Width 14.8 H Platelet Count 282 Mean Platelet Volume 10.7 H Neutrophils % 67.9 Lymphocytes % 22.5 Monocytes % 6.0 Eosinophils % 2.4 Basophils % 0.4 Nucleated Red Blood Cells % 0.0 Neutrophils # 7.5 Lymphocytes # 2.5 Monocytes # 0.7 Eosinophils # 0.3 Basophils # 0.0 Nucleated Red Blood Cells # 0.0 Sodium Level 134 L Potassium Level 4.1 Chloride Level 107 Carbon Dioxide Level 20 L Anion Gap 11 # Blood Urea Nitrogen 10 Creatinine 0.65 Glucose Level 95 Calcium Level 7.4 L Medications Medications Current Medications Metronidazole 100 ml @ 100 mls/hr Q6H IVPB Last administered on 07/24/16 15:14 ; Admin Dose 100 MLS/HR; Start 07/18/16 at 08:00 Dextrose/Sodium Chloride (D5-1/2ns) 1,000 ml @ 100 mls/hr Q10H IV Last administered on 07/24/16 05:52; Admin Dose 100 MLS/HR; Start 07/18/16 at 08:23 Ondansetron HCl (Zofran Inj) 4 mg Q6H PRN IV NAUSEA AND/OR VOMITING Last administered on 07/22/16 17:35; Admin Dose 4 MG; Start 07/18/16 at 08:30 Acetaminophen/ Hydrocodone Bitart ([place] (5/325)) 1 tab Q6H PRN PO PAIN Last administered on 07/20/16 18:14; Admin Dose 1 TAB; Start 07/20/16 at 09:30 Vancomycin HCl (Vancomycin Oral Syringe) 250 mg Q6 PO Last administered on 12:19; Admin Dose 250 MG; Start 07/20/16 at 13:30 Al Hydrox/Mg Hydrox/Simethicone (Mag-Al Plus) 30 ml Q4H PRN PO GASTROINTESTINAL UPSET Last administered on 07/20/16 18:14; Admin Dose 30 ML; Start 07/20/16 at 16:00 Nitroglycerin (Nitroglycerin (Sl Tab) 0.4 Mg) 1 tab Q5M PRN SL ANGINA; Start at 18:30 Clonidine (Catapres) 0.1 mg Q6H PRN PO ELEVATED BLOOD PRESSURE Last administered on 07/22/16 21:32; Admin Dose 0.1 MG; Start 07/22/16 at 02:00 Metoprolol Tartrate (Lopressor) 25 mg BID PO Last administered on 07/24/16 09: 05; Admin Dose 25 MG; Start 07/22/16 at 09:00 Famotidine (Pepcid) 20 mg DAILY PO ; Start 07/25/16 at 09:00 TAYLOR BRAUN MD July 24, 2016 15:38
--- NOTE | 2016-07-24 17:05 | PN ---
Date/Time of Note Date/Time of Note DATE: 07/24/16 TIME: 17:04 Assessment/Plan VTE Prophylaxis VTE Prophylaxis Intervention: SCD's Lines/Catheters IV Catheter Type (from Nrsg): Peripheral IV Urinary Cath still in place: No Assessment/Plan Assessment/Plan 1. Colitis with diarrhea 2/2 C-diff -C Diff is positive, continue Vanco p.o. still having diarrhea with abdominal pain, -GI consult appreciated 2. Abd pain and Diarrhea 2/2 above-continues to have abdominal pain but diarrhea is improving 3. Hypertension-stable 4. Hx of COPD-stable 5. Diastolic heart failure-compensated 6. Pulmonary hypertension 7. Dyslipidemia 8. Recent Hip Fracture Family refused SNF palcement, will try to arrange home with home health for d/c PT evaluation and treatment has been ordered PPx- SCD's Subjective 24 Hr Interval Summary Free Text/Dictation less diarrhea but still c/o abd pain Exam/Review of Systems Vital Signs Vitals Vital Signs Date Time Temp Pulse Resp B/P Pulse Ox O2 Delivery O2 Flow Rate FiO2 07/24/16 08:10 97.7 77 16 146/64 96 07/23/16 20:30 21 07/23/16 20:00 Room Air 07/23/16 01:10 2.0 Intake and Output 07/23/16 07/23/16 07/24/16 15:00 23:00 07:00 Intake Total 860 ml 1355 ml 1100 ml Balance 860 ml 1355 ml 1100 ml Exam Constitutional: alert Respiratory: clear to auscultation Cardiovascular: regular rate and rhythm Gastrointestinal: soft, No distended Musculoskeletal: nl extremities to inspection Results Result Diagram: 07/24/16 0615 07/24/16 0615 Results 24 hrs Laboratory Tests Test 07/24/16 06:15 White Blood Count 11.1 H Red Blood Count 3.68 L Hemoglobin 10.5 L Hematocrit 33.1 L Mean Corpuscular Volume 89.9 Mean Corpuscular Hemoglobin 28.5 L Mean Corpuscular Hemoglobin Concent 31.7 L Red Cell Distribution Width 14.8 H Platelet Count 282 Mean Platelet Volume 10.7 H Neutrophils % 67.9 Lymphocytes % 22.5 Monocytes % 6.0 Eosinophils % 2.4 Basophils % 0.4 Nucleated Red Blood Cells % 0.0 Neutrophils # 7.5 Lymphocytes # 2.5 Monocytes # 0.7 Eosinophils # 0.3 Basophils # 0.0 Nucleated Red Blood Cells # 0.0 Sodium Level 134 L Potassium Level 4.1 Chloride Level 107 Carbon Dioxide Level 20 L Anion Gap 11 # Blood Urea Nitrogen 10 Creatinine 0.65 Glucose Level 95 Calcium Level 7.4 L Medications Medications Current Medications Metronidazole 100 ml @ 100 mls/hr Q6H IVPB Last administered on 07/24/16 15:14 ; Admin Dose 100 MLS/HR; Start 07/18/16 at 08:00 Dextrose/Sodium Chloride (D5-1/2ns) 1,000 ml @ 100 mls/hr Q10H IV Last administered on 07/24/16 05:52; Admin Dose 100 MLS/HR; Start 07/18/16 at 08:23 Ondansetron HCl (Zofran Inj) 4 mg Q6H PRN IV NAUSEA AND/OR VOMITING Last administered on 07/22/16 17:35; Admin Dose 4 MG; Start 07/18/16 at 08:30 Acetaminophen/ Hydrocodone Bitart ([place] (5/325)) 1 tab Q6H PRN PO PAIN Last administered on 07/20/16 18:14; Admin Dose 1 TAB; Start 07/20/16 at 09:30 Vancomycin HCl (Vancomycin Oral Syringe) 250 mg Q6 PO Last administered on 12:19; Admin Dose 250 MG; Start 07/20/16 at 13:30 Al Hydrox/Mg Hydrox/Simethicone (Mag-Al Plus) 30 ml Q4H PRN PO GASTROINTESTINAL UPSET Last administered on 07/20/16 18:14; Admin Dose 30 ML; Start 07/20/16 at 16:00 Nitroglycerin (Nitroglycerin (Sl Tab) 0.4 Mg) 1 tab Q5M PRN SL ANGINA; Start at 18:30 Clonidine (Catapres) 0.1 mg Q6H PRN PO ELEVATED BLOOD PRESSURE Last administered on 07/22/16 21:32; Admin Dose 0.1 MG; Start 07/22/16 at 02:00 Metoprolol Tartrate (Lopressor) 25 mg BID PO Last administered on 07/24/16 09: 05; Admin Dose 25 MG; Start 07/22/16 at 09:00 Famotidine (Pepcid) 20 mg DAILY PO ; Start 07/25/16 at 09:00 SHAYLA RUBIO MD July 24, 2016 17:05
[2016-07-24] MEDS: ZOLPIDEM 5 MG TAB PO PRN (23:42)
[2016-07-24 23:49] VITALS: BP 157/67; PULSE 81
[2016-07-25] VITALS (12 sets, daily range): BP systolic 92–212; BP diastolic 56–91; PULSE 77–99; RESP 18–20
[2016-07-25] MEDS: metroNIDAZOLE 500 MG/NS (PMX) 100 ML IVPB SCH ×4 (02:37→20:59)
[2016-07-25 05:59] LABS: ADD SCAN DIFF NO
[2016-07-25 06:07] LABS: BASOPHILS % 0.3 % (0.0-2.0); EOSINOPHILS # 0.2 10^3/ul (0.0-0.5); EOSINOPHILS % 1.6 % (0.0-7.0); HEMATOCRIT 33.2 % (37.0-47.0); HEMOGLOBIN 10.5 g/dl (12.0-16.0); LYMPHOCYTES # 2.4 10^3/ul (0.8-2.9); LYMPHOCYTES % 18.1 % (15.0-51.0); MEAN CORPUSCULAR HEMOGLOBIN 27.9 pg (29.0-33.0); MEAN CORPUSCULAR HGB CONC 31.6 g/dl (32.0-37.0); MEAN CORPUSCULAR VOLUME 88.3 fl (82.0-101.0); MEAN PLATELET VOLUME 10.2 fl (7.4-10.4); MONOCYTE # 0.6 10^3/ul (0.3-0.9); MONOCYTES % 4.2 % (0.0-11.0); NEUTROPHIL # 9.8 10^3/ul (1.6-7.5); NEUTROPHILS % 75.2 % (39.0-77.0); PLATELET COUNT 350 10^3/UL (140-415); RED BLOOD COUNT 3.76 10^6/ul (4.20-5.40); RED CELL DISTRIBUTION WIDTH 15.2 % (11.5-14.5)
[2016-07-25 06:28] LABS: POTASSIUM 3.6 mmol/L (3.5-5.1)
[2016-07-25] MEDS: DEXTROSE 5%-0.45% NACL 1,000 ML IV SCH ×3 (06:28→20:21)
[2016-07-25] MEDS: VANCOMYCIN HCL 250 MG/5ML POSYG PO SCH ×3 (06:28→18:22)
[2016-07-25 06:31] LABS: CREATININE 0.69 mg/dl (0.44-1.00)
[2016-07-25 06:32] LABS: CALCIUM 7.3 mg/dl (8.4-10.2)
[2016-07-25 06:38] LABS: INR 1.18; PROTIME 15.1 Sec (12.2-14.2); PT RATIO 1.2
[2016-07-25] MEDS: METOPROLOL 25 MG TAB PO SCH ×2 (08:59→20:59)
[2016-07-25] MEDS: FAMOTIDINE 20 MG TAB PO SCH (08:59)
[2016-07-25] MEDS ORDERED: VANC250C12 PO (12:25)
--- NOTE | 2016-07-25 17:07 | PN ---
Date/Time of Note Date/Time of Note DATE: 07/25/16 TIME: 17:05 Assessment/Plan VTE Prophylaxis VTE Prophylaxis Intervention: SCD's Lines/Catheters [facility] Peripheral IV Urinary Cath still in place: No Assessment/Plan Chief Complaint/Hosp Course Problems: Assessment/Plan Abdominal pain/Diarrhea improved * Diverticulitis * C difficile positive * EGD 06/11/2016 Presbyesophagus R/O eosinophilic esophagitis * Hypertension * Hx of COPD * Diastolic heart failure * Dyslipidemia * S/P left hip hemiarthroplasty * Plan * Continue present management * Adequate hydration Subjective 24 Hr Interval Summary Free Text/Dictation * Course reviewed with RN * Patient seen and examined * no abdominal pain nor diarrhea Exam/Review of Systems Vital Signs Vitals Vital Signs Date Time Temp Pulse Resp B/P Pulse Ox O2 Delivery O2 Flow Rate FiO2 07/25/16 07:22 98.9 93 20 92/56 96 07/25/16 05:22 2.0 07/23/16 20:30 21 07/23/16 20:00 Room Air Intake and Output 07/24/16 07/24/16 07/25/16 15:00 23:00 07:00 Intake Total 100 ml 1380 ml 1580 ml Balance 100 ml 1380 ml 1580 ml Exam Constitutional: alert, frail Neck: non-tender, supple Respiratory: clear to auscultation Cardiovascular: nl pulses, regular rate and rhythm Gastrointestinal: bowel sounds, soft, No rebound or guarding Musculoskeletal: nl extremities to inspection Results Result Diagram: 07/25/16 0525 07/25/16 0525 Results 24 hrs Laboratory Tests Test 07/25/16 05:25 White Blood Count 13.0 H Red Blood Count 3.76 L Hemoglobin 10.5 L Hematocrit 33.2 L Mean Corpuscular Volume 88.3 Mean Corpuscular Hemoglobin 27.9 L Mean Corpuscular Hemoglobin Concent 31.6 L Red Cell Distribution Width 15.2 H Platelet Count 350 # Mean Platelet Volume 10.2 Neutrophils % 75.2 Lymphocytes % 18.1 Monocytes % 4.2 Eosinophils % 1.6 Basophils % 0.3 Nucleated Red Blood Cells % 0.0 Neutrophils # 9.8 H Lymphocytes # 2.4 Monocytes # 0.6 Eosinophils # 0.2 Basophils # 0.0 Nucleated Red Blood Cells # 0.0 Prothrombin Time 15.1 H Prothrombin Time Ratio 1.2 INR International Normalized Ratio 1.18 Activated Partial Thromboplast Time 32.0 Sodium Level 132 L Potassium Level 3.6 Chloride Level 108 Carbon Dioxide Level 19 L Anion Gap 9 Blood Urea Nitrogen 9 Creatinine 0.69 Glucose Level 109 Calcium Level 7.3 L Medications Medications Current Medications Metronidazole 100 ml @ 100 mls/hr Q6H IVPB Last administered on 07/25/16 14:42 ; Admin Dose 100 MLS/HR; Start 07/18/16 at 08:00 Dextrose/Sodium Chloride (D5-1/2ns) 1,000 ml @ 100 mls/hr Q10H IV Last administered on 07/25/16 06:28; Admin Dose 100 MLS/HR; Start 07/18/16 at 08:23 Ondansetron HCl (Zofran Inj) 4 mg Q6H PRN IV NAUSEA AND/OR VOMITING Last administered on 07/22/16 17:35; Admin Dose 4 MG; Start 07/18/16 at 08:30 Acetaminophen/ Hydrocodone Bitart ([place] (5/325)) 1 tab Q6H PRN PO PAIN Last administered on 07/20/16 18:14; Admin Dose 1 TAB; Start 07/20/16 at 09:30 Vancomycin HCl (Vancomycin Oral Syringe) 250 mg Q6 PO Last administered on 14:45; Admin Dose 250 MG; Start 07/20/16 at 13:30 Al Hydrox/Mg Hydrox/Simethicone (Mag-Al Plus) 30 ml Q4H PRN PO GASTROINTESTINAL UPSET Last administered on 07/20/16 18:14; Admin Dose 30 ML; Start 07/20/16 at 16:00 Nitroglycerin (Nitroglycerin (Sl Tab) 0.4 Mg) 1 tab Q5M PRN SL ANGINA; Start at 18:30 Clonidine (Catapres) 0.1 mg Q6H PRN PO ELEVATED BLOOD PRESSURE Last administered on 07/24/16 22:45; Admin Dose 0.1 MG; Start 07/22/16 at 02:00 Metoprolol Tartrate (Lopressor) 25 mg BID PO Last administered on 07/25/16 08: 59; Admin Dose 25 MG; Start 07/22/16 at 09:00 Famotidine (Pepcid) 20 mg DAILY PO Last administered on 07/25/16 08:59; Admin Dose 20 MG; Start 07/25/16 at 09:00 Zolpidem Tartrate (Ambien) 5 mg HS PRN PO INSOMNIA Last administered on 23:42; Admin Dose 5 MG; Start 07/24/16 at 23:00 TAYLOR BRAUN MD July 25, 2016 17:07
--- NOTE | 2016-07-25 18:16 | PN ---
Date/Time of Note Date/Time of Note DATE: 07/25/16 TIME: 18:15 Assessment/Plan VTE Prophylaxis VTE Prophylaxis Intervention: SCD's Lines/Catheters IV Catheter Type (from Nrsg): Peripheral IV Urinary Cath still in place: No Assessment/Plan Assessment/Plan 1. Colitis with diarrhea 2/2 C-diff -C Diff is positive, continue Vanco p.o. still having diarrhea with abdominal pain, -GI consult appreciated 2. Abd pain and Diarrhea 2/2 above-continues to have abdominal pain but diarrhea is improving 3. Hypertension-stable 4. Hx of COPD-stable 5. Diastolic heart failure-compensated 6. Pulmonary hypertension 7. Dyslipidemia 8. Recent Hip Fracture Family refused SNF palcement, will try to arrange home with home health for d/c - possible d/c on friday if family agrees PT evaluation and treatment has been ordered PPx- SCD's Subjective 24 Hr Interval Summary Free Text/Dictation pain better, diarrhea improving Exam/Review of Systems Vital Signs Vitals Vital Signs Date Time Temp Pulse Resp B/P Pulse Ox O2 Delivery O2 Flow Rate FiO2 07/25/16 07:22 98.9 93 20 92/56 96 07/25/16 05:22 2.0 07/23/16 20:30 21 07/23/16 20:00 Room Air Intake and Output 07/24/16 07/24/16 07/25/16 15:00 23:00 07:00 Intake Total 100 ml 1380 ml 1580 ml Balance 100 ml 1380 ml 1580 ml Exam Constitutional: alert Respiratory: clear to auscultation Cardiovascular: regular rate and rhythm Gastrointestinal: soft, No distended Musculoskeletal: nl extremities to inspection Results Result Diagram: 07/25/16 0525 07/25/16 0525 Results 24 hrs Laboratory Tests Test 07/25/16 05:25 White Blood Count 13.0 H Red Blood Count 3.76 L Hemoglobin 10.5 L Hematocrit 33.2 L Mean Corpuscular Volume 88.3 Mean Corpuscular Hemoglobin 27.9 L Mean Corpuscular Hemoglobin Concent 31.6 L Red Cell Distribution Width 15.2 H Platelet Count 350 # Mean Platelet Volume 10.2 Neutrophils % 75.2 Lymphocytes % 18.1 Monocytes % 4.2 Eosinophils % 1.6 Basophils % 0.3 Nucleated Red Blood Cells % 0.0 Neutrophils # 9.8 H Lymphocytes # 2.4 Monocytes # 0.6 Eosinophils # 0.2 Basophils # 0.0 Nucleated Red Blood Cells # 0.0 Prothrombin Time 15.1 H Prothrombin Time Ratio 1.2 INR International Normalized Ratio 1.18 Activated Partial Thromboplast Time 32.0 Sodium Level 132 L Potassium Level 3.6 Chloride Level 108 Carbon Dioxide Level 19 L Anion Gap 9 Blood Urea Nitrogen 9 Creatinine 0.69 Glucose Level 109 Calcium Level 7.3 L Medications Medications Current Medications Metronidazole 100 ml @ 100 mls/hr Q6H IVPB Last administered on 07/25/16 14:42 ; Admin Dose 100 MLS/HR; Start 07/18/16 at 08:00 Dextrose/Sodium Chloride (D5-1/2ns) 1,000 ml @ 100 mls/hr Q10H IV Last administered on 07/25/16 06:28; Admin Dose 100 MLS/HR; Start 07/18/16 at 08:23 Ondansetron HCl (Zofran Inj) 4 mg Q6H PRN IV NAUSEA AND/OR VOMITING Last administered on 07/22/16 17:35; Admin Dose 4 MG; Start 07/18/16 at 08:30 Acetaminophen/ Hydrocodone Bitart ([place] (5/325)) 1 tab Q6H PRN PO PAIN Last administered on 07/20/16 18:14; Admin Dose 1 TAB; Start 07/20/16 at 09:30 Vancomycin HCl (Vancomycin Oral Syringe) 250 mg Q6 PO Last administered on 14:45; Admin Dose 250 MG; Start 07/20/16 at 13:30 Al Hydrox/Mg Hydrox/Simethicone (Mag-Al Plus) 30 ml Q4H PRN PO GASTROINTESTINAL UPSET Last administered on 07/20/16 18:14; Admin Dose 30 ML; Start 07/20/16 at 16:00 Nitroglycerin (Nitroglycerin (Sl Tab) 0.4 Mg) 1 tab Q5M PRN SL ANGINA; Start at 18:30 Clonidine (Catapres) 0.1 mg Q6H PRN PO ELEVATED BLOOD PRESSURE Last administered on 07/24/16 22:45; Admin Dose 0.1 MG; Start 07/22/16 at 02:00 Metoprolol Tartrate (Lopressor) 25 mg BID PO Last administered on 07/25/16 08: 59; Admin Dose 25 MG; Start 07/22/16 at 09:00 Famotidine (Pepcid) 20 mg DAILY PO Last administered on 07/25/16 08:59; Admin Dose 20 MG; Start 07/25/16 at 09:00 Zolpidem Tartrate (Ambien) 5 mg HS PRN PO INSOMNIA Last administered on 23:42; Admin Dose 5 MG; Start 07/24/16 at 23:00 SHAYLA RUBIO MD July 25, 2016 18:16
[2016-07-25] MEDS ORDERED: METOPROLOL 5 MG INJ IV ONE (22:00)
[2016-07-25] MEDS ORDERED: LORAZEPAM 2 MG INJ IV STA (22:11)
[2016-07-25 22:29] LABS: ADD SCAN DIFF NO
[2016-07-25 22:32] LABS: BASOPHILS % 0.2 % (0.0-2.0); EOSINOPHILS # 0.2 10^3/ul (0.0-0.5); EOSINOPHILS % 1.3 % (0.0-7.0); HEMATOCRIT 35.9 % (37.0-47.0); HEMOGLOBIN 11.5 g/dl (12.0-16.0); LYMPHOCYTES # 2.1 10^3/ul (0.8-2.9); LYMPHOCYTES % 16.6 % (15.0-51.0); MEAN CORPUSCULAR HEMOGLOBIN 28.5 pg (29.0-33.0); MEAN CORPUSCULAR VOLUME 88.9 fl (82.0-101.0); MEAN PLATELET VOLUME 9.4 fl (7.4-10.4); MONOCYTE # 0.7 10^3/ul (0.3-0.9); MONOCYTES % 5.4 % (0.0-11.0); NEUTROPHIL # 9.5 10^3/ul (1.6-7.5); NEUTROPHILS % 75.8 % (39.0-77.0); PLATELET COUNT 416 10^3/UL (140-415); RED BLOOD COUNT 4.04 10^6/ul (4.20-5.40); RED CELL DISTRIBUTION WIDTH 15.1 % (11.5-14.5); WHITE BLOOD COUNT 12.5 10^3/ul (4.8-10.8)
[2016-07-25 22:48] LABS: CHLORIDE 105 mmol/L (97-110); POTASSIUM 3.4 mmol/L (3.5-5.1); SODIUM 133 mmol/L (135-144)
[2016-07-25 22:51] LABS: ANION GAP 7 (8-16); CARBON DIOXIDE 24 mmol/L (21-31); CREATININE 0.69 mg/dl (0.44-1.00)
--- NOTE | 2016-07-25 22:51 | RADRPT ---
PROCEDURE: CT Brain without contrast. CLINICAL INDICATION: Weakness and nonacute stroke TECHNIQUE: A CT of the brain was performed on a GE LightSpeed 64-slice CT scanner utilizing axial imaging from the skull base through the vertex without IV contrast. Multiplanar reformatted images were made. Images were reviewed on a PACS workstation. The CTDIvol is 104.22 mGy and the DLP is 90 1.63 mGycm. One of the following 3 dose reduction techniques were used: Automated exposure control; adjustment of the mA and/or kV according to patient size; or use of iterative reconstruction technique. COMPARISON: CT brain dated 04/09/2016 FINDINGS: Motion artifact degrades the optimal quality of the study. There is no intracranial hemorrhage, mass effect, or midline shift. No extra-axial fluid collection is seen. The ventricles and sulci are age appropriate. Moderate diffuse volume loss is present. C hronic infarcts in the left frontal and parietal lobes are present in the distribution of the left a nterior and middle cerebral artery watershed as well as the left middle and posterior cerebral arter y. Chronic decreased attenuation is present in the bilateral subcortical white matter, bilateral ce ntrum semiovale and bilateral periventricular white matter compatible with moderate chronic microvas cular ischemic disease. Subtle decreased attenuation is also noted in the marcella. Recommend brain MR I with diffusion to further evaluate for acute superimposed on chronic infarcts. Vascular calcificat ions are present of the bilateral intracranial internal carotid arteries and vertebral basilar syste m. The scalp and calvarium are normal. The bilateral paranasal sinuses, mastoid air cells and middle e ar cavities are clear. IMPRESSION: 1. No evidence of acute intracranial hemorrhage, acute infarcts or acute intracranial pathology. Re commend brain MRI with diffusion to evaluate for acute superimposed on chronic infarcts. 2. 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 3. Moderate chronic microvascular ischemic disease and diffuse volume loss. 4. Mild atherosclerot ic vascular disease A call report was made to Demetris Jordan at 07/25/2016 10:48:24 PM following the completion of the ex [facility]. RPTAT: [facility] .Carolina Flood MD, MD Date Time Electronically viewed and signed by .Carolina Flood MD, MD on 07/25/2016 22:51 .C/
[2016-07-25 22:52] LABS: BLOOD UREA NITROGEN 9 mg/dl (7-20); CALCIUM 7.7 mg/dl (8.4-10.2); GLUCOSE 121 mg/dl (70-220)
[2016-07-25 23:05] LABS: TROPONIN-I < 0.012 ng/ml (0.00-0.12)
--- NOTE | 2016-07-25 23:15 | RADRPT ---
PROCEDURE: XR Chest. CLINICAL INDICATION: Shortness of breath. TECHNIQUE: AP Portable chest. COMPARISON: 06/09/2016 FINDINGS: There is mild to moderate cardiomegaly. Atherosclerotic calcifications are noted within the aorta. There are hazy opacities within both lung bases. The osseous structures are unremarkable. IMPRESSION: Hazy opacities in the lung bases likely due to pleural effusions and atelectasis. RPTAT: [facility] .Hugo Kennedy MD, MD Date Time Electronically viewed and signed by .Hugo Kennedy MD, on 07/25/2016 23:15 .T/
[2016-07-26] VITALS (11 sets, daily range): BP systolic 138–153; BP diastolic 62–70; PULSE 51–87; RESP 18–20
--- NOTE | 2016-07-26 00:08 | PN ---
Date/Time of Note Date/Time of Note DATE: 07/26/16 TIME: 00:07 Assessment/Plan VTE Prophylaxis VTE Prophylaxis Intervention: SCD's Lines/Catheters IV [facility]from [facility] Peripheral IV Urinary Cath still in place: No Assessment/Plan Chief Complaint/Hosp Course This is a 81-year-old female complaining of chest pressure which is likely appears to be the result of a panic attack. Impression/plan: EKG was normal sinus rhythm at approximately 80-90 bpm with no overt ST or T-wave abnormalities appreciated. First set of troponin was negative. Lopressor 2.5 IV given initially for blood pressure which only mildly decreased blood pressure. As family had stated that patient has a history of anxiety and is on clonazepam at home. Ativan was given 0.5 mg which subsequently resulted in a significant improvement of the patient with her calming down and blood pressure improving. And was in a short period of time she appeared relaxed and her speech returned grossly to normal. CT scan was done. No evidence of acute intracranial hemorrhage, acute infarcts or acute intracranial pathology. Recommend brain MRI with diffusion to evaluate for acute superimposed on chronic infarcts. At the current time we will consider obtaining an MRI. However based on the patient's physical exam and her subsequent improvement in a short period of time after receiving Ativan makes acute CVA versus [place] less likely and more likely a panic attack. As per the daughter she feels that 1 of the medications possibly for blood pressure that have been given her have resulted in the patient stating that she feels uneasy and resulting her into going to this panic state. Will advise primary to review medications for blood pressure and also review patient's benzodiazepine history from home use as some of this could also be secondary to withdrawal. Problems: Subjective 24 Hr Interval Summary Free Text/Dictation PIPE RECOVERY SPECIALIST called at approx 10:40pm. Patient seen and examined at the bedside. Patient complaining of chest pressure, feeling worried, and slurring of speech. Daughter is at the bedside stating this happened to the patient on Friday. She states that after she got her blood pressure medication she started feeling weird on Friday and after that ended up developing the same symptoms that she has today. After receiving Ambien on Friday she improved. The daughter states that this is the exact same thing that happened today with her. Exam/Review of Systems Vital Signs Vitals Vital Signs Date Time Temp Pulse Resp B/P Pulse Ox O2 Delivery O2 Flow Rate FiO2 07/25/16 23:27 77 07/25/16 22:17 182/80 07/25/16 21:58 100 Nasal Cannula 07/25/16 21:46 98.1 18 07/25/16 21:24 2.0 07/23/16 20:30 21 Intake and Output 07/25/16 07/25/16 07/26/16 15:00 23:00 07:00 Intake Total 100 ml 1340 ml Balance 100 ml 1340 ml Exam Initial vitals:vitals: Temperature: 98.1 blood pressure: 198/99 respirations 22 pulse 96 After Lopressor 2.5 mg IV: Blood pressure improved to 186/86. Patient given Ativan 0.5 mg and then blood pressure improved to 138/62. General: Patient appears anxious with increased work of breathing, stating she has chest pressure. HEENT: Atraumatic, normocephalic. The pupils are equal, round and reactive. Extraocular motor are intact, speech soft mildly slurred Neck: Supple with full range of motion. No rigidity or meningismus Chest: Nontender Lungs: Clear to auscultation bilaterally no crackles rales or wheezing Heart: Normal S1-S2, Regular rhythm and rate. Abdomen: Soft , nontender, nondistended , bowel sounds are present. No guarding no rebound tenderness , No masses or organomegaly. No costovertebral temporal angle mass Extremities: Normal to inspection, no edema no cyanosis Neurologic: Able to follow commands appropriately cranial nerves grossly intact with the exception of her speech being slightly impaired. Strength 4 out of 5 in bilateral upper and lower extremities, no hemiparalysis appreciated. Results Result Diagram: 07/25/162 07/25/162 Results 24 hrs Laboratory Tests Test 07/25/16 05:25 07/25/16 22:22 White Blood Count 13.0 H 12.5 H Red Blood Count 3.76 L 4.04 L Hemoglobin 10.5 L 11.5 L Hematocrit 33.2 L 35.9 L Mean Corpuscular Volume 88.3 88.9 Mean Corpuscular Hemoglobin 27.9 L 28.5 L Mean Corpuscular Hemoglobin Concent 31.6 L 32.0 Red Cell Distribution Width 15.2 H 15.1 H Platelet Count 350 # 416 H Mean Platelet Volume 10.2 9.4 Neutrophils % 75.2 75.8 Lymphocytes % 18.1 16.6 Monocytes % 4.2 5.4 Eosinophils % 1.6 1.3 Basophils % 0.3 0.2 Nucleated Red Blood Cells % 0.0 0.0 Neutrophils # 9.8 H 9.5 H Lymphocytes # 2.4 2.1 Monocytes # 0.6 0.7 Eosinophils # 0.2 0.2 Basophils # 0.0 0.0 Nucleated Red Blood Cells # 0.0 0.0 Prothrombin Time 15.1 H Prothrombin Time Ratio 1.2 INR International Normalized Ratio 1.18 Activated Partial Thromboplast Time 32.0 Sodium Level 132 L 133 L Potassium Level 3.6 3.4 L Chloride Level 108 105 Carbon Dioxide Level 19 L 24 Anion Gap 9 7 L Blood Urea Nitrogen 9 9 Creatinine 0.69 0.69 Glucose Level 109 121 Calcium Level 7.3 L 7.7 L Troponin I < 0.012 B-Type Natriuretic Peptide 3930 H Medications Medications Current Medications Metronidazole 100 ml @ 100 mls/hr Q6H IVPB Last administered on 07/25/16 20:59 ; Admin Dose 100 MLS/HR; Start 07/18/16 at 08:00 Dextrose/Sodium Chloride (D5-1/2ns) 1,000 ml @ 100 mls/hr Q10H IV Last administered on 07/25/16 20:21; Admin Dose 100 MLS/HR; Start 07/18/16 at 08:23 Ondansetron HCl (Zofran Inj) 4 mg Q6H PRN IV NAUSEA AND/OR VOMITING Last administered on 07/22/16 17:35; Admin Dose 4 MG; Start 07/18/16 at 08:30 Acetaminophen/ Hydrocodone Bitart ([place] (5/325)) 1 tab Q6H PRN PO PAIN Last administered on 07/20/16 18:14; Admin Dose 1 TAB; Start 07/20/16 at 09:30 Vancomycin HCl (Vancomycin Oral Syringe) 250 mg Q6 PO Last administered on 18:22; Admin Dose 250 MG; Start 07/20/16 at 13:30 Al Hydrox/Mg Hydrox/Simethicone (Mag-Al Plus) 30 ml Q4H PRN PO GASTROINTESTINAL UPSET Last administered on 07/20/16 18:14; Admin Dose 30 ML; Start 07/20/16 at 16:00 Nitroglycerin (Nitroglycerin (Sl Tab) 0.4 Mg) 1 tab Q5M PRN SL ANGINA; Start at 18:30 Clonidine (Catapres) 0.1 mg Q6H PRN PO ELEVATED BLOOD PRESSURE Last administered on 07/25/16 18:55; Admin Dose 0.1 MG; Start 07/22/16 at 02:00 Metoprolol Tartrate (Lopressor) 25 mg BID PO Last administered on 07/25/16 20: 59; Admin Dose 25 MG; Start 07/22/16 at 09:00 Famotidine (Pepcid) 20 mg DAILY PO Last administered on 07/25/16 08:59; Admin Dose 20 MG; Start 07/25/16 at 09:00 Zolpidem Tartrate (Ambien) 5 mg HS PRN PO INSOMNIA Last administered on 23:42; Admin Dose 5 MG; Start 07/24/16 at 23:00 REJI HERNANDEZ July 26, 2016 00:08
[2016-07-26] MEDS: metroNIDAZOLE 500 MG/NS (PMX) 100 ML IVPB SCH ×4 (01:59→21:04)
[2016-07-26] MEDS: VANCOMYCIN HCL 250 MG/5ML POSYG PO SCH ×4 (01:59→17:35)
[2016-07-26] MEDS: DEXTROSE 5%-0.45% NACL 1,000 ML IV SCH ×2 (06:19→16:57)
[2016-07-26] MEDS: FAMOTIDINE 20 MG TAB PO SCH (08:50)
[2016-07-26] MEDS: METOPROLOL 25 MG TAB PO SCH ×2 (08:50→21:00)
--- NOTE | 2016-07-26 10:16 | CONS ---
Date/Time of Note Date/Time of Note DATE: 07/26/16 TIME: 10:16 Assessment/Plan Assessment/Plan Additional Assessment/Plan Assessment * Abdominal pain/Diarrhea * Diverticulitis * C. difficile positive * EGD 06/11/2016 Presbyesophagus R/O eosinophilic esophagitis * Hypertension * Hx of COPD * Diastolic heart failure * Dyslipidemia * S/P left hip hemiarthroplasty PLAN * Start pured diet * ST evaluation following * adequate hydration * Continue antibiotic treatment for diarrhea * Further recommendations depend on clinical course * Patient seen in collaboration with Dr. Cole Consultation Date/Type/Reason Admit Date/Time Jul 17, 2016 at 20:43 Initial Consult Date 07/18/16 Type of Consultation: Gastroenterology Referring Provider: BERT FREED 24 HR Interval Summary Free Text/Dictation Hemoglobin stable Tolerating diet No reports of diarrhea bedside Exam/Review of Systems Vital Signs Vitals Vital Signs Date Time Temp Pulse Resp B/P Pulse Ox O2 Delivery O2 Flow Rate FiO2 07/26/16 08:40 74 07/26/16 07:58 97.7 18 153/70 99 07/26/16 00:00 Nasal Cannula 2.0 07/23/16 20:30 21 Intake and Output 07/25/16 07/25/16 07/26/16 15:00 23:00 07:00 Intake Total 100 ml 1490 ml 450 ml Output Total 3 ml Balance 100 ml 1490 ml 447 ml Exam Constitutional: alert, frail Neck: non-tender, supple Respiratory: clear to auscultation Cardiovascular: nl pulses, regular rate and rhythm Gastrointestinal: bowel sounds, soft, No rebound or guarding Musculoskeletal: nl extremities to inspection Results Result Diagram: 07/25/162 07/25/16 2222 Results 24 hrs Laboratory Tests Test 07/25/16 22:22 07/26/16 06:05 White Blood Count 12.5 H Red Blood Count 4.04 L Hemoglobin 11.5 L Hematocrit 35.9 L Mean Corpuscular Volume 88.9 Mean Corpuscular Hemoglobin 28.5 L Mean Corpuscular Hemoglobin Concent 32.0 Red Cell Distribution Width 15.1 H Platelet Count 416 H Mean Platelet Volume 9.4 Neutrophils % 75.8 Lymphocytes % 16.6 Monocytes % 5.4 Eosinophils % 1.3 Basophils % 0.2 Nucleated Red Blood Cells % 0.0 Neutrophils # 9.5 H Lymphocytes # 2.1 Monocytes # 0.7 Eosinophils # 0.2 Basophils # 0.0 Nucleated Red Blood Cells # 0.0 Sodium Level 133 L Potassium Level 3.4 L Chloride Level 105 Carbon Dioxide Level 24 Anion Gap 7 L Blood Urea Nitrogen 9 Creatinine 0.69 Glucose Level 121 Calcium Level 7.7 L Troponin I < 0.012 < 0.012 B-Type Natriuretic Peptide 3930 H Medications Medications Current Medications Metronidazole 100 ml @ 100 mls/hr Q6H IVPB Last administered on 07/26/16 08:50 ; Admin Dose 100 MLS/HR; Start 07/18/16 at 08:00 Dextrose/Sodium Chloride (D5-1/2ns) 1,000 ml @ 100 mls/hr Q10H IV Last administered on 07/26/16 06:19; Admin Dose 100 MLS/HR; Start 07/18/16 at 08:23 Ondansetron HCl (Zofran Inj) 4 mg Q6H PRN IV NAUSEA AND/OR VOMITING Last administered on 07/22/16 17:35; Admin Dose 4 MG; Start 07/18/16 at 08:30 Acetaminophen/ Hydrocodone Bitart ([place] (5/325)) 1 tab Q6H PRN PO PAIN Last administered on 07/20/16 18:14; Admin Dose 1 TAB; Start 07/20/16 at 09:30 Vancomycin HCl (Vancomycin Oral Syringe) 250 mg Q6 PO Last administered on 06:19; Admin Dose 250 MG; Start 07/20/16 at 13:30 Al Hydrox/Mg Hydrox/Simethicone (Mag-Al Plus) 30 ml Q4H PRN PO GASTROINTESTINAL UPSET Last administered on 07/20/16 18:14; Admin Dose 30 ML; Start 07/20/16 at 16:00 Nitroglycerin (Nitroglycerin (Sl Tab) 0.4 Mg) 1 tab Q5M PRN SL ANGINA; Start at 18:30 Clonidine (Catapres) 0.1 mg Q6H PRN PO ELEVATED BLOOD PRESSURE Last administered on 07/25/16 18:55; Admin Dose 0.1 MG; Start 07/22/16 at 02:00 Metoprolol Tartrate (Lopressor) 25 mg BID PO Last administered on 07/26/16 08: 50; Admin Dose 25 MG; Start 07/22/16 at 09:00 Famotidine (Pepcid) 20 mg DAILY PO Last administered on 07/26/16 08:50; Admin Dose 20 MG; Start 07/25/16 at 09:00 Zolpidem Tartrate (Ambien) 5 mg HS PRN PO INSOMNIA Last administered on 23:42; Admin Dose 5 MG; Start 07/24/16 at 23:00 AIRAM TAI July 26, 2016 10:16
[2016-07-26] MEDS: ALBUTEROL/IPRATROPIUM (NEB) 3 ML AMP HHN PRN (12:12)
[2016-07-26] MEDS: ONDANSETRON 4 MG INJ IV PRN ×2 (14:55→21:04)
[2016-07-26] MEDS ORDERED: METOCLOPRAMIDE 10 MG INJ IV ONE (15:30)
--- NOTE | 2016-07-26 16:32 | RADRPT ---
PROCEDURE: XR Abdomen. CLINICAL INDICATION: Vomiting. TECHNIQUE: AP abdomen x-ray. COMPARISON: No. FINDINGS: The bowel gas pattern is normal. There is no evidence of obstruction. There are no abnormal calcific ations overlying the urinary tracts. The osseus structures are unremarkable. There is consolidative infiltrate in the left lower lobe con sistent with pneumonia. The bones are rarefied. There is a levoscoliosis of the mid lumbar spine. There is a partially visualized compression screw internally fixating an intertrochanteric fracture of the proximal right femur. The heart is enlarged. IMPRESSION: 1. Left lower lobe pneumonia with a left pleural effusion. 2. No mechanical bowel obstruction. 3. Internally fixated intertrochanteric fracture of the proximal right femur. 4. 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 4. Atherosclerotic vascular disease involving the abdominal aorta and common iliac arteries. RPTAT:AAJJ Physician Fam Date Time Electronically viewed and signed by Physician Fam on 07/26/2016 16:32 JOHN/
--- NOTE | 2016-07-26 16:41 | RADRPT ---
Vent Rate: 95 bpm RR Interval: 0 msec MA Interval: 200 msec QRS Duration: 84 msec QT Interval: 386 msec QTC Interval: 485 msec P-R-T [place]: 74 - 27 - -73 degrees Normal sinus rhythm Anterior infarct , age undetermined Abnormal ECG Electronically Signed By: Reza Kat [id number]
--- NOTE | 2016-07-26 17:46 | PN ---
Date/Time of Note Date/Time of Note DATE: 07/26/16 TIME: 17:44 Assessment/Plan VTE Prophylaxis VTE Prophylaxis Intervention: SCD's Lines/Catheters IV Catheter Type (from Nrsg): Peripheral IV Urinary Cath still in place: No Assessment/Plan Assessment/Plan 1. Colitis with diarrhea 2/2 C-diff -C Diff is positive, continue Vanco p.o. still having diarrhea with abdominal pain, -GI consult appreciated 2. Abd pain and Diarrhea 2/2 above-continues to have abdominal pain but diarrhea is improving 3. Hypertension-stable 4. Hx of COPD-stable 5. Diastolic heart failure-compensated 6. Pulmonary hypertension 7. Dyslipidemia 8. Recent Hip Fracture 9. atypical chest pain Family refused SNF palcement, will try to arrange home with home health for d/c - pt c/o chest pain yesterday night, transferred to telemetry floor, getting work up for chest pain today PT evaluation and treatment has been ordered PPx- SCD's Subjective 24 Hr Interval Summary Free Text/Dictation c/o chest pain, transferred to Telemetry floor, so far work up negative, Tele rthythm ok, Liklye panic attack Exam/Review of Systems Vital Signs Vitals Vital Signs Date Time Temp Pulse Resp B/P Pulse Ox O2 Delivery O2 Flow Rate FiO2 07/26/16 16:49 87 07/26/16 16:21 98.0 20 143/62 100 07/26/16 12:34 2.0 07/26/16 12:12 Nasal Cannula 07/23/16 20:30 21 Intake and Output 07/25/16 07/25/16 07/26/16 15:00 23:00 07:00 Intake Total 100 ml 1490 ml 450 ml Output Total 3 ml Balance 100 ml 1490 ml 447 ml Exam Constitutional: alert Respiratory: clear to auscultation Cardiovascular: regular rate and rhythm Gastrointestinal: soft, No distended Musculoskeletal: nl extremities to inspection Results Result Diagram: 07/25/16222107/25/162221 Results 24 hrs Laboratory Tests Test 07/25/16 22:22 07/26/16 06:05 07/26/16 12:20 White Blood Count 12.5 H Red Blood Count 4.04 L Hemoglobin 11.5 L Hematocrit 35.9 L Mean Corpuscular Volume 88.9 Mean Corpuscular Hemoglobin 28.5 L Mean Corpuscular Hemoglobin Concent 32.0 Red Cell Distribution Width 15.1 H Platelet Count 416 H Mean Platelet Volume 9.4 Neutrophils % 75.8 Lymphocytes % 16.6 Monocytes % 5.4 Eosinophils % 1.3 Basophils % 0.2 Nucleated Red Blood Cells % 0.0 Neutrophils # 9.5 H Lymphocytes # 2.1 Monocytes # 0.7 Eosinophils # 0.2 Basophils # 0.0 Nucleated Red Blood Cells # 0.0 Sodium Level 133 L Potassium Level 3.4 L Chloride Level 105 Carbon Dioxide Level 24 Anion Gap 7 L Blood Urea Nitrogen 9 Creatinine 0.69 Glucose Level 121 Calcium Level 7.7 L Troponin I < 0.012 < 0.012 < 0.012 B-Type Natriuretic Peptide 3930 H Medications Medications Current Medications Metronidazole 100 ml @ 100 mls/hr Q6H IVPB Last administered on 07/26/16 13:30 ; Admin Dose 100 MLS/HR; Start 07/18/16 at 08:00 Dextrose/Sodium Chloride (D5-1/2ns) 1,000 ml @ 100 mls/hr Q10H IV Last administered on 07/26/16 16:57; Admin Dose 100 MLS/HR; Start 07/18/16 at 08:23 Ondansetron HCl (Zofran Inj) 4 mg Q6H PRN IV NAUSEA AND/OR VOMITING Last administered on 07/26/16 14:55; Admin Dose 4 MG; Start 07/18/16 at 08:30 Acetaminophen/ Hydrocodone Bitart ([place] (5/325)) 1 tab Q6H PRN PO PAIN Last administered on 07/20/16 18:14; Admin Dose 1 TAB; Start 07/20/16 at 09:30 Vancomycin HCl (Vancomycin Oral Syringe) 250 mg Q6 PO Last administered on 17:35; Admin Dose 250 MG; Start 07/20/16 at 13:30 Al Hydrox/Mg Hydrox/Simethicone (Mag-Al Plus) 30 ml Q4H PRN PO GASTROINTESTINAL UPSET Last administered on 07/20/16 18:14; Admin Dose 30 ML; Start 07/20/16 at 16:00 Nitroglycerin (Nitroglycerin (Sl Tab) 0.4 Mg) 1 tab Q5M PRN SL ANGINA; Start at 18:30 Clonidine (Catapres) 0.1 mg Q6H PRN PO ELEVATED BLOOD PRESSURE Last administered on 07/25/16 18:55; Admin Dose 0.1 MG; Start 07/22/16 at 02:00 Metoprolol Tartrate (Lopressor) 25 mg BID PO Last administered on 07/26/16 08: 50; Admin Dose 25 MG; Start 07/22/16 at 09:00 Famotidine (Pepcid) 20 mg DAILY PO Last administered on 07/26/16 08:50; Admin Dose 20 MG; Start 07/25/16 at 09:00 Zolpidem Tartrate (Ambien) 5 mg HS PRN PO INSOMNIA Last administered on 23:42; Admin Dose 5 MG; Start 07/24/16 at 23:00 Miscellaneous Information Patients own medicat... BID@10,16 XX ; Start 07/27/16 at 10:00 SHAYLA RUBIO MD July 26, 2016 17:46
[2016-07-27] VITALS (13 sets, daily range): BP systolic 110–175; BP diastolic 55–86; PULSE 96–176; RESP 18–22
[2016-07-27] MEDS ORDERED: hydrALAzine 20 MG INJ IV PRN (01:30)
[2016-07-27] MEDS: metroNIDAZOLE 500 MG/NS (PMX) 100 ML IVPB SCH ×4 (01:54→20:26)
[2016-07-27] MEDS: ONDANSETRON 4 MG INJ IV PRN ×2 (02:02→08:49)
[2016-07-27] MEDS: DEXTROSE 5%-0.45% NACL 1,000 ML IV SCH ×3 (02:23→20:34)
[2016-07-27] MEDS: VANCOMYCIN HCL 250 MG/5ML POSYG PO SCH ×5 (06:00→23:25)
[2016-07-27] MEDS: FAMOTIDINE 20 MG TAB PO SCH (08:52)
[2016-07-27] MEDS: METOPROLOL 25 MG TAB PO SCH ×2 (08:53→20:27)
--- NOTE | 2016-07-27 11:19 | RADRPT ---
PROCEDURE: MR Brain without contrast. CLINICAL INDICATION: Slurred speech. History of colitis/diverticulitis. TECHNIQUE: Multiplanar multi echo imaging is performed to the brain in the coronal sagittal and ax ial planes. Axial fast spin echo T2-weighted, sagittal T1 FLAIR, axial T1 FLAIR, exponential appare nt diffusion coefficient axial, apparent diffusion coefficient axial images are performed without co ntrast. Coronal T2 GRE and axial diffusion weighted images are also reviewed. COMPARISON: CT scan of brain 07/25/2016 10:37 p.m. FINDINGS: Multiplanar multi echo imaging is performed to the brain with diffusion weighted imaging a nd ADC maps. The fourth ventricle is normal in size. The third and lateral ventricles are dilated with proportional sulcal dilatation noted. There are chronic small vessel ischemic changes in the p eriventricular white matter tracts adjacent to the lateral ventricles. 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 There is encephalomalacia the cortex and adjacent white matter tracts of the site. There is encephalomalacia from an old infarct involving the left frontal lobe near the convexity of the skull. This is unchanged. The cerebellum is normal. The pituitary gland is normal in size. The globes and extraocular muscles are normal. The visible portions of the paranasal sinuses are clear. The mastoid air cells and internal control consultant y canals are normal. IMPRESSION: 1. There has been no significant interval change in the appearance of brain with her to the prior C T scan dated 07/25/2016. 2. Cerebral atrophy with chronic small vessel ischemic changes in the periventricular white matter tracts adjacent to the lateral ventricles. No acute infarct or acute intracranial hemorrhage is jr ntified. 3. 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 4. RPTAT:AAJJ Physician Fam Date Time Electronically viewed and signed by Physician Fam on 07/27/2016 11:18 JOHN/
--- NOTE | 2016-07-27 11:48 | CONS ---
Date/Time of Note Date/Time of Note DATE: 07/27/16 TIME: 11:45 Assessment/Plan Assessment/Plan Additional Assessment/Plan Assessment * Abdominal pain/Diarrhea * Diverticulitis * C. difficile positive * EGD 06/11/2016 Presbyesophagus R/O eosinophilic esophagitis * Hypertension * Hx of COPD * Diastolic heart failure * Dyslipidemia * S/P left hip hemiarthroplasty PLAN * Continue pured diet * ST evaluation following * adequate hydration * Start Zofran as scheduled * Continue antibiotic treatment for diarrhea * Further recommendations depend on clinical course * Patient seen in collaboration with Dr. Cole Consultation Date/Type/Reason Admit Date/Time Jul 17, 2016 at 20:43 Initial Consult Date 07/18/16 Type of Consultation: Gastroenterology Referring Provider: BERT FREED 24 HR Interval Summary Free Text/Dictation Reports of vomiting and decreased appetite at bedside Patient denies abdominal pain Will start trial of Reglan scheduled and monitor Exam/Review of Systems Vital Signs Vitals Vital Signs Date Time Temp Pulse Resp B/P Pulse Ox O2 Delivery O2 Flow Rate FiO2 07/27/16 08:00 120 07/27/16 08:00 Nasal Cannula 2.0 07/27/16 07:38 97.4 18 138/55 97 07/23/16 20:30 21 Intake and Output 07/26/16 07/26/16 07/27/16 15:00 23:00 07:00 Intake Total 200 ml 1740 ml 600 ml Output Total 100 ml Balance 200 ml 1740 ml 500 ml Exam Constitutional: alert, oriented, well developed Psych: nl mood/affect Head: normocephalic Eyes: EOMI, nl conjunctiva, nl lids ENMT: nl external ears & nose, nl lips & teeth, nl nasal mucosa & septum Respiratory: clear to auscultation, normal air movement Cardiovascular: regular rate and rhythm Gastrointestinal: soft, non-tender Musculoskeletal: nl extremities to inspection Neurological: GAMEPLAY PROGRAMMER II-XII intact Results Result Diagram: 07/25/16222107/25/162221 Results 24 hrs Laboratory Tests Test 07/26/16 12:20 Troponin I < 0.012 Medications Medications Current Medications Metronidazole 100 ml @ 100 mls/hr Q6H IVPB Last administered on 07/27/16t 08:49 ; Admin Dose 100 MLS/HR; Start 07/18/16 at 08:00 Dextrose/Sodium Chloride (D5-1/2ns) 1,000 ml @ 100 mls/hr Q10H IV Last administered on 07/27/16 05:42; Admin Dose 100 MLS/HR; Start 07/18/16 at 08:23 Ondansetron HCl (Zofran Inj) 4 mg Q6H PRN IV NAUSEA AND/OR VOMITING Last administered on 07/27/16 08:49; Admin Dose 4 MG; Start 07/18/16 at 08:30 Acetaminophen/ Hydrocodone Bitart ([place] (5/325)) 1 tab Q6H PRN PO PAIN Last administered on 07/20/16 18:14; Admin Dose 1 TAB; Start 07/20/16 at 09:30 Vancomycin HCl (Vancomycin Oral Syringe) 250 mg Q6 PO Last administered on 17:35; Admin Dose 250 MG; Start 07/20/16 at 13:30 Al Hydrox/Mg Hydrox/Simethicone (Mag-Al Plus) 30 ml Q4H PRN PO GASTROINTESTINAL UPSET Last administered on 07/20/16 18:14; Admin Dose 30 ML; Start 07/20/16 at 16:00 Nitroglycerin (Nitroglycerin (Sl Tab) 0.4 Mg) 1 tab Q5M PRN SL ANGINA; Start at 18:30 Clonidine (Catapres) 0.1 mg Q6H PRN PO ELEVATED BLOOD PRESSURE Last administered on 07/25/16 18:55; Admin Dose 0.1 MG; Start 07/22/16 at 02:00 Metoprolol Tartrate (Lopressor) 25 mg BID PO Last administered on 07/27/16 08: 53; Admin Dose 25 MG; Start 07/22/16 at 09:00 Famotidine (Pepcid) 20 mg DAILY PO Last administered on 07/27/16 08:52; Admin Dose 20 MG; Start 07/25/16 at 09:00 Zolpidem Tartrate (Ambien) 5 mg HS PRN PO INSOMNIA Last administered on 23:42; Admin Dose 5 MG; Start 07/24/16 at 23:00 Miscellaneous Information Patients own medicat... BID@10,16 XX ; Start 07/27/16 at 10:00 Hydralazine HCl (Apresoline) 10 mg Q6H PRN IV ELEVATED SYSTOLIC BP Last administered on 07/27/16t 01:54; Admin Dose 10 MG; Start 07/27/16 at 01:30 AIRAM TAI July 27, 2016 11:48
[2016-07-27] MEDS: ONDANSETRON 4 MG INJ IV SCH ×2 (14:38→20:26)
--- NOTE | 2016-07-27 15:38 | PN ---
Date/Time of Note Date/Time of Note DATE: 07/27/16 TIME: 15:36 Assessment/Plan VTE Prophylaxis VTE Prophylaxis Intervention: SCD's Lines/Catheters IV Catheter Type (from Nrsg): Peripheral IV Urinary Cath still in place: No Assessment/Plan Assessment/Plan 1. Colitis with diarrhea 2/2 C-diff -C Diff is positive, continue Vanco p.o. still having diarrhea with abdominal pain, -GI consult appreciated 2. Abd pain and Diarrhea 2/2 above-continues to have abdominal pain but diarrhea is improving 3. Hypertension-stable 4. Hx of COPD-stable 5. Diastolic heart failure-compensated 6. Pulmonary hypertension 7. Dyslipidemia 8. Recent Hip Fracture 9. atypical chest pain Family refused SNF palcement, will try to arrange home with home health for d/c - pt c/o chest pain yesterday night, transferred to telemetry floor, getting work up for chest pain today MRI negative for acute CVA PT evaluation and treatment has been ordered PPx- SCD's Subjective 24 Hr Interval Summary Free Text/Dictation MRI negative for acute CVA Exam/Review of Systems Vital Signs Vitals Vital Signs Date Time Temp Pulse Resp B/P Pulse Ox O2 Delivery O2 Flow Rate FiO2 07/27/16 12:03 97.8 109 18 140/65 93 07/27/16 08:00 Nasal Cannula 2.0 07/23/16 20:30 21 Intake and Output 07/26/16 07/26/16 07/27/16 15:00 23:00 07:00 Intake Total 200 ml 1740 ml 600 ml Output Total 100 ml Balance 200 ml 1740 ml 500 ml Exam Constitutional: alert Respiratory: clear to auscultation Cardiovascular: regular rate and rhythm Gastrointestinal: soft, No distended Musculoskeletal: nl extremities to inspection Results Result Diagram: 07/25/162 07/25/162 Medications Medications Current Medications Metronidazole 100 ml @ 100 mls/hr Q6H IVPB Last administered on 07/27/16 14:38 ; Admin Dose 100 MLS/HR; Start 07/18/16 at 08:00 Dextrose/Sodium Chloride (D5-1/2ns) 1,000 ml @ 100 mls/hr Q10H IV Last administered on 07/27/16 05:42; Admin Dose 100 MLS/HR; Start 07/18/16 at 08:23 Acetaminophen/ Hydrocodone Bitart ([place] (5/325)) 1 tab Q6H PRN PO PAIN Last administered on 07/20/16 18:14; Admin Dose 1 TAB; Start 07/20/16 at 09:30 Vancomycin HCl (Vancomycin Oral Syringe) 250 mg Q6 PO Last administered on 17:35; Admin Dose 250 MG; Start 07/20/16 at 13:30 Al Hydrox/Mg Hydrox/Simethicone (Mag-Al Plus) 30 ml Q4H PRN PO GASTROINTESTINAL UPSET Last administered on 07/20/16 18:14; Admin Dose 30 ML; Start 07/20/16 at 16:00 Nitroglycerin (Nitroglycerin (Sl Tab) 0.4 Mg) 1 tab Q5M PRN SL ANGINA; Start at 18:30 Clonidine (Catapres) 0.1 mg Q6H PRN PO ELEVATED BLOOD PRESSURE Last administered on 07/25/16 18:55; Admin Dose 0.1 MG; Start 07/22/16 at 02:00 Metoprolol Tartrate (Lopressor) 25 mg BID PO Last administered on 07/27/16 08: 53; Admin Dose 25 MG; Start 07/22/16 at 09:00 Famotidine (Pepcid) 20 mg DAILY PO Last administered on 07/27/16 08:52; Admin Dose 20 MG; Start 07/25/16 at 09:00 Zolpidem Tartrate (Ambien) 5 mg HS PRN PO INSOMNIA Last administered on 23:42; Admin Dose 5 MG; Start 07/24/16 at 23:00 Miscellaneous Information Patients own medicat... BID@10,16 XX ; Start 07/27/16 at 10:00 Hydralazine HCl (Apresoline) 10 mg Q6H PRN IV ELEVATED SYSTOLIC BP Last administered on 07/27/16 01:54; Admin Dose 10 MG; Start 07/27/16 at 01:30 Ondansetron HCl (Zofran Inj) 4 mg Q6H IV Last administered on 07/27/16 14:38; Admin Dose 4 MG; Start 07/27/16 at 14:30 SHAYLA RUBIO MD July 27, 2016 15:37
[2016-07-27] MEDS: ZOLPIDEM 5 MG TAB PO PRN (23:25)
[2016-07-28] VITALS (18 sets, daily range): BP systolic 85–142; BP diastolic 45–79; PULSE 92–130; RESP 18–32
[2016-07-28] MEDS: ALBUTEROL/IPRATROPIUM (NEB) 3 ML AMP HHN PRN ×2 (01:29→18:20)
[2016-07-28] MEDS ORDERED: ALBUMIN HUMAN 25% 100 ML IV ONE (01:30)
[2016-07-28] MEDS: ONDANSETRON 4 MG INJ IV SCH ×4 (03:09→22:20)
[2016-07-28] MEDS: metroNIDAZOLE 500 MG/NS (PMX) 100 ML IVPB SCH ×2 (03:09→08:17)
[2016-07-28] MEDS: VANCOMYCIN HCL 250 MG/5ML POSYG PO SCH ×3 (05:57→17:31)
[2016-07-28] MEDS: METOPROLOL 25 MG TAB PO SCH ×2 (09:00→21:00)
[2016-07-28] MEDS: FAMOTIDINE 20 MG TAB PO SCH (10:01)
[2016-07-28] MEDS: DEXTROSE 5%-0.45% NACL 1,000 ML IV SCH ×3 (12:00→21:47)
[2016-07-28] MEDS: HYDROCODONE/APAP (5/325) TAB PO PRN ×2 (12:35→17:58)
--- NOTE | 2016-07-28 13:47 | CONS ---
Date/Time of Note Date/Time of Note DATE: 07/28/16 TIME: 13:45 Assessment/Plan Assessment/Plan Additional Assessment/Plan Assessment * Abdominal pain/Diarrhea * Diverticulitis * C. difficile positive * EGD 06/11/2016 Presbyesophagus R/O eosinophilic esophagitis * Hypertension * Hx of COPD * Diastolic heart failure * Dyslipidemia * S/P left hip hemiarthroplasty PLAN * Continue pured diet * ST following * adequate hydration * Continue antibiotic treatment for diarrhea * Further recommendations depend on clinical course * Patient seen in collaboration with Dr. Cole Consultation Date/Type/Reason Admit Date/Time Jul 17, 2016 at 20:43 Initial Consult Date 07/18/16 Type of Consultation: Gastroenterology Referring Provider: BERT FREED 24 HR Interval Summary Free Text/Dictation No bedside reports of diarrhea Patient tolerating diet Switch to Flagyl to p.o. secondary difficulty with IV access Exam/Review of Systems Vital Signs Vitals Vital Signs Date Time Temp Pulse Resp B/P Pulse Ox O2 Delivery O2 Flow Rate FiO2 07/28/16 12:40 112 07/28/16 11:57 97.9 18 115/79 96 07/28/16 01:31 Nasal Cannula 2.0 27 Intake and Output 07/27/16 07/27/16 07/28/16 14:59 22:59 06:59 Intake Total 900 ml 150 ml 75 ml Output Total 175 ml 650 ml Balance 900 ml -25 ml -575 ml Exam Constitutional: alert, oriented, thin Psych: nl mood/affect Head: normocephalic Eyes: EOMI, nl conjunctiva, nl lids ENMT: nl external ears & nose, nl lips & teeth, nl nasal mucosa & septum Respiratory: clear to auscultation, normal air movement Cardiovascular: regular rate and rhythm Gastrointestinal: soft, non-tender Musculoskeletal: nl extremities to inspection Neurological: CH[employer] II-XII intact Results Result Diagram: 07/25/16222107/25/162221 Medications Medications Current Medications Dextrose/Sodium Chloride (D5-1/2ns) 1,000 ml @ 100 mls/hr Q10H IV Last administered on 07/27/16 20:34; Admin Dose 100 MLS/HR; Start 07/18/16 at 08:23 Acetaminophen/ Hydrocodone Bitart ([place] (5/325)) 1 tab Q6H PRN PO PAIN Last administered on 07/28/16 12:35; Admin Dose 1 TAB; Start 07/20/16 at 09:30 Vancomycin HCl (Vancomycin Oral Syringe) 250 mg Q6 PO Last administered on 12:36; Admin Dose 250 MG; Start 07/20/16 at 13:30 Al Hydrox/Mg Hydrox/Simethicone (Mag-Al Plus) 30 ml Q4H PRN PO GASTROINTESTINAL UPSET Last administered on 07/20/16 18:14; Admin Dose 30 ML; Start 07/20/16 at 16:00 Nitroglycerin (Nitroglycerin (Sl Tab) 0.4 Mg) 1 tab Q5M PRN SL ANGINA; Start at 18:30 Clonidine (Catapres) 0.1 mg Q6H PRN PO ELEVATED BLOOD PRESSURE Last administered on 07/25/16 18:55; Admin Dose 0.1 MG; Start 07/22/16 at 02:00 Metoprolol Tartrate (Lopressor) 25 mg BID PO Last administered on 07/27/16 20: 27; Admin Dose 25 MG; Start 07/22/16 at 09:00 Famotidine (Pepcid) 20 mg DAILY PO Last administered on 07/28/16 10:01; Admin Dose 20 MG; Start 07/25/16 at 09:00 Zolpidem Tartrate (Ambien) 5 mg HS PRN PO INSOMNIA Last administered on 23:25; Admin Dose 5 MG; Start 07/24/16 at 23:00 Miscellaneous Information Patients own medicat... BID@ XX ; Start 07/27/16 at 10:00 Hydralazine HCl (Apresoline) 10 mg Q6H PRN IV ELEVATED SYSTOLIC BP Last administered on 07/27/16 01:54; Admin Dose 10 MG; Start 07/27/16 at 01:30 Ondansetron HCl (Zofran Inj) 4 mg Q6H IV Last administered on 07/28/16 09:59; Admin Dose 4 MG; Start 07/27/16 at 14:30 Metronidazole (Flagyl) 500 mg Q6 PO ; Start 07/28/16 at 18:00 AIRAM TAI July 28, 2016 13:47
[2016-07-28] MEDS ORDERED: LIDOCAINE 1% (MPF) 5 ML VIAL SC ONE (14:00)
--- NOTE | 2016-07-28 14:04 | PN ---
Date/Time of Note Date/Time of Note DATE: 07/28/16 TIME: 14:01 Assessment/Plan VTE Prophylaxis VTE Prophylaxis Intervention: SCD's Lines/Catheters IV Catheter Type (from Nrsg): [place] Urinary Cath still in place: Yes Reason Cath still needed: other (indicate) (lethargic ) Assessment/Plan Assessment/Plan 1. Colitis with diarrhea 2/2 C-diff -C Diff is positive, continue Vanco p.o. still having diarrhea with abdominal pain, -GI consult appreciated - flagyl changed to PO today 2. Abd pain and Diarrhea 2/2 above-continues to have abdominal pain but diarrhea is improving 3. Hypertension-stable 4. Hx of COPD-stable 5. Diastolic heart failure-compensated 6. Pulmonary hypertension 7. Dyslipidemia 8. Recent Hip Fracture 9. atypical chest pain Family refused SNF palcement, will try to arrange home with home health for d/c - pt c/o chest pain yesterday night, transferred to telemetry floor, getting work up for chest pain today MRI negative for acute CVA lost IV access, pt is getting IV fluids for hydration, will order PICC line placement Palliative care consult PT evaluation and treatment has been ordered PPx- SCD's Subjective 24 Hr Interval Summary Free Text/Dictation abx chanaged to PO, not eating well, Lost IV access Exam/Review of Systems Vital Signs Vitals Vital Signs Date Time Temp Pulse Resp B/P Pulse Ox O2 Delivery O2 Flow Rate FiO2 07/28/16 12:40 112 07/28/16 11:57 97.9 18 115/79 96 07/28/16 01:31 Nasal Cannula 2.0 27 Intake and Output 07/27/16 07/27/16 07/28/16 15:00 23:00 07:00 Intake Total 900 ml 150 ml 75 ml Output Total 175 ml 650 ml Balance 900 ml -25 ml -575 ml Exam Constitutional: alert but falling back to sleep Respiratory: clear to auscultation Cardiovascular: regular rate and rhythm Gastrointestinal: soft, No distended Musculoskeletal: nl extremities to inspection + pollard catheter Results Result Diagram: 07/25/16222107/25/162221 Medications Medications Current Medications Dextrose/Sodium Chloride (D5-1/2ns) 1,000 ml @ 100 mls/hr Q10H IV Last administered on 07/27/16t 20:34; Admin Dose 100 MLS/HR; Start 07/18/16 at 08:23 Acetaminophen/ Hydrocodone Bitart ([place] (5/325)) 1 tab Q6H PRN PO PAIN Last administered on 07/28/16 12:35; Admin Dose 1 TAB; Start 07/20/16 at 09:30 Vancomycin HCl (Vancomycin Oral Syringe) 250 mg Q6 PO Last administered on 12:36; Admin Dose 250 MG; Start 07/20/16 at 13:30 Al Hydrox/Mg Hydrox/Simethicone (Mag-Al Plus) 30 ml Q4H PRN PO GASTROINTESTINAL UPSET Last administered on 07/20/16 18:14; Admin Dose 30 ML; Start 07/20/16 at 16:00 Nitroglycerin (Nitroglycerin (Sl Tab) 0.4 Mg) 1 tab Q5M PRN SL ANGINA; Start at 18:30 Clonidine (Catapres) 0.1 mg Q6H PRN PO ELEVATED BLOOD PRESSURE Last administered on 07/25/16 18:55; Admin Dose 0.1 MG; Start 07/22/16 at 02:00 Metoprolol Tartrate (Lopressor) 25 mg BID PO Last administered on 07/27/16 20: 27; Admin Dose 25 MG; Start 07/22/16 at 09:00 Famotidine (Pepcid) 20 mg DAILY PO Last administered on 07/28/16 10:01; Admin Dose 20 MG; Start 07/25/16 at 09:00 Zolpidem Tartrate (Ambien) 5 mg HS PRN PO INSOMNIA Last administered on 23:25; Admin Dose 5 MG; Start 07/24/16 at 23:00 Miscellaneous Information Patients own medicat... BID@10,16 XX ; Start 07/27/16 at 10:00 Hydralazine HCl (Apresoline) 10 mg Q6H PRN IV ELEVATED SYSTOLIC BP Last administered on 07/27/16 01:54; Admin Dose 10 MG; Start 07/27/16 at 01:30 Ondansetron HCl (Zofran Inj) 4 mg Q6H IV Last administered on 07/28/16 09:59; Admin Dose 4 MG; Start 07/27/16 at 14:30 Metronidazole (Flagyl) 500 mg Q6 PO ; Start 07/28/16 at 18:00 SHAYLA RUBIO MD July 28, 2016 14:04
[2016-07-28] MEDS: metroNIDAZOLE 500 MG TAB PO SCH (17:31)
[2016-07-28] MEDS ORDERED: FUROSEMIDE 20 MG INJ IV STA (18:33)
[2016-07-28 19:27] LABS: ADD SCAN DIFF NO
[2016-07-28 19:29] LABS: BASOPHILS % 0.2 % (0.0-2.0); EOSINOPHILS % 0.1 % (0.0-7.0); HEMATOCRIT 30.3 % (37.0-47.0); HEMOGLOBIN 9.7 g/dl (12.0-16.0); LYMPHOCYTES # 0.9 10^3/ul (0.8-2.9); LYMPHOCYTES % 5.1 % (15.0-51.0); MEAN CORPUSCULAR HEMOGLOBIN 28.9 pg (29.0-33.0); MEAN CORPUSCULAR VOLUME 90.2 fl (82.0-101.0); MEAN PLATELET VOLUME 9.3 fl (7.4-10.4); MONOCYTE # 0.6 10^3/ul (0.3-0.9); MONOCYTES % 3.5 % (0.0-11.0); NEUTROPHIL # 16.6 10^3/ul (1.6-7.5); NEUTROPHILS % 90.6 % (39.0-77.0); PLATELET COUNT 441 10^3/UL (140-415); RED BLOOD COUNT 3.36 10^6/ul (4.20-5.40); RED CELL DISTRIBUTION WIDTH 15.9 % (11.5-14.5); WHITE BLOOD COUNT 18.3 10^3/ul (4.8-10.8)
[2016-07-28 19:58] LABS: CREATININE 0.74 mg/dl (0.44-1.00)
[2016-07-28 19:59] LABS: CALCIUM 8.3 mg/dl (8.4-10.2); MAGNESIUM 1.6 mg/dl (1.7-2.5)
--- NOTE | 2016-07-28 20:38 | RADRPT ---
PROCEDURE: Portable chest x-ray. CLINICAL INDICATION: Shortness of breath. TECHNIQUE: Portable AP view of the chest. COMPARISON: 06/09/2016. FINDINGS: There are hazy bilateral lung opacities, vascular congestion, and bilateral pleural effusions. No p ulmonary edema or conolidation is identified. The cardiac silhouette is magnified. There are aortic calcifications. There is no pneumothorax. IMPRESSION: 1. Bilateral pleural effusions. 2. Vascular congestion and hazy bilateral lung opacities, possibly representing pulmonary edema and /or superimposed layering pleural fluid. 3. Aortic atherosclerosis. RPTAT: HTAR .Gurpreet Cline MD, MD Date Time Electronically viewed and signed by .Gurpreet Cline MD, MD on 07/28/2016 20:38 .R/
[2016-07-28 21:57] LABS: AADO2 Arterial 156.7 mmHg (7.0-24.0); Allen Test ACCEPTAB; Arterial Base Excess -1.5 mmol/L (-3.0-3); Arterial COHb 0.3 % (0.0-3.0); Arterial MetHb 0.3 % (0.0-1.5); Arterial Total Hemglobin 10.1 g/dl (12.0-18.0); Blood Gas IEPAP 15/5; Blood Gas PS 10; MODE MASK - BIPAP
[2016-07-28] MEDS ORDERED: MAGNESIUM SULFATE 1 GM/D5W 100 ML IVPB ONE (22:00)
[2016-07-28] MEDS ORDERED: POTASSIUM CHLORIDE 250 ML IVPB ONE (22:00)
[2016-07-29] VITALS (21 sets, daily range): BP systolic 112–156; BP diastolic 46–118; PULSE 102–140; RESP 18–38
[2016-07-29] MEDS: metroNIDAZOLE 500 MG TAB PO SCH ×3 (00:22→11:42)
[2016-07-29] MEDS: VANCOMYCIN HCL 250 MG/5ML POSYG PO SCH ×3 (00:35→12:00)
[2016-07-29] MEDS: ONDANSETRON 4 MG INJ IV SCH ×3 (02:33→14:11)
[2016-07-29 06:01] LABS: ADD SCAN DIFF NO
[2016-07-29 06:16] LABS: BASOPHILS % 0.1 % (0.0-2.0); EOSINOPHILS % 0.1 % (0.0-7.0); HEMATOCRIT 26.5 % (37.0-47.0); HEMOGLOBIN 8.6 g/dl (12.0-16.0); LYMPHOCYTES # 1.3 10^3/ul (0.8-2.9); LYMPHOCYTES % 9.2 % (15.0-51.0); MEAN CORPUSCULAR HGB CONC 32.5 g/dl (32.0-37.0); MEAN CORPUSCULAR VOLUME 89.2 fl (82.0-101.0); MEAN PLATELET VOLUME 9.6 fl (7.4-10.4); MONOCYTE # 0.5 10^3/ul (0.3-0.9); MONOCYTES % 3.8 % (0.0-11.0); NEUTROPHILS % 86.4 % (39.0-77.0); PLATELET COUNT 372 10^3/UL (140-415); RED BLOOD COUNT 2.97 10^6/ul (4.20-5.40); RED CELL DISTRIBUTION WIDTH 15.9 % (11.5-14.5); WHITE BLOOD COUNT 13.8 10^3/ul (4.8-10.8)
[2016-07-29 06:31] LABS: INR 1.25; PARTIAL THROMBOPLASTIN TIME 30.8 Sec (25.0-35.0); PROTIME 15.8 Sec (12.2-14.2); PT RATIO 1.2
[2016-07-29 06:40] LABS: CALCIUM 8.2 mg/dl (8.4-10.2); CREATININE 0.77 mg/dl (0.44-1.00); POTASSIUM 3.9 mmol/L (3.5-5.1)
[2016-07-29 06:52] LABS: ALBUMIN 1.9 g/dl (3.3-4.9); ALBUMIN/GLOBULIN RATIO 0.9; BILIRUBIN,INDIRECT 0.1 mg/dl (0-1.1); BILIRUBIN,TOTAL 0.1 mg/dl (0.2-1.3); CALCIUM 8.1 mg/dl (8.4-10.2); CREATININE 0.72 mg/dl (0.44-1.00); MAGNESIUM 1.8 mg/dl (1.7-2.5); PHOSPHORUS 2.7 mg/dl (2.5-4.9); POTASSIUM 4.3 mmol/L (3.5-5.1)
[2016-07-29] MEDS: FAMOTIDINE 20 MG TAB PO SCH (08:31)
[2016-07-29] MEDS: METOPROLOL 25 MG TAB PO SCH ×2 (08:50→10:31)
[2016-07-29 09:03] LABS: AADO2 Arterial 65.4 mmHg (7.0-24.0); Allen Test ACCEPTAB; Arterial Base Excess -2.2 mmol/L (-3.0-3); Arterial COHb 0.3 % (0.0-3.0); Arterial Fraction of Oxyhgb 96.6 % (93.0-99.0); Arterial HCO3 22.9 mmol/L (22.0-26.0); Arterial MetHb 0.5 % (0.0-1.5); Arterial Total Hemglobin 9.2 g/dl (12.0-18.0); Blood Gas IEPAP 15/5; MODE MASK - BIPAP
--- NOTE | 2016-07-29 11:21 | CONS ---
DATE OF ADMISSION: 07/17/2016 DATE OF CONSULTATION: 07/29/2016 REASON FOR CONSULTATION: Shortness of breath. HISTORY OF PRESENT ILLNESS: This is an 81-year-old lady transferred to the intensive care unit for increasing shortness of breath, orthopnea, PND. She has a diagnosis of heart failure, hypertension, hyperlipidemia, and possible Clostridium difficile infection and diverticulitis. Yesterday noted t o have increasing shortness of breath, orthopnea, PND with hypoxemia requiring transfer to the [facility] unit where she has been placed now on BiPAP. Chest x-ray shows significant bilateral pleu ral effusions. PAST MEDICAL HISTORY: Heart failure, COPD, hypertension, hyperlipidemia. MEDICATIONS: Per chart. ALLERGIES: NONE. SOCIAL HISTORY: Nonsmoker, no alcohol, no history of drug use. FAMILY HISTORY: Noncontributory. SYSTEMS REVIEW: A 12-point review of systems was negative other than that mentioned above. PHYSICAL EXAMINATION: GENERAL: Thin, elderly lady, makes eye contact on BiPAP. VITAL SIGNS: Currently afebrile, pulse is 110, blood pressure 134/60, O2 saturation 96% on BiPAP. NECK: Supple. No JVD or lymphadenopathy. CARDIAC: S1, S2, no added sounds or murmurs. CHEST: Diminished air entry bilaterally. ABDOMEN: Soft, nontender. No guarding or rebound. EXTREMITIES: No cyanosis, clubbing, 1+ edema. NEUROLOGIC: Generalized weakness. LABORATORY DATA: White count 13.8, hemoglobin 8.6, platelets of 372. BUN 11, creatinine 0.72. INR 1.25. DIAGNOSTIC DATA: Chest x-ray was reviewed shows bilateral pleural effusions and vascular congestion . IMPRESSION AND PLAN: 1. Congestive cardiac failure. 2. Hypoxemic respiratory failure. 3. History of diverticulitis. 4. Failure to thrive. The patient will require: 1. Aggressive diuresis. 2. Noninvasive positive pressure ventilation. 3. Continue antibiotics. 4. GI recommendations. 5. Palliative care input as overall prognosis is guarded. Code status should be readdressed. Dictated By: JALEN MENDES MD SV/FRANCOIS Conf#: [id number] DID#: [id number]
[2016-07-29] MEDS ORDERED: FUROSEMIDE 40 MG INJ IV SCH (11:30)
[2016-07-29] MEDS: HYDROCODONE/APAP (5/325) TAB PO PRN (13:03)
--- NOTE | 2016-07-29 16:50 | PN ---
Date/Time of Note Date/Time of Note DATE: 07/29/16 TIME: 16:48 Assessment/Plan VTE Prophylaxis VTE Prophylaxis Intervention: SCD's Lines/Catheters [facility] Peripheral IV Urinary Cath still in place: Yes Reason Cath still needed: urinary retention Assessment/Plan Chief Complaint/Hosp Course Problems: Assessment/Plan Abdominal pain/Diarrhea improved * Diverticulitis * C difficile positive * EGD 06/11/2016 Presbyesophagus R/O eosinophilic esophagitis * Hypertension * Hx of COPD * Diastolic heart failure * Dyslipidemia * S/P left hip hemiarthroplasty * Plan * Continue present management * Adequate hydration * stable for outpatient management Subjective 24 Hr Interval Summary Free Text/Dictation * Course reviewed with RN * patient seen and examined * denies abdominal pain,afebrile Exam/Review of Systems Vital Signs Vitals Vital Signs Date Time Temp Pulse Resp B/P Pulse Ox O2 Delivery O2 Flow Rate FiO2 07/29/16 16:00 107 33 125/51 100 Nasal Cannula 2.0 07/29/16 12:00 98.3 07/29/16 04:58 30 Intake and Output 07/28/16 07/28/16 07/29/16 15:00 23:00 07:00 Intake Total 50 ml 350 ml 850.0 ml Output Total 1450 ml 718 ml Balance 50 ml -1100 ml 132.0 ml Exam Constitutional: frail Eyes: nl conjunctiva Neck: non-tender, supple Respiratory: clear to auscultation, normal air movement Cardiovascular: nl pulses, regular rate and rhythm Gastrointestinal: bowel sounds, non-tender, soft Musculoskeletal: nl extremities to inspection Extremities: normal pulses Skin: nl turgor Results Result Diagram: 07/29/16 0520 07/29/16 0520 Results 24 hrs Laboratory Tests Test 07/28/16 19:15 07/28/16 21:29 07/29/16 05:20 07/29/16 07:00 White Blood Count 18.3 #H 13.8 #H Red Blood Count 3.36 L 2.97 L Hemoglobin 9.7 L 8.6 L Hematocrit 30.3 L 26.5 L Mean Corpuscular Volume 90.2 89.2 Mean Corpuscular Hemoglobin 28.9 L 29.0 Mean Corpuscular Hemoglobin Concent 32.0 32.5 Red Cell Distribution Width 15.9 H 15.9 H Platelet Count 441 H 372 Mean Platelet Volume 9.3 9.6 Neutrophils % 90.6 H 86.4 H Lymphocytes % 5.1 L 9.2 L Monocytes % 3.5 3.8 Eosinophils % 0.1 0.1 Basophils % 0.2 0.1 Nucleated Red Blood Cells % 0.0 0.0 Neutrophils # 16.6 H 12.0 H Lymphocytes # 0.9 1.3 Monocytes # 0.6 0.5 Eosinophils # 0.0 0.0 Basophils # 0.0 0.0 Nucleated Red Blood Cells # 0.0 0.0 Sodium Level 137 136 Potassium Level 3.0 L 4.3 Chloride Level 107 111 H Carbon Dioxide Level 23 23 Anion Gap 10 6 L Blood Urea Nitrogen 10 11 Creatinine 0.74 0.72 Glucose Level 178 104 Calcium Level 8.3 L 8.1 L Magnesium Level 1.6 L 1.8 Blood Gas Specimen Source Blood arterial Blood arterial Arterial Blood Date Drawn 07/28/2016 9:46:14 PM 07/29/2016 8:10:26 AM Arterial Blood pH (Temp corrected) 7.316 L 7.370 Arterial Blood pCO2 (Temp correct) 50.0 H 40.5 Arterial Blood pO2 (Temp corrected) 143.6 H 100.9 H Arterial Blood HCO3 25.0 22.9 Arterial Blood Base Excess -1.5 -2.2 Arterial Blood Oxygen Saturation 98.6 97.4 Quintin Test ACCEPTAB ACCEPTAB Arterial Blood Gas Puncture Site Left Radial Right Radial Arterial Blood Carboxyhemoglobin 0.3 0.3 Arterial Blood Methemoglobin 0.3 0.5 Blood Gas A-a O2 Differential 156.7 H 65.4 H Oxyhemoglobin Percent 98.0 96.6 Total Hemoglobin 10.1 L 9.2 L Blood Gas Temperature 37.0 37.0 Blood Gas Respiration Rate 20.0 20.0 Blood Gas Actual Respiration Rate 23 26 Blood Gas Modality MASK - BIPAP MASK - BIPAP FiO2 50.0 30.0 Blood Gas Pressure Support 10 Blood Gas IPAP/EPAP Ratio 05/08 05/08 Blood Gas Notified Whom Alejandra KENNEY Blood Gas Notified Time 07/28/2016 9:57:49 PM 07/29/2016 9:03:11 AM Prothrombin Time 15.8 H Prothrombin Time Ratio 1.2 INR International Normalized Ratio 1.25 Activated Partial Thromboplast Time 30.8 Phosphorus Level 2.7 Total Bilirubin 0.1 L Direct Bilirubin 0.00 Indirect Bilirubin 0.1 Aspartate Amino Transf (AST/SGOT) 42 Alanine Aminotransferase (ALT/SGPT) 29 Alkaline Phosphatase 89 Total Protein 4.0 L Albumin 1.9 L Globulin 2.10 Albumin/Globulin Ratio 0.90 Medications Medications Current Medications Dextrose/Sodium Chloride (D5-1/2ns) 1,000 ml @ 50 mls/hr Q20H IV Last administered on 07/28/16 21:47; Admin Dose 50 MLS/HR; Start 07/18/16 at 08:23 Acetaminophen/ Hydrocodone Bitart ([place] (5/325)) 1 tab Q6H PRN PO PAIN Last administered on 07/29/16 13:03; Admin Dose 1 TAB; Start 07/20/16 at 09:30 Vancomycin HCl (Vancomycin Oral Syringe) 250 mg Q6 PO Last administered on 05:48; Admin Dose 250 MG; Start 07/20/16 at 13:30 Al Hydrox/Mg Hydrox/Simethicone (Mag-Al Plus) 30 ml Q4H PRN PO GASTROINTESTINAL UPSET Last administered on 07/20/16 18:14; Admin Dose 30 ML; Start 07/20/16 at 16:00 Nitroglycerin (Nitroglycerin (Sl Tab) 0.4 Mg) 1 tab Q5M PRN SL ANGINA; Start at 18:30 Clonidine (Catapres) 0.1 mg Q6H PRN PO ELEVATED BLOOD PRESSURE Last administered on 07/25/16 18:55; Admin Dose 0.1 MG; Start 07/22/16 at 02:00 Metoprolol Tartrate (Lopressor) 25 mg BID PO Last administered on 07/29/16 10: 31; Admin Dose 25 MG; Start 07/22/16 at 09:00 Famotidine (Pepcid) 20 mg DAILY PO Last administered on 07/28/16 10:01; Admin Dose 20 MG; Start 07/25/16 at 09:00 Zolpidem Tartrate (Ambien) 5 mg HS PRN PO INSOMNIA Last administered on 23:25; Admin Dose 5 MG; Start 07/24/16 at 23:00 Miscellaneous Information Patients own medicat... BID@, XX ; Start 07/27/16 at 10:00 Hydralazine HCl (Apresoline) 10 mg Q6H PRN IV ELEVATED SYSTOLIC BP Last administered on 07/27/16 01:54; Admin Dose 10 MG; Start 07/27/16 at 01:30 Ondansetron HCl (Zofran Inj) 4 mg Q6H IV Last administered on 07/29/16 14:11; Admin Dose 4 MG; Start 07/27/16 at 14:30 Metronidazole (Flagyl) 500 mg Q6 PO Last administered on 07/29/16 11:42; Admin Dose 500 MG; Start 07/28/16 at 18:00 TAYLOR BRAUN MD July 29, 2016 16:50
--- NOTE | 2016-07-30 06:57 | DS ---
DATE OF ADMISSION: 07/17/2016 DATE OF DISCHARGE: 07/29/2016 DISCHARGE DIAGNOSES: 1. Clostridium difficile colitis, now resolved. 2. Abdominal pain, now resolved. 3. Altered mental status, MRI negative for any acute cerebrovascular accident. 4. Hypercapnic respiratory failure, now resolved status post BiPAP. 5. History of diastolic heart failure, compensated. 6. Debility secondary to recent hip fracture, home health with PT. HOSPITAL COURSE: The patient is an 81-year-old female with a history of debility secondary to a rec ent right hip fracture. The patient also has a history of Clostridium difficile colitis. The javon mckeon presents with abdominal pain and diarrhea. She was diagnosed once again with Clostridium diffici le colitis. She was seen by GI. She was treated with vancomycin p.o. as well as Flagyl. The javon mckeon's diarrhea did resolve. The patient was at one point going to get discharged, but she became alt ered. She had a brain MRI that was negative for any acute CVA. She had an ABG that showed a respir atory acidosis and she was started on BiPAP. Her respiratory acidosis did resolve. She was somewha t altered and it was felt that this is secondary to delirium. The patient is fragile. With her his tory of debility, it was felt that it is better for patient to be discharged back home in her own en vironment. This was discussed with the patient's family who is bedside. The patient was to be prov ided with home health ____ at home. On the day of discharge, the patient's vitals, labs, physical e xam were stable. She had no reports of any pain. Questions of the family were answered. CONDITION ON DISCHARGE: Fair. DISPOSITION: Home with home health. MEDICATIONS: The patient was not prescribed any new medications on discharge, did not need any furt her antibiotics. She is to continue her usual home medications. FOLLOWUP: The patient is to follow up with her PCP in 1 to 2 weeks and with home health. Greater than 30 minutes was spent coordinating discharge of patient. Dictated By: BERT FREED MD BS/NTS Conf#: [id number] DID#: [id number]
== END 2016-07-29 16:00 | disposition home health service (06) | DRG 371 ==
LOC: E/R 17:55 → MS2 20:43 → MS4 07-25 23:25 → ICU 07-28 20:03
PROVIDERS: ADMIT Internal Medicine; ATTEND Internal Medicine
PROC: 5A09357 Assistance with Respiratory Ventilation, Less than 24 Consecutive Hours, Continuous Positive Airway Pressure (ICD-10-PCS; principal; 2016-07-28)
DX: A04.7 Enterocolitis due to Clostridium difficile (principal); J96.01 Acute respiratory failure with hypoxia; J96.02 Acute respiratory failure with hypercapnia; I13.0 Hypertensive heart and chronic kidney disease with heart failure and stage 1 through stage 4 chronic kidney disease, or unspecified chronic kidney disease; I50.42 Chronic combined systolic (congestive) and diastolic (congestive) heart failure; K57.32 Diverticulitis of large intestine without perforation or abscess without bleeding; J44.9 Chronic obstructive pulmonary disease, unspecified; R62.7 Adult failure to thrive; N18.9 Chronic kidney disease, unspecified; K29.50 Unspecified chronic gastritis without bleeding; E78.5 Hyperlipidemia, unspecified; I25.10 Atherosclerotic heart disease of native coronary artery without angina pectoris; K22.8 Other specified diseases of esophagus; F41.0 Panic disorder [episodic paroxysmal anxiety]; R07.89 Other chest pain; R41.82 Altered mental status, unspecified; Z96.641 Presence of right artificial hip joint; Z88.0 Allergy status to penicillin
CPT/HCPCS: 36415; 36600; 70450; 70551; 71010; 74000; 74176; 80048; 80053; 81003; 82270; 82803; 83605; 83690; 83735; 83880; 84100; 84484; 85025; 85610; 85730; 87040; 87045; 87075; 87081; 87205; 92610; 93005; 94640; 94660; 94664; 96365; 96366; 96367; 96368; 96375; J1940; J0360; J0744; J2060; J2405; J2765; J3475; J3480; J7030; J7042; P9047; P9612